=== PATIENT | female | born 1990 | race African-American/Black ===

== ENCOUNTER 2019-06-04 16:05 | Inpatient (IN) | payer SELFPAY ==
[2019-06-04] MEDS ORDERED: Haloperidol Lactate 5 MG/ML VIAL ONE (16:34)
[2019-06-04 16:51] LABS: #Lymphocytes 1.3 thou/uL (1.20-3.40); #Monocytes 0.4 thou/uL (0.11-0.59); %Basophils 0.1 % (0.0-1.0); %Eosinophils 0.1 % (0.0-10.0); %Lymphocytes 11.2 % (21.0-51.0); %Monocytes 3.5 % (0.0-10.0); %Neutrophils 85.1 % (42.0-75.0); Hemoglobin 12.3 g/dL (12.0-16.0); Mean Corpuscular HGB CONC 33.7 g/dL (32.0-36.0); Mean Corpuscular Hemoglobin 29.4 pg (27.0-31.0); Mean Corpuscular Volume 87.2 fL (78.0-98.0); Mean Platelet Volume 7.4 fL (7.4-10.4); Platelet Count 282 thou/uL (130-400); RBC Distribution Width 12.1 % (11.5-14.5); White Blood Cell (WBC) Count 11.7 thou/uL (4.8-10.8)
--- NOTE | 2019-06-04 16:58 | RAD ---
Portable frontal chest radiograph: 06/04/2019 COMPARISON: None HISTORY: Abdominal pain FINDINGS: Lungs are clear. Heart and mediastinal contours appear within normal limits. IMPRESSION: No acute findings.
[2019-06-04 17:22] LABS: ALT (SGPT) 12 U/L (8-55); Alkaline Phosphatase 80 U/L (40-110); BUN (Urea Nitrogen) 15 mg/dL (7.0-18.7); CK (CPK) 76 U/L (29-168)
[2019-06-04 17:23] LABS: AST (SGOT) 14 U/L (5-34); Albumin 5.1 g/dL (3.5-5.0); Anion Gap 28 mmol/L (10-20); Bilirubin, Total 0.4 mg/dL (0.2-1.2); Calc. Creatinine Clearance 0 mL/min (70-130); Calcium 9.8 mg/dL (7.8-10.44); Carbon Dioxide 15 mmol/L (22-29); Chloride 99 mmol/L (98-107); Estimated GFR-MDRD 65; Globulin 3.8 g/dL (2.4-3.5); Glucose 485 mg/dL (70-105); Potassium 3.9 mmol/L (3.5-5.1); Protein, Total 8.9 g/dL (6.0-8.3); Sodium 138 mmol/L (136-145)
[2019-06-04 17:56] LABS: Base Excess-Venous -4.8 mmol/L (-2.0 to 3.0); Bicarbonate (HCO3v) 18.8 mmol/L (22.0-28.0); CO2 Tension (PvCO2) 29.6 mmHg (40.0-50.0); Calcium, Ionized 0.99 mmol/L (See Comments:); Chloride 106 mmol/L (98-107); Hemoglobin - Calc 11.6 g/dL (12.0-16.0); Potassium 3.8 mmol/L (3.5-5.1); Sodium 137 mmol/L (138-145); T. Carbon Dioxide 19.7 mmol/L (22.0-28.0); vO2 Saturation-calc 95.5 % (60.0-85.0)
[2019-06-04] MEDS ORDERED: Insulin Regular 300 UNITS/3 ML VIAL ONE (17:58)
[2019-06-04 19:54] LABS: Bilirubin Negative (Negative); Blood, Urine Negative (Negative); Clarity Clear (Clear); Glucose, Urine (Dipstick) Greater than 1000 mg/dL (Negative); Leukocyte Negative Leu/uL (Negative); Nitrite Negative (Negative); Protein, Urine (Dipstick) Negative (Neg-Trace); Urobilinogen Normal mg/dL (Less than 2)
[2019-06-04 19:56] LABS: Pregnancy Test - Urine (BHCG) Negative (Negative); Pregu Control Background? CLEAR/WHITE (CLR/WHITE); Pregu Control Bar Appear? YES (CONTROL BAR); Specific Gravity 1.033 (1.002-1.036)
[2019-06-04] MEDS ORDERED: Insulin Regular 100 units/100 ml in NS IVPB SCH (20:00)
[2019-06-04] MEDS ORDERED: NS 0.9% w/ 20 MEQ KCL 1,000 ML IV SCH (20:15)
[2019-06-04] MEDS ORDERED: Dextrose 5 %-0.45 % NaCl 1,000 ML IV PRN (20:49)
[2019-06-04] MEDS ORDERED: D5 1/2 NS w/20 mEq KCL 1,000 ML IV PRN (20:49)
[2019-06-04] MEDS ORDERED: Sodium Chloride 0.9% 1,000 ML IV PRN ×4 (20:49)
[2019-06-04] MEDS ORDERED: NS 0.9% w/ 20 MEQ KCL 1,000 ML IV PRN ×2 (20:49)
[2019-06-04] MEDS ORDERED: CCU Electrolyte Replacement 1 EACH IVPB SCH (20:49)
[2019-06-04] MEDS ORDERED: Potassium Chloride 40 MEQ in Premix Bag 1 BAG IVPB PRN (20:51)
[2019-06-04] MEDS ORDERED: Potassium Phosphate 12 MMOL in Sodium Chloride 0.9% 250 ML 250 ML IV PRN (20:51)
[2019-06-04] MEDS ORDERED: Magnesium Oxide 400 MG TAB PO PRN ×2 (20:51)
[2019-06-04] MEDS ORDERED: Potassium Chloride 40 MEQ in Sodium Chloride 0.9% 250 ML 250 ML IVPB PRN (20:51)
[2019-06-04] MEDS ORDERED: Magnesium 2 GM/50 ML 2 GM in Premix Bag 1 BAG IVPB PRN (20:51)
[2019-06-04] MEDS ORDERED: Potassium Phosphate 9 MMOL in Sodium Chloride 0.9% 100 ML IVPB PRN (20:51)
[2019-06-04] MEDS ORDERED: Potassium Chloride 20 MEQ TAB PO PRN (20:51)
[2019-06-04] MEDS ORDERED: CCU ELECTROLYTE REPLACEMENT PROTOCOL FS PRN (20:51)
[2019-06-04] MEDS ORDERED: Potassium Phosphate 15 MMOL in Sodium Chloride 0.9% 250 ML 250 ML IV PRN (20:51)
[2019-06-04] MEDS ORDERED: PHOS-NAK 1 PKT PACK PO PRN ×2 (20:51)
[2019-06-04] MEDS ORDERED: HUMULIN R 100 UNITS in Sodium Chloride 0.9% 100 ML IVPB SCH (21:00)
--- NOTE | 2019-06-04 21:03 | PDOC.HHP ---
Hospitalist HPI - History of Present Illness Abdominal pain, nausea, vomiting History of Present Illness: Ms. Castro is a 28 y/o lady with PMH of T1DM who presents to the ED for abdominal pain/nausea/vomiting for the past 2 days. She states that she takes a sliding scale insulin at home but has been unable to check her blood sugars because she ran out of test strips. States that two days started developing diffuse abdominal pain, character is crampy/pressure like, timing has been intermittent, associated with nauea and vomiting. When inquiring about her diabetes management she states she has been admitted several times for DKA. She currently has complex social situation and lives with her friend's mother. In the ED, found to have blood sugar > 400, anion gap of 24, positive serum ketones and urine ketone > 150. She was started on insulin drip and giving 2L bolus of fluids. Hospitalist ROS - Review of Systems Constitutional: denies: fever, chills, sweats, weakness, malaise, other Eyes: denies: pain, vision change, conjunctivae inflammation, eyelid inflammation, redness, other ENT: denies: ear pain, ear discharge, nose pain, nose discharge, nose congestion , mouth pain, mouth swelling, throat pain, throat swelling, other Respiratory: denies: cough, dry, shortness of breath, hemoptysis, SOB with excertion, pleuritic pain, sputum, wheezing, other Cardiovascular: denies: chest pain, palpitations, orthopnea, paroxysmal noc. dyspnea, edema, light headedness, other Gastrointestinal: reports: nausea, vomiting, abdominal pain. denies: diarrhea, constipation, melena, hematochezia, other Genitourinary: denies: dysuria, frequency, incontinence, hematuria, retention, other Musculoskeletal: denies: neck pain, shoulder pain, arm pain, back pain, hand pain, leg pain, foot pain, other Skin: denies: rash, lesions, artur, bruising, other Neurological: denies: weakness, numbness, incoordination, change in speech, confusion, seizures, other - Medication Medications: Promethegan Shy Jun 04, 2019 17:47 NOEMI Muhammad Brandi suppository : Strength - 25 mg : RECTAL Patient Dose: 25 mg Rectal every 6 hours PRN. promethazine oral Shy Jun 04, 2019 17:48 NOEMI Muhammad Brandi tablet : Strength - 25 mg : ORAL Patient Dose: 25 mg Oral every 6 hours PRN. dicyclomine oral WedJun 04, 2019 20:00 NOEMI Muhammad Brandi capsule : Strength - 10 mg : ORAL Patient Dose: 10 mg every 4 hours prn. famotidine oral WedJun 04, 2019 20:02 NOEMI Muhammad Brandi tablet : Strength - 20 mg : ORAL Patient Dose: 20 mg Oral 2 times a day. gabapentin WedJun 04, 2019 20:02 NOEMI Muhammad Brandi tablet : Strength - 300 mg : ORAL Patient Dose: 300 mg Oral. HumuLIN 70/30 U-100 Insulin WedJun 04, 2019 20:04 NOEMI Muhammad Brandi cartridge : Strength - 100 unit/mL (70-30) : SUBCUTANEOUS Patient Dose: 25 units Subcutaneous once a day (before a meal).30 units once a day before dinner. insulin lispro WedJun 04, 2019 20:04 NOEMI Muhammad Brandi solution : Strength - 100 unit/mL : SUBCUTANEOUS Patient Dose: Unknown. pantoprazole oral WedJun 04, 2019 20:05 NOEMI Muhammad Brandi tablet,delayed release (DR/EC) : Strength - 40 mg : ORAL Patient Dose: 40 mg Oral once a day. QUEtiapine WedJun 04, 2019 20:06 NOEMI Muhammad Brandi tablet : Strength - 200 mg : ORAL Patient Dose: 200 mg Oral once a day (at bedtime). sertraline WedJun 04, 2019 20:06 NOEMI Muhammad Brandi tablet : Strength - 50 mg : ORAL Patient Dose: 1.5 tab(s) Oral once a day. sucralfate WedJun 04, 2019 20:07 NOEMI Muhammad Brandi tablet : Strength - 1 gram : ORAL Patient Dose: 1 g Oral. Hospitalist History - Past Medical History Cardiac: reports: no pertinent history Pulmonary: reports: no pertinent history FLIGHT SECURITY SPECIALIST: reports: no pertinent history Gastrointestinal: reports: no pertinent history Heme/Onc: reports: no pertinent history Hepatobiliary: reports: no pertinent history Psych: reports: Anxiety Musculoskeletal: reports: no pertinent history Rheumatologic: reports: no pertinent history Infectious Disease: reports: no pertinent history ENT: reports: no pertinent history Renal/: reports: no pertinent history Endocrine: reports: Diabetes Dermatology: reports: no pertinent history - Past Surgical History Past Surgical History: reports: Other (Lymph node removal in neck) - Family History Family History: reports: diabetes mellitus - Social History Smoking Status: Unknown if ever smoked Alcohol: reports: None Drugs: reports: marijuana Living Situation: Friends Activity level: independent ambulation - Exam General Appearance: NAD, awake alert, ill appearing Eye: PERRL, anicteric sclera ENT: normocephalic atraumatic, no oropharyngeal lesions, moist mucosa Neck: supple, symmetric, no JVD, no thyromegaly, no lymphadenopathy, no carotid bruit Heart: RRR, no murmur, no gallops, no rubs, normal peripheral pulses Respiratory: CTAB, no wheezes, no rales, no ronchi, normal chest expansion, no tachypnea, normal percussion Gastrointestinal: soft, non-distended, normal bowel sounds, no palpable masses, no hepatomegaly, no splenomegaly, no bruit, tender to palpation Extremities: no cyanosis, no clubbing, no edema Skin: normal turgor, no lesions, no rashes Neurological: cranial nerve grossly intact, normal sensation to touch, no weakness, no focal deficits, no new deficit Musculoskeletal: normal tone, normal strength, no muscle wasting Psychiatric: normal affect, normal behavior, A&O x 3 Hospitalist Results - Labs Result Diagrams: 06/04/19 16:40 06/04/19 19:59 Lab results: WBC 11.7 thou/uL (4.8-10.8) H 06/04/19 16:40 Hgb 12.3 g/dL (12.0-16.0) 06/04/19 16:40 Hct 36.6 % (36.0-47.0) 06/04/19 16:40 MCV 87.2 fL (78.0-98.0) 06/04/19 16:40 Plt Count 282 thou/uL (130-400) 06/04/19 16:40 Neutrophils % 85.1 % (42.0-75.0) H 06/04/19 16:40 VBG pCO2 29.6 mmHg (40.0-50.0) L 06/04/19 17:53 VBG pO2 76.4 mmHg (35.0-45.0) H 06/04/19 17:53 Sodium 138 mmol/L (136-145) 06/04/19 16:40 Potassium 3.9 mmol/L (3.5-5.1) 06/04/19 16:40 Chloride 99 mmol/L (98-107) 06/04/19 16:40 Carbon Dioxide 15 mmol/L (22-29) L 06/04/19 16:40 BUN 15 mg/dL (7.0-18.7) 06/04/19 16:40 Creatinine 1.21 mg/dL (0.6-1.1) H 06/04/19 16:40 Glucose 485 mg/dL (70-105) H 06/04/19 16:40 Calcium 9.8 mg/dL (7.8-10.44) 06/04/19 16:40 Total Bilirubin 0.4 mg/dL (0.2-1.2) 06/04/19 16:40 AST 14 U/L (5-34) 06/04/19 16:40 ALT 12 U/L (8-55) 06/04/19 16:40 Alkaline Phosphatase 80 U/L (40-110) 06/04/19 16:40 Creatine Kinase 76 U/L (29-168) 06/04/19 16:40 Troponin I 0.024 ng/mL (< 0.028) 06/04/19 16:40 Serum Total Protein 8.9 g/dL (6.0-8.3) H 06/04/19 16:40 Albumin 5.1 g/dL (3.5-5.0) H 06/04/19 16:40 Urine Ketones Greater than 150 mg/dL (Negative) A 06/04/19 19:36 Urine Blood Negative (Negative) 06/04/19 19:36 Urine Nitrite Negative (Negative) 06/04/19 19:36 Ur Leukocyte Esterase Negative Roxy/uL (Negative) 06/04/19 19:36 Additional comment: VITAL SIGNS Sun Jun 04, 2019 20:09 NOEMI Muhammad, Daysi BP: 146/92, Pulse: 133, Resp: 16, Temp: 98.7, O2 sat: 99, Time: 06/04/2019 20: 09. - Radiology Interpretation Chest x-ray Status: report reviewed by me Hospitalist H&P A/P - Problem (1) Diabetic ketoacidosis Code(s): E11.10 - TYPE 2 DIABETES MELLITUS WITH KETOACIDOSIS WITHOUT COMA Status: Acute (2) Type 1 diabetes mellitus Status: Chronic (3) Diabetic peripheral neuropathy Code(s): E11.42 - TYPE 2 DIABETES MELLITUS WITH DIABETIC POLYNEUROPATHY Status : Chronic (4) Anxiety and depression Code(s): F41.9 - ANXIETY DISORDER, UNSPECIFIED; F32.9 - MAJOR DEPRESSIVE DISORDER, SINGLE EPISODE, UNSPECIFIED Status: Chronic - Plan Plan: Admit to IMCU for DKA IV Insulin, DKA protocol in place NS bolus given 2L Monitor BMP q4hr, replete phos, mag, potassium as per protocol Resume home medications when reconciled DVT Prophylaxis: SCDs Code status: Full Code Disposition: Admit IMCU. Management of DKA. Once gap is closed can transition to insulin.
[2019-06-04 21:06] LABS: Anion Gap 21 mmol/L (10-20); BUN (Urea Nitrogen) 13 mg/dL (7.0-18.7); Calc. Creatinine Clearance 0 mL/min (70-130); Calcium 8.9 mg/dL (7.8-10.44); Carbon Dioxide 18 mmol/L (22-29); Chloride 108 mmol/L (98-107); Estimated GFR-MDRD 80; Glucose 275 mg/dL (70-105); Magnesium 1.8 mg/dL (1.6-2.6); Phosphorus 3.3 mg/dL (2.3-4.7); Potassium 3.9 mmol/L (3.5-5.1); Sodium 143 mmol/L (136-145)
[2019-06-05 01:24] LABS: Anion Gap 11 mmol/L (10-20); BUN (Urea Nitrogen) 13 mg/dL (7.0-18.7); Calc. Creatinine Clearance 0 mL/min (70-130); Calcium 8.2 mg/dL (7.8-10.44); Carbon Dioxide 22 mmol/L (22-29); Chloride 115 mmol/L (98-107); Estimated GFR-MDRD Greater than 90; Glucose 161 mg/dL (70-105); Potassium 3.9 mmol/L (3.5-5.1); Sodium 144 mmol/L (136-145)
[2019-06-05] MEDS ORDERED: Ondansetron PF 4 MG/2 ML Vial IVP PRN ×2 (01:26→13:12)
[2019-06-05] MEDS ORDERED: Ondansetron ODT 4 MG TAB SL PRN (01:26)
[2019-06-05] MEDS ORDERED: Haloperidol Lactate 5 MG/ML VIAL SLOW IVP PRN (01:37)
[2019-06-05 04:16] LABS: Anion Gap 16 mmol/L (10-20); BUN (Urea Nitrogen) 12 mg/dL (7.0-18.7); Calc. Creatinine Clearance 0 mL/min (70-130); Calcium 8.6 mg/dL (7.8-10.44); Carbon Dioxide 18 mmol/L (22-29); Chloride 112 mmol/L (98-107); Estimated GFR-MDRD Greater than 90; Glucose 194 mg/dL (70-105); Potassium 3.8 mmol/L (3.5-5.1); Sodium 142 mmol/L (136-145)
[2019-06-05 08:50] LABS: Anion Gap 8 mmol/L (10-20); BUN (Urea Nitrogen) 9 mg/dL (7.0-18.7); Calc. Creatinine Clearance 0 mL/min (70-130); Calcium 7.9 mg/dL (7.8-10.44); Carbon Dioxide 22 mmol/L (22-29); Chloride 113 mmol/L (98-107); Estimated GFR-MDRD Greater than 90; Glucose 240 mg/dL (70-105); Sodium 139 mmol/L (136-145)
[2019-06-05] MEDS ORDERED: HumaLOG 300 UNITS/3 ML VIAL SC PRN (10:21)
[2019-06-05] MEDS ORDERED: Dextrose 5% in Water 1,000 ML IV PRN (10:21)
[2019-06-05] MEDS ORDERED: Dextrose 50 % In Water 50 ML SYRINGE IV PRN (10:21)
[2019-06-05] MEDS ORDERED: Insulin Glargine 20 UNITS in Pre-Filled Syringe 1 EACH SC SCH (10:30)
--- NOTE | 2019-06-05 10:31 | PDOC.HOSPP ---
- Subjective Encounter Date: 06/05/19 Subjective: Gap is closed this morning. She was reportedly agitated at night and received haldol. She continues to have abdominal pain this morning but is feeling a bit more hungry. - Objective Vital Signs & Weight: Vital Signs (12 hours) Temp Pulse Ox 06/05/19 10:24 98.3 F 06/05/19 07:57 99 06/05/19 07:15 98.3 F 06/05/19 03:17 97.9 F I&O: 06/04/19 06/05/19 06/06/19 06:59 06:59 06:59 Intake Total 1250 250 Balance 1250 250 Result Diagrams: 06/05/19 18:08 06/05/19 08:22 Additional Labs: Accuchecks 06/05/19 06/05/19 06/05/19 10:07 09:04 08:14 POC Glucose 190 H 216 H 237 H 06/05/19 06/05/19 06/05/19 07:20 07:00 05:59 POC Glucose 249 H 271 H 249 H 06/05/19 06/05/19 06/05/19 05:02 04:17 03:01 POC Glucose 266 H 225 H 171 H 06/05/19 06/05/19 06/04/19 02:05 00:29 23:21 POC Glucose 139 H 168 H 182 H 06/04/19 06/04/19 06/04/19 22:10 21:05 19:11 POC Glucose 230 H 291 H 300 H Hospitalist ROS - Review of Systems Constitutional: denies: fever, chills, sweats, weakness, malaise, other Eyes: denies: pain, vision change, conjunctivae inflammation, eyelid inflammation, redness, other ENT: denies: ear pain, ear discharge, nose pain, nose discharge, nose congestion , mouth pain, mouth swelling, throat pain, throat swelling, other Respiratory: denies: cough, dry, shortness of breath, hemoptysis, SOB with excertion, pleuritic pain, sputum, wheezing, other Cardiovascular: denies: chest pain, palpitations, orthopnea, paroxysmal noc. dyspnea, edema, light headedness, other Gastrointestinal: reports: abdominal pain. denies: nausea, vomiting, diarrhea, constipation, melena, hematochezia, other Genitourinary: denies: dysuria, frequency, incontinence, hematuria, retention, other Musculoskeletal: denies: neck pain, shoulder pain, arm pain, back pain, hand pain, leg pain, foot pain, other Skin: denies: rash, lesions, artur, bruising, other Neurological: denies: weakness, numbness, incoordination, change in speech, confusion, seizures, other - Medication Medications: Active Medications Generic Name Dose Route Start Last Admin Trade Name Freq PRN Reason Stop Dose Admin Potassium Chloride/Dextrose/Sod Cl 1,000 mls @ 250 mls/hr 06/04/19 20:49 00:01 D5 1/2 Ns W/20 Meq Kcl IV 1,000 mls .Q4H PRN Administration Step 4 of DKA Protocol Protocol - Exam General Appearance: NAD, awake alert Eye: PERRL, anicteric sclera ENT: normocephalic atraumatic, no oropharyngeal lesions, moist mucosa Neck: supple, symmetric, no JVD, no thyromegaly, no lymphadenopathy, no carotid bruit Heart: RRR, no murmur, no gallops, no rubs, normal peripheral pulses Respiratory: CTAB, no wheezes, no rales, no ronchi, normal chest expansion, no tachypnea, normal percussion Gastrointestinal: soft, non-tender, non-distended, normal bowel sounds, no palpable masses, no hepatomegaly, no splenomegaly, no bruit Extremities: no cyanosis, no clubbing, no edema Skin: normal turgor, no lesions, no rashes Neurological: cranial nerve grossly intact, normal sensation to touch, no weakness, no focal deficits, no new deficit Musculoskeletal: normal tone, normal strength, no muscle wasting Psychiatric: normal affect, normal behavior, A&O x 3 Hosp A/P (1) Diabetic ketoacidosis Code(s): E11.10 - TYPE 2 DIABETES MELLITUS WITH KETOACIDOSIS WITHOUT COMA Status: Acute Plan: Gap closed, transition to 20u Glargine and HumaLog 5u TID AC with medium dose sliding scale. (2) Type 1 diabetes mellitus Status: Chronic Plan: As above. Continue BSG q4hr for now. (3) Diabetic peripheral neuropathy Code(s): E11.42 - TYPE 2 DIABETES MELLITUS WITH DIABETIC POLYNEUROPATHY Status : Chronic Plan: Restart home gabapentin (4) Anxiety and depression Code(s): F41.9 - ANXIETY DISORDER, UNSPECIFIED; F32.9 - MAJOR DEPRESSIVE DISORDER, SINGLE EPISODE, UNSPECIFIED Status: Chronic Plan: Restart home seroquel, sertraline, and trazodone HS (5) Abdominal pain Code(s): R10.9 - UNSPECIFIED ABDOMINAL PAIN Status: Acute Plan: CT abdomen unremarkable, she is refusing her home prokinetics, i suspect she has gastroparesis, Reglan to be given today.
[2019-06-05] MEDS: Sucralfate 1 GM TAB PO SCH ×3 (11:50→22:11)
[2019-06-05] MEDS ORDERED: Promethazine 25 MG TAB PO PRN (13:14)
[2019-06-05] MEDS: Morphine 2 MG/ML SYRINGE SLOW IVP PRN ×2 (13:22→22:07)
--- NOTE | 2019-06-05 13:27 | RAD ---
EXAM: XR Abdomen 1 View/KUB PROVIDED CLINICAL HISTORY: Abdominal pain for COMPARISON: None FINDINGS: Limited visualized lung bases are clear. Bowel gas pattern is nonspecific. Multiple lucent centered c alcifications overlie the pelvis bilaterally most suggestive of phleboliths. No suspicious calcifications are seen overlying the expected location of either collecting system or along the cour se of either ureter. Osseous structures have a normal appearance. IMPRESSION: Nonspecific bowel gas pattern.
[2019-06-05] MEDS: HumaLOG 300 UNITS/3 ML VIAL SC SCH ×2 (16:02→17:24)
[2019-06-05] MEDS: Gabapentin 300 MG CAP PO SCH ×2 (16:03→22:11)
[2019-06-05] MEDS ORDERED: Morphine 4 MG/ML VIAL SLOW IVP PRN (16:49)
--- NOTE | 2019-06-05 17:12 | CT ---
EXAM: CT abdomen and pelvis without IV contrast PROVIDED CLINICAL HISTORY: Pain COMPARISON: 06/03/2019 FINDINGS: The visualized lung bases are free of significant opacity. The solid abdominal organs demonstrate an unremarkable unenhanced CT appearance. There is no bowel dilatation, inflammatory fat stranding, free fluid or free air apparent. There is n o evidence for appendicitis. Marked distention of the urinary bladder. No regional lymph node enlargement apparent. The regional major vascular structures appear unremarkab le. The osseous structures demonstrate no concerning lytic or blastic lesions. IMPRESSION: No evidence for an acute process.
[2019-06-05 18:15] LABS: #Lymphocytes 1.5 thou/uL (1.20-3.40); #Monocytes 0.5 thou/uL (0.11-0.59); #Neutrophils 10.9 thou/uL (1.40-6.50); %Basophils 0.3 % (0.0-1.0); %Eosinophils 0.1 % (0.0-10.0); %Lymphocytes 11.2 % (21.0-51.0); %Monocytes 4.1 % (0.0-10.0); %Neutrophils 84.3 % (42.0-75.0); Hemoglobin 10.5 g/dL (12.0-16.0); Mean Corpuscular HGB CONC 32.2 g/dL (32.0-36.0); Mean Platelet Volume 7.1 fL (7.4-10.4); Platelet Count 258 thou/uL (130-400); RBC Distribution Width 12.3 % (11.5-14.5); Red Blood Cell (RBC) Count 3.64 mill/uL (4.20-5.40); White Blood Cell (WBC) Count 12.9 thou/uL (4.8-10.8)
[2019-06-05 18:34] LABS: Lactic Acid 1.8 mmol/L (0.5-2.2)
[2019-06-05] MEDS ORDERED: Metoclopramide HCl 10 MG/2 ML VIAL IVP SCH (19:15)
[2019-06-05] MEDS: Famotidine 20 MG TAB PO SCH (22:12)
[2019-06-05] MEDS: traZODone HCl 50 MG TAB PO SCH (22:12)
[2019-06-05] MEDS: Dicyclomine 10 MG CAP PO PRN (22:12)
[2019-06-06 04:16] LABS: Anion Gap 9 mmol/L (10-20); BUN (Urea Nitrogen) 6 mg/dL (7.0-18.7); Calc. Creatinine Clearance 111 mL/min (70-130); Calcium 8.1 mg/dL (7.8-10.44); Carbon Dioxide 23 mmol/L (22-29); Chloride 108 mmol/L (98-107); Estimated GFR-MDRD Greater than 90; Glucose 240 mg/dL (70-105); Potassium 3.6 mmol/L (3.5-5.1); Sodium 136 mmol/L (136-145)
[2019-06-06] MEDS: Morphine 2 MG/ML SYRINGE SLOW IVP PRN ×4 (07:22→21:20)
[2019-06-06] MEDS: HumaLOG 300 UNITS/3 ML VIAL SC SCH ×3 (07:23→16:52)
--- NOTE | 2019-06-06 08:28 | PDOC.HOSPP ---
- Subjective Subjective: Continues with abdominal pain, specifially epigastric. She remains tachycardic due to the pain. She says the morphine does help. Otherwise no other complaints overnight. - Objective Vital Signs & Weight: Vital Signs (12 hours) Temp 06/06/19 07:31 99.0 F 06/06/19 03:28 98.0 F 06/06/19 00:04 99.0 F Weight Weight 130 lb Most Recent Monitor Data Heart Rate from ECG 111 NIBP 179/114 NIBP BP-Mean 135 Respiration from ECG 19 SpO2 99 I&O: 06/05/19 06/06/19 06/07/19 06:59 06:59 06:59 Intake Total 1250 310 Balance 1250 310 Result Diagrams: 06/05/19 18:08 06/06/19 03:35 Additional Labs: Accuchecks 06/06/19 06/06/19 06/05/19 06:00 00:12 20:15 POC Glucose 218 H 213 H 155 H 06/05/19 06/05/19 06/05/19 16:06 12:03 11:05 POC Glucose 216 H 116 H 148 H 06/05/19 06/05/19 10:07 09:04 POC Glucose 190 H 216 H Hospitalist ROS - Review of Systems ENT: denies: ear pain, ear discharge, nose pain, nose discharge, nose congestion , mouth pain, mouth swelling, throat pain, throat swelling, other Respiratory: denies: cough, dry, shortness of breath, hemoptysis, SOB with excertion, pleuritic pain, sputum, wheezing, other Cardiovascular: denies: chest pain, palpitations, orthopnea, paroxysmal noc. dyspnea, edema, light headedness, other Gastrointestinal: reports: nausea, abdominal pain. denies: vomiting, diarrhea, constipation, melena, hematochezia, other Neurological: denies: weakness, numbness, incoordination, change in speech, confusion, seizures, other - Medication Medications: Active Medications Generic Name Dose Route Start Last Admin Trade Name Freq PRN Reason Stop Dose Admin Dicyclomine HCl 10 mg 06/05/19 10:25 06/05/19 22:12 Bentyl PO 10 mg Q6H PRN Administration GI Upset Famotidine 20 mg 06/05/19 21:00 06/05/19 22:12 Pepcid PO 20 mg BID RYANN Administration Gabapentin 300 mg 06/05/19 15:00 06/05/19 22:11 Neurontin PO 300 mg TID RYANN Administration Potassium Chloride/Dextrose/Sod Cl 1,000 mls @ 250 mls/hr 06/04/19 20:49 00:01 D5 1/2 Ns W/20 Meq Kcl IV 1,000 mls .Q4H PRN Administration Step 4 of DKA Protocol Protocol Insulin Human Lispro 5 units 06/06/19 08:00 06/06/19 07:23 Humalog SC 5 unit 0800 RYANN Administration Insulin Human Lispro 5 units 06/05/19 12:00 06/05/19 16:02 Humalog SC Not Given 1200 RYANN Insulin Human Lispro 5 units 06/05/19 17:00 06/05/19 17:24 Humalog SC 5 unit 1700 RYANN Administration Insulin Human Lispro 0 units 06/05/19 10:21 06/06/19 07:23 Humalog SC 4 unit .MODERATE SLIDING SC PRN Administration Moderate Correctional Scale Morphine Sulfate 2 mg 06/05/19 13:12 06/06/19 07:22 Morphine SLOW IVP 2 mg Q2H PRN Administration Moderate Pain (4-6) Morphine Sulfate 4 mg 06/05/19 16:49 06/05/19 17:23 Morphine SLOW IVP 4 mg Q2H PRN Administration Severe Pain (7-10) Promethazine HCl 25 mg 06/05/19 13:14 06/05/19 13:22 Phenergan PO 25 mg Q6H PRN Administration Nausea Quetiapine Fumarate 200 mg 06/05/19 21:00 06/05/19 22:12 Seroquel PO 200 mg HS RYANN Administration Sodium Chloride 10 ml 06/05/19 09:00 06/05/19 22:29 Flush - Normal Saline IVF 10 ml Q12HR RYANN Administration Sucralfate 1 gm 06/05/19 11:30 06/05/19 22:11 Carafate PO 1 gm ACHS RYANN Administration Trazodone HCl 100 mg 06/05/19 21:00 06/05/19 22:12 Desyrel PO 100 mg HS RYANN Administration - Exam General Appearance: NAD, awake alert General - other findings: Uncomfortable due to pain Eye: PERRL, anicteric sclera ENT: normocephalic atraumatic, no oropharyngeal lesions, moist mucosa Neck: supple, symmetric, no JVD, no thyromegaly, no lymphadenopathy, no carotid bruit Heart: RRR, no murmur, no gallops, no rubs, normal peripheral pulses Respiratory: CTAB, no wheezes, no rales, no ronchi, normal chest expansion, no tachypnea, normal percussion Gastrointestinal: soft, non-distended, normal bowel sounds, no palpable masses, no hepatomegaly, no splenomegaly, no bruit, tender to palpation Gastrointestinal - other findings: epigastric tenderness Extremities: no cyanosis, no clubbing, no edema Skin: normal turgor, no lesions, no rashes Neurological: cranial nerve grossly intact, normal sensation to touch, no weakness, no focal deficits, no new deficit Musculoskeletal: normal tone, normal strength, no muscle wasting Psychiatric: normal affect, normal behavior, A&O x 3 Hosp A/P (1) Diabetic ketoacidosis Code(s): E11.10 - TYPE 2 DIABETES MELLITUS WITH KETOACIDOSIS WITHOUT COMA Status: Acute (2) Type 1 diabetes mellitus Status: Chronic (3) Diabetic peripheral neuropathy Code(s): E11.42 - TYPE 2 DIABETES MELLITUS WITH DIABETIC POLYNEUROPATHY Status : Chronic (4) Anxiety and depression Code(s): F41.9 - ANXIETY DISORDER, UNSPECIFIED; F32.9 - MAJOR DEPRESSIVE DISORDER, SINGLE EPISODE, UNSPECIFIED Status: Chronic (5) Abdominal pain Code(s): R10.9 - UNSPECIFIED ABDOMINAL PAIN Status: Acute - Plan Increase lantus to 25u and continue Lispro 5U TID AC Workup of epigastric abdominal pain unremarkable so far, CT abdomen negative, Troponin and EKG unremarkable Possible worsening gastroparesis/GOO, will obtain gastric empyting scan and consult GI physician Continue Morphine PRN for pain Pheregan PRN for vomiting Continue her home sertraline and seroquel Continue home bentanyl Continue gabapentin from home Will continue to monitor in IMCU due to tachycardia Disposition: Gap glosed. BSG stable. Workup of persistent abdominal pain ongoing.
[2019-06-06] MEDS ORDERED: Insulin Glargine 20 UNITS in Pre-Filled Syringe 1 EACH SC SCH (09:00)
[2019-06-06] MEDS ORDERED: Insulin Glargine 25 UNITS in Pre-Filled Syringe 1 EACH SC SCH (12:00)
[2019-06-06] MEDS: Metoclopramide HCl 10 MG/2 ML VIAL IVP SCH ×2 (12:05→21:20)
[2019-06-06] MEDS: Sucralfate 1 GM TAB PO SCH ×5 (12:06→21:21)
[2019-06-06] MEDS: Gabapentin 300 MG CAP PO SCH ×4 (12:06→21:21)
[2019-06-06] MEDS: Famotidine 20 MG TAB PO SCH ×3 (12:06→21:22)
--- NOTE | 2019-06-06 13:13 | CON ---
DATE OF CONSULTATION: 06/06/2019 REQUESTING PHYSICIAN: David Juarez MD REASON FOR CONSULTATION: Epigastric pain. HISTORY OF PRESENT ILLNESS: Yumi Castro is a 28-year-old woman. She has a history of diabetes type 1, on insulin, but with complications of peripheral neuropathy. She is quite sleepy from medications this afternoon, so she is not giving me a lot of details of her history. She says she underwent some GI workup over a year ago in the [facility], which possibly included imaging, an EGD, and maybe a gastric emptying study. She cannot recall any EGD findings, but does not think she was diagnosed with any ulcer disease. She thinks she may have been told she had gastroparesis but does not believe she was ever treated specifically for this. She recalls having received Reglan in the past on an outpatient basis, maybe with some efficacy for chronic symptoms, but she has not had this recently. At any rate, she was admitted to the hospital two days ago, presenting with two days of diffuse abdominal pain, nausea, and vomiting. She was found to be in DKA with an anion gap of 24, blood glucose greater than 400, positive serum ketones, beta hydroxybutyrate 5.32. She has been treated with IV fluid and electrolyte resuscitation as well as insulin drip and over the past couple of days, her anion gap has closed. Laboratory studies are favorable; however, unfortunately the patient has continued to complain of severe diffuse abdominal pain and nausea, though no further vomiting. She has been receiving morphine, which she says helps a bit. Notably, she is on acid suppression with Protonix as well as sucralfate on an outpatient basis. CT and plain film abdominal and chest imaging has been negative. REVIEW OF SYSTEMS: Full review of systems including constitutional, head, eyes, ears, nose, throat, GI, , cardiovascular, respiratory, musculoskeletal, neurologic systems is negative except as noted in the HPI. ALLERGIES: NO KNOWN DRUG ALLERGIES. HOME MEDICATIONS: 1. Dicyclomine 10 mg q.6 hours p.r.n. 2. Seroquel 200 mg p.o. at bedtime. 3. Famotidine 20 mg p.o. b.i.d. 4. Pantoprazole 40 mg p.o. daily. 5. Trazodone 100 mg p.o. at bedtime. 6. Sucralfate 1 g p.o. q.6 hours. 7. Sertraline 75 mg p.o. daily. 8. Gabapentin 300 mg p.o. t.i.d. 9. Promethazine 25 mg p.o. q.6 hours p.r.n. FAMILY HISTORY: Positive for diabetes. SOCIAL HISTORY: She has used marijuana. No alcohol. Currently living with friends. PHYSICAL EXAMINATION: VITAL SIGNS: Temperature 99.0, pulse 111, blood pressure 179/114, 99% oxygen saturation on room air. GENERAL: A 28-year-old woman, sleepy but arousable. No acute distress. SKIN: No jaundice, no rashes were palpable. HEENT: Eyes no scleral icterus. Extraocular movements intact. ENT, mucous membranes moist. No oral lesions. LYMPH: No submandibular, supraclavicular lymphadenopathy. Thyroid nontender to palpation. HEART: Irregular, tachycardia. LUNGS: Clear to auscultation bilaterally. ABDOMEN: Bowel sounds present. Soft. Diffusely tender to palpation, but no guarding, rebound tenderness. EXTREMITIES: No peripheral edema. VESSELS: Radial pulses 2+ bilaterally. NEURO: Cranial nerves 2-12 intact bilaterally. No focal deficits. LABORATORY STUDIES: WBC 12.9, hemoglobin 10.5, platelets 258, MCV 90. Sodium 136, potassium 3.6, BUN 9, creatinine 0.71, glucose 218, calcium 8.1. Troponin negative. Lactic acid 1.8. FOBT negative. Urine test negative. Urinalysis negative. Beta hydroxybutyrate initially 5.32, now down to 0.4. LFTs all normal with total bilirubin 0.4, alkaline phosphatase 80, AST 14, ALT 12, albumin 5.1. Lactic acid 1.8. Troponin negative. IMAGING STUDIES: Chest x-ray showed no acute processes. Abdominal x-ray negative. CT abdomen/pelvis performed yesterday showed no acute processes. Her urinary bladder was distended but normal solid and hollow organs on that noncontrast exam. ASSESSMENT AND PLAN: 1. Generalized abdominal pain, particularly epigastric pain. 2. Chronic nausea. 3. Diabetes type 1 with peripheral neuropathy. 4. History of marijuana use. I discussed a broad differential for the patient's symptoms. The abdominal pain and nausea persisted despite closing the anion gap. I agree that gastroparesis would lead the differential. She was unable to complete a gastric emptying scan today and this would really be of limited utility in the acute setting anyway as the patient has been receiving morphine. We discussed further evaluation should include EGD and we can plan for that tomorrow morning. In the meantime, I think it would be reasonable to trial her on metoclopramide. We will try a low dose with 5 mg IV q.8 hours for now. Consider also the possibility of cannabinoid hyperemesis syndrome. We will check urine drug screen. Planning for EGD tomorrow. Further recommendations following endoscopy. Job ID: [id number]
[2019-06-06] MEDS: traZODone HCl 50 MG TAB PO SCH (21:22)
[2019-06-07 04:13] LABS: #Basophils 0.1 thou/uL (0.0-0.2); #Eosinphils 0.1 thou/uL (0.0-0.7); #Lymphocytes 3.4 thou/uL (1.20-3.40); #Monocytes 0.6 thou/uL (0.11-0.59); #Neutrophils 3.4 thou/uL (1.40-6.50); %Eosinophils 0.7 % (0.0-10.0); %Lymphocytes 45.2 % (21.0-51.0); %Monocytes 8.4 % (0.0-10.0); %Neutrophils 44.7 % (42.0-75.0); Hemoglobin 10.1 g/dL (12.0-16.0); Mean Corpuscular HGB CONC 33.7 g/dL (32.0-36.0); Mean Corpuscular Hemoglobin 30.1 pg (27.0-31.0); Mean Corpuscular Volume 89.4 fL (78.0-98.0); Mean Platelet Volume 8.2 fL (7.4-10.4); Platelet Count 176 thou/uL (130-400); RBC Distribution Width 12.2 % (11.5-14.5); Red Blood Cell (RBC) Count 3.34 mill/uL (4.20-5.40); White Blood Cell (WBC) Count 7.6 thou/uL (4.8-10.8)
[2019-06-07 04:24] LABS: Anion Gap 14 mmol/L (10-20); BUN (Urea Nitrogen) 8 mg/dL (7.0-18.7); Calc. Creatinine Clearance 114 mL/min (70-130); Calcium 8.2 mg/dL (7.8-10.44); Carbon Dioxide 21 mmol/L (22-29); Chloride 105 mmol/L (98-107); Estimated GFR-MDRD Greater than 90; Glucose 162 mg/dL (70-105); Lipase 7 U/L (8-78); Potassium 3.2 mmol/L (3.5-5.1); Sodium 137 mmol/L (136-145)
[2019-06-07] MEDS: Metoclopramide HCl 10 MG/2 ML VIAL IVP SCH ×3 (07:52→22:17)
--- NOTE | 2019-06-07 09:28 | EKG ---
Test Reason : Blood Pressure : / mmHG Vent. Rate : 104 BPM Atrial Rate : 104 BPM P-R Int : 142 ms QRS Dur : 084 ms QT Int : 344 ms P-R-T Axes : 053 056 066 degrees QTc Int : 452 ms Sinus tachycardia Possible Left atrial enlargement Nonspecific T wave abnormality Abnormal ECG No previous ECGs available Confirmed by DR. Dea GREEN ([id number]) on 06/07/2019 9:27:41 AM Referred By: ALEYDA Confirmed By:DR. Dea GREEN
--- NOTE | 2019-06-07 09:44 | PDOC.HOSPP ---
- Subjective Subjective: Continues with 7/10 abdominal pain. No nausea or vomiting at night. No fever or chills reported. - Objective Vital Signs & Weight: Vital Signs (12 hours) Temp Pulse Ox 06/07/19 08:00 100 06/07/19 07:14 97.8 F 06/07/19 04:18 98.1 F Weight Weight 130 lb Most Recent Monitor Data Heart Rate from ECG 82 NIBP 111/74 NIBP BP-Mean 86 Respiration from ECG 16 SpO2 100 I&O: 06/06/19 06/07/19 06/08/19 06:59 06:59 06:59 Intake Total 310 360 Balance 310 360 Result Diagrams: 06/07/19 03:45 06/07/19 03:45 Additional Labs: Accuchecks 06/07/19 06/06/19 06/06/19 06:35 20:20 16:11 POC Glucose 138 H 156 H 178 H 06/06/19 06/06/19 12:15 08:24 POC Glucose 116 H 211 H Hospitalist ROS - Review of Systems Constitutional: denies: fever, chills, sweats, weakness, malaise, other Respiratory: denies: cough, dry, shortness of breath, hemoptysis, SOB with excertion, pleuritic pain, sputum, wheezing, other Cardiovascular: denies: chest pain, palpitations, orthopnea, paroxysmal noc. dyspnea, edema, light headedness, other Gastrointestinal: reports: abdominal pain. denies: nausea, vomiting, diarrhea, constipation, melena, hematochezia, other - Medication Medications: Active Medications Generic Name Dose Route Start Last Admin Trade Name Shawnq PRN Reason Stop Dose Admin Dicyclomine HCl 10 mg 06/05/19 10:25 06/05/19 22:12 Bentyl PO 10 mg Q6H PRN Administration GI Upset Famotidine 20 mg 06/05/19 21:00 06/06/19 21:22 Pepcid PO 20 mg BID RYANN Administration Gabapentin 300 mg 06/05/19 15:00 06/06/19 21:21 Neurontin PO 300 mg TID RYANN Administration Potassium Chloride/Dextrose/Sod Cl 1,000 mls @ 250 mls/hr 06/04/19 20:49 00:01 D5 1/2 Ns W/20 Meq Kcl IV 1,000 mls .Q4H PRN Administration Step 4 of DKA Protocol Protocol Insulin Human Lispro 5 units 06/06/19 08:00 06/06/19 07:23 Humalog SC 5 unit 0800 RYANN Administration Insulin Human Lispro 5 units 06/05/19 12:00 06/06/19 12:13 Humalog SC Not Given 1200 RYANN Insulin Human Lispro 5 units 06/05/19 17:00 06/06/19 16:52 Humalog SC Not Given 1700 RYANN Insulin Human Lispro 0 units 06/05/19 10:21 06/06/19 07:23 Humalog SC 4 unit .MODERATE SLIDING SC PRN Administration Moderate Correctional Scale Metoclopramide HCl 5 mg 06/06/19 14:00 06/07/19 07:52 Reglan IVP 5 mg Q8HR RYANN Administration Morphine Sulfate 2 mg 06/05/19 13:12 06/06/19 21:20 Morphine SLOW IVP 2 mg Q2H PRN Administration Moderate Pain (4-6) Morphine Sulfate 4 mg 06/05/19 16:49 06/05/19 17:23 Morphine SLOW IVP 4 mg Q2H PRN Administration Severe Pain (7-10) Pantoprazole Sodium 40 mg 06/06/19 09:00 06/06/19 12:16 Protonix PO Not Given DAILY RYANN Quetiapine Fumarate 200 mg 06/05/19 21:00 06/06/19 21:21 Seroquel PO 200 mg HS RYANN Administration Sertraline HCl 75 mg 06/06/19 09:00 06/06/19 12:06 Zoloft PO 75 mg DAILY RYANN Administration Sodium Chloride 10 ml 06/05/19 09:00 06/06/19 21:22 Flush - Normal Saline IVF 10 ml Q12HR RYANN Administration Sucralfate 1 gm 06/05/19 11:30 06/06/19 21:21 Carafate PO 1 gm ACHS RYANN Administration Trazodone HCl 100 mg 06/05/19 21:00 06/06/19 21:22 Desyrel PO 100 mg HS RYANN Administration - Exam General Appearance: NAD, awake alert Eye: PERRL, anicteric sclera ENT: normocephalic atraumatic, no oropharyngeal lesions, moist mucosa Neck: supple, symmetric, no JVD, no thyromegaly, no lymphadenopathy, no carotid bruit Heart: RRR, no murmur, no gallops, no rubs, normal peripheral pulses Respiratory: CTAB, no wheezes, no rales, no ronchi, normal chest expansion, no tachypnea, normal percussion Gastrointestinal: soft, non-distended, normal bowel sounds, no palpable masses, no hepatomegaly, no splenomegaly, no bruit, tender to palpation (epigastric area ) Extremities: no cyanosis, no clubbing, no edema Skin: normal turgor, no lesions, no rashes Neurological: cranial nerve grossly intact, normal sensation to touch, no weakness, no focal deficits, no new deficit Musculoskeletal: normal tone, normal strength, no muscle wasting Psychiatric: normal affect, A&O x 3, flat affect, somnolent Hosp A/P (1) Diabetic ketoacidosis Code(s): E11.10 - TYPE 2 DIABETES MELLITUS WITH KETOACIDOSIS WITHOUT COMA Status: Acute (2) Type 1 diabetes mellitus Status: Chronic (3) Diabetic peripheral neuropathy Code(s): E11.42 - TYPE 2 DIABETES MELLITUS WITH DIABETIC POLYNEUROPATHY Status : Chronic (4) Anxiety and depression Code(s): F41.9 - ANXIETY DISORDER, UNSPECIFIED; F32.9 - MAJOR DEPRESSIVE DISORDER, SINGLE EPISODE, UNSPECIFIED Status: Chronic (5) Abdominal pain Code(s): R10.9 - UNSPECIFIED ABDOMINAL PAIN Status: Acute - Plan Continue lantus to 25u and continue Lispro 5U TID AC Workup of epigastric abdominal pain unremarkable so far, CT abdomen negative, Troponin and EKG unremarkable Possible worsening gastroparesis/GOO, gastric emptying scan unable to be obtaine GI to plan for EGD today Continue Morphine PRN for pain Pheregan PRN for vomiting Continue her home sertraline and seroquel Continue home bentanyl Continue gabapentin from home Will continue to monitor in IMCU due to tachycardia Disposition: Gap glosed. BSG stable. EGD today per GI physician.
[2019-06-07] MEDS: Sucralfate 1 GM TAB PO SCH ×4 (10:11→20:26)
[2019-06-07] MEDS: Famotidine 20 MG TAB PO SCH ×2 (10:12→22:16)
[2019-06-07] MEDS: HumaLOG 300 UNITS/3 ML VIAL SC SCH ×3 (10:12→18:10)
[2019-06-07] MEDS: Gabapentin 300 MG CAP PO SCH ×4 (10:12→20:25)
[2019-06-07] MEDS ORDERED: PROPOFOL 200 MG/20 ML VIAL ONE (10:55)
[2019-06-07] MEDS ORDERED: Promethazine HCl 25 MG/ML VIAL SLOW IVP PRN (11:11)
[2019-06-07] MEDS ORDERED: Promethazine HCl 25 MG/ML VIAL IM PRN (11:11)
[2019-06-07] MEDS ORDERED: Ondansetron HCl/PF 4 MG/2 ML Vial IVP PRN (11:11)
[2019-06-07] MEDS ORDERED: Fentanyl 100 MCG/2 ML VIAL ONE (11:24)
[2019-06-07] MEDS: Morphine 2 MG/ML SYRINGE SLOW IVP PRN ×4 (11:51→22:26)
[2019-06-07] MEDS: Insulin Glargine 25 UNITS in Pre-Filled Syringe 1 EACH SC SCH (11:55)
--- NOTE | 2019-06-07 15:01 | OP ---
DATE OF PROCEDURE: 06/07/2019 ASSISTANCE SURGEON: None. PROCEDURE PERFORMED: Esophagogastroduodenoscopy with biopsies. INDICATION: 1. Epigastric pain and chest pain. 2. Nausea and vomiting. 3. Diabetes type 1, recently treated for diabetes ketoacidosis. 4. History of marijuana use, last use reported 2 weeks ago. MEDICATIONS: See Anesthesia record. FINDINGS: After discussion of the risks, benefits, and alternatives of the procedure, informed consent was obtained and witnessed. Pre-endoscopic cardiopulmonary examination was satisfactory. Time-out was performed before sedation was achieved. Sedation was achieved with Anesthesia assistance in the endoscopy unit. A Pentax adult upper endoscope was placed into the oropharynx and passed through the cricopharyngeus under direct visualization. The esophageal mucosa appeared normal in the proximal mid esophagus, but in the distal esophagus from 34 to 39 cm from the incisors, there was a segment of severe LA grade D erosive esophagitis. This has an appearance consistent with reflux esophagitis with some linear ulcerations extending up from the GE junction for 5 cm. The endoscope was advanced beyond the GE junction and then into the stomach. Forward and retroflexed views of the entire gastric mucosa were obtained. There was some moderate erythema representing submucosal hemorrhage in the gastric fundus, but no erosions or ulcerations noted. The gastric body and antrum appeared normal. This area in the fundus could just be consistent with trauma from repeated retching. I did obtain biopsies from the gastric antrum body and fundus for histology and to rule out H pylori infection. The endoscope was passed through a normal-appearing pylorus and into the first and second portions of the duodenum, which appeared normal. The upper endoscope was completely withdrawn and the patient allowed to recover. The patient tolerated the procedure well. There were no immediate postprocedure complications. IMPRESSION: 1. LA grade D distal erosive esophagitis, representing reflux esophagitis, from 34 to 39 cm. 2. Moderate nonerosive gastritis in the fundus, biopsied to rule out Helicobacter pylori. 3. Otherwise normal esophagogastroduodenoscopy. RECOMMENDATIONS: 1. Twice daily proton-pump inhibitor. 2. Continue with sucralfate 1 g q.i.d. before meals and at bedtime. 3. We will continue with the Reglan as well. We will increase the dose to 10 mg q.8 hours. 4. Advance diet when tolerated. 5. Stop all marijuana use. 6. Awaiting drug screen. I suspect the reflux esophagitis is a secondary manifestation of either diabetic gastroparesis or possibly cannabinoid hyperemesis syndrome. Job ID: [id number]
[2019-06-07] MEDS: traZODone HCl 50 MG TAB PO SCH (20:25)
[2019-06-07] MEDS: Pantoprazole 40 MG VIAL IVP SCH (20:27)
[2019-06-08 04:18] LABS: #Eosinphils 0.1 thou/uL (0.0-0.7); #Lymphocytes 2.8 thou/uL (1.20-3.40); #Monocytes 0.6 thou/uL (0.11-0.59); #Neutrophils 4.8 thou/uL (1.40-6.50); %Basophils 0.2 % (0.0-1.0); %Eosinophils 0.7 % (0.0-10.0); %Lymphocytes 33.9 % (21.0-51.0); %Monocytes 7.1 % (0.0-10.0); %Neutrophils 58.1 % (42.0-75.0); Hemoglobin 9.9 g/dL (12.0-16.0); Mean Corpuscular HGB CONC 32.9 g/dL (32.0-36.0); Mean Corpuscular Hemoglobin 28.9 pg (27.0-31.0); Mean Corpuscular Volume 87.8 fL (78.0-98.0); Mean Platelet Volume 7.4 fL (7.4-10.4); Platelet Count 246 thou/uL (130-400); RBC Distribution Width 12.1 % (11.5-14.5); Red Blood Cell (RBC) Count 3.44 mill/uL (4.20-5.40); White Blood Cell (WBC) Count 8.3 thou/uL (4.8-10.8)
[2019-06-08 04:24] LABS: Anion Gap 14 mmol/L (10-20); BUN (Urea Nitrogen) 7 mg/dL (7.0-18.7); Calc. Creatinine Clearance 117 mL/min (70-130); Calcium 8.1 mg/dL (7.8-10.44); Carbon Dioxide 24 mmol/L (22-29); Chloride 103 mmol/L (98-107); Estimated GFR-MDRD Greater than 90; Glucose 102 mg/dL (70-105); Sodium 138 mmol/L (136-145)
[2019-06-08] MEDS: Metoclopramide HCl 10 MG/2 ML VIAL IVP SCH ×2 (05:53→14:47)
[2019-06-08] MEDS: HumaLOG 300 UNITS/3 ML VIAL SC SCH ×2 (08:47→11:36)
[2019-06-08] MEDS: Insulin Glargine 25 UNITS in Pre-Filled Syringe 1 EACH SC SCH (10:02)
[2019-06-08] MEDS: Sucralfate 1 GM TAB PO SCH ×2 (10:09→11:36)
[2019-06-08] MEDS: Gabapentin 300 MG CAP PO SCH (10:09)
[2019-06-08] MEDS: Famotidine 20 MG TAB PO SCH (10:09)
[2019-06-08] MEDS: Pantoprazole 40 MG VIAL IVP SCH (10:09)
[2019-06-08 11:59] VITALS: TEMP 98.9
[2019-06-08] MEDS: Dicyclomine 10 MG CAP PO PRN (12:50)
--- NOTE | 2019-06-08 18:01 | DIS ---
DATE OF ADMISSION: 06/04/2019 DATE OF DISCHARGE: 06/08/2019 DISCHARGE DISPOSITION: Home. PRIMARY DISCHARGE DIAGNOSES: Diabetic ketoacidosis, resolved ; chronic anemia; erosive esophagitis; marijuana abuse. PROCEDURES DONE DURING HOSPITALIZATION: Chest x-ray done on the day of admission showed no acute findings. CT abdomen and pelvis showed no acute process. Upper endoscopy done by Dr. Bao Granados on 06/07/2019 showed findings of LA grade D distal erosive esophagitis, representing reflux esophagitis, moderate nonerosive gastritis in the fundus, which was biopsied to rule out H pylori. Stool occult blood x1 was negative. H and H of 10 and 30, platelet count 246, MCV 87. Beta-hydroxybutyrate was 5.32 on admission. Urine test negative. Discharge fingerstick glucose is ranging from 78 to 196. Admitting serum glucose was 485 with serum bicarb of 15. Liver enzymes were within normal limits. DISCHARGE MEDICATION: 1. Levemir 20 units subcu at bedtime. 2. Humalog 5 units subcu 3 times daily before meals. 3. Protonix 40 mg p.o. twice daily. 4. Sucralfate 1 g p.o. a.c. and at bedtime. 5. Reglan 10 mg twice daily p.r.n. for nausea and vomiting. 6. Sertraline 75 mg p.o. daily. 7. Seroquel 200 mg p.o. at bedtime. 8. Gabapentin 300 mg p.o. 3 times daily. 9. Bentyl 10 mg p.o. q.6 hourly p.r.n. for pain. ALLERGIES: NO KNOWN DRUG ALLERGIES. DISCHARGE PLAN: The patient to follow up with her primary care physician, Dr. Nielson, in 1 week. She needs to check fingerstick glucose before and after meals for 10 days and record to follow up with primary care physician. BRIEF COURSE DURING HOSPITALIZATION: The patient initially got admitted on the 04 of June with complaints of nausea, vomiting, and abdominal pain. The patient was found to be in DKA. She was admitted to [facility] on IV insulin drip. She was slowly weaned into long-acting Levemir and Humalog sliding scale. The patient complained of abdominal pain, and abdominal and pelvic CAT scan done showed no acute findings. In view of persistent pain with history of nausea, vomiting, and abdominal pain, GI consultation with Dr. Bao Granados was requested. Upper endoscopy done revealed erosive esophagitis and nonerosive gastritis. The patient was counseled against using marijuana anymore. She has otherwise remained hemodynamically stable and tolerating oral solid diet prior to discharge. She was counseled with regard to maintaining strict glucose control and strict 1800 kilocalorie ADA diet. Please note, I have seen and examined the patient on the day of discharge. Job ID: [id number]
[2019-06-08] MEDS ORDERED: Metoclopramide HCl 10 MG TAB PO SCH (22:00)
== END 2019-06-08 14:49 | disposition home or self-care (01) | DRG 639 ==
LOC: ERS 16:05 → ERHOLD 21:16 → IMCU/EMU 06-05 02:03
PROVIDERS: ADMIT Internal Medicine; ATTEND Internal Medicine
PROC: 0DB68ZX Excision of Stomach, Via Natural or Artificial Opening Endoscopic, Diagnostic (ICD-10-PCS; principal; 2019-06-08)
DX: E10.10 Type 1 diabetes mellitus with ketoacidosis without coma (principal); E10.42 Type 1 diabetes mellitus with diabetic polyneuropathy; F41.9 Anxiety disorder, unspecified; F32.9 Major depressive disorder, single episode, unspecified; R10.13 Epigastric pain; K21.0 Gastro-esophageal reflux disease with esophagitis; K29.70 Gastritis, unspecified, without bleeding; F12.10 Cannabis abuse, uncomplicated; D64.9 Anemia, unspecified; Z71.51 Drug abuse counseling and surveillance of drug abuser
CPT/HCPCS: 36415; 36416; 71045; 74018; 74176; 80048; 80053; 81003; 81025; 82010; 82274; 82330; 82550; 82803; 83605; 83690; 83735; 83930; 84100; 84484; 85025; 88305; 88312; 93005; 93010; C9113; J1630; J1815; J2270; J2405; J2704; J2765; J3010; J3480; J3490; Q0169

== ENCOUNTER 2019-06-29 05:25 | Inpatient (IN) | payer MEDICAID, SELFPAY ==
[2019-06-29] MEDS ORDERED: Haloperidol Lactate 5 MG/ML VIAL ONE (05:33)
[2019-06-29 08:17] VITALS: BMI 20.9
[2019-06-29] MEDS ORDERED: FLU VACC QS2019-20(6MOS UP)/PF 60 MCG/0.5 ML SYRINGE IM ONE (08:30)
[2019-06-29] MEDS ORDERED: Acetaminophen 325 MG TAB PO PRN (08:33)
[2019-06-29] MEDS ORDERED: NS 0.9% w/ 20 MEQ KCL 1,000 ML IV PRN ×2 (08:33)
[2019-06-29] MEDS ORDERED: Sodium Chloride 0.9% 1,000 ML IV PRN ×4 (08:33)
[2019-06-29] MEDS ORDERED: CCU Electrolyte Replacement 1 EACH IVPB ONE (08:33)
[2019-06-29] MEDS ORDERED: D5 1/2 NS w/20 mEq KCL 1,000 ML IV PRN (08:33)
[2019-06-29] MEDS ORDERED: Dextrose 5 %-0.45 % NaCl 1,000 ML IV PRN (08:33)
[2019-06-29] MEDS ORDERED: Metoclopramide HCl 10 MG TAB PO PRN (08:36)
[2019-06-29] MEDS ORDERED: Magnesium Oxide 400 MG TAB PO PRN ×2 (08:44)
[2019-06-29] MEDS ORDERED: Potassium Phosphate 15 MMOL in Sodium Chloride 0.9% 250 ML 250 ML IV PRN (08:44)
[2019-06-29] MEDS ORDERED: Potassium Phosphate 9 MMOL in Sodium Chloride 0.9% 100 ML IVPB PRN (08:44)
[2019-06-29] MEDS ORDERED: PHOS-NAK 1 PKT PACK PO PRN ×2 (08:44)
[2019-06-29] MEDS ORDERED: Potassium Phosphate 12 MMOL in Sodium Chloride 0.9% 250 ML 250 ML IV PRN (08:44)
[2019-06-29] MEDS ORDERED: Potassium Chloride 40 MEQ in Sodium Chloride 0.9% 250 ML 250 ML IVPB PRN (08:44)
[2019-06-29] MEDS ORDERED: Potassium Chloride 40 MEQ in Premix Bag 1 BAG IVPB PRN (08:44)
[2019-06-29] MEDS ORDERED: Magnesium 2 GM/50 ML 2 GM in Premix Bag 1 BAG IVPB PRN (08:44)
[2019-06-29] MEDS ORDERED: CCU ELECTROLYTE REPLACEMENT PROTOCOL FS PRN (08:44)
[2019-06-29] MEDS ORDERED: HUMULIN R 100 UNITS in Sodium Chloride 0.9% 100 ML IVPB SCH (08:45)
[2019-06-29 09:16] LABS: Anion Gap 14 mmol/L (10-20); BUN (Urea Nitrogen) 10 mg/dL (7.0-18.7); Calc. Creatinine Clearance 117 mL/min (70-130); Calcium 8.2 mg/dL (7.8-10.44); Carbon Dioxide 19 mmol/L (22-29); Chloride 108 mmol/L (98-107); Estimated GFR-MDRD Greater than 90; Glucose 140 mg/dL (70-105); Potassium 3.8 mmol/L (3.5-5.1); Sodium 137 mmol/L (136-145)
[2019-06-29] MEDS: Gabapentin 300 MG CAP PO SCH ×3 (09:37→20:25)
--- NOTE | 2019-06-29 09:54 | PDOC.HHP ---
Hospitalist HPI - History of Present Illness abdominal pain, vomiting History of Present Illness: Ms. Castro is a 28 y/o lady with PMH of T1DM, gastroparesis, erosive esophagitis , who presents to the ED last night with symptoms of abdominal pain, vomiting, and epigastric abdominal pain. She was reportedly here last month for similar complaint. She states yesterday had 10 bouts of vomiting. She states that some of the episodes were clear fluid and mucus but some were coffee colored. She stated her epigastric pain was worsening so she decided to come to the ED. She reportedly ran out of her Reglan at home but has been taking her insulin as scheduled. She denies any fever, chills, chest pain, shortness of breath, or other associated symptoms. In the ED, had anion gap of 17, blood sugar > 350 with positive b-hydroxybutrate. She was placed on insulin drip and transfered to [facility]. She had an EGD done last month which demonstrated erosive esophagitis grade D. Hospitalist ROS - Review of Systems Constitutional: denies: fever, chills, sweats, weakness, malaise, other Eyes: denies: pain, vision change, conjunctivae inflammation, eyelid inflammation, redness, other ENT: denies: ear pain, ear discharge, nose pain, nose discharge, nose congestion , mouth pain, mouth swelling, throat pain, throat swelling, other Cardiovascular: denies: chest pain, palpitations, orthopnea, paroxysmal noc. dyspnea, edema, light headedness, other Gastrointestinal: reports: nausea, vomiting, abdominal pain Genitourinary: denies: dysuria, frequency, incontinence, hematuria, retention, other Musculoskeletal: denies: neck pain, shoulder pain, arm pain, back pain, hand pain, leg pain, foot pain, other Skin: denies: rash, lesions, artur, bruising, other Neurological: denies: weakness, numbness, incoordination, change in speech, confusion, seizures, other - Medication Medications: Active Medications Generic Name Dose Route Start Last Admin Trade Name Freq PRN Reason Stop Dose Admin Gabapentin 300 mg 06/29/19 09:00 06/29/19 09:37 Neurontin PO 300 mg TID RYANN Administration Sodium Chloride 1,000 mls @ 500 mls/hr 06/29/19 08:33 06/29/19 09:41 Normal Saline 0.9% IV 1,000 mls .Q2H PRN Administration Step 1 of DKA Protocol Protocol Pantoprazole Sodium 40 mg 06/29/19 09:00 06/29/19 09:37 Protonix PO 40 mg BID RYANN Administration Sertraline HCl 75 mg 06/29/19 09:00 06/29/19 09:37 Zoloft PO 75 mg DAILY RYANN Administration Medication Instructions Recorded Confirmed Type Dicyclomine [Bentyl] 10 mg PO Q6HR PRN 06/05/19 06/29/19 History Gabapentin 300 mg PO TID 06/05/19 06/29/19 History QUEtiapine Fumarate [SEROquel] 200 mg PO HS 06/05/19 06/29/19 History Sertraline HCl 75 mg PO DAILY 06/05/19 06/29/19 History Insulin Detemir [Levemir Flextouch] 20 unit SQ HS #4 insuln.pen 06/08/19 Rx Insulin Lispro [Humalog Kwikpen 5 unit SQ TID #4 insuln.pen 06/08/19 06/29/19 Rx U-200] Metoclopramide HCl [Reglan] 10 mg PO BID PRN #30 tab 06/08/19 06/29/19 Rx Pantoprazole [Protonix] 40 mg PO BID #60 tab 06/08/19 06/29/19 Rx Sucralfate 1 gm PO ACHS #120 tablet 06/08/19 06/29/19 Rx Hospitalist History - Past Medical History Source: patient Cardiac: reports: no pertinent history Pulmonary: reports: no pertinent history [employer]: reports: no pertinent history Gastrointestinal: reports: Other (Gastropareisis, erosive esphagitis) Heme/Onc: reports: no pertinent history Hepatobiliary: reports: no pertinent history Psych: reports: Anxiety Musculoskeletal: reports: no pertinent history Rheumatologic: reports: no pertinent history Renal/: reports: no pertinent history Endocrine: reports: Diabetes Dermatology: reports: no pertinent history - Past Surgical History Past Surgical History: reports: Other (Lymph node removal in neck) - Family History Family History: reports: no pertinent history - Social History Alcohol: reports: None Drugs: reports: marijuana Living Situation: With Family Activity level: independent ambulation - Exam General Appearance: NAD, awake alert Eye: PERRL, anicteric sclera ENT: normocephalic atraumatic, no oropharyngeal lesions, moist mucosa Neck: supple, symmetric, no JVD, no thyromegaly, no lymphadenopathy, no carotid bruit Heart: RRR, no murmur, no gallops, no rubs, normal peripheral pulses Respiratory: CTAB, no wheezes, no rales, no ronchi, normal chest expansion, no tachypnea, normal percussion Gastrointestinal: no palpable masses, no hepatomegaly, no splenomegaly, no bruit , tender to palpation (epigastric area) Extremities: no cyanosis, no clubbing, no edema Skin: normal turgor, no lesions, no rashes Neurological: cranial nerve grossly intact, normal sensation to touch, no weakness, no focal deficits, no new deficit Musculoskeletal: normal tone, normal strength, no muscle wasting Psychiatric: normal affect, normal behavior, A&O x 3 Hospitalist Results - Labs Result Diagrams: 06/29/19 08:48 Lab results: Sodium 137 mmol/L (136-145) 06/29/19 08:48 Potassium 3.8 mmol/L (3.5-5.1) 06/29/19 08:48 Chloride 108 mmol/L (98-107) H 06/29/19 08:48 Carbon Dioxide 19 mmol/L (22-29) L 06/29/19 08:48 BUN 10 mg/dL (7.0-18.7) 06/29/19 08:48 Creatinine 0.67 mg/dL (0.6-1.1) 06/29/19 08:48 Glucose 140 mg/dL (70-105) H 06/29/19 08:48 Calcium 8.2 mg/dL (7.8-10.44) 06/29/19 08:48 - EKG Interpretation EKG: NSR Hospitalist H&P A/P - Problem (1) Abdominal pain Code(s): R10.9 - UNSPECIFIED ABDOMINAL PAIN Status: Acute Assessment and Plan: Multifactorial due to DKA, gastroparesis, and erosive esophagitis (2) Diabetic ketoacidosis Code(s): E11.10 - TYPE 2 DIABETES MELLITUS WITH KETOACIDOSIS WITHOUT COMA Status: Acute (3) Anxiety and depression Code(s): F41.9 - ANXIETY DISORDER, UNSPECIFIED; F32.9 - MAJOR DEPRESSIVE DISORDER, SINGLE EPISODE, UNSPECIFIED Status: Chronic (4) Type 1 diabetes mellitus Status: Chronic (5) Anemia Code(s): D64.9 - ANEMIA, UNSPECIFIED Status: Acute - Plan Plan: Admit to IMCU for eval and tx of DKA, gastroparesis Continue insulin drip and protocol for DKA as ordered Continue Protonix 40mg BID as recent EGD 1 month ago has Grade D erosive esophagitis Continue sucralfate, Reglan PRN, Diclycomine PRN for gastroparesis Continue home seroquel and sertraline Consult placed to GI Will continue to monitor CBC as Hb on admission is 11.7. Continue to monitor for bleeding sxs. Code status: Full code Disposition: Admit to IMCU for DKA. Coordinate with GI. Recent admission one month ago for similar complaint.
[2019-06-29] MEDS: Morphine 2 MG/ML SYRINGE SLOW IVP PRN ×4 (10:16→23:21)
[2019-06-29] MEDS: Ondansetron PF 4 MG/2 ML Vial IVP PRN (11:06)
[2019-06-29] MEDS ORDERED: Morphine 2 MG/ML SYRINGE SLOW IVP SCH (11:45)
[2019-06-29] MEDS: Sucralfate 1 GM TAB PO SCH ×3 (11:45→20:25)
[2019-06-29] MEDS ORDERED: Dextrose 50% Abboject 50 ML SYRINGE SLOW IVP PRN (11:58)
[2019-06-29] MEDS ORDERED: Dextrose 5% in Water 1,000 ML IV PRN (11:58)
[2019-06-29] MEDS ORDERED: Insulin Glargine 20 UNITS in Pre-Filled Syringe 1 EACH SC SCH ×2 (12:45→21:00)
[2019-06-29 13:10] LABS: Anion Gap 11 mmol/L (10-20); BUN (Urea Nitrogen) 9 mg/dL (7.0-18.7); Calc. Creatinine Clearance 131 mL/min (70-130); Calcium 7.5 mg/dL (7.8-10.44); Carbon Dioxide 19 mmol/L (22-29); Chloride 113 mmol/L (98-107); Estimated GFR-MDRD Greater than 90; Glucose 116 mg/dL (70-105); Potassium 3.7 mmol/L (3.5-5.1); Sodium 139 mmol/L (136-145)
[2019-06-29] MEDS ORDERED: INSULIN LISPRO 5 UNIT SQ SCH (15:00)
[2019-06-29] MEDS ORDERED: HumaLOG 300 UNITS/3 ML VIAL SC SCH ×2 (15:00→17:00)
--- NOTE | 2019-06-29 15:36 | CON ---
DATE OF CONSULTATION: 06/29/2019 CHIEF COMPLAINT: Nausea and vomiting. HISTORY OF PRESENT ILLNESS: Ms. Castro is a 28-year-old woman, who states that yesterday afternoon, she ate some sausage and then 20 minutes later, she developed sudden onset of nausea and vomiting. She checked her blood sugar and it spiked up over 400. She went onto the emergency room, was diagnosed with diabetic ketoacidosis, and admitted to the [facility] with an insulin drip. Her nausea has improved today, but not totally resolved. She has had some coffee-ground material with her emesis. She has no ongoing abdominal pain, diarrhea, or constipation. She was just in the hospital a month ago with similar presentation and was seen by Dr. Granados. Upper endoscopy was performed that showed severe grade D erosive esophagitis. She has suspected diabetic gastroparesis and she was treated with proton pump inhibitor and metoclopramide and sucralfate. She reports that the only medicine she has been taking for stomach is Bentyl since last hospital discharge and does not appear to have been taking the pantoprazole. She was found to have H pylori by biopsies, however, has not yet been treated. PAST MEDICAL HISTORY: Diabetes with diabetic ketoacidosis, suspected gastroparesis, neuropathy, erosive esophagitis. PAST SURGICAL HISTORY: Lymph node was removed from her neck. FAMILY HISTORY: Negative for GI malignancies. SOCIAL HISTORY: No alcohol. She states she has not used marijuana since last hospitalization a month ago. No smoking. ALLERGIES: NO KNOWN DRUG ALLERGIES. MEDICATIONS: Prior to admission: 1. Quetiapine. 2. Sertraline. 3. Metoclopramide, which she has not been on lately. 4. Pantoprazole. She has a prescription previously was thought to be on, but believes that maybe she was taking famotidine, but the only one she can really confirm is dicyclomine from a GI standpoint. 5. Insulin. 6. Gabapentin. REVIEW OF SYSTEMS: Negative x10 systems reviewed, except as stated in history of present illness. PHYSICAL EXAMINATION: VITAL SIGNS: Temperature is 98.6, pulse 101, blood pressure 98/58. GENERAL: She is in no acute distress. Alert and oriented x3. HEENT: Eyes have no scleral icterus. Oropharynx is clear without lesions. NECK: No cervical or supraclavicular lymphadenopathy. LUNGS: Clear to auscultation bilaterally. HEART: Regular rate and rhythm with 2/6 systolic murmur at the right upper sternal border. ABDOMEN: Soft. Mild tenderness in the epigastric region without guarding. Bowel sounds are present. EXTREMITIES: No lower extremity edema. LABORATORY DATA: White blood cell count 10.0, hemoglobin 11.7, platelets 341. Creatinine 0.6, bilirubin 0.3, AST 16, ALT 19, alkaline phosphatase 74, albumin 4.7, lipase 7. IMPRESSION: 1. Erosive esophagitis. She had severe grade D erosive esophagitis by esophagogastroduodenoscopy 1 month ago. It sounds like she has not been on the proton pump inhibitor since discharge. She has not been on the metoclopramide for her suspected gastroparesis either. Repeat endoscopy at this point is unlikely to jacket changer. 2. Hematemesis. She does report some mild coffee-ground emesis. This is likely from the erosive esophagitis. Her hemoglobin is higher than at the time of previous hospital discharge. However, she was likely very hemoconcentrated when she presented with diabetic ketoacidosis. 3. Diabetic ketoacidosis. 4. Chronic anemia. 5. Helicobacter pylori infection. Biopsies from her stomach for gastritis last month did confirm the presence of Helicobacter pylori. This can be treated in the future as an outpatient when the nausea and vomiting are better controlled and we can confirm she is actually taking her medications. Partial treatment will unlikely to be successful and given her current nausea and vomiting, this is not the time to try to treat with quadruple therapy antibiotics. 6. Marijuana use. She states she has been off marijuana since last hospitalization. RECOMMENDATIONS: 1. Proton pump inhibitor twice daily. 2. Sucralfate. 3. We will restart Reglan for now. 4. Recheck a urine tox screen for marijuana. 5. When she is discharged, we need to verify that she is encouraged to call if she is having trouble filling her proton pump inhibitor. 6. H. pylori can be treated in the future when her gastroparesis, nausea, and vomiting are better controlled. Job ID: [id number]
[2019-06-29 17:07] LABS: Anion Gap 13 mmol/L (10-20); BUN (Urea Nitrogen) 8 mg/dL (7.0-18.7); Calc. Creatinine Clearance 117 mL/min (70-130); Calcium 7.9 mg/dL (7.8-10.44); Carbon Dioxide 18 mmol/L (22-29); Chloride 112 mmol/L (98-107); Estimated GFR-MDRD Greater than 90; Glucose 141 mg/dL (70-105); Sodium 139 mmol/L (136-145)
[2019-06-29] MEDS: Pantoprazole 40 MG VIAL IVP SCH (20:25)
[2019-06-29] MEDS: Metoclopramide HCl 10 MG TAB PO SCH (20:25)
[2019-06-29] MEDS ORDERED: Non-Formulary Item 1 EACH (Insulin Detemir [Levemir Flextouch] 20 UNIT) SQ SCH (21:00)
[2019-06-30 03:53] LABS: #Eosinphils 0.1 thou/uL (0.0-0.7); #Lymphocytes 2.7 thou/uL (1.20-3.40); #Monocytes 0.6 thou/uL (0.11-0.59); #Neutrophils 4.9 thou/uL (1.40-6.50); %Basophils 0.3 % (0.0-1.0); %Eosinophils 1.4 % (0.0-10.0); %Lymphocytes 32.5 % (21.0-51.0); %Monocytes 7.3 % (0.0-10.0); %Neutrophils 58.5 % (42.0-75.0); Hemoglobin 9.5 g/dL (12.0-16.0); Mean Corpuscular HGB CONC 32.7 g/dL (32.0-36.0); Mean Corpuscular Hemoglobin 28.3 pg (27.0-31.0); Mean Corpuscular Volume 86.7 fL (78.0-98.0); Platelet Count 248 thou/uL (130-400); RBC Distribution Width 12.4 % (11.5-14.5); Red Blood Cell (RBC) Count 3.35 mill/uL (4.20-5.40); White Blood Cell (WBC) Count 8.3 thou/uL (4.8-10.8)
[2019-06-30 04:20] LABS: ALT (SGPT) 10 U/L (8-55); AST (SGOT) 17 U/L (5-34); Albumin 3.4 g/dL (3.5-5.0); Alkaline Phosphatase 53 U/L (40-110); Anion Gap 11 mmol/L (10-20); BUN (Urea Nitrogen) 5 mg/dL (7.0-18.7); Bilirubin, Total 0.2 mg/dL (0.2-1.2); Calc. Creatinine Clearance 109 mL/min (70-130); Calcium 7.9 mg/dL (7.8-10.44); Carbon Dioxide 20 mmol/L (22-29); Chloride 110 mmol/L (98-107); Estimated GFR-MDRD Greater than 90; Globulin 2.7 g/dL (2.4-3.5); Glucose 239 mg/dL (70-105); Potassium 3.3 mmol/L (3.5-5.1); Protein, Total 6.1 g/dL (6.0-8.3); Sodium 138 mmol/L (136-145)
[2019-06-30] MEDS: Potassium Chloride 20 MEQ TAB PO PRN (07:15)
[2019-06-30] MEDS: Sucralfate 1 GM TAB PO SCH ×4 (07:15→20:22)
[2019-06-30] MEDS: Gabapentin 300 MG CAP PO SCH ×3 (10:04→20:22)
[2019-06-30] MEDS: Pantoprazole 40 MG VIAL IVP SCH ×2 (10:04→20:22)
[2019-06-30] MEDS: Metoclopramide HCl 10 MG TAB PO SCH (10:05)
[2019-06-30] MEDS: Insulin Glargine 20 UNITS in Pre-Filled Syringe 1 EACH SC SCH (10:09)
--- NOTE | 2019-06-30 11:39 | PDOC.HOSPP ---
- Subjective Subjective: Continues with epigastric pain. Had one episode of vomiting yesterday. Otherwise no new issues. - Objective Vital Signs & Weight: Vital Signs (12 hours) Temp Resp Pulse Ox 06/30/19 11:33 98.4 F 06/30/19 07:45 98.0 F 06/30/19 07:44 99 06/30/19 04:00 99.0 F 16 Weight Weight 130 lb Most Recent Monitor Data Heart Rate from ECG 79 NIBP 102/74 NIBP BP-Mean 83 Respiration from ECG 20 SpO2 100 I&O: 06/29/19 06/30/19 07/01/19 06:59 06:59 06:59 Intake Total 4954 Output Total 1550 Balance 3404 Result Diagrams: 06/30/19 03:25 06/30/19 03:25 Additional Labs: Accuchecks 06/30/19 06/30/19 06/29/19 10:44 06:18 22:36 POC Glucose 201 H 170 H 122 H 06/29/19 06/29/19 06/29/19 20:32 14:01 11:52 POC Glucose 132 H 145 H 105 Hospitalist ROS - Review of Systems All other systems reviewed; all pertinent +/- noted in HPI/Subj - Medication Medications: Active Medications Generic Name Dose Route Start Last Admin Trade Name Freq PRN Reason Stop Dose Admin Gabapentin 300 mg 06/29/19 09:00 06/30/19 10:04 Neurontin PO 300 mg TID RYANN Administration Sodium Chloride 1,000 mls @ 500 mls/hr 06/29/19 08:33 06/29/19 09:41 Normal Saline 0.9% IV 1,000 mls .Q2H PRN Administration Step 1 of DKA Protocol Protocol Insulin Glargine 20 units/ 0.2 mls @ 0 mls/hr 06/30/19 09:00 06/30/19 10:09 Miscellaneous Medication SC 0.2 mls QAM RYANN Administration Influenza Virus Vaccine Quadrival 60 mcg 06/30/19 21:00 06/30/19 00:44 Fluzone Quad Syringe IM 06/30/19 21:01 Not Given .ONCE ONE Metoclopramide HCl 10 mg 06/29/19 21:00 06/30/19 10:05 Reglan PO 10 mg BID RYANN Administration Morphine Sulfate 2 mg 06/29/19 09:48 06/29/19 23:21 Morphine SLOW IVP 2 mg Q4H PRN Administration Moderate to Severe Pain (6-10) Ondansetron HCl 4 mg 06/29/19 08:33 06/29/19 11:06 Zofran IVP 4 mg Q6H PRN Administration Nausea/Vomiting Pantoprazole Sodium 40 mg 06/29/19 21:00 06/30/19 10:04 Protonix IVP 40 mg Q12HR RYANN Administration Potassium Chloride 40 meq 06/29/19 08:44 06/30/19 07:15 K-Dur PO 40 meq ASDIR PRN Administration FOR SERUM K+ 2.5 - 3.5 Quetiapine Fumarate 200 mg 06/29/19 21:00 06/29/19 20:25 Seroquel PO 200 mg HS RYANN Administration Sertraline HCl 75 mg 06/29/19 09:00 06/30/19 10:04 Zoloft PO 75 mg DAILY RYANN Administration Sodium Chloride 10 ml 06/29/19 21:00 06/30/19 10:05 Flush - Normal Saline IVF 10 ml Q12HR RYANN Administration Sucralfate 1 gm 06/29/19 11:30 06/30/19 07:15 Carafate PO 1 gm ACHS RYANN Administration - Exam General Appearance: NAD, awake alert Eye: PERRL, anicteric sclera ENT: normocephalic atraumatic, no oropharyngeal lesions, moist mucosa Neck: supple, symmetric, no JVD, no thyromegaly, no lymphadenopathy, no carotid bruit Heart: RRR, no murmur, no gallops, no rubs, normal peripheral pulses Respiratory: CTAB, no wheezes, no rales, no ronchi, normal chest expansion, no tachypnea, normal percussion Gastrointestinal: non-distended, normal bowel sounds, no palpable masses, no hepatomegaly, no splenomegaly, no bruit Gastrointestinal - other findings: Epigastric abdominal pain, tender to palpation Extremities: no cyanosis, no clubbing, no edema Skin: normal turgor, no lesions, no rashes Neurological: cranial nerve grossly intact, normal sensation to touch, no weakness, no focal deficits, no new deficit Musculoskeletal: normal tone, normal strength, no muscle wasting Psychiatric: normal affect, normal behavior, A&O x 3 Hosp A/P (1) Abdominal pain Code(s): R10.9 - UNSPECIFIED ABDOMINAL PAIN Status: Acute (2) Diabetic ketoacidosis Code(s): E11.10 - TYPE 2 DIABETES MELLITUS WITH KETOACIDOSIS WITHOUT COMA Status: Acute (3) Anxiety and depression Code(s): F41.9 - ANXIETY DISORDER, UNSPECIFIED; F32.9 - MAJOR DEPRESSIVE DISORDER, SINGLE EPISODE, UNSPECIFIED Status: Chronic (4) Type 1 diabetes mellitus Status: Chronic (5) Anemia Code(s): D64.9 - ANEMIA, UNSPECIFIED Status: Acute - Plan Discussed case with GI, will switch Reglan and PPI to IV as she is still unable to tolerate PO Will continue current tx for gastroparesis, esophagitis Ok to transfer to medical Continue other home medications for chronic conditions Continue 20u lantus with MDCS Continue to monitor Hb inthe AM Disposition: Continue tx. For medical unit today.
[2019-06-30] MEDS: Morphine 2 MG/ML SYRINGE SLOW IVP PRN ×3 (11:44→20:36)
[2019-06-30] MEDS: HumaLOG 300 UNITS/3 ML VIAL SC PRN (11:51)
[2019-06-30] MEDS: Dicyclomine 10 MG CAP PO PRN ×2 (11:54→20:23)
[2019-06-30] MEDS: Ondansetron PF 4 MG/2 ML Vial IVP PRN (13:13)
--- NOTE | 2019-06-30 13:29 | PRG ---
DATE OF SERVICE: 06/30/2019 SUBJECTIVE: Ms. Castro ate a few bites of a biscuit this morning that is it. She has not tried any overt lunch as of yet. She continues to have epigastric abdominal discomfort and discomfort with her hiccups. OBJECTIVE: VITAL SIGNS: Temperature 98.4, blood pressure 102/74, pulse is 79. GENERAL: She is in no acute distress. Mostly sleeps and wakes up when I am going to talk to her. LUNGS: Clear to auscultation bilaterally. HEART: Regular rate and rhythm without murmur. ABDOMEN: Soft, tender in the epigastric region without guarding. Bowel sounds are present. EXTREMITIES: No lower extremity edema. LABORATORY DATA: White blood cell count 8.3, hemoglobin 9.5, platelets 248, creatinine 0.72, bilirubin 0.2, AST 17, ALT 10, alkaline phosphatase 53, albumin 3.4. IMPRESSION: 1. Severe erosive grade D esophagitis noted by EGD last month. She will be continued on proton pump inhibitor twice daily for this. 2. Diabetic ketoacidosis. 3. Apparent diabetic gastroparesis. This is not being confirmed by gastric emptying scan, but is a clinical diagnosis at this point. 4. Reported coffee-grounds emesis likely secondary to the erosive esophagitis. 5. History of H. pylori infection. She would not tolerate oral antibiotics for treatment of that right now. RECOMMENDATIONS: 1. Increase the metoclopramide to four times daily and adjusted to IV. 2. We will change the pantoprazole to twice daily with IV administration. 3. Low residue diet. Job ID: [id number]
[2019-06-30] MEDS: Metoclopramide HCl 10 MG/2 ML VIAL IVP SCH ×2 (14:33→18:00)
[2019-06-30] MEDS ORDERED: Metoclopramide HCl 10 MG/2 ML VIAL IVP SCH ×2 (17:00→21:00)
[2019-06-30] MEDS ORDERED: FLU VACC QS2019-20(6MOS UP)/PF 60 MCG/0.5 ML SYRINGE IM ONE (21:00)
[2019-07-01 03:25] LABS: #Basophils 0.1 thou/uL (0.0-0.2); #Lymphocytes 2.5 thou/uL (1.20-3.40); #Monocytes 0.6 thou/uL (0.11-0.59); #Neutrophils 5.3 thou/uL (1.40-6.50); %Basophils 0.7 % (0.0-1.0); %Eosinophils 0.4 % (0.0-10.0); %Lymphocytes 29.8 % (21.0-51.0); %Monocytes 7.2 % (0.0-10.0); %Neutrophils 61.9 % (42.0-75.0); Hemoglobin 9.9 g/dL (12.0-16.0); Mean Corpuscular HGB CONC 32.3 g/dL (32.0-36.0); Mean Corpuscular Hemoglobin 28.4 pg (27.0-31.0); Mean Platelet Volume 6.9 fL (7.4-10.4); Platelet Count 258 thou/uL (130-400); RBC Distribution Width 12.6 % (11.5-14.5); White Blood Cell (WBC) Count 8.5 thou/uL (4.8-10.8)
[2019-07-01 03:43] LABS: Anion Gap 8 mmol/L (10-20); BUN (Urea Nitrogen) 5 mg/dL (7.0-18.7); Calc. Creatinine Clearance 119 mL/min (70-130); Calcium 8.3 mg/dL (7.8-10.44); Carbon Dioxide 23 mmol/L (22-29); Chloride 110 mmol/L (98-107); Estimated GFR-MDRD Greater than 90; Glucose 145 mg/dL (70-105); Potassium 3.4 mmol/L (3.5-5.1); Sodium 138 mmol/L (136-145)
[2019-07-01] MEDS: Potassium Chloride 20 MEQ TAB PO PRN (04:42)
[2019-07-01] MEDS: Sucralfate 1 GM TAB PO SCH ×4 (07:06→20:09)
[2019-07-01] MEDS: Morphine 2 MG/ML SYRINGE SLOW IVP PRN ×3 (07:06→20:23)
[2019-07-01] MEDS: Metoclopramide HCl 10 MG/2 ML VIAL IVP SCH ×4 (07:06→19:46)
[2019-07-01] MEDS: Dicyclomine 10 MG CAP PO PRN (08:40)
[2019-07-01] MEDS: Insulin Glargine 20 UNITS in Pre-Filled Syringe 1 EACH SC SCH (08:40)
[2019-07-01] MEDS: Pantoprazole 40 MG VIAL IVP SCH ×2 (08:40→20:08)
[2019-07-01] MEDS: Gabapentin 300 MG CAP PO SCH ×3 (10:25→20:08)
--- NOTE | 2019-07-01 11:25 | PDOC.HOSPP ---
- Subjective Subjective: Continues with epigastric pain. Is passing stool, Had one episode of clear vomiting yesterday. Otherwise no new complaints. - Objective Vital Signs & Weight: Vital Signs (12 hours) Temp Pulse Ox 07/01/19 11:08 98.2 F 07/01/19 08:00 100 07/01/19 07:12 98.1 F 07/01/19 04:38 98.0 F 07/01/19 01:26 99.1 F Weight Weight 130 lb Most Recent Monitor Data Heart Rate from ECG 117 NIBP 164/110 NIBP BP-Mean 128 Respiration from ECG 18 SpO2 99 I&O: 06/30/19 07/01/19 07/02/19 06:59 06:59 06:59 Intake Total 4954 300 Output Total 1550 1275 Balance 3404 -975 Result Diagrams: 07/01/19 03:17 07/01/19 03:17 Additional Labs: Accuchecks 07/01/19 07/01/19 06/30/19 10:58 05:26 20:23 POC Glucose 157 H 146 H 154 H 06/30/19 16:43 POC Glucose 97 Hospitalist ROS - Review of Systems All other systems reviewed; all pertinent +/- noted in HPI/Subj - Medication Medications: Active Medications Generic Name Dose Route Start Last Admin Trade Name Freq PRN Reason Stop Dose Admin Dicyclomine HCl 10 mg 06/29/19 08:36 07/01/19 08:40 Bentyl PO 10 mg Q6H PRN Administration GI Upset Gabapentin 300 mg 06/29/19 09:00 07/01/19 10:25 Neurontin PO Not Given TID RYNAN Sodium Chloride 1,000 mls @ 500 mls/hr 06/29/19 08:33 06/29/19 09:41 Normal Saline 0.9% IV 1,000 mls .Q2H PRN Administration Step 1 of DKA Protocol Protocol Insulin Glargine 20 units/ 0.2 mls @ 0 mls/hr 06/30/19 09:00 07/01/19 08:40 Miscellaneous Medication SC 0.2 mls QAM RYANN Administration Insulin Human Lispro 0 units 06/29/19 11:58 06/30/19 11:51 Humalog SC 4 unit .MODERATE SLIDING SC PRN Administration Moderate Correctional Scale Metoclopramide HCl 10 mg 06/30/19 15:00 07/01/19 11:05 Reglan IVP 10 mg 0700,1100,1500,1900 RYANN Administration Morphine Sulfate 2 mg 06/29/19 09:48 07/01/19 11:04 Morphine SLOW IVP 2 mg Q4H PRN Administration Moderate to Severe Pain (6-10) Ondansetron HCl 4 mg 06/29/19 08:33 06/30/19 13:13 Zofran IVP 4 mg Q6H PRN Administration Nausea/Vomiting Pantoprazole Sodium 40 mg 06/29/19 21:00 07/01/19 08:40 Protonix IVP 40 mg Q12HR RYANN Administration Potassium Chloride 40 meq 06/29/19 08:44 07/01/19 04:42 K-Dur PO 40 meq ASDIR PRN Administration FOR SERUM K+ 2.5 - 3.5 Quetiapine Fumarate 200 mg 06/29/19 21:00 06/30/19 20:22 Seroquel PO 200 mg HS RYANN Administration Sertraline HCl 75 mg 06/29/19 09:00 07/01/19 10:25 Zoloft PO Not Given DAILY RYANN Sodium Chloride 10 ml 06/29/19 21:00 07/01/19 08:40 Flush - Normal Saline IVF 10 ml Q12HR RYNAN Administration Sucralfate 1 gm 06/29/19 11:30 07/01/19 11:05 Carafate PO 1 gm ACHS RYANN Administration - Exam General Appearance: NAD, awake alert Eye: PERRL, anicteric sclera ENT: normocephalic atraumatic, no oropharyngeal lesions, moist mucosa Neck: supple, symmetric, no JVD, no thyromegaly, no lymphadenopathy, no carotid bruit Heart: RRR, no murmur, no gallops, no rubs, normal peripheral pulses Respiratory: CTAB, no wheezes, no rales, no ronchi, normal chest expansion, no tachypnea, normal percussion Gastrointestinal: soft, non-distended, normal bowel sounds, no palpable masses, no hepatomegaly, no splenomegaly, no bruit, tender to palpation Extremities: no cyanosis, no clubbing, no edema Skin: normal turgor, no lesions, no rashes Neurological: cranial nerve grossly intact, normal sensation to touch, no weakness, no focal deficits, no new deficit Musculoskeletal: normal tone, normal strength, no muscle wasting Psychiatric: normal affect, normal behavior, A&O x 3 Hosp A/P (1) Abdominal pain Code(s): R10.9 - UNSPECIFIED ABDOMINAL PAIN Status: Acute (2) Diabetic ketoacidosis Code(s): E11.10 - TYPE 2 DIABETES MELLITUS WITH KETOACIDOSIS WITHOUT COMA Status: Acute (3) Anxiety and depression Code(s): F41.9 - ANXIETY DISORDER, UNSPECIFIED; F32.9 - MAJOR DEPRESSIVE DISORDER, SINGLE EPISODE, UNSPECIFIED Status: Chronic (4) Type 1 diabetes mellitus Status: Chronic (5) Anemia Code(s): D64.9 - ANEMIA, UNSPECIFIED Status: Acute - Plan Discussed case with GI, will switch Reglan and PPI to IV as she is still unable to tolerate PO Will continue current tx for gastroparesis, esophagitis Ok to transfer to medical Continue other home medications for chronic conditions Continue 20u lantus with MDCS Continue to monitor Hb inthe AM Disposition: Continue tx. For medical unit today.
--- NOTE | 2019-07-01 17:26 | PRG ---
DATE OF SERVICE: 07/01/2019 SUBJECTIVE: This is a 28-year-old female with history of drug use and also admitted with nausea, vomiting, and DKA. She has still nausea off and on. She has no vomiting. No abdominal pain today. She is passing flatus and having bowel movement. Her appetite remains very poor, and she does not feel like eating because of nausea. She is on IV Reglan. She has had an EGD done by Dr. Bao Granados approximately 3 weeks ago and was found to have erosive esophagitis and also has had a gastric biopsy showing Helicobacter pylori infection, but she is not being treated with any antibiotics for the H. pylori. The plan is to await for her to improve from GI standpoint. Once her nausea and vomiting are controlled, she can take the antibiotics for H. pylori. OBJECTIVE: GENERAL: She is a very fragile-looking, thin-looking, black female, who appears comfortable. She is sleepy. Denies abdominal pain, but complains of more nausea. Does complain of poor appetite. VITAL SIGNS: Afebrile, pulse is 87, blood pressure is 117/84. CARDIOVASCULAR: Within normal limits. LUNGS: Within normal limits. ABDOMEN: Soft and nondistended. She is mildly tender in the epigastric area. LABORATORY DATA: CBC; WBC 8500, hemoglobin 9.9, hematocrit 30.8, platelet count 258,000. Chemistry panel; sodium is 138, potassium 3.4, chloride 110, bicarb 23, BUN is 5, creatinine 0.66, glucose 128, calcium 8.3. IMPRESSION: 1. Diabetic ketoacidosis, under control. 2. Nausea and vomiting secondary to diabetic ketoacidosis. 3. Abdominal pain, nausea, and vomiting, mostly from gastroparesis. RECOMMENDATIONS: 1. I encouraged Ms. Castro to eat as much as she can. 2. Continue Reglan. Job ID: [id number]
[2019-07-02] MEDS: Metoclopramide HCl 10 MG/2 ML VIAL IVP SCH ×5 (06:07→18:11)
[2019-07-02 06:39] LABS: Anion Gap 10 mmol/L (10-20); BUN (Urea Nitrogen) 6 mg/dL (7.0-18.7); Calc. Creatinine Clearance 109 mL/min (70-130); Calcium 8.2 mg/dL (7.8-10.44); Carbon Dioxide 25 mmol/L (22-29); Chloride 106 mmol/L (98-107); Estimated GFR-MDRD Greater than 90; Glucose 201 mg/dL (70-105); Potassium 3.5 mmol/L (3.5-5.1); Sodium 137 mmol/L (136-145)
[2019-07-02] MEDS: HumaLOG 300 UNITS/3 ML VIAL SC PRN ×3 (06:44→20:37)
[2019-07-02] MEDS: Sucralfate 1 GM TAB PO SCH ×4 (08:25→20:35)
[2019-07-02] MEDS: Pantoprazole 40 MG VIAL IVP SCH (08:25)
[2019-07-02] MEDS: Gabapentin 300 MG CAP PO SCH ×3 (08:25→20:35)
[2019-07-02] MEDS: Insulin Glargine 20 UNITS in Pre-Filled Syringe 1 EACH SC SCH (08:25)
[2019-07-02] MEDS: Morphine 2 MG/ML SYRINGE SLOW IVP PRN (08:28)
--- NOTE | 2019-07-02 11:03 | PDOC.HOSPP ---
- Subjective Subjective: Abdominal pain much improved. Has had no repeat episodes of vomiting. States she is feeling better. - Objective Vital Signs & Weight: Vital Signs (12 hours) Temp Pulse Resp BP Pulse Ox 07/02/19 08:30 99 07/02/19 07:31 97.9 F 83 20 91/59 L 99 07/02/19 01:24 97.8 F 94 16 103/70 98 Weight Weight 130 lb Most Recent Monitor Data Heart Rate from ECG 95 NIBP 139/94 NIBP BP-Mean 109 Respiration from ECG 14 SpO2 100 I&O: 07/01/19 07/02/19 07/03/19 06:59 06:59 06:59 Intake Total 300 450 Output Total 1275 Balance -975 450 Result Diagrams: 07/01/19 03:17 07/02/19 06:02 Additional Labs: Accuchecks 07/02/19 07/02/19 07/01/19 05:52 00:50 20:02 POC Glucose 223 H 146 H 71 07/01/19 07/01/19 16:45 10:58 POC Glucose 121 H 157 H Hospitalist ROS - Review of Systems All other systems reviewed; all pertinent +/- noted in HPI/Subj - Medication Medications: Active Medications Generic Name Dose Route Start Last Admin Trade Name Freq PRN Reason Stop Dose Admin Dicyclomine HCl 10 mg 06/29/19 08:36 07/01/19 08:40 Bentyl PO 10 mg Q6H PRN Administration GI Upset Gabapentin 300 mg 06/29/19 09:00 07/02/19 08:25 Neurontin PO 300 mg TID RYANN Administration Sodium Chloride 1,000 mls @ 500 mls/hr 06/29/19 08:33 06/29/19 09:41 Normal Saline 0.9% IV 1,000 mls .Q2H PRN Administration Step 1 of DKA Protocol Protocol Insulin Glargine 20 units/ 0.2 mls @ 0 mls/hr 06/30/19 09:00 07/02/19 08:25 Miscellaneous Medication SC 0.2 mls QAM RYANN Administration Insulin Human Lispro 0 units 06/29/19 11:58 07/02/19 06:44 Humalog SC 4 unit .MODERATE SLIDING SC PRN Administration Moderate Correctional Scale Metoclopramide HCl 10 mg 06/30/19 15:00 07/02/19 06:07 Reglan IVP 10 mg 0700,1100,1500,1900 RYANN Administration Morphine Sulfate 2 mg 06/29/19 09:48 07/02/19 08:28 Morphine SLOW IVP 2 mg Q4H PRN Administration Moderate to Severe Pain (6-10) Ondansetron HCl 4 mg 06/29/19 08:33 06/30/19 13:13 Zofran IVP 4 mg Q6H PRN Administration Nausea/Vomiting Pantoprazole Sodium 40 mg 06/29/19 21:00 07/02/19 08:25 Protonix IVP 07/02/19 22:00 40 mg Q12HR RYANN Administration Potassium Chloride 40 meq 06/29/19 08:44 07/01/19 04:42 K-Dur PO 40 meq ASDIR PRN Administration FOR SERUM K+ 2.5 - 3.5 Quetiapine Fumarate 200 mg 06/29/19 21:00 07/01/19 20:08 Seroquel PO 200 mg HS RYANN Administration Sertraline HCl 75 mg 06/29/19 09:00 07/02/19 08:25 Zoloft PO 75 mg DAILY RYANN Administration Sodium Chloride 10 ml 06/29/19 21:00 07/02/19 08:25 Flush - Normal Saline IVF 10 ml Q12HR RYANN Administration Sodium Chloride 10 ml 06/29/19 12:04 07/01/19 20:25 Flush - Normal Saline IVF 10 ml PRN PRN Administration Saline Flush Sucralfate 1 gm 06/29/19 11:30 07/02/19 08:25 Carafate PO 1 gm ACHS RYANN Administration - Exam General Appearance: NAD, awake alert Eye: PERRL, anicteric sclera ENT: normocephalic atraumatic, no oropharyngeal lesions, moist mucosa Neck: supple, symmetric, no JVD, no thyromegaly, no lymphadenopathy, no carotid bruit Heart: RRR, no murmur, no gallops, no rubs, normal peripheral pulses Respiratory: CTAB, no wheezes, no rales, no ronchi, normal chest expansion, no tachypnea, normal percussion Gastrointestinal: soft, non-tender, non-distended, normal bowel sounds, no palpable masses, no hepatomegaly, no splenomegaly, no bruit Extremities: no cyanosis, no clubbing, no edema Skin: normal turgor, no lesions, no rashes Neurological: cranial nerve grossly intact, normal sensation to touch, no weakness, no focal deficits, no new deficit Musculoskeletal: normal tone, normal strength, no muscle wasting Psychiatric: normal affect, normal behavior, A&O x 3 Hosp A/P (1) Abdominal pain Code(s): R10.9 - UNSPECIFIED ABDOMINAL PAIN Status: Acute Plan: Due to gastropareiss and erosive esophagitis (EGD last month) (2) Diabetic ketoacidosis Code(s): E11.10 - TYPE 2 DIABETES MELLITUS WITH KETOACIDOSIS WITHOUT COMA Status: Acute (3) Anxiety and depression Code(s): F41.9 - ANXIETY DISORDER, UNSPECIFIED; F32.9 - MAJOR DEPRESSIVE DISORDER, SINGLE EPISODE, UNSPECIFIED Status: Chronic (4) Type 1 diabetes mellitus Status: Chronic (5) Anemia Code(s): D64.9 - ANEMIA, UNSPECIFIED Status: Acute - Plan Will continue current tx for gastroparesis, esophagitis Continue other home medications for chronic conditions Continue 20u lantus with MDCS Continue to monitor Hb inthe AM Disposition: One more day of IV PPI and Reglan, switch to PO tomorrow, likely d/ c in 24 hrs if improvement if ok with GI. Will need Reglan and PPI script at discharge.
[2019-07-02] MEDS ORDERED: Metoclopramide HCl 10 MG TAB PO SCH (18:30)
--- NOTE | 2019-07-02 19:27 | PRG ---
DATE OF SERVICE: 07/02/2019 SUBJECTIVE: This is a 28-year-old female with DKA, uncontrolled diabetes mellitus. The patient denies any abdominal pain, nausea, or vomiting. Her symptoms are markedly improved. Her blood sugar is much better. She does have a lot of nausea yesterday, but today her nausea has resolved. Her blood sugar today is 126. She has no more nausea. No vomiting. Denies having any abdominal pain. She is tolerating diet today. OBJECTIVE: GENERAL: She is a thin-built, fragile-looking female who appears comfortable. VITAL SIGNS: Stable. Afebrile, pulse is 87, blood pressure 111/71. CARDIOVASCULAR: Within normal limits. ABDOMEN: Soft. Abdomen is mildly tender over the epigastric area. There is no rebound or guarding. RECOMMENDATIONS: 1. Continue IV Reglan. 2. Encourage p.o. intake. 3. The patient advised to have a tight control of diabetes mellitus to prevent future DKA. Dr. Granados will assume care from tomorrow. Job ID: [id number]
[2019-07-03] MEDS: HumaLOG 300 UNITS/3 ML VIAL SC PRN ×2 (05:25→11:10)
[2019-07-03] MEDS: Metoclopramide HCl 10 MG TAB PO SCH ×2 (05:26→11:10)
[2019-07-03 06:11] LABS: Anion Gap 10 mmol/L (10-20); BUN (Urea Nitrogen) 8 mg/dL (7.0-18.7); Calc. Creatinine Clearance 108 mL/min (70-130); Calcium 8.3 mg/dL (7.8-10.44); Carbon Dioxide 27 mmol/L (22-29); Chloride 106 mmol/L (98-107); Estimated GFR-MDRD Greater than 90; Glucose 195 mg/dL (70-105); Potassium 3.5 mmol/L (3.5-5.1); Sodium 139 mmol/L (136-145)
[2019-07-03] MEDS: Insulin Glargine 20 UNITS in Pre-Filled Syringe 1 EACH SC SCH (09:14)
[2019-07-03] MEDS: Sucralfate 1 GM TAB PO SCH ×2 (09:14→11:10)
[2019-07-03] MEDS: Gabapentin 300 MG CAP PO SCH (09:14)
[2019-07-03 11:41] VITALS: BP 104/70; TEMP 98.2
== END 2019-07-03 15:02 | disposition home or self-care (01) | DRG 638 ==
LOC: ERS 05:25 → IMCU/EMU 05:49 → T4-B 07-01 21:35
PROVIDERS: ADMIT Hospitalist; ATTEND Hospitalist
DX: E10.10 Type 1 diabetes mellitus with ketoacidosis without coma (principal); K22.10 Ulcer of esophagus without bleeding; Z79.899 Other long term (current) drug therapy; Z79.4 Long term (current) use of insulin; E10.43 Type 1 diabetes mellitus with diabetic autonomic (poly)neuropathy; K31.84 Gastroparesis; F41.9 Anxiety disorder, unspecified; F32.9 Major depressive disorder, single episode, unspecified; D64.9 Anemia, unspecified
CPT/HCPCS: 36415; 36416; 80048; 80053; 85025; 90471; 90686; 96374; C9113; G0008; J1630; J1815; J2270; J2405; J2765

== ENCOUNTER 2019-07-15 13:42 | Inpatient (IN) | payer MEDICAID, SELFPAY ==
[~2019-07-15 13:42] MED LIST: Iopamidol-370 76% 500 ML 1 ML ONE
[2019-07-15] MEDS ORDERED: Morphine 4 MG/ML VIAL ONE (14:26)
[2019-07-15] MEDS ORDERED: Famotidine/PF 20 mg/2ml Vial ONE (14:27)
[2019-07-15] MEDS ORDERED: Promethazine HCl 25 MG/ML VIAL ONE (14:27)
[2019-07-15 14:32] LABS: #Eosinphils 0.1 thou/uL (0.0-0.7); #Lymphocytes 1.7 thou/uL (1.20-3.40); #Monocytes 0.3 thou/uL (0.11-0.59); #Neutrophils 4.1 thou/uL (1.40-6.50); %Basophils 0.7 % (0.0-1.0); %Eosinophils 2.3 % (0.0-10.0); %Lymphocytes 27.4 % (21.0-51.0); %Neutrophils 64.7 % (42.0-75.0); Hemoglobin 11.6 g/dL (12.0-16.0); Mean Corpuscular HGB CONC 31.1 g/dL (32.0-36.0); Mean Corpuscular Hemoglobin 26.8 pg (27.0-31.0); Mean Corpuscular Volume 86.2 fL (78.0-98.0); Mean Platelet Volume 7.8 fL (7.4-10.4); Platelet Count 250 thou/uL (130-400); RBC Distribution Width 12.6 % (11.5-14.5); Red Blood Cell (RBC) Count 4.34 mill/uL (4.20-5.40); White Blood Cell (WBC) Count 6.3 thou/uL (4.8-10.8)
[2019-07-15 14:43] LABS: BHCG - Serum Negative (NEGATIVE); Pregs Control Background? CLEAR/WHITE (CLR/WHITE); Pregs Control Bar Appear? YES (CONTROL BAR)
[2019-07-15 14:52] LABS: ALT (SGPT) 16 U/L (8-55); AST (SGOT) 15 U/L (5-34); Albumin 4.6 g/dL (3.5-5.0); Alkaline Phosphatase 76 U/L (40-110); Anion Gap 19 mmol/L (10-20); BUN (Urea Nitrogen) 7 mg/dL (7.0-18.7); Bilirubin, Total 0.6 mg/dL (0.2-1.2); Calc. Creatinine Clearance 0 mL/min (70-130); Calcium 9.6 mg/dL (7.8-10.44); Carbon Dioxide 20 mmol/L (22-29); Chloride 102 mmol/L (98-107); Estimated GFR-MDRD Greater than 90; Globulin 3.5 g/dL (2.4-3.5); Glucose 371 mg/dL (70-105); Lipase 21 U/L (8-78); Magnesium 1.6 mg/dL (1.6-2.6); Phosphorus 2.4 mg/dL (2.3-4.7); Potassium 3.8 mmol/L (3.5-5.1); Protein, Total 8.1 g/dL (6.0-8.3); Sodium 137 mmol/L (136-145)
--- NOTE | 2019-07-15 15:13 | RAD ---
PORTABLE CHEST: HISTORY: Epigastric pain. FINDINGS: Heart size and mediastinum are within normal limits. The lungs are clear of infiltrates. No signifi cant bony findings. IMPRESSION: No active intrathoracic disease. POS: [facility]
[2019-07-15 16:04] LABS: Base Excess-Venous -3.9 mmol/L (-2.0 to 3.0); Bicarbonate (HCO3v) 22.4 mmol/L (22.0-28.0); CO2 Tension (PvCO2) 45.1 mmHg (40.0-50.0); Calcium, Ionized 1.07 mmol/L (See Comments:); Chloride 107 mmol/L (98-107); Hemoglobin - Calc 10.6 g/dL (12.0-16.0); Potassium 3.5 mmol/L (3.5-5.1); Sodium 141 mmol/L (138-145); T. Carbon Dioxide 23.8 mmol/L (22.0-28.0); vO2 Saturation-calc 93.2 % (60.0-85.0)
[2019-07-15] MEDS ORDERED: Insulin Regular 300 UNITS/3 ML VIAL ONE (16:29)
[2019-07-15] MEDS ORDERED: Insulin Regular 100 units/100 ml in NS IVPB SCH (16:45)
[2019-07-15] MEDS ORDERED: NS 0.9% w/ 20 MEQ KCL 1,000 ML/1,000 ML BAG IV PRN (16:57)
--- NOTE | 2019-07-15 16:58 | CT ---
CT ABDOMEN AND PELVIS WITH IV CONTRAST: 07/15/19 HISTORY: Abdominal pain. FINDINGS: The lung bases are clear. No calcified gallstones are seen. The liver, spleen, pancreas, and adrenal glands are normal. There is some cysts in the kidneys. No free air, free fluid or lymphadenopathy is seen in the abdomen or pelvis. A normal appearing appen robin is present. The uterus and ovaries are noted. There is a 2.5 cm left ovarian cyst. The small bowel loops are not abnormally dilated. There is prominent yepez of the small bowel loops w hich may be due to wall thickening or incomplete distention. No acute osseous abnormalities are seen. There are vascular calcifications without evidence of aneurysmal dilatation of the abdominal aorta. IMPRESSION: 1. No evidence of appendicitis. 2. Bilateral renal cysts. 3. Probable thickening of the yepez of the small bowel loops. No evidence of high grade bowel ob struction. POS: OFF
[2019-07-15 18:01] LABS: Lactic Acid 1.9 mmol/L (0.5-2.2)
[2019-07-15 18:31] LABS: Bilirubin Negative (Negative); Blood, Urine Negative (Negative); Clarity Clear (Clear); Glucose, Urine (Dipstick) Greater than 1000 mg/dL (Negative); Leukocyte 75 Leu/uL (Negative); Nitrite Negative (Negative); Protein, Urine (Dipstick) Negative (Neg-Trace); RBC/HPF None Seen HPF (0-3); Squamous Epithelial 0-3 HPF (0-3); Urobilinogen Normal mg/dL (Less than 2)
[2019-07-15 18:38] LABS: Bacteria/HPF 4+ HPF (None Seen)
[2019-07-15] MEDS ORDERED: Acetaminophen 325 MG TAB PO PRN (19:35)
[2019-07-15] MEDS ORDERED: Promethazine HCl 25 MG/ML VIAL IM/IV PRN (19:35)
[2019-07-15] MEDS ORDERED: Ondansetron PF 4 MG/2 ML Vial IVP PRN (19:35)
[2019-07-15] MEDS ORDERED: Dextrose 5% in Water 1,000 ML IV PRN (19:35)
[2019-07-15] MEDS ORDERED: Bisacodyl 10 MG SUPP PR PRN (19:35)
[2019-07-15] MEDS ORDERED: Calcium Carbonate 500 MG ChewTAB PO PRN (19:35)
[2019-07-15] MEDS ORDERED: HumaLOG 300 UNITS/3 ML VIAL SC PRN (19:35)
[2019-07-15] MEDS ORDERED: Acetaminophen 650 MG Suppository PR PRN (19:35)
[2019-07-15] MEDS ORDERED: Dextrose 50% Abboject 50 ML SYRINGE SLOW IVP PRN (19:35)
[2019-07-15] MEDS ORDERED: Senokot S 8.6-50 MG TAB PO PRN (19:35)
[2019-07-15] MEDS ORDERED: Guaifenesin DM 100-10/5 ML UDCUP PO PRN (19:35)
[2019-07-15] MEDS: Morphine 2 MG/ML SYRINGE SLOW IVP PRN (20:00)
--- NOTE | 2019-07-15 20:28 | HP ---
REASON FOR ADMISSION: Intractable nausea, vomiting, abdominal pain, and diabetes mellitus type 1, uncontrolled. HISTORY OF PRESENTING ILLNESS: The patient gives history of having severe nausea and vomiting from 10:00 a.m. She also developed abdominal pain, which is generalized. She has not been able to keep anything down. She is a type 1 diabetic. She has had chronic history of abdominal pain in the past with gastroparesis. She has had nearly [address] scans in the last 2 to 3 months that she has been coming here. The patient states morphine and Phenergan together helps her abdominal pain. She has had prior upper endoscopy done in June, which was positive for H pylori. No complaints of cough or expectoration. No complaints of urinary frequency or urgency. The patient states she was completely normal until yesterday and was taking her 70/30 insulin along with Humalog. PAST MEDICAL AND SURGICAL HISTORY: History of type 1 diabetes mellitus, history of gastroparesis with nearly 3 hospitalizations in the last 2 months with similar complaints, history of erosive esophagitis, H pylori positive gastritis, depression, history of marijuana usage in the past, lymph node removal in the neck, anxiety/ mood disorder. CURRENT MEDICATIONS: 1. Pepcid 20 mg twice daily. 2. Gabapentin 300 mg 3 times daily. 3. Humulin 70/30, 25 units q.a.m. and 30 units q.p.m. 4. Lispro sliding scale. 5. Protonix 40 mg daily. 6. Seroquel 200 mg p.o. at bedtime. 7. Sertraline 75 mg p.o. daily. 8. Sucralfate 1 g before meals and at bedtime. ALLERGIES: NO KNOWN DRUG ALLERGIES. PERSONAL HISTORY: Does not smoke or use alcohol, but does use marijuana occasionally per patient. FAMILY HISTORY: No history of GI malignancies in the family. There is history of diabetes in the family. REVIEW OF SYSTEMS: CONSTITUTIONAL: Negative for weight loss or gain, ability to conduct usual activities. SKIN: Negative for rash, itching. EYES: Negative for double vision, pain. ENT/MOUTH: Negative for nose bleeding, neck stiffness, pain, tenderness. CARDIOVASCULAR: Negative for palpitations, dyspnea on exertion, orthopnea. RESPIRATORY: Negative for shortness of breath, wheezing, cough, hemoptysis, fever or night sweats. GASTROINTESTINAL: Negative for poor appetite, abdominal pain, heartburn, nausea , vomiting, constipation, or diarrhea. GENITOURINARY: Negative for urgency, frequency, dysuria, nocturia. MUSCULOSKELETAL: Negative for pain, swelling. NEUROLOGIC/PSYCHIATRIC: Negative for anxiety, depression. ALLERGY/IMMUNOLOGIC: Negative for skin rash, bleeding tendency. PHYSICAL EXAMINATION: GENERAL: The patient is a 29-year-old female, who is currently ripping with abdominal pain. She is also nauseated. VITAL SIGNS: Blood pressure 160/118, blood pressure was elevated due to her nausea and abdominal pain; pulse 110 per minute; respiratory rate 22 per minute; temperature 98.2 degrees Fahrenheit; and saturating 98% on room air. NECK: Supple. No elevated JVD. HEENT: Eyes; extraocular muscles intact. Pupils are reacting to light. Oral cavity, mucous membranes are dry. No exudates or congestion. CARDIOVASCULAR: S1 and S2 heard. Regular rhythm. RESPIRATORY: Air entry 1+ bilateral. No rales or rhonchi. ABDOMEN: Soft. The patient has voluntary guarding, no rigidity. Bowel sounds are heard. EXTREMITIES: No peripheral edema or calf tenderness. VASCULAR: Peripheral pulses 1+ bilateral. No ischemic ulcerations or gangrene. CENTRAL NERVOUS SYSTEM: No gross focal deficits noted. The patient is alert, awake, and oriented well. PSYCHIATRIC: The patient is a bit anxious at present, otherwise no hallucinations or delusions. LABORATORY DATA: CT of the abdomen and pelvis with IV contrast done, showed no evidence of appendicitis. There are bilateral renal cysts. There is probable thickening of small bowel loops. No high-grade small bowel obstruction seen. Chest x-ray done shows no acute intrathoracic disease. White count of 6, hemoglobin and hematocrit 11 and 37, platelet count is 250, MCV is 86 with 64% neutrophils. Venous blood gas done, shows a pH of 7.30, pCO2 45, PO2 74. Sodium 141, potassium 3.5, serum bicarb 20, BUN 7, creatinine 0.8, serum glucose 371. Liver enzymes within normal limits. Lipase is 21. Serum test is negative. UA is positive for leukocyte esterase, 4+ bacteria, 11 to 20 wbc's. CLINICAL IMPRESSION AND PLAN: The patient will be under observation on medical floor for intractable nausea and vomiting and abdominal pain. She also has nearly 3 episodes of watery diarrhea in the ER. We will obtain stool studies. Urine culture will be obtained. The patient will be empirically placed on ciprofloxacin for now. The patient does not have diabetic ketoacidosis. She will be given 20 units of Lantus tonight, and she will be on aggressive Humalog sliding scale. She has received 2 L of normal saline in the ER, and we will place her on normal saline at 100 mL per hour. We will continue her Bentyl, Neurontin, Seroquel, Zoloft, and sucralfate as before. It is unclear if the patient ever got treated for Helicobacter pylori gastritis. This will need to be ascertained with the patient if she took antibiotics before. She has had one other hospitalization after her biopsy was positive. Currently, she is writhing in pain and cannot recall if she took one. We will try to obtain the same information in the morning when she is more calm. Job ID: [id number] [facility]
[2019-07-15] MEDS ORDERED: Non-Formulary Item 1 EACH (Insulin Detemir [Levemir Flextouch] 20 UNIT) SQ SCH (21:00)
[2019-07-15] MEDS: Promethazine HCl 25 MG in Sodium Chloride 0.9% 50 ML IVPB PRN (21:35)
[2019-07-15] MEDS: Insulin Glargine 20 UNITS in Pre-Filled Syringe 1 EACH SC SCH (21:36)
[2019-07-16] MEDS: Morphine 2 MG/ML SYRINGE SLOW IVP PRN ×5 (00:07→20:00)
[2019-07-16] MEDS: Gabapentin 300 MG CAP PO SCH ×4 (00:29→19:58)
[2019-07-16] MEDS: Sucralfate 1 GM TAB PO SCH ×5 (00:29→19:59)
[2019-07-16 00:49] LABS: Amphetamine Not Detected (NotDetected); Barbiturates Screen Not Detected (NotDetected); Benzodiazepine Screen Not Detected (NotDetected); Cocaine Metabolite Screen Not Detected (NotDetected); Medtox Control Line Valid? VALID (VALID); Medtox Reader # READER 4; Methadone Not Detected (NotDetected); Methamphetamine Not Detected (NotDetected); Opiate Screen Detected (NotDetected); Oxycodone Screen Not Detected (NotDetected); Phencyclidine (PCP) Not Detected (NotDetected); THC/Cannabinoid Screen Not Detected (NotDetected); Tricyclic Screen Not Detected (NotDetected)
[2019-07-16] MEDS: Sodium Chloride 0.9% 1,000 ML IV SCH ×2 (04:57→16:09)
[2019-07-16 05:41] LABS: #Basophils 0.1 thou/uL (0.0-0.2); #Lymphocytes 2.2 thou/uL (1.20-3.40); #Monocytes 0.6 thou/uL (0.11-0.59); #Neutrophils 9.6 thou/uL (1.40-6.50); %Basophils 0.5 % (0.0-1.0); %Eosinophils 0.3 % (0.0-10.0); %Lymphocytes 17.9 % (21.0-51.0); %Monocytes 4.7 % (0.0-10.0); %Neutrophils 76.7 % (42.0-75.0); Hemoglobin 10.9 g/dL (12.0-16.0); Mean Corpuscular HGB CONC 33.2 g/dL (32.0-36.0); Mean Corpuscular Hemoglobin 28.5 pg (27.0-31.0); Mean Corpuscular Volume 85.9 fL (78.0-98.0); Mean Platelet Volume 7.8 fL (7.4-10.4); Platelet Count 225 thou/uL (130-400); RBC Distribution Width 12.6 % (11.5-14.5); Red Blood Cell (RBC) Count 3.81 mill/uL (4.20-5.40); White Blood Cell (WBC) Count 12.4 thou/uL (4.8-10.8)
[2019-07-16 05:49] LABS: Anion Gap 16 mmol/L (10-20); BUN (Urea Nitrogen) 6 mg/dL (7.0-18.7); Calc. Creatinine Clearance 107 mL/min (70-130); Calcium 8.4 mg/dL (7.8-10.44); Carbon Dioxide 18 mmol/L (22-29); Chloride 107 mmol/L (98-107); Estimated GFR-MDRD Greater than 90; Glucose 245 mg/dL (70-105); Potassium 3.9 mmol/L (3.5-5.1); Sodium 137 mmol/L (136-145)
[2019-07-16] MEDS: Promethazine HCl 25 MG in Sodium Chloride 0.9% 50 ML IVPB PRN ×3 (06:10→19:39)
[2019-07-16] MEDS: Enoxaparin Sodium 40 MG/0.4 ML SYRINGE SC SCH (08:38)
[2019-07-16] MEDS ORDERED: Metoclopramide HCl 10 MG TAB PO PRN (13:46)
--- NOTE | 2019-07-16 19:29 | PDOC.HOSPP ---
- Subjective Encounter Date: 07/16/19 Encounter Time: 19:27 Subjective: Continues with epigastric pain. No longer any episodes of vomiting or nausea. Denies sob, cp, fever. chills or other sxs. - Objective Vital Signs & Weight: Vital Signs (12 hours) Temp Pulse Resp BP BP BP Pulse Ox 07/16/19 17:39 99 F 106 H 162/105 H 07/16/19 15:15 98.9 F 114 H 23 H 179/122 H 99 07/16/19 11:18 98.8 F 97 20 111/65 100 07/16/19 07:46 98.8 F 99 16 102/54 L 100 Weight Weight 134 lb 3.2 oz I&O: 07/15/19 07/16/19 07/17/19 06:59 06:59 06:59 Intake Total 1320 1670 Output Total 900 Balance 420 1670 Result Diagrams: 07/16/19 05:11 07/16/19 05:11 Additional Labs: Accuchecks 07/16/19 07/16/19 07/15/19 17:18 11:29 23:57 POC Glucose 157 H 158 H 301 H 07/15/19 21:02 POC Glucose 233 H Hospitalist ROS - Review of Systems All other systems reviewed; all pertinent +/- noted in HPI/Subj - Medication Medications: Active Medications Generic Name Dose Route Start Last Admin Trade Name Freq PRN Reason Stop Dose Admin Enoxaparin Sodium 40 mg 07/16/19 09:00 07/16/19 08:38 Lovenox SC 40 mg 0900 RYANN Administration Gabapentin 300 mg 07/15/19 21:00 07/16/19 16:06 Neurontin PO 300 mg TID RYANN Administration Sodium Chloride 1,000 mls @ 100 mls/hr 07/15/19 19:45 07/16/19 16:09 Normal Saline 0.9% IV 1,000 mls .Q10H RYANN Administration Insulin Glargine 20 units/ 0.2 mls @ 0 mls/hr 07/15/19 21:00 07/15/19 21:36 Miscellaneous Medication SC 0.2 mls HS RYANN Administration Ciprofloxacin/Dextrose 400 mg/ 200 mls @ 200 mls/hr 07/15/19 21:00 07/16/19 08:31 Device IVPB 200 mls Q12HR RYANN Administration Promethazine HCl 25 mg/ Sodium 51 mls @ 204 mls/hr 07/15/19 20:20 07/16/19 13 :10 Chloride IVPB 51 mls Q6H PRN Administration Nausea Insulin Human Lispro 0 units 07/15/19 19:35 07/16/19 06:12 Humalog SC 6 unit .AGGRESSIVE SLIDING PRN Administration Aggressive Correctional Scale Morphine Sulfate 2 mg 07/15/19 19:35 07/16/19 16:00 Morphine SLOW IVP 2 mg Q4H PRN Administration Severe Pain (7-10) Ondansetron HCl 4 mg 07/15/19 19:35 07/15/19 20:01 Zofran IVP 4 mg Q6H PRN Administration Nausea/Vomiting Pantoprazole Sodium 40 mg 07/15/19 21:00 07/16/19 08:35 Protonix PO 40 mg BID RYANN Administration Quetiapine Fumarate 200 mg 07/15/19 21:00 07/16/19 00:29 Seroquel PO Not Given HS RYANN Sertraline HCl 75 mg 07/16/19 09:00 07/16/19 08:35 Zoloft PO 75 mg DAILY RYANN Administration Sucralfate 1 gm 07/15/19 21:00 07/16/19 16:06 Carafate PO 1 gm ACHS RYANN Administration - Exam General Appearance: NAD, awake alert Eye: PERRL, anicteric sclera ENT: normocephalic atraumatic, no oropharyngeal lesions, moist mucosa Neck: supple, symmetric, no JVD, no thyromegaly, no lymphadenopathy, no carotid bruit Heart: RRR, no murmur, no gallops, no rubs, normal peripheral pulses Respiratory: CTAB, no wheezes, no rales, no ronchi, normal chest expansion, no tachypnea, normal percussion Gastrointestinal: soft, non-tender, non-distended, normal bowel sounds, no palpable masses, no hepatomegaly, no splenomegaly, no bruit Extremities: no cyanosis, no clubbing, no edema Skin: normal turgor, no lesions, no rashes Neurological: cranial nerve grossly intact, normal sensation to touch, no weakness, no focal deficits, no new deficit Musculoskeletal: normal tone, normal strength, no muscle wasting Psychiatric: normal affect, normal behavior, A&O x 3 Hosp A/P (1) Abdominal pain Code(s): R10.9 - UNSPECIFIED ABDOMINAL PAIN Status: Acute (2) Erosive esophagitis Code(s): K22.10 - ULCER OF ESOPHAGUS WITHOUT BLEEDING Status: Acute (3) H. pylori infection Code(s): A04.8 - OTHER SPECIFIED BACTERIAL INTESTINAL INFECTIONS Status: Acute (4) Diabetic gastroparesis Code(s): E11.43 - TYPE 2 DIABETES W DIABETIC AUTONOMIC (POLY)NEUROPATHY; K31.84 - GASTROPARESIS Status: Acute (5) Anxiety and depression Code(s): F41.9 - ANXIETY DISORDER, UNSPECIFIED; F32.9 - MAJOR DEPRESSIVE DISORDER, SINGLE EPISODE, UNSPECIFIED Status: Chronic (6) Diabetic peripheral neuropathy Code(s): E11.42 - TYPE 2 DIABETES MELLITUS WITH DIABETIC POLYNEUROPATHY Status : Chronic (7) Type 1 diabetes mellitus Status: Chronic - Plan Not in DKA, continue home insulin and NS@ 100ml/hr Frequent admissions for the same abdominal complaint, she has been admitted in the past and had an EGD which showed erosive esophagitis last month and has been treated with PPI and Reglan therapy. There is some question to treatment of H. pylori in the outpatient, will consult GI regarding this She has been started on empiric ciprofloxacin, we are pending stool cultures Continue other medications from home including gabapentin, PPI, Seroquel, sertraline, Carafate, Reglan, and dicyclomine Disposition: Continue to treat. Coordinate with GI.
[2019-07-17] MEDS: Insulin Glargine 20 UNITS in Pre-Filled Syringe 1 EACH SC SCH ×2 (00:03→20:22)
--- NOTE | 2019-07-17 00:11 | CON ---
DATE OF CONSULTATION: 07/16/2019 REASON FOR CONSULTATION: Nausea, vomiting, and abdominal pain. CONSULTING PROVIDER: Hilda Conroy MD HISTORY OF PRESENT ILLNESS: The patient is a 29-year-old female with past medical history of diabetes type 1, bilateral lower extremity neuropathy, and questionable diagnosis of gastroparesis, presenting with a repeat episode of nausea and vomiting. Per chart review, the patient has been admitted twice to [facility] over the last 2 months with repeated episodes of diabetic ketoacidosis. On both occasions, she was treated for this particular condition with improvement of her nausea, vomiting, and abdominal pain. However, after her last discharge that was on July 02, 2019, she states that she was in in a good state of health until yesterday afternoon when she experienced the acute onset of increased periumbilical abdominal pain characterized as a contraction/cramping type pain radiated to her entire abdomen, it was constant and reached a severity of 10/10. This pain actually woke her up from sleep and over the course of the next day, continued to be a problem. The pain was worse with eating, better with having a bowel movement and taking pain medications since she has been here in the hospital. She also states that she had associated increased nausea and vomiting, having approximately 4 to 5 discrete episodes of nonbloody emesis over the last 24 hours in addition to subjective chills. When asked if her current symptoms are similar to what she experienced the last 2 times she was in the hospital for diabetic ketoacidosis, she replied in the affirmative. Currently, she denies any fevers, hematemesis, melena, hematochezia, dysphagia, or odynophagia. However, when asked about dysuria, she stated that she might have been having some burning sensation when she urinated. Upon further review of her chart and interviewing the patient, she states that when she has been at home, her blood sugars have ranged between 150 to 200 range, but has not been taking her blood sugars over the last 24 to 48 hours. She was also diagnosed with possible gastroparesis by GI physician in [place], but has not been able to follow up yet for a gastric emptying study to confirm this diagnosis. Per one of her recent admissions, she did undergo an upper endoscopy on June 07, 2019, that showed LA grade D erosive esophagitis as well as nonspecific gastritis that was positive for H pylori. She was subsequently given prescriptions for the antibiotics, but could only afford the amoxicillin and therefore only took amoxicillin. REVIEW OF SYSTEMS: A 10-category review of systems was obtained with all responses negative except for the pertinent positives as listed in HPI. PAST MEDICAL HISTORY: As per HPI. PAST SURGICAL HISTORY: Lymph node removal in the neck. FAMILY HISTORY: Denies any GI malignancies. SOCIAL HISTORY: Denies any tobacco or alcohol use. She does have a history of marijuana use, but last use being approximately 1 month ago. OUTPATIENT MEDICATIONS: Reviewed. ALLERGIES: NO KNOWN DRUG ALLERGIES. PHYSICAL EXAMINATION: VITAL SIGNS: Temperature 98.9, pulse 114, blood pressure 179/122, respiratory rate 23, saturating 99% on room air. GENERAL: The patient was lying in bed, in mild distress related to her abdominal pain. Alert and oriented x4. HEENT: Normocephalic and atraumatic. NECK: Supple. No JVD or scleral icterus noted. However, positive acetone smell to her breath. CARDIOVASCULAR: Tachycardic rate, but regular rhythm. No discernible murmurs, gallops, or rubs. RESPIRATORY: Clear to auscultation bilaterally with no discernible wheezes or rales. ABDOMEN: Normoactive bowel sounds. Soft, nondistended. Tenderness to palpation in all abdominal quadrants. EXTREMITIES: No cyanosis, clubbing, or edema. LABORATORY DATA: CBC with a white blood cell count of 12.4, hemoglobin 10.9, hematocrit 32.7, and platelets 222. Chemistry with a sodium of 137, potassium 3.9, chloride 107, CO2 of 18, BUN 6, creatinine 0.75, glucose 245, AST 15, ALT 16, alkaline phosphatase 76, total bilirubin 0.6, lipase 21, albumin 4.6. Beta-hydroxybutyrate positive at 1.54. Urinalysis consistent with urinary tract infection. IMAGING DATA: CT of the abdomen and pelvis was obtained on July 15, 2019, that did not reveal any intraabdominal abnormalities. ASSESSMENT AND PLAN: The patient is a 29-year-old female with past medical history of diabetes type 1, bilateral lower extremity neuropathy, questionable diagnosis of gastroparesis, anxiety disorder, and recurrent episodes of diabetic ketoacidosis, presenting with recurrent nausea, vomiting, and abdominal pain all consistent with diabetic ketoacidosis. Abdominal pain/nausea/vomiting: The patient is presenting with a history of recurrent episodes of diabetic ketoacidosis with 2 episodes within the last 2 months. She was recently discharged from the hospital on July 02, 2019, and had been doing well up until yesterday when she had acute onset of periumbilical abdominal pain. She also had associated increased nausea and vomiting with this. All the symptoms which were consistent with her prior bouts of diabetic ketoacidosis. On admission, she does have a positive beta-hydroxybutyrate and acetone smell to her breath and significant acidosis with an anion gap all consistent with diabetic ketoacidosis. However, she does carry a concurrent diagnosis of gastroparesis that has not yet been able to be confirmed with gastric emptying study. However, she has been attempting to follow a low residue diet and has been having multiple bowel movements per day, making this less likely. She also carries a concurrent diagnosis of severe reflux esophagitis, but she has been taking an acid reflux medication daily as well at home, making this less likely as well (would not generate an acidosis). RECOMMENDATIONS: 1. Would maintain strict glucose control and IV fluid resuscitation as part of treatment for diabetic ketoacidosis. 2. Would continue PPI daily in light of her recent diagnosis of severe esophagitis. 3. Would place the patient on a low-residue diet while inpatient for possible gastroparesis. Would consider her for possible n.p.o. status in light of her diabetic ketoacidosis. If her diet is advanced, she will need smaller, more frequent meals throughout the day. 4. Continue aggressive antiemetic support. 5. Upper endoscopy is not indicated at this time given the recent study on June 07, 2019. At this time, the H pylori is most likely not causing her current symptoms due to the lack of significant findings on that upper endoscopy, however, the patient will ultimately need to be treated with triple therapy or quadruple therapy as an outpatient. We will continue to follow. Please call with any questions. Job ID: [id number]
[2019-07-17] MEDS: Sodium Chloride 0.9% 1,000 ML IV SCH ×5 (03:03→22:56)
[2019-07-17] MEDS: Morphine 2 MG/ML SYRINGE SLOW IVP PRN (04:24)
[2019-07-17 04:59] LABS: #Basophils 0.1 thou/uL (0.0-0.2); #Lymphocytes 3.1 thou/uL (1.20-3.40); #Monocytes 0.5 thou/uL (0.11-0.59); #Neutrophils 4.9 thou/uL (1.40-6.50); %Basophils 0.7 % (0.0-1.0); %Eosinophils 0.5 % (0.0-10.0); %Lymphocytes 36.1 % (21.0-51.0); %Monocytes 5.8 % (0.0-10.0); %Neutrophils 56.8 % (42.0-75.0); Hemoglobin 10.3 g/dL (12.0-16.0); Mean Corpuscular HGB CONC 32.5 g/dL (32.0-36.0); Mean Corpuscular Hemoglobin 28.2 pg (27.0-31.0); Mean Corpuscular Volume 86.9 fL (78.0-98.0); Mean Platelet Volume 7.3 fL (7.4-10.4); Platelet Count 246 thou/uL (130-400); RBC Distribution Width 12.7 % (11.5-14.5); Red Blood Cell (RBC) Count 3.66 mill/uL (4.20-5.40); White Blood Cell (WBC) Count 8.7 thou/uL (4.8-10.8)
[2019-07-17] MEDS: Promethazine HCl 25 MG in Sodium Chloride 0.9% 50 ML IVPB PRN (05:19)
[2019-07-17 05:20] LABS: Anion Gap 17 mmol/L (10-20); BUN (Urea Nitrogen) 6 mg/dL (7.0-18.7); Calc. Creatinine Clearance 115 mL/min (70-130); Calcium 8.6 mg/dL (7.8-10.44); Carbon Dioxide 19 mmol/L (22-29); Chloride 108 mmol/L (98-107); Estimated GFR-MDRD Greater than 90; Glucose 157 mg/dL (70-105); Potassium 3.5 mmol/L (3.5-5.1); Sodium 140 mmol/L (136-145)
--- NOTE | 2019-07-17 09:23 | PDOC.HOSPP ---
- Subjective Encounter Date: 07/17/19 Encounter Time: 11:30 Subjective: Patient very somnolent since getting morphine and phenergan this AM. Minimally responsive to nursing. Unable to wake up enough to take pills safely. She was a bit more awake when I went to see her later, still very sleepy. Stated her stomach felt sore. I told her that we would need to hold off on further IV morphine with phenergan given how sedated it is making her. A few minutes after I left the room she started writhing in pain, wretching, crying. I spoke with other doctors who cared for her previous admissions and she apparently was the same during those admissions. No DKA on lab work. I suspect a combination of gastroparesis and psychological as source for her symptoms. Will stop all narcotic pain meds. Try oral reglan first, then oral phenergan if not effective. - Objective Vital Signs & Weight: Vital Signs (12 hours) Temp Pulse Resp BP BP Pulse Ox 07/17/19 07:36 98.2 F 85 16 135/87 100 07/17/19 04:00 98.9 F 88 18 132/86 100 07/16/19 23:20 98.9 F 87 16 119/77 100 Weight Weight 140 lb 8 oz I&O: 07/16/19 07/17/19 07/18/19 06:59 06:59 06:59 Intake Total 1320 3110 Output Total 900 1000 Balance 420 2110 Result Diagrams: 07/17/19 04:37 07/17/19 04:37 Additional Labs: Accuchecks 07/17/19 07/17/19 07/16/19 08:42 00:01 17:18 POC Glucose 205 H 200 H 157 H 07/16/19 11:29 POC Glucose 158 H Hospitalist ROS - Review of Systems Constitutional: denies: fever, chills Respiratory: denies: cough, shortness of breath Cardiovascular: denies: chest pain, palpitations Gastrointestinal: reports: nausea, vomiting, abdominal pain - Medication Medications: Active Medications Generic Name Dose Route Start Last Admin Trade Name Freq PRN Reason Stop Dose Admin Enoxaparin Sodium 40 mg 07/16/19 09:00 07/16/19 08:38 Lovenox SC 40 mg 09 RYANN Administration Gabapentin 300 mg 07/15/19 21:00 07/16/19 19:58 Neurontin PO Not Given TID RYANN Sodium Chloride 1,000 mls @ 100 mls/hr 07/15/19 19:45 07/17/19 03:57 Normal Saline 0.9% IV 1,000 mls .Q10H RYANN Administration Insulin Glargine 20 units/ 0.2 mls @ 0 mls/hr 07/15/19 21:00 07/17/19 00:03 Miscellaneous Medication SC Not Given HS RYANN Ciprofloxacin/Dextrose 400 mg/ 200 mls @ 200 mls/hr 07/15/19 21:00 07/17/19 08:34 Device IVPB 200 mls Q12HR RYANN Administration Promethazine HCl 25 mg/ Sodium 51 mls @ 204 mls/hr 07/15/19 20:20 07/17/19 05 :19 Chloride IVPB 51 mls Q6H PRN Administration Nausea Insulin Human Lispro 0 units 07/15/19 19:35 07/16/19 06:12 Humalog SC 6 unit .AGGRESSIVE SLIDING PRN Administration Aggressive Correctional Scale Morphine Sulfate 2 mg 07/15/19 19:35 07/17/19 04:24 Morphine SLOW IVP 2 mg Q4H PRN Administration Severe Pain (7-10) Ondansetron HCl 4 mg 07/15/19 19:35 07/15/19 20:01 Zofran IVP 4 mg Q6H PRN Administration Nausea/Vomiting Pantoprazole Sodium 40 mg 07/15/19 21:00 07/16/19 19:59 Protonix PO Not Given BID [facility] Quetiapine Fumarate 200 mg 07/15/19 21:00 07/16/19 21:50 Seroquel PO Not Given HS [facility] Sertraline HCl 75 mg 07/16/19 09:00 07/16/19 08:35 Zoloft PO 75 mg DAILY [facility] Administration Sucralfate 1 gm 07/15/19 21:00 07/16/19 19:59 Carafate PO Not Given ACHS [facility] - Exam General Appearance: NAD General - other findings: sleepy, arousable, opens eyes a little and answers questions softly ENT: moist mucosa Heart: RRR, no murmur, no gallops, no rubs Respiratory: CTAB, no wheezes, no rales, no ronchi Gastrointestinal: soft, non-distended, normal bowel sounds, no palpable masses, no hepatomegaly, no splenomegaly Extremities: no edema Psychiatric: A&O x 3, somnolent Hosp A/P (1) Abdominal pain Code(s): R10.9 - UNSPECIFIED ABDOMINAL PAIN Status: Acute (2) Diabetic gastroparesis Code(s): E11.43 - TYPE 2 DIABETES W DIABETIC AUTONOMIC (POLY)NEUROPATHY; K31.84 - GASTROPARESIS Status: Suspected (3) Erosive esophagitis Code(s): K22.10 - ULCER OF ESOPHAGUS WITHOUT BLEEDING Status: Acute (4) H. pylori infection Code(s): A04.8 - OTHER SPECIFIED BACTERIAL INTESTINAL INFECTIONS Status: Acute (5) Diabetic peripheral neuropathy Code(s): E11.42 - TYPE 2 DIABETES MELLITUS WITH DIABETIC POLYNEUROPATHY Status : Chronic (6) Type 1 diabetes mellitus Status: Chronic - Plan No evidence of gap acidosis this admission to indicate DKA N/V/abd pain possibly related to erosive esophagitis vs. gastroparesis vs. psychological On PPI Stop narcotic pain meds. Patient still not tolerating oral food/fluids. Requiring continued IV fluids. Will need to switch to inpatient. Will need H. pylori treatment as outpatient at some point.
[2019-07-17] MEDS: Gabapentin 300 MG CAP PO SCH ×3 (10:40→20:16)
[2019-07-17] MEDS: Sucralfate 1 GM TAB PO SCH ×4 (10:40→21:23)
--- NOTE | 2019-07-17 11:07 | PRG ---
DATE OF SERVICE: 07/17/2019 SUBJECTIVE: Ms. Castro reports abdominal pain is generalized and persistent this morning. She received Phenergan and morphine last night, so she is quite sleepy, but she has not had any vomiting this morning, but endorses persistent nausea. OBJECTIVE: VITAL SIGNS: Temperature 98.2, pulse 85, blood pressure 135/87, and 100% oxygen saturation on room air. GENERAL: Sleepy, but arousable, in no acute distress. HEART: Regular rate and rhythm. LUNGS: Clear to auscultation bilaterally. ABDOMEN: Nondistended. Bowel sounds are active. The abdomen is soft. Some generalized tenderness to palpation, but no guarding or rebound tenderness. No masses or organomegaly appreciated. EXTREMITIES: No peripheral edema. LABORATORY STUDIES: WBC down to 8.7, hemoglobin is 10.3, and platelets 246. Sodium 140, potassium 3.5, chloride 108, carbon dioxide 19, and anion gap calculates at 17, BUN is 6, creatinine 0.73, glucose 205, and calcium 8.6. Note from admission, beta hydroxybutyrate level was elevated to 1.93, then down to 1.54. Urine culture collected yesterday is in process. ASSESSMENT AND PLAN: 1. Generalized abdominal pain. 2. Nausea and vomiting. 3. Erosive esophagitis, demonstrated on esophagogastroduodenoscopy on 06/07/2019. 4. Helicobacter pylori gastritis, demonstrated on esophagogastroduodenoscopy on 06/07/2019. It sounds like this was partially treated just with proton pump inhibitor and amoxicillin. Once the patient is over this acute episode, I would recommend a 2-week course of metronidazole, clarithromycin, and proton pump inhibitor, all twice daily. I doubt that her current exacerbation is strictly due to the Helicobacter pylori. However, she probably would not tolerate oral antibiotics right now. 5. Probable gastroparesis. The patient was doing well until this recent exacerbation, started a couple of days ago, in the context of mild diabetic ketoacidosis. On last presentation, her abdominal symptoms took several days more to improve following resolution of the diabetic ketoacidosis. Continue current supportive care. Advance diet as she tolerates. She has Reglan ordered b.i.d. p.r.n. and I have asked the nurse to go ahead and give it today. No new diagnostic studies are planned at this time. Job ID: [id number]
[2019-07-17] MEDS ORDERED: Promethazine 25 MG TAB PO PRN (11:21)
[2019-07-17] MEDS: Enoxaparin Sodium 40 MG/0.4 ML SYRINGE SC SCH (11:34)
[2019-07-17] MEDS ORDERED: traMADol HCl 50 MG TAB PO PRN (12:08)
[2019-07-17] MEDS ORDERED: Metoclopramide HCl 10 MG TAB PO PRN (12:10)
[2019-07-17] MEDS: Dicyclomine 10 MG CAP PO PRN ×2 (12:12→20:16)
[2019-07-17] MEDS: Metoclopramide HCl 10 MG/2 ML VIAL IVP PRN ×2 (12:27→20:16)
[2019-07-17] MEDS: traMADol HCl 50 MG TAB PO PRN (12:58)
[2019-07-17] MEDS: Promethazine HCl 12.5 MG SUPP PR PRN ×2 (15:30→22:06)
[2019-07-17] MEDS: HumaLOG 300 UNITS/3 ML VIAL SC PRN (15:30)
[2019-07-17 16:08] VITALS: BMI 22.6
[2019-07-17] MEDS ORDERED: Morphine 2 MG/ML SYRINGE SLOW IVP SCH (22:30)
[2019-07-18] MEDS: Metoclopramide HCl 10 MG/2 ML VIAL IVP SCH ×4 (00:16→18:17)
[2019-07-18] MEDS: HumaLOG 300 UNITS/3 ML VIAL SC PRN ×4 (00:23→17:03)
[2019-07-18 06:19] LABS: Anion Gap 15 mmol/L (10-20); BUN (Urea Nitrogen) 5 mg/dL (7.0-18.7); Calc. Creatinine Clearance 115 mL/min (70-130); Calcium 7.9 mg/dL (7.8-10.44); Carbon Dioxide 17 mmol/L (22-29); Chloride 107 mmol/L (98-107); Estimated GFR-MDRD Greater than 90; Glucose 171 mg/dL (70-105); Sodium 136 mmol/L (136-145)
[2019-07-18 06:22] LABS: #Lymphocytes 1.8 thou/uL (1.20-3.40); #Monocytes 0.5 thou/uL (0.11-0.59); #Neutrophils 5.2 thou/uL (1.40-6.50); %Basophils 0.2 % (0.0-1.0); %Eosinophils 0.2 % (0.0-10.0); %Lymphocytes 23.4 % (21.0-51.0); %Monocytes 7.1 % (0.0-10.0); Hemoglobin 9.5 g/dL (12.0-16.0); Mean Corpuscular HGB CONC 32.2 g/dL (32.0-36.0); Mean Corpuscular Hemoglobin 28.7 pg (27.0-31.0); Mean Corpuscular Volume 89.1 fL (78.0-98.0); Mean Platelet Volume 7.5 fL (7.4-10.4); Platelet Count 212 thou/uL (130-400); RBC Distribution Width 12.7 % (11.5-14.5); Red Blood Cell (RBC) Count 3.31 mill/uL (4.20-5.40); White Blood Cell (WBC) Count 7.5 thou/uL (4.8-10.8)
[2019-07-18 06:24] LABS: Potassium 2.9 mmol/L (3.5-5.1)
[2019-07-18] MEDS ORDERED: Potassium Chloride 20 MEQ TAB PO SCH (07:00)
[2019-07-18] MEDS: Sucralfate 1 GM TAB PO SCH ×4 (07:56→22:06)
[2019-07-18] MEDS: traMADol HCl 50 MG TAB PO PRN (08:41)
--- NOTE | 2019-07-18 08:42 | PDOC.HOSPP ---
- Subjective Encounter Date: 07/18/19 Encounter Time: 12:50 Subjective: Patient with some vomiting last night, none today. Tolerated a couple cups of juice and now a popsickle. States her belly is still sore, but improved with tramadol. - Objective Vital Signs & Weight: Vital Signs (12 hours) Temp Pulse Resp BP Pulse Ox 07/18/19 08:00 98.4 F 79 20 114/71 100 07/18/19 04:00 98.7 F 76 16 122/79 100 07/18/19 00:00 99.2 F 78 16 133/88 100 07/17/19 22:30 99.8 F H 108 H 22 H 153/92 H 99 Weight Admit Weight 134 lb 14.4 oz Weight 140 lb 8 oz I&O: 07/17/19 07/18/19 07/19/19 06:59 06:59 06:59 Intake Total 3110 Output Total 1000 Balance 2110 Result Diagrams: 07/18/19 05:48 07/18/19 05:47 Additional Labs: Accuchecks 07/18/19 07/18/19 07/17/19 06:02 00:23 18:21 POC Glucose 169 H 206 H 139 H 07/17/19 07/17/19 13:34 08:42 POC Glucose 255 H 205 H Hospitalist ROS - Review of Systems Constitutional: denies: fever, chills Respiratory: denies: cough, shortness of breath Cardiovascular: denies: chest pain, palpitations Gastrointestinal: reports: nausea, abdominal pain - Medication Medications: Active Medications Generic Name Dose Route Start Last Admin Trade Name Shawnq PRN Reason Stop Dose Admin Acetaminophen 650 mg 07/15/19 19:35 07/17/19 12:59 Tylenol PO 650 mg Q4H PRN Administration Headache/Fever/Mild Pain (1-3) Dicyclomine HCl 10 mg 07/15/19 19:35 07/17/19 20:16 Bentyl PO 10 mg Q6H PRN Administration GI Upset Enoxaparin Sodium 40 mg 07/16/19 09:00 07/17/19 11:34 Lovenox SC Not Given 0900 RYANN Gabapentin 300 mg 07/15/19 21:00 07/17/19 20:16 Neurontin PO Not Given TID RYANN Sodium Chloride 1,000 mls @ 100 mls/hr 07/15/19 19:45 07/17/19 22:56 Normal Saline 0.9% IV 1,000 mls .Q10H RYANN Administration Insulin Glargine 20 units/ 0.2 mls @ 0 mls/hr 07/15/19 21:00 07/17/19 20:22 Miscellaneous Medication SC Not Given HS RYANN Ciprofloxacin/Dextrose 400 mg/ 200 mls @ 200 mls/hr 07/15/19 21:00 07/17/19 20:16 Device IVPB 200 mls Q12HR RYANN Administration Insulin Human Lispro 0 units 07/15/19 19:35 07/18/19 00:23 Humalog SC 2 unit .BEDTIME SLIDING SC PRN Administration Bedtime Correctional Scale Insulin Human Lispro 0 units 07/17/19 14:55 07/18/19 06:06 Humalog SC 2 unit .MILD SLIDING SCALE PRN Administration Mild Correctional Scale Metoclopramide HCl 10 mg 07/17/19 23:59 07/18/19 05:55 Reglan IVP 10 mg Q6HR RYANN Administration Ondansetron HCl 4 mg 07/15/19 19:35 07/15/19 20:01 Zofran IVP 4 mg Q6H PRN Administration Nausea/Vomiting Pantoprazole Sodium 40 mg 07/15/19 21:00 07/17/19 20:16 Protonix PO 40 mg BID RYANN Administration Promethazine HCl 25 mg 07/17/19 11:21 07/17/19 20:16 Phenergan PO 25 mg Q6H PRN Administration Nausea/Vomiting Promethazine HCl 12.5 mg 07/17/19 14:15 07/17/19 22:06 Phenergan Suppository DC 12.5 mg Q4H PRN Administration Nausea/Vomiting Quetiapine Fumarate 200 mg 07/15/19 21:00 07/17/19 20:16 Seroquel PO 200 mg HS RYANN Administration Sertraline HCl 75 mg 07/16/19 09:00 07/17/19 11:34 Zoloft PO Not Given DAILY RYANN Sucralfate 1 gm 07/15/19 21:00 07/18/19 07:56 Carafate PO Not Given ACHS RYANN Tramadol HCl 100 mg 07/17/19 12:08 07/17/19 12:58 Ultram PO 100 mg Q6H PRN Administration Moderate to Severe Pain (6-10) - Exam General Appearance: NAD, awake alert ENT: moist mucosa Heart: RRR, no murmur, no gallops, no rubs Respiratory: CTAB, no wheezes, no rales, no ronchi Gastrointestinal: soft, non-distended, normal bowel sounds, no guarding, no rigidity Gastrointestinal - other findings: mild TTP diffusely Psychiatric: normal affect, normal behavior, A&O x 3 Hosp A/P (1) Abdominal pain Code(s): R10.9 - UNSPECIFIED ABDOMINAL PAIN Status: Acute (2) Diabetic gastroparesis Code(s): E11.43 - TYPE 2 DIABETES W DIABETIC AUTONOMIC (POLY)NEUROPATHY; K31.84 - GASTROPARESIS Status: Suspected (3) Erosive esophagitis Code(s): K22.10 - ULCER OF ESOPHAGUS WITHOUT BLEEDING Status: Acute (4) H. pylori infection Code(s): A04.8 - OTHER SPECIFIED BACTERIAL INTESTINAL INFECTIONS Status: Acute (5) Diabetic peripheral neuropathy Code(s): E11.42 - TYPE 2 DIABETES MELLITUS WITH DIABETIC POLYNEUROPATHY Status : Chronic (6) Type 1 diabetes mellitus Status: Chronic - Plan No evidence of gap acidosis this admission to indicate DKA N/V/abd pain possibly related to erosive esophagitis vs. gastroparesis vs. psychological On PPI Stop narcotic pain meds. Patient still not tolerating oral food/fluids. Requiring continued IV fluids. Switched to inpatient. Will need H. pylori treatment as outpatient at some point. Patient refusing injection of Lantus at night for 2 days in a row. I have stressed to her that if she doesn't take her long acting insulin, her symptoms will not improved. Suspect some amount of malingering though not certain as she definitely has some symptoms from her recurrent acidosis. I did have the nurse give a dose of Lantus this AM. Only 10 units as not eating anything. She took that fine.
[2019-07-18] MEDS: Sodium Chloride 0.9% 1,000 ML IV SCH ×2 (08:44→18:48)
[2019-07-18] MEDS: Enoxaparin Sodium 40 MG/0.4 ML SYRINGE SC SCH (08:49)
[2019-07-18] MEDS: Gabapentin 300 MG CAP PO SCH ×3 (08:49→22:06)
[2019-07-18] MEDS: Potassium Chloride 20 MEQ in Premix Bag 1 BAG IVPB SCH ×2 (09:19→11:33)
[2019-07-18] MEDS: Insulin Glargine 10 UNITS in Pre-Filled Syringe 1 EACH SC SCH (10:29)
--- NOTE | 2019-07-18 15:32 | PRG ---
DATE OF SERVICE: SUBJECTIVE: Ms. Castro is feeling a bit better today. She says her abdomen is still sore, but she has not had any nausea or vomiting today. She was able to eat a popsicle and then part of a burger for lunch. She has no other complaints. OBJECTIVE: VITAL SIGNS: Temperature 98.7, pulse 71, blood pressure 119/79, and 100% oxygen saturation on room air. GENERAL: No acute distress. HEART: Regular rate and rhythm. LUNGS: Clear to auscultation bilaterally. ABDOMEN: Soft and nontender to palpation. EXTREMITIES: No peripheral edema. LABORATORY DATA: WBC down to 7.5, hemoglobin 9.5, and platelets 212. Sodium 136, potassium 2.9, BUN 5, creatinine 0.73, and glucose 212. Urine culture came back growing Proteus mirabilis. This is resistant to nitrofurantoin, otherwise pansensitive. ASSESSMENT/PLAN: 1. Generalized abdominal pain, nausea and vomiting, improved today. 2. Erosive esophagitis, demonstrated on EGD, 06/07/2019. 3. Helicobacter pylori gastritis. 4. Probable gastroparesis. 5. Urinary tract infection, with Proteus mirabilis, currently on ciprofloxacin. My impression remains the patient has probable gastroparesis, perhaps this was exacerbated by her urinary tract infection. She is doing better today on Reglan 10 mg IV q.6 hours. She can continue her diet as tolerated. I think if she is tolerating her diet tomorrow, she could potentially be discharged from the hospital. I would keep her on Reglan, at a dose of 10 mg by mouth 3 times daily. We will possibly plan to get a formal gastric emptying study in the coming weeks on an outpatient basis. We will also plan to give her triple therapy with a 2-week course of metronidazole, clarithromycin, and PPI all twice daily, once she is over this acute episode. We will plan to see her back in clinic in the next few weeks. GI will sign off at this point, but please call back anytime with questions or concerns. Job ID: [id number]
[2019-07-19] MEDS: Metoclopramide HCl 10 MG/2 ML VIAL IVP SCH ×3 (00:16→12:52)
[2019-07-19] MEDS: HumaLOG 300 UNITS/3 ML VIAL SC PRN (02:56)
[2019-07-19] MEDS: Sodium Chloride 0.9% 1,000 ML IV SCH (03:56)
[2019-07-19] MEDS: Sucralfate 1 GM TAB PO SCH ×2 (08:51→12:52)
[2019-07-19] MEDS: Gabapentin 300 MG CAP PO SCH ×2 (08:51→15:54)
[2019-07-19] MEDS: Enoxaparin Sodium 40 MG/0.4 ML SYRINGE SC SCH (08:51)
--- NOTE | 2019-07-19 09:38 | PDOC.HOSPP ---
- Subjective Encounter Date: 07/19/19 Encounter Time: 12:45 Subjective: Patient with mild abdominal soreness. No nausea or vomiting today. Eating food better, though needs encouragement from the nurses to eat. - Objective Vital Signs & Weight: Vital Signs (12 hours) Temp Pulse Resp BP Pulse Ox 07/19/19 07:54 97.8 F 75 20 109/71 100 07/19/19 05:05 97.6 F 72 18 109/73 98 Weight Admit Weight 134 lb 14.4 oz Weight 140 lb 8 oz Result Diagrams: 07/18/19 05:48 07/18/19 05:47 Additional Labs: Accuchecks 07/19/19 07/19/19 07/18/19 05:59 02:49 16:47 POC Glucose 115 H 226 H 174 H 07/18/19 11:23 POC Glucose 212 H Hospitalist ROS - Review of Systems Constitutional: denies: fever, chills Respiratory: denies: cough, shortness of breath Cardiovascular: denies: chest pain, palpitations Gastrointestinal: reports: abdominal pain. denies: nausea, vomiting - Medication Medications: Active Medications Generic Name Dose Route Start Last Admin Trade Name Freq PRN Reason Stop Dose Admin Acetaminophen 650 mg 07/15/19 19:35 07/17/19 12:59 Tylenol PO 650 mg Q4H PRN Administration Headache/Fever/Mild Pain (1-3) Dicyclomine HCl 10 mg 07/15/19 19:35 07/17/19 20:16 Bentyl PO 10 mg Q6H PRN Administration GI Upset Enoxaparin Sodium 40 mg 07/16/19 09:00 07/19/19 08:51 Lovenox SC 40 mg 0900 RYANN Administration Gabapentin 300 mg 07/15/19 21:00 07/19/19 08:51 Neurontin PO 300 mg TID RYANN Administration Sodium Chloride 1,000 mls @ 100 mls/hr 07/15/19 19:45 07/19/19 03:56 Normal Saline 0.9% IV 1,000 mls .Q10H RYANN Administration Insulin Glargine 20 units/ 0.2 mls @ 0 mls/hr 07/15/19 21:00 07/17/19 20:22 Miscellaneous Medication SC Not Given HS RYANN Ciprofloxacin/Dextrose 400 mg/ 200 mls @ 200 mls/hr 07/15/19 21:00 07/18/19 22:07 Device IVPB 200 mls Q12HR RYANN Administration Insulin Glargine 10 units/ 0.1 mls @ 0 mls/hr 07/18/19 09:00 07/18/19 10:29 Miscellaneous Medication SC 0.1 mls QAM RYANN Administration Insulin Human Lispro 0 units 07/15/19 19:35 07/19/19 02:56 Humalog SC 2 unit .BEDTIME SLIDING SC PRN Administration Bedtime Correctional Scale Insulin Human Lispro 0 units 07/17/19 14:55 07/18/19 17:03 Humalog SC 2 unit .MILD SLIDING SCALE PRN Administration Mild Correctional Scale Metoclopramide HCl 10 mg 07/17/19 23:59 07/19/19 07:09 Reglan IVP 10 mg Q6HR RYANN Administration Ondansetron HCl 4 mg 07/15/19 19:35 07/15/19 20:01 Zofran IVP 4 mg Q6H PRN Administration Nausea/Vomiting Pantoprazole Sodium 40 mg 07/15/19 21:00 07/19/19 08:51 Protonix PO 40 mg BID RYANN Administration Promethazine HCl 25 mg 07/17/19 11:21 07/17/19 20:16 Phenergan PO 25 mg Q6H PRN Administration Nausea/Vomiting Promethazine HCl 12.5 mg 07/17/19 14:15 07/17/19 22:06 Phenergan Suppository CO 12.5 mg Q4H PRN Administration Nausea/Vomiting Quetiapine Fumarate 200 mg 07/15/19 21:00 07/18/19 22:07 Seroquel PO 200 mg HS RYANN Administration Sertraline HCl 75 mg 07/16/19 09:00 07/19/19 08:51 Zoloft PO 75 mg DAILY RYANN Administration Sucralfate 1 gm 07/15/19 21:00 07/19/19 08:51 Carafate PO 1 gm ACHS RYANN Administration Tramadol HCl 100 mg 07/17/19 12:08 07/18/19 08:41 Ultram PO 100 mg Q6H PRN Administration Moderate to Severe Pain (6-10) - Exam General Appearance: NAD, awake alert ENT: moist mucosa Heart: RRR, no murmur, no gallops, no rubs Respiratory: CTAB, no wheezes, no rales, no ronchi Gastrointestinal: soft, non-distended, normal bowel sounds, no palpable masses, no hepatomegaly, no splenomegaly, no guarding, no rigidity Gastrointestinal - other findings: mild GARRISON TTP Musculoskeletal: normal tone, normal strength Psychiatric: normal affect, normal behavior, A&O x 3 Hosp A/P (1) Abdominal pain Code(s): R10.9 - UNSPECIFIED ABDOMINAL PAIN Status: Acute (2) Diabetic gastroparesis Code(s): E11.43 - TYPE 2 DIABETES W DIABETIC AUTONOMIC (POLY)NEUROPATHY; K31.84 - GASTROPARESIS Status: Suspected (3) Erosive esophagitis Code(s): K22.10 - ULCER OF ESOPHAGUS WITHOUT BLEEDING Status: Acute (4) H. pylori infection Code(s): A04.8 - OTHER SPECIFIED BACTERIAL INTESTINAL INFECTIONS Status: Acute (5) Diabetic peripheral neuropathy Code(s): E11.42 - TYPE 2 DIABETES MELLITUS WITH DIABETIC POLYNEUROPATHY Status : Chronic (6) Type 1 diabetes mellitus Status: Chronic - Plan No evidence of gap acidosis this admission to indicate DKA N/V/abd pain possibly related to erosive esophagitis vs. gastroparesis vs. psychological On PPI Decreased narcotic pain meds. Will need H. pylori treatment as outpatient at some point. Symptoms resolving on scheduled Reglan. Will switch to po Reglan TID. Can d/c home today. Stay on lower dose Lantus 10units daily until appetite picks back up to normal. F/u GI in 2 weeks, consider H. pylori txt and stomach motility testing at that time.
[2019-07-19] MEDS: Insulin Glargine 10 UNITS in Pre-Filled Syringe 1 EACH SC SCH (10:52)
[2019-07-19 11:34] VITALS: BP 133/88; TEMP 98
--- NOTE | 2019-07-20 15:02 | DIS ---
DATE OF ADMISSION: 07/15/2019 DATE OF DISCHARGE: 07/19/2019 PRIMARY CARE PHYSICIAN: Cole Lyles. REASON FOR ADMISSION: Intractable nausea, vomiting, abdominal pain. DIAGNOSES AT DISCHARGE: 1. Generalized abdominal pain with intractable nausea and vomiting, improved. 2. Likely diabetic gastroparesis. 3. Erosive esophagitis. 4. Helicobacter pylori gastritis. 5. Diabetic peripheral neuropathy. 6. Type 1 diabetes mellitus. 7. Urinary tract infection with proteus mirabilis. PROCEDURES PERFORMED: CT scan of the abdomen and pelvis with contrast showing no evidence for appendicitis, bilateral renal cysts and probable thickening of the yepez of the small bowel loops without any evidence of high-grade bowel obstruction. CONSULTATIONS: Gastroenterology, Dr. Granados. SUMMARY OF HOSPITAL COURSE: This is a 29-year-old female with a history of type 1 diabetes mellitus with history of recurrent presentations for diabetic ketoacidosis, but also for episodes of severe nausea and vomiting with even mild acidosis. She was previously here in the last month with an EGD showing positive H pylori and erosive esophagitis and has had multiple abdominal CT scans over the last 2 to 3 months, about 4 of them. She presented reporting a 1-day history of abdominal pain, nausea and vomiting, unable to hold anything down. She presented to the hospital, had no evidence of DKA at that time. She was given fluids and insulin. The patient's severe pain, nausea and vomiting were initially treated with IV Phenergan and morphine, which caused her to become almost unresponsive at one point on the floor. At that time, her IV medications were discontinued. She was switched first to rectal Phenergan and then later when she was able to tolerate p.o., she was given orally. She was also switched to tramadol only by mouth for pain. Gastroenterology was consulted, they determined her H pylori was not likely the source for this and that she very likely had gastroparesis. She was found to have some mild urinary tract infection that she has not had any symptoms from that grew out Proteus mirabilis and she got ciprofloxacin for that. It was thought that perhaps this was causing a flare of her gastroparesis. The patient was put on Reglan IV q.a.c. and at bedtime and this seemed to help her symptoms most and eventually her nausea and vomiting resolved. Her abdominal pain improved markedly. She was able to tolerate a diet starting yesterday and ate meals when she was reminded to today. Her insulin did have to be decreased significantly. Her home medication list initially listed Lantus. However, patient states she just has Humulin N and Humulin R at home. She was being given 10 units of Lantus daily in the hospital when she had poor appetite and her blood sugars have started to come up, so I am going to have her start that back up at home. DISCHARGE MANAGEMENT: Discharged to home. FOLLOWUP: Follow up with Dr. Granados in 2 weeks. ACTIVITY: As tolerated. DIET: Diabetic diet. MEDICATIONS: 1. Ciprofloxacin 250 mg twice a day for another three tablets. 2. Metoclopramide 10 mg 3 times a day with meals, 90 tablets dispensed. She is to take this scheduled until she sees Dr. Granados in the near future. 3. Humulin N 20 units subcu twice a day. She can actually start off at 10 twice a day and if her blood sugars are running high, go back up to 20 units twice a day. 4. Promethazine 12.5 mg every 6 hours as needed for nausea and vomiting, 20 tabs dispensed. 5. Tramadol 50 mg every 6 hours as needed for pain, 14 tablets dispensed. 6. Bentyl as needed. 7. Gabapentin 300 mg 3 times a day. 8. Protonix 40 mg twice a day. 9. Seroquel 200 mg at night. 10. Sertraline 75 mg daily. 11. Sucralfate 1 g with each meal and at night. TIME SPENT: Arranging the details of this discharge took 32 minutes. Job ID: [id number]
== END 2019-07-19 17:35 | disposition home or self-care (01) | DRG 74 ==
LOC: ERS 13:42 → OBSVTOIN 18:26 → 2SW 18:26 → 3SE 07-17 23:20
PROVIDERS: ADMIT Internal Medicine; ATTEND Emergency Medicine
DX: E10.43 Type 1 diabetes mellitus with diabetic autonomic (poly)neuropathy (principal); K22.10 Ulcer of esophagus without bleeding; A04.8 Other specified bacterial intestinal infections; N39.0 Urinary tract infection, site not specified; K31.84 Gastroparesis; E10.42 Type 1 diabetes mellitus with diabetic polyneuropathy; E10.65 Type 1 diabetes mellitus with hyperglycemia; F32.9 Major depressive disorder, single episode, unspecified; F41.9 Anxiety disorder, unspecified; B96.4 Proteus (mirabilis) (morganii) as the cause of diseases classified elsewhere; Z79.899 Other long term (current) drug therapy; Z79.4 Long term (current) use of insulin
CPT/HCPCS: 36415; 36416; 71045; 74177; 80048; 80053; 80306; 81003; 81015; 82010; 82330; 82803; 83605; 83690; 83735; 84100; 84703; 85025; 87077; 87086; 87186; 94760; 96361; 96365; 96367; 96375; J0744; J1650; J1815; J2270; J2405; J2550; J2765; J3480; J3490; Q0169; Q9967; S0028

== ENCOUNTER 2019-09-01 22:18 | Inpatient (IN) | payer MEDICAID ==
[2019-09-01] MEDS ORDERED: HUMULIN R 100 UNITS in Sodium Chloride 0.9% 100 ML IVPB SCH (22:45)
[2019-09-01 23:11] LABS: BUN (Urea Nitrogen) 19 mg/dL (7.0-18.7); Calc. Creatinine Clearance 0 mL/min (70-130); Calcium 7.9 mg/dL (7.8-10.44); Chloride 111 mmol/L (98-107); Estimated GFR-MDRD 48; Glucose 424 mg/dL (70-105); Potassium 3.9 mmol/L (3.5-5.1); Sodium 137 mmol/L (136-145)
[2019-09-01 23:16] LABS: Carbon Dioxide Less than 8 mmol/L (22-29)
--- NOTE | 2019-09-01 23:29 | PDOC.FPRHP ---
- History of Present Illness Chief Complaint: Intractable nausea and vomiting History of Present Illness: Ms. Castro is a 29y/oF with PMH of T1DM, gastroparesis, erosive esophagitis, who presents to the ED for intractable abdominal pain, nausea and vomiting. She has been checking her sugars at home throughout the day. She has been taking her insulin as sliding scale and long acting 25 in the morning. She states her symptoms started 2-3 days ago with abdominal pain, nausea, and vomiting, and feels similar to previous times she has had DKA. In the ED, her initial blood sugar was 700 and her gap was unable to be calculated, because her bicarb was less than 8. ED Course: Insulin gtt, 3L NS, ordered 4th L. - Allergies/Adverse Reactions Allergies Allergy/AdvReac Type Severity Reaction Status Date / Time No Known Drug Allergies Allergy Verified 08/25/19 15:03 - Home Medications Medication Instructions Recorded Confirmed Type Gabapentin 300 mg PO TID 06/05/19 09/02/19 History QUEtiapine Fumarate [SEROquel] 200 mg PO HS 06/05/19 09/02/19 History Sertraline HCl 75 mg PO DAILY 06/05/19 09/02/19 History Pantoprazole [Protonix] 40 mg PO BID #60 tab 06/08/19 09/02/19 Rx Sucralfate 1 gm PO ACHS #120 tablet 06/08/19 09/02/19 Rx HumuLIN 70/30 25 unit SC QAM 09/02/19 09/02/19 History HumuLIN 70/30 30 unit SC QPM-WM 09/02/19 09/02/19 History Insulin Lispro 1 unit SQ 09/02/19 History Promethazine [Phenergan] 25 mg PO Q6H PRN 09/02/19 09/02/19 History - History PMHx: TI DM Gastroparesis Anxiety PSHx: Lymphnodectomy FHx: Mom - TI DM Social: States she is around people who do marijuana, but she doesn't use it. Denies alcohol or tobacco use. - Review of Systems General: reports: fever/chills, weight/appetite/sleep changes Eyes: denies: eye pain, vision changes ENT: denies: nasal congestion, rhinorrhea Respiratory: denies: cough, congestion, shortness of breath Cardiovascular: reports: chest pain. denies: palpitation, edema, paroxysmal nocturnal dyspnea, orthopnea Gastrointestinal: reports: nausea, vomiting (hematochezia), diarrhea, abdominal pain. denies: constipation, GI bleeding Genitourinary: denies: incontinence, dysuria, polyuria Skin: denies: rashes, lesions, jaundice Musculoskeletal: denies: pain, tenderness, stiffness Neurological: reports: syncope (last night), weakness. denies: numbness, seizure Psychological: denies: anxiety, depression - Vital signs BP: 114/82, MAP: 92, Pulse: 130, Resp: 17, Temp: 98.1 (Oral), Pain: 9, O2 sat: 100 on (Room Air), Time: 09/01/2019 22:26. Weight: 48kg - Physical Exam Constitutional: awake, alert and oriented -Constitutional: Writhing in pain HEENT: normocephalic and atraumatic, PERRLA, EOMI, conjunctiva clear, grossly normal vision, grossly normal hearing -HEENT: Dry mucus membranes Neck: supple, FROM, trachea midline Heart: normal S1/S2, no murmurs/rubs/gallops, pulses present, no edema -Heart: Tachycardic Lungs: CTAB, no respiratory distress, good air movement Abdomen: soft, non-tender, bowel sounds present Musculoskeletal: normal structure, normal tone Neurological: no focal deficit, normal sensation Skin: no rash/lesions -Skin: cap refill >2 seconds Heme/Lymphatic: no unusual bruising or bleeding, no purpura, no petechia -Psychiatric: Pained affect, does not appear to have good insight into disease process or treatment. FMR H&P: Results - Labs Result Diagrams: 09/02/19 00:34 Lab results: Sodium 137 mmol/L (136-145) 09/01/19 22:42 Potassium 3.9 mmol/L (3.5-5.1) 09/01/19 22:42 Chloride 111 mmol/L (98-107) H 09/01/19 22:42 Carbon Dioxide Less than 8 mmol/L (22-29) L* 09/01/19 22:42 BUN 19 mg/dL (7.0-18.7) H 09/01/19 22:42 Creatinine 1.56 mg/dL (0.6-1.1) H 09/01/19 22:42 Glucose 424 mg/dL (70-105) H 09/01/19 22:42 Calcium 7.9 mg/dL (7.8-10.44) 09/01/19 22:42 FMR H&P: A/P - Problem List (1) Diabetic ketoacidosis Current Visit: No Status: Acute Code(s): E11.10 - TYPE 2 DIABETES MELLITUS WITH KETOACIDOSIS WITHOUT COMA (2) Anxiety and depression Current Visit: No Status: Chronic Code(s): F41.9 - ANXIETY DISORDER, UNSPECIFIED; F32.9 - MAJOR DEPRESSIVE DISORDER, SINGLE EPISODE, UNSPECIFIED (3) Type 1 diabetes mellitus Current Visit: No Status: Chronic (4) Diabetic gastroparesis Current Visit: No Status: Suspected Code(s): E11.43 - TYPE 2 DIABETES W DIABETIC AUTONOMIC (POLY)NEUROPATHY; K31.84 - GASTROPARESIS - Plan Diabetic ketoacidosis - Admit to IMCU for DKA protocol. - Serial BMPs q 4hr, will monitor anion gap - Aggressive fluid hydration, s/p 3L bolus in ED. - Patient is on 70/30 at home, will restart once gap is closed. Not ideal, however, it does not appear she was able to get the long acting insulin after last d/c. Anxiety - Continue seroquel and sertraline History of erosive esophagitis - Protonix IV BID Consulted Case Management for d/c planning to assess for barriers to care for prevention of bounce back as she has been admitted for similar symptoms monthly the last three months. PCP: Dr. Nahum Nielson, [place], [place]. City Call. Dispo: Stable Code: Full FMR H&P: Upper Level - Plan Date/Time: 09/01/19 [id number] I, Dr. Jinny Zhou, have evaluated this patient and agree with findings/plan as outlined by qa internship resident. Pertinent changes/additions are listed here. 29yo F with frequent past admissions for DKA, presents to the ED in [place] for similar symptoms and found to be in DKA. Patient endorses abd pain for the last 2-3 days. States she has been taking her insulin every day- long acting in AM/ PM and SS but states her sugars have been running high despite taking meds. Physical exam notable for severe abdominal pain, tachycardia and dehydration. Will admit to the IMCU and monitor for improvement of anion gap with insulin drip and IV fluid hydration. Will obtain serial BMPs to monitor electrolytes, glucose and anion gap. Will continue other home medications. See qa internship note for full HPI/histories. Case discussed with Dr. Kemp.
[2019-09-01 23:34] LABS: Bacteria/HPF None Seen HPF (None Seen); Bilirubin Negative (Negative); Blood, Urine 1+ (Negative); Clarity Clear (Clear); Glucose, Urine (Dipstick) Greater than 1000 mg/dL (Negative); Leukocyte Negative Leu/uL (Negative); Nitrite Negative (Negative); Protein, Urine (Dipstick) 10 mg/dL (Neg-Trace); RBC/HPF 0-3 HPF (0-3); Squamous Epithelial 0-3 HPF (0-3); Urobilinogen Normal mg/dL (Less than 2); WBC/HPF 0-3 HPF (0-3)
[2019-09-02 00:15] LABS: Phosphorus 3.1 mg/dL (2.3-4.7)
[2019-09-02] MEDS ORDERED: Morphine 4 MG/ML VIAL ONE (00:15)
[2019-09-02] MEDS ORDERED: NS 0.9% w/ 20 MEQ KCL 1,000 ML IV PRN ×2 (00:19)
[2019-09-02] MEDS ORDERED: CCU Electrolyte Replacement 1 EACH IVPB ONE (00:19)
[2019-09-02] MEDS ORDERED: Dextrose 5 %-0.45 % NaCl 1,000 ML IV PRN (00:19)
[2019-09-02] MEDS ORDERED: Sodium Chloride 0.9% 1,000 ML IV PRN ×4 (00:19)
[2019-09-02] MEDS ORDERED: Morphine 2 MG/ML SYRINGE SLOW IVP PRN (00:26)
[2019-09-02] MEDS ORDERED: HUMULIN R 100 UNITS in Sodium Chloride 0.9% 100 ML IVPB SCH (00:30)
[2019-09-02] MEDS ORDERED: PHOS-NAK 1 PKT PACK PO PRN ×2 (00:31)
[2019-09-02] MEDS ORDERED: Potassium Chloride 40 MEQ in Premix Bag 1 BAG IVPB PRN (00:31)
[2019-09-02] MEDS ORDERED: Magnesium Oxide 400 MG TAB PO PRN ×2 (00:31)
[2019-09-02] MEDS ORDERED: Potassium Phosphate 12 MMOL in Sodium Chloride 0.9% 250 ML 250 ML IV PRN (00:31)
[2019-09-02] MEDS ORDERED: CCU ELECTROLYTE REPLACEMENT PROTOCOL FS PRN (00:31)
[2019-09-02] MEDS ORDERED: Magnesium 2 GM/50 ML 2 GM in Premix Bag 1 BAG IVPB PRN (00:31)
[2019-09-02] MEDS ORDERED: Potassium Chloride 40 MEQ in Sodium Chloride 0.9% 250 ML 250 ML IVPB PRN (00:31)
[2019-09-02] MEDS ORDERED: Potassium Phosphate 9 MMOL in Sodium Chloride 0.9% 100 ML IVPB PRN (00:31)
[2019-09-02] MEDS ORDERED: Potassium Chloride 20 MEQ TAB PO PRN (00:31)
[2019-09-02] MEDS ORDERED: Potassium Phosphate 15 MMOL in Sodium Chloride 0.9% 250 ML 250 ML IV PRN (00:31)
[2019-09-02 01:07] LABS: BUN (Urea Nitrogen) 16 mg/dL (7.0-18.7); Calc. Creatinine Clearance 0 mL/min (70-130); Calcium 7.7 mg/dL (7.8-10.44); Chloride 116 mmol/L (98-107); Estimated GFR-MDRD 57; Glucose 259 mg/dL (70-105); Potassium 3.6 mmol/L (3.5-5.1); Sodium 139 mmol/L (136-145)
[2019-09-02 01:26] LABS: Carbon Dioxide Less than 8 mmol/L (22-29)
[2019-09-02] MEDS: D5 1/2 NS w/20 mEq KCL 1,000 ML IV PRN ×2 (02:01→06:19)
[2019-09-02] MEDS: Morphine 4 MG/ML VIAL SLOW IVP PRN ×2 (03:09→07:51)
[2019-09-02] MEDS ORDERED: Dicyclomine 20 MG TAB PO SCH (03:15)
[2019-09-02 05:53] LABS: Anion Gap 9 mmol/L (10-20); BUN (Urea Nitrogen) 13 mg/dL (7.0-18.7); Calc. Creatinine Clearance 64 mL/min (70-130); Calcium 7.6 mg/dL (7.8-10.44); Carbon Dioxide 15 mmol/L (22-29); Chloride 118 mmol/L (98-107); Estimated GFR-MDRD 76; Glucose 131 mg/dL (70-105); Potassium 3.7 mmol/L (3.5-5.1); Sodium 138 mmol/L (136-145)
--- NOTE | 2019-09-02 06:21 | PDOC.FM ---
- Subjective Subjective: She is complaining of generalized abdominal pain this morning. She also says she feels a little bad and she says she experiences this every time she goes into DKA. - Objective MAR Reviewed: Yes Vital Signs & Weight: Vital Signs (12 hours) Temp Pulse Ox 09/02/19 03:23 98.7 F 09/02/19 02:43 100 09/02/19 01:04 99.0 F Weight Weight 50.666 kg Most Recent Monitor Data Heart Rate from ECG 108 NIBP 106/73 NIBP BP-Mean 84 Respiration from ECG 23 SpO2 100 I&O: 08/31/19 09/01/19 09/02/19 06:59 06:59 06:59 Intake Total 0 Balance 0 Result Diagrams: 09/02/19 08:25 Phys Exam - Physical Examination Constitutional: NAD HEENT: sclera anicteric, oral pharynx no lesions Dry MM Neck: no nodes, supple Respiratory: no wheezing, no rales, no rhonchi, clear to auscultation bilateral Cardiovascular: RRR, no significant murmur Gastrointestinal: soft, positive bowel sounds TTP throughout Musculoskeletal: no edema, pulses present Neurological: moves all 4 limbs Lymphatic: no nodes Psychiatric: normal affect Skin: no rash, normal turgor Dx/Plan (1) Diabetic ketoacidosis Code(s): E11.10 - TYPE 2 DIABETES MELLITUS WITH KETOACIDOSIS WITHOUT COMA Status: Acute (2) Erosive esophagitis Code(s): K22.10 - ULCER OF ESOPHAGUS WITHOUT BLEEDING Status: Acute (3) Anxiety and depression Code(s): F41.9 - ANXIETY DISORDER, UNSPECIFIED; F32.9 - MAJOR DEPRESSIVE DISORDER, SINGLE EPISODE, UNSPECIFIED Status: Chronic (4) Type 1 diabetes mellitus Status: Chronic - Plan Plan: Ms. Castro is a 29y/oF with PMH of T1DM, gastroparesis, erosive esophagitis, who presents to the ED for intractable abdominal pain, nausea and vomiting. 1. Diabetic ketoacidosis A this morning * In ED: Aggressive fluid hydration, s/p 3L bolus. * Patient is on 70/30 at home, will restart. Not ideal, however, it does not appear she was able to get the long acting insulin after last d/c. * Case Management consulted for d/c planning to assess for barriers to care for prevention of bounce back as she has been admitted for similar symptoms monthly the last three months. 2. Anxiety Continue seroquel and sertraline 3. History of erosive esophagitis - Protonix IV BID Code Status: Full Diet: NPO, will transition to a diet today DVT PPx: SCD GI PPx: Protonix PCP: Dr. Nahum Nielson, [place], [place]. City Call. Dispo: IMCU inpt for DKA. LOS >48H. Gap has closed this morning. We will await till she stabilizes on her regular regimen and get help with assistance for patient outpatient by case management. Addendum - Attending - Attending Attestation Date/Time: 09/02/19 3895 I personally evaluated the patient and discussed the management with Dr. Tipton I agree with the History, Examination, Assessment and Plan documented above with any addition or exceptions noted below. Patient has medicaid so will switch to Lantus and rapid acting. Start reglan for likely gastroparesis which I suspect is the underlying cause of her LUQ pain and N/V. Anion gap closed so can move out of IMCU to medical. LOS likely still 1-2 day for sx control, DM management, and outpatient arrangement.
[2019-09-02] MEDS: Sucralfate 1 GM TAB PO SCH ×4 (07:57→20:57)
[2019-09-02 08:55] LABS: Anion Gap 15 mmol/L (10-20); BUN (Urea Nitrogen) 11 mg/dL (7.0-18.7); Calc. Creatinine Clearance 68 mL/min (70-130); Calcium 7.6 mg/dL (7.8-10.44); Carbon Dioxide 11 mmol/L (22-29); Chloride 116 mmol/L (98-107); Estimated GFR-MDRD 81; Glucose 180 mg/dL (70-105); Potassium 3.9 mmol/L (3.5-5.1); Sodium 138 mmol/L (136-145)
[2019-09-02] MEDS ORDERED: HumuLIN 70/30 (300 UNITS/3 ML VIAL) SC SCH ×2 (09:00→17:00)
[2019-09-02] MEDS ORDERED: FLU VACC QS2019-20(6MOS UP)/PF 60 MCG/0.5 ML SYRINGE IM ONE (09:00)
[2019-09-02] MEDS ORDERED: Lidocaine 2% Viscous Solution 10 ML, Aluminum & Magnesium Hydroxide 30 ML SSW SCH (10:15)
[2019-09-02] MEDS ORDERED: Lactated Ringer's 1,000 ML IV SCH (10:15)
[2019-09-02 10:30] LABS: Hemoglobin A1c 11.4 % (4.0-6.0)
[2019-09-02] MEDS ORDERED: Diltiazem 125 MG in Sodium Chloride 0.9% 100 ML IVPB SCH (10:30)
[2019-09-02 10:35] LABS: Troponin I Less than 0.010 ng/mL (< 0.028)
[2019-09-02] MEDS: Lactated Ringer's 1,000 ML IV SCH (11:45)
[2019-09-02] MEDS: Acetaminophen 325 MG TAB PO PRN ×2 (13:14→21:18)
[2019-09-02] MEDS: Pantoprazole 40 MG VIAL IVP SCH (13:16)
[2019-09-02] MEDS ORDERED: HumaLOG 300 UNITS/3 ML VIAL SC SCH ×2 (15:00)
[2019-09-02] MEDS ORDERED: Dextrose 5% in Water 1,000 ML IV PRN (18:44)
[2019-09-02] MEDS ORDERED: HumaLOG 300 UNITS/3 ML VIAL SC PRN (18:44)
[2019-09-02] MEDS: Metoclopramide HCl 10 MG/2 ML VIAL IVP SCH (20:57)
[2019-09-02] MEDS ORDERED: Insulin Glargine 30 UNITS in Pre-Filled Syringe 1 EACH SC SCH (21:00)
[2019-09-03] MEDS: Pantoprazole 40 MG VIAL IVP SCH ×3 (00:31→23:40)
[2019-09-03 05:20] LABS: Anion Gap 10 mmol/L (10-20); BUN (Urea Nitrogen) 5 mg/dL (7.0-18.7); Calc. Creatinine Clearance 95 mL/min (70-130); Carbon Dioxide 18 mmol/L (22-29); Chloride 113 mmol/L (98-107); Estimated GFR-MDRD Greater than 90; Glucose 134 mg/dL (70-105); Potassium 3.1 mmol/L (3.5-5.1); Sodium 138 mmol/L (136-145)
--- NOTE | 2019-09-03 06:20 | PDOC.FM ---
- Subjective Subjective: She is still experiencing epigastric abdominal pain this morning. - Objective MAR Reviewed: Yes Vital Signs & Weight: Vital Signs (12 hours) Temp Pulse Resp BP BP Pulse Ox 09/03/19 04:40 97.6 F 86 16 110/71 100 09/03/19 00:34 98.6 F 120 H 16 110/68 100 09/02/19 20:00 100 09/02/19 18:42 98.4 F 108 H 18 126/86 100 Weight Admit Weight 50.666 kg Weight 56.518 kg Most Recent Monitor Data Heart Rate from ECG 102 NIBP 105/70 NIBP BP-Mean 81 Respiration from ECG 15 SpO2 100 I&O: 09/01/19 09/02/19 09/03/19 06:59 06:59 06:59 Intake Total 1303.8 375 Output Total 300 Balance 1303.8 75 Result Diagrams: 09/03/19 04:48 Phys Exam - Physical Examination Constitutional: NAD HEENT: moist MMs, sclera anicteric, oral pharynx no lesions Neck: no nodes, supple Respiratory: no wheezing, no rales, no rhonchi, clear to auscultation bilateral Cardiovascular: RRR, no significant murmur Gastrointestinal: soft, positive bowel sounds TTP in epigastrium Musculoskeletal: no edema Neurological: moves all 4 limbs Lymphatic: no nodes Psychiatric: normal affect Skin: no rash, cap refill <2 seconds Dx/Plan (1) Diabetic ketoacidosis Code(s): E11.10 - TYPE 2 DIABETES MELLITUS WITH KETOACIDOSIS WITHOUT COMA Status: Acute (2) Erosive esophagitis Code(s): K22.10 - ULCER OF ESOPHAGUS WITHOUT BLEEDING Status: Acute (3) Anxiety and depression Code(s): F41.9 - ANXIETY DISORDER, UNSPECIFIED; F32.9 - MAJOR DEPRESSIVE DISORDER, SINGLE EPISODE, UNSPECIFIED Status: Chronic (4) Type 1 diabetes mellitus Status: Chronic - Plan Plan: Ms. Castro is a 29y/oF with PMH of T1DM, gastroparesis, erosive esophagitis, who presents to the ED for intractable abdominal pain, nausea and vomiting. 1. Diabetic ketoacidosis A this morning * In ED: Aggressive fluid hydration, s/p 3L bolus. * Patient is on 70/30 at home. * Regimen changed to Lantus 30, Humology 8 TID. * Lantus not given last night given to low glucoses. * Case Management consulted for d/c planning to assess for barriers to care for prevention of bounce back as she has been admitted for similar symptoms monthly the last three months. 2. Anxiety Continue seroquel and sertraline 3. History of erosive esophagitis Protonix IV BID * Reglan started yesterday and GI Cocktail was given Code Status: Full Diet: CC DVT PPx: SCD GI PPx: Protonix PCP: Dr. Nahum Nielson, [place], [place]. City Call. Dispo: Med inpt for DKA. LOS >48H. Encourage PO intake. Will give her a GI cocktail fro abdominal pain. Addendum - Attending - Attending Attestation Date/Time: 09/03/19 1052 I personally evaluated the patient and discussed the management with Dr. Tipton I agree with the History, Examination, Assessment and Plan documented above with any addition or exceptions noted below. Still having refractory abdominal pain. Will give IV toradol and check CT abdomen/pelvis to evaluate for other causes. will observe overnight. Continue to encourage PO intake. restart long insulin.
[2019-09-03] MEDS: Sucralfate 1 GM TAB PO SCH ×4 (06:27→22:23)
[2019-09-03] MEDS: Lactated Ringer's 1,000 ML IV SCH ×3 (06:31→16:11)
[2019-09-03] MEDS ORDERED: Lidocaine 2% Viscous Solution 10 ML, Aluminum & Magnesium Hydroxide 30 ML SSW SCH ×2 (08:30→22:15)
[2019-09-03] MEDS: Potassium Chloride 20 MEQ TAB PO SCH ×2 (09:30→12:23)
[2019-09-03] MEDS: Metoclopramide HCl 10 MG/2 ML VIAL IVP SCH ×2 (09:36→21:47)
[2019-09-03] MEDS ORDERED: Sucralfate 1 GM TAB PO SCH (11:30)
--- NOTE | 2019-09-03 12:01 | CT ---
CT ABDOMEN AND PELVIS WITH IV CONTRAST 09/03/2019 CLINICAL INFORMATION: Abdominal pain and nausea for a few days. COMPARISON: 07/15/2019 Technique: Multiple contiguous axial CT images are obtained through the abdomen and pelvis with IV contrast. Cor onal reformatted images are provided. FINDINGS: Lower Chest: Lung bases are clear. Vessels: Minimal vascular opacification is present. Abdominal aorta is normal in caliber. Abdomen: Portal vein:Patent Gallbladder: Mostly decompressed. Liver: within normal limits. Spleen: within normal limits. Pancreas: within normal limits. Adrenals: within normal limits. Kidneys: Subcentimeter too small to characterize hypodense lesions are again seen in each kidney. Bowel: Lack of intra-abdominal fat limits evaluation of bowel, but nondilated loops of small bowel ar e seen. There does appear to be diffuse thickening of the gastric yepez which could be attributable to gastritis. Stomach is decompressed. Appendix: The appendix is visualized and normal in caliber. Peritoneum: No fluid collection or free fluid is seen in the abdomen. Mesentery and Retroperitoneum: No enlarged mesenteric or retroperitoneal lymph nodes. Abdominal Wall: Minimal subcutaneous edema is present. Pelvis: Reproductive Organs: A 2.5 cm low-density structure seen in the right adnexa likely due to right ovar dixie cyst. This was not seen on prior exam. Pelvis: Small amount of free fluid in the cul-de-sac. Bladder: within normal limits. Bones: No suspicious lytic or sclerotic osseous lesions are identified. IMPRESSION: 1. Thickening of the gastric yepez diffusely. The degree of thickening is more than typically expecte d for degree of incomplete distention. Findings could be related to gastritis. There is also suggestion of mild thickening involving the distal esophagus. Endoscopy may be helpful for further ev aluation. 2. Small amount of free fluid in the cul-de-sac. 3. Probable right ovarian cyst.
[2019-09-03] MEDS: Ketorolac Tromethamine 30 MG/ML VIAL IVP SCH ×3 (12:10→23:40)
[2019-09-03] MEDS ORDERED: Iopamidol 370 76% 100 ML VIAL ONE (13:41)
[2019-09-03] MEDS: HumaLOG 300 UNITS/3 ML VIAL SC SCH ×2 (15:09→21:26)
[2019-09-03] MEDS: HumaLOG 300 UNITS/3 ML VIAL SC PRN (15:58)
[2019-09-03] MEDS ORDERED: Potassium Chloride 40 MEQ in Sodium Chloride 0.9% 250 ML 250 ML IVPB SCH (16:00)
[2019-09-03] MEDS ORDERED: Insulin Glargine 30 UNITS in Pre-Filled Syringe 1 EACH SC SCH (21:00)
[2019-09-04] MEDS ORDERED: Promethazine HCl 25 MG/ML VIAL SLOW IVP PRN (02:30)
[2019-09-04] MEDS: Promethazine HCl 12.5 MG in Sodium Chloride 0.9% 50 ML IVPB PRN ×2 (02:59→17:45)
[2019-09-04] MEDS: Ketorolac Tromethamine 30 MG/ML VIAL IVP SCH ×4 (05:21→23:21)
--- NOTE | 2019-09-04 05:54 | PDOC.FM ---
- Subjective Subjective: Episode overnight of tachycardia to 113 and hypertension at 163/103 associated w / 12/14 abdominal pain. EKG showed NSR Pt sleeping comfortably this AM. Denies current N/V/pain. Nursing informed MD of wound on pt's abdomen which is not draining and has developed since her time here. - Objective MAR Reviewed: Yes Vital Signs & Weight: Vital Signs (12 hours) Temp Pulse Resp BP Pulse Ox 09/04/19 01:45 113 H 163/103 H 09/03/19 20:00 98.6 F 91 16 115/75 100 Weight Admit Weight 50.666 kg Weight 56.518 kg Most Recent Monitor Data Heart Rate from ECG 102 NIBP 105/70 NIBP BP-Mean 81 Respiration from ECG 15 SpO2 100 I&O: 09/02/19 09/03/19 09/04/19 06:59 06:59 06:59 Intake Total 1303.8 375 1090 Output Total 300 Balance 1303.8 75 1090 Result Diagrams: 09/04/19 05:58 Phys Exam - Physical Examination Constitutional: NAD non labored breathing Cardiovascular: RRR, no significant murmur Gastrointestinal: soft, no distention, positive bowel sounds Psychiatric: normal affect, A&O x 3 Deviation from normal: linear 2-3 cm wound without drainage, ulceration nor appears to be infected -: to R of umbilicus, darkened skin around edges, 2nd wound to L of umbilicus Dx/Plan (1) Hypokalemia Code(s): E87.6 - HYPOKALEMIA Status: Acute (2) Diabetic ketoacidosis Code(s): E11.10 - TYPE 2 DIABETES MELLITUS WITH KETOACIDOSIS WITHOUT COMA Status: Acute (3) Erosive esophagitis Code(s): K22.10 - ULCER OF ESOPHAGUS WITHOUT BLEEDING Status: Acute (4) Anxiety and depression Code(s): F41.9 - ANXIETY DISORDER, UNSPECIFIED; F32.9 - MAJOR DEPRESSIVE DISORDER, SINGLE EPISODE, UNSPECIFIED Status: Chronic (5) Type 1 diabetes mellitus Status: Chronic (6) Diabetic gastroparesis Code(s): E11.43 - TYPE 2 DIABETES W DIABETIC AUTONOMIC (POLY)NEUROPATHY; K31.84 - GASTROPARESIS Status: Suspected - Plan Plan: Ms. Castro is a 29y/oF with PMH of T1DM, gastroparesis, erosive esophagitis, who presents to the ED for intractable abdominal pain, nausea and vomiting. 1. Diabetic ketoacidosis, improved, anion gap is closed. 1a. Type 1 DM - Patient is on 70/30 at home. - Lantus 30, Humolog 8 TID. - continue insulin titration - Case Management, discharge planning 2. Anxiety Continue seroquel and sertraline 3. History of erosive esophagitis 3a. Abdominal pain 3b. Diabetic gastroparesis - Protonix IV BID - Reglan IV BID, will titrate up as pt likely has gastroparesis. Will d/c home w / reglan PO. - continue carafate 1gm ACHS. - Abd CT yesterday showed gastric wall and distal esophageal thickening. - Needs GI workup as outpatient and EGD. 4. Abdominal skin wound - unclear cause, pt reports started as blister. Appears to be a breakdown of previous scar, although pt denies prior surgery/scar in this area. - wound care consulted. - wound appears clean at this time. Code Status: Full Diet: Diabetic, CLD. ADAT. Fluids: LR at 50 mL/hr DVT PPx: SCD GI PPx: Protonix PCP: Dr. Nahum Nielson, [place], [place]. City Call. Dispo: Med inpt for DKA. LOS >48H. Encourage PO intake. Addendum - Attending - Attending Attestation Date/Time: 09/04/19 1484 I personally evaluated the patient and discussed the management with Dr. Shaffer. I agree with the History, Examination, Assessment and Plan documented above with any addition or exceptions noted below. Patient improving. Awaiting diet toleration. Adjusting insulin regimen, nearing point of stability for discharge.
[2019-09-04] MEDS ORDERED: Potassium Chloride 10 MEQ in Premix Bag 1 BAG IVPB SCH (06:15)
[2019-09-04 06:21] LABS: Anion Gap 9 mmol/L (10-20); BUN (Urea Nitrogen) 4 mg/dL (7.0-18.7); Calc. Creatinine Clearance 107 mL/min (70-130); Calcium 7.6 mg/dL (7.8-10.44); Carbon Dioxide 22 mmol/L (22-29); Chloride 110 mmol/L (98-107); Estimated GFR-MDRD Greater than 90; Glucose 205 mg/dL (70-105); Potassium 3.5 mmol/L (3.5-5.1); Sodium 137 mmol/L (136-145)
[2019-09-04] MEDS: HumaLOG 300 UNITS/3 ML VIAL SC PRN ×2 (06:42→17:44)
[2019-09-04] MEDS: Sucralfate 1 GM TAB PO SCH ×4 (08:13→19:50)
[2019-09-04] MEDS: Metoclopramide HCl 10 MG/2 ML VIAL IVP SCH (08:13)
[2019-09-04] MEDS: Lactated Ringer's 1,000 ML IV SCH ×2 (08:15→13:17)
[2019-09-04] MEDS: HumaLOG 300 UNITS/3 ML VIAL SC SCH ×3 (09:00→21:23)
[2019-09-04] MEDS: Metoclopramide HCl 10 MG TAB PO SCH ×2 (09:00→19:50)
[2019-09-04] MEDS: Pantoprazole 40 MG VIAL IVP SCH ×2 (11:45→23:23)
--- NOTE | 2019-09-04 20:54 | EKG ---
Test Reason : Blood Pressure : / mmHG Vent. Rate : 109 BPM Atrial Rate : 109 BPM P-R Int : 142 ms QRS Dur : 086 ms QT Int : 342 ms P-R-T Axes : 049 037 043 degrees QTc Int : 460 ms Sinus tachycardia Nonspecific T wave abnormality Abnormal ECG When compared with ECG of 05-JUN-2019 17:34, Nonspecific T wave abnormality no longer evident in Anterior leads Confirmed by Jonathan MATHEW ([id number]) on 09/04/2019 8:54:47 PM Referred By: Confirmed By:Jonathan MATHEW
[2019-09-04] MEDS ORDERED: Insulin Glargine 34 UNITS in Pre-Filled Syringe 1 EACH SC SCH (21:00)
[2019-09-04] MEDS ORDERED: Promethazine HCl 25 MG/ML VIAL SLOW IVP SCH (21:30)
[2019-09-05] MEDS ORDERED: Ondansetron PF 4 MG/2 ML Vial IVP SCH (01:00)
[2019-09-05] MEDS ORDERED: Promethazine HCl 12.5 MG in Sodium Chloride 0.9% 50 ML IVPB SCH (01:45)
[2019-09-05] MEDS ORDERED: Prochlorperazine 10 MG/2 ML VIAL IVP SCH (01:45)
[2019-09-05] MEDS: Dextrose 50% Abboject 50 ML SYRINGE SLOW IVP PRN ×2 (05:11→17:40)
[2019-09-05] MEDS: Ketorolac Tromethamine 30 MG/ML VIAL IVP SCH (05:11)
[2019-09-05 05:33] LABS: Anion Gap 10 mmol/L (10-20); BUN (Urea Nitrogen) 4 mg/dL (7.0-18.7); Calc. Creatinine Clearance 115 mL/min (70-130); Calcium 8.1 mg/dL (7.8-10.44); Carbon Dioxide 26 mmol/L (22-29); Chloride 109 mmol/L (98-107); Estimated GFR-MDRD Greater than 90; Sodium 142 mmol/L (136-145)
[2019-09-05 05:47] LABS: Glucose 44 mg/dL (70-105); Potassium 2.9 mmol/L (3.5-5.1)
--- NOTE | 2019-09-05 05:57 | PDOC.FM ---
- Subjective Subjective: Patient is in severe distress this morning from abdominal pain, doubled over not because it soothes her pain, but just because she is hurting. + nausea. Vomited small amounts 3-4 times overnight. Tried soft food last night, made her nauseous. No matter the amount she eats she feels nauseous. Required phenergan x2 and compazine, which allowed her to go to sleep until this AM. - Objective MAR Reviewed: Yes Vital Signs & Weight: Vital Signs (12 hours) Temp Pulse Resp BP Pulse Ox 09/04/19 19:50 98 09/04/19 19:36 98.9 F 106 H 18 118/80 98 Weight Admit Weight 50.666 kg Weight 56.518 kg Most Recent Monitor Data Heart Rate from ECG 102 NIBP 105/70 NIBP BP-Mean 81 Respiration from ECG 15 SpO2 100 I&O: 09/03/19 09/04/19 09/05/19 06:59 06:59 06:59 Intake Total 375 1090 Output Total 300 Balance 75 1090 Result Diagrams: 09/05/19 12:17 Phys Exam - Physical Examination writhing in pain Respiratory: clear to auscultation bilateral Cardiovascular: RRR, no significant murmur Gastrointestinal: soft, no distention, positive bowel sounds mild tenderness diffusely, moreso towards midline. Musculoskeletal: no edema Psychiatric: A&O x 3 Skin: no rash Deviation from normal: wound on abd bandaged. Dx/Plan (1) Hypokalemia Code(s): E87.6 - HYPOKALEMIA Status: Acute (2) Diabetic ketoacidosis Code(s): E11.10 - TYPE 2 DIABETES MELLITUS WITH KETOACIDOSIS WITHOUT COMA Status: Acute (3) Erosive esophagitis Code(s): K22.10 - ULCER OF ESOPHAGUS WITHOUT BLEEDING Status: Acute (4) Anxiety and depression Code(s): F41.9 - ANXIETY DISORDER, UNSPECIFIED; F32.9 - MAJOR DEPRESSIVE DISORDER, SINGLE EPISODE, UNSPECIFIED Status: Chronic (5) Type 1 diabetes mellitus Status: Chronic (6) Diabetic gastroparesis Code(s): E11.43 - TYPE 2 DIABETES W DIABETIC AUTONOMIC (POLY)NEUROPATHY; K31.84 - GASTROPARESIS Status: Suspected - Plan Plan: Ms. Castro is a 29y/oF with PMH of T1DM, gastroparesis, erosive esophagitis, who presents to the ED for intractable abdominal pain, nausea and vomiting. 1. Diabetic ketoacidosis, improved, anion gap is closed. 1a. Type 1 DM 1b. Hypokalemia 1c. Intractable abd pain, N/V - Patient is on 70/30 at home. - Lantus 34, Humolog 8 TID. - continue insulin titration - Case Management, discharge planning - labile blood sugars, likely 2/2 patient not eating and giving lantus. - replete potassium, check magnesium - will add bentyl BID to see if it helps relax intestines 2. Anxiety Continue seroquel and sertraline 3. History of erosive esophagitis 3b. Diabetic gastroparesis - Protonix IV BID - Reglan IV BID, will titrate up as pt likely has gastroparesis. Will d/c home w / reglan PO. - continue carafate 1gm ACHS. - Abd CT yesterday showed gastric wall and distal esophageal thickening. - Needs GI workup as outpatient and EGD. 4. Abdominal skin wound - unclear cause, pt reports started as blister. Appears to be a breakdown of previous scar, although pt denies prior surgery/scar in this area. 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 - wound care consulted. - wound appears clean at this time. Code Status: Full Diet: Diabetic, CLD. ADAT. Fluids: LR at 50 mL/hr DVT PPx: SCD GI PPx: Protonix PCP: Dr. Nahum Nielson, [place], [place]. City Call. Dispo: Med inpt for DKA. LOS >48H. Encourage PO intake. Addendum - Attending - Attending Attestation Date/Time: 09/05/19 8627 I personally evaluated the patient and discussed the management with Dr. Shaffer. I agree with the History, Examination, Assessment and Plan documented above with any addition or exceptions noted below.
[2019-09-05] MEDS ORDERED: Potassium Chloride 20 MEQ TAB PO SCH (06:00)
[2019-09-05] MEDS ORDERED: Potassium Chloride 10 MEQ in Premix Bag 1 BAG IVPB SCH (06:15)
[2019-09-05] MEDS: Lactated Ringer's 1,000 ML IV SCH ×2 (07:06→23:36)
[2019-09-05] MEDS ORDERED: Lidocaine 2% Viscous Solution 10 ML, Aluminum & Magnesium Hydroxide 30 ML SSW SCH (08:15)
[2019-09-05] MEDS: Ondansetron PF 4 MG/2 ML Vial IVP PRN (09:14)
[2019-09-05] MEDS ORDERED: Magnesium 2 GM/50 ML 2 GM in Premix Bag 1 BAG IVPB SCH (09:45)
[2019-09-05] MEDS: Dicyclomine 20 MG TAB PO SCH ×2 (09:52→20:49)
[2019-09-05] MEDS: HumaLOG 300 UNITS/3 ML VIAL SC SCH ×3 (09:52→17:38)
[2019-09-05] MEDS: Metoclopramide HCl 10 MG TAB PO SCH ×2 (09:52→14:36)
[2019-09-05] MEDS: Sucralfate 1 GM TAB PO SCH ×4 (09:52→20:48)
[2019-09-05 13:04] LABS: Anion Gap 11 mmol/L (10-20); BUN (Urea Nitrogen) Less than 4 mg/dL (7.0-18.7); Calc. Creatinine Clearance 119 mL/min (70-130); Calcium 7.8 mg/dL (7.8-10.44); Carbon Dioxide 24 mmol/L (22-29); Chloride 108 mmol/L (98-107); Estimated GFR-MDRD Greater than 90; Glucose 114 mg/dL (70-105); Magnesium 1.7 mg/dL (1.6-2.6); Potassium 3.9 mmol/L (3.5-5.1); Sodium 139 mmol/L (136-145)
[2019-09-05] MEDS: Pantoprazole 40 MG VIAL IVP SCH ×2 (13:52→23:34)
--- NOTE | 2019-09-05 17:33 | CON ---
DATE OF CONSULTATION: 09/05/2019 REQUESTING PHYSICIAN: Dr. Linh Shaffer. REASON FOR CONSULTATION: Nausea and vomiting. HISTORY OF PRESENT ILLNESS: Yumi Castro is a 29-year-old woman, whom I met in hospital consultation in late May 2019, when she presented with diabetic ketoacidosis, severe abdominal pain, nausea and vomiting. At that time, her abdominal pain and vomiting symptoms persisted after successful treatment of the DKA. I performed upper endoscopy on 06/07/2019. She was found to have severe LA grade D erosive esophagitis in the distal 5 cm of the esophagus, as well as gastritis in the gastric fundus. Gastric biopsies came back positive for H pylori. The patient was discharged on a PPI, but was nonadherent with this. I had my office contact her to prescribe triple therapy, but the patient reported she did not finish it, took only the amoxicillin for a few days. She was then rehospitalized here in late June with the same symptoms in the context of DKA, and then in early July, again in DKA with the same symptoms of abdominal pain, nausea, and vomiting. She had had prior GI evaluation elsewhere with diagnosis of likely gastroparesis, with which I agreed. The patient states that over the past month, she again did very well with really no symptoms at all, until 3 days prior to presentation, she was admitted 4 days ago again with the same symptoms of epigastric to generalized abdominal pain, nausea, and vomiting. She was again found to be in DKA with glucose over 700, bicarbonate only 8. She has been treated appropriately with IV fluids and insulin, and her anion gap is now closed. However, for the past couple of days since then she has continued to have abdominal pain, she had a couple of episodes of nonbloody emesis earlier today and her nausea is persistent. This is despite Protonix 40 mg IV q.12 hours, Raglan, initially IV twice daily dosing, unable to transition to orals today, GI cocktail which helped a little bit, and Carafate which she was not able to take today. The patient currently rates her pain as 8/10. She has remained hemodynamically stable, but with fluctuating blood glucoses. Notably, her medication list on admission states that she had been taking Protonix twice a day, but she denies taking that medication or any other acid suppression. Her medication list does not include Reglan, but she says she actually has been taking that at home, so it is quite difficult to know what she has been doing with medications. In addition, she had a history of recent marijuana use late last year, since then, denying personal use of marijuana. PAST MEDICAL HISTORY: 1. Severe erosive esophagitis, June 2019. 2. H pylori gastritis, June 2019, has not yet completed triple therapy. 3. Probable gastroparesis, per prior GI evaluation elsewhere. 4. Diabetes type 1, on insulin. 5. Peripheral neuropathy. 6. Recurrent episodes of diabetic ketoacidosis. 7. Lymph node removal from the neck. FAMILY HISTORY: Negative for GI malignancy. SOCIAL HISTORY: No tobacco or alcohol use. She has a history of marijuana use, but denies any personal use this year. ALLERGIES: NO KNOWN DRUG ALLERGIES. OUTPATIENT MEDICATIONS: List includes; 1. Gabapentin. 2. Protonix 40 mg b.i.d. 3. Promethazine p.r.n. 4. Seroquel 200 mg p.o. at bedtime. 5. Sertraline 75 mg p.o. daily. 6. Sucralfate 1 g p.o. before meals and at bedtime. 7. Insulin lispro. 8. Humulin insulin. However, the patient states she was not taking pantoprazole, and thinks she was taking Reglan, so difficult to know. INPATIENT MEDICATIONS: 1. Dicyclomine 20 mg b.i.d., not given today. 2. Insulin glargine. 3. Insulin lispro. 4. Reglan 10 mg p.o. t.i.d., not given today. 5. Zofran p.r.n. 6. Protonix 40 mg IV q.12 hours. 7. Seroquel. 8. Zoloft. 9. Sucralfate 1 g p.o. before meals and at bedtime, not given today. REVIEW OF SYSTEMS: Full review of systems including constitutional, head, eyes, ears, nose, throat, GI, , cardiovascular, respiratory, musculoskeletal, neurologic systems is negative except as noted in the HPI. PHYSICAL EXAMINATION: VITAL SIGNS: Temperature 97.1, pulse 88, blood pressure 105/65, and 99% oxygen saturation on room air. GENERAL: A 29-year-old woman, lying in bed, in moderate distress from abdominal pain and nausea. SKIN: No jaundice. No rashes were palpable. She has skin breakdown to the anterior abdomen, which is well documented with photodocumentation. EYES: No scleral icterus. Extraocular movements intact. ENT: Mucous membranes moist. No oral lesions. LYMPH: No submandibular or supraclavicular lymphadenopathy. THYROID: Nontender to palpation. HEART: Regular rate and rhythm. LUNGS: Clear to auscultation bilaterally. ABDOMEN: Bowel sounds present. Nondistended. The abdomen is soft, diffusely tender to palpation throughout. No guarding or rebound tenderness. EXTREMITIES: No peripheral edema. NEUROLOGIC: Cranial nerves 2 through 12 are intact bilaterally. VESSELS: Radial pulses 2+ bilaterally. LABORATORY STUDIES: Sodium 139, potassium 3.9, BUN 4, creatinine 0.63, glucose 56, calcium 7.8, magnesium 1.7. Troponin negative. Beta-hydroxybutyrate on admission was elevated to 4.7. Admission lipase was normal at 8. Serum test negative. Total bilirubin 0.3, alkaline phosphatase 92, AST 12, ALT 23. IMAGING STUDIES: CT of the abdomen and pelvis from 09/03/2019, demonstrated some diffuse thickening of the gastric yepez, mild thickening in the distal esophagus, and a 2.5 cm right ovarian cyst. The CT was otherwise normal. ASSESSMENT AND PLAN: 1. Probable gastroparesis. 2. Helicobacter pylori gastritis, demonstrated on gastric biopsies, 06/07/2019, not yet adequately treated. 3. Erosive esophagitis, demonstrated on EGD, 06/07/2019. 4. Recurrent episodes of diabetic ketoacidosis. The patient's presentation is essentially identical to prior presentations over the past few months. She will come in with diabetic ketoacidosis, and symptoms of abdominal pain and vomiting will persist several days following resolution of the acidosis. Notably, she is asymptomatic in between episodes. I do not think there is any need to perform repeat EGD at this time. Undoubtedly, she has continued severe distal esophagitis, as well as Helicobacter pylori gastritis. Again, it is unclear what she has been doing with medications at home, she denies any ongoing acid suppression, but really needs to be on PPI twice daily. In addition, I think she does need to be on p.o. Reglan as an outpatient, probably 10 mg t.i.d. at this point. I agree with trial of Carafate and GI cocktail for now as you are doing. At some point, she is going to need to complete full triple therapy for Helicobacter pylori, though those antibiotics should really be started when she has passed this acute episode and able to tolerate oral medications again. For now, we will switch the Reglan back to IV, 10 mg t.i.d. The patient denies current marijuana use, but consider the possibility that this maybe ongoing and that episodes may represent cannabinoid hyperemesis syndrome. Thank you for the consultation. GI can follow along. Please call anytime with questions or concerns. Job ID: [id number]
[2019-09-05] MEDS: Insulin Glargine 17 UNITS in Pre-Filled Syringe 1 EACH SC SCH (20:49)
[2019-09-05] MEDS: Mag-Al 1200 mg/1200 mg/30 ML UDCUP PO PRN (20:55)
[2019-09-05] MEDS: Metoclopramide HCl 10 MG/2 ML VIAL IVP SCH (20:57)
[2019-09-06] MEDS: Metoclopramide HCl 10 MG/2 ML VIAL IVP SCH ×3 (05:58→23:46)
[2019-09-06] MEDS: Dextrose 50% Abboject 50 ML SYRINGE SLOW IVP PRN (05:58)
[2019-09-06 06:00] LABS: Anion Gap 7 mmol/L (10-20); BUN (Urea Nitrogen) Less than 4 mg/dL (7.0-18.7); Calc. Creatinine Clearance 113 mL/min (70-130); Calcium 7.9 mg/dL (7.8-10.44); Carbon Dioxide 30 mmol/L (22-29); Chloride 109 mmol/L (98-107); Estimated GFR-MDRD Greater than 90; Potassium 3.4 mmol/L (3.5-5.1); Sodium 143 mmol/L (136-145)
[2019-09-06 06:06] LABS: Glucose 46 mg/dL (70-105)
--- NOTE | 2019-09-06 06:25 | PDOC.FM ---
- Subjective Subjective: Patient had episode of HR 111 and BP of 160/101 overnight. reports having some abdominal pain. Took in 600mL PO yesterday. Still writhing w/ discomfort this AM. - Objective MAR Reviewed: Yes Vital Signs & Weight: Vital Signs (12 hours) Temp Pulse Resp BP BP Pulse Ox 09/06/19 04:17 96/58 L 09/06/19 04:05 99.1 F 79 16 88/53 L 65 L 09/05/19 23:30 98.5 F 111 H 18 160/101 H 99 09/05/19 20:00 98.5 F 112 H 18 117/74 99 Weight Admit Weight 50.666 kg Weight 56.518 kg Most Recent Monitor Data Heart Rate from ECG 102 NIBP 105/70 NIBP BP-Mean 81 Respiration from ECG 15 SpO2 100 I&O: 09/04/19 09/05/19 09/06/19 06:59 06:59 06:59 Intake Total 1090 1150 Balance 1090 1150 Result Diagrams: 09/06/19 05:29 Phys Exam - Physical Examination Respiratory: no wheezing, clear to auscultation bilateral Cardiovascular: RRR Gastrointestinal: soft, non-tender (when pushed w/ stethoscope in all quadrants) , no distention, positive bowel sounds Musculoskeletal: no edema Dx/Plan (1) Hypokalemia Code(s): E87.6 - HYPOKALEMIA Status: Acute (2) Diabetic ketoacidosis Code(s): E11.10 - TYPE 2 DIABETES MELLITUS WITH KETOACIDOSIS WITHOUT COMA Status: Acute (3) Erosive esophagitis Code(s): K22.10 - ULCER OF ESOPHAGUS WITHOUT BLEEDING Status: Acute (4) Anxiety and depression Code(s): F41.9 - ANXIETY DISORDER, UNSPECIFIED; F32.9 - MAJOR DEPRESSIVE DISORDER, SINGLE EPISODE, UNSPECIFIED Status: Chronic (5) Type 1 diabetes mellitus Status: Chronic (6) Diabetic gastroparesis Code(s): E11.43 - TYPE 2 DIABETES W DIABETIC AUTONOMIC (POLY)NEUROPATHY; K31.84 - GASTROPARESIS Status: Suspected - Plan Plan: Ms. Castro is a 29y/oF with PMH of T1DM, gastroparesis, erosive esophagitis, who presents to the ED for intractable abdominal pain, nausea and vomiting. 1. Diabetic ketoacidosis, improved, anion gap is closed. 1a. Type 1 DM 1b. Hypokalemia 1c. Intractable abd pain, N/V - Patient is on 70/30 at home. - we have had to decrease her insulin as patient is not eating due to pain and lack of motivation to eat - Case Management, discharge planning - labile blood sugars, likely 2/2 patient not eating and giving lantus. - bentyl BID 2. Anxiety Continue seroquel and sertraline 3. History of erosive esophagitis 3a. H Pylori infection, not treated due to noncompliance 3b. Diabetic gastroparesis - Protonix IV BID - Reglan IV TID - continue carafate 1gm ACHS. - GI consulted, Dr. Granados, appreciate recs. Per Dr. Granados's notes, the patient has had an EGD in June 2019 showing erosive esophagitis, H Pylori infection on biopsy. Pt did not complete triple therapy as outpatient. Triple therapy may be resumed after acute pain of this hospitalization resolves. - also consider cannabinoid hyperemesis syndrome as pt has hx of marijuana usage. May consider trial of capsaicin cream on abdomen (avoid abdominal wound) 4. Abdominal skin wound - unclear cause, pt reports started as blister. Appears to be a breakdown of previous scar, although pt denies prior surgery/scar in this area. 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 - wound care consulted. - wound appears clean at this time. 5. Severe Malnutrition - [employer] consult, appreciate recs. - Glucerna shakes started. Code Status: Full Diet: Diabetic diet. Fluids: stopped IVF DVT PPx: SCD GI PPx: Protonix PCP: Dr. Nahum Nielson, [place], [place]. City Call. Dispo: Med inpt for DKA. LOS >48H. Encourage PO intake. Addendum - Attending - Attending Attestation Date/Time: 09/06/19 5323 I personally evaluated the patient and discussed the management with Dr. Shaffer. I agree with the History, Examination, Assessment and Plan documented above with any addition or exceptions noted below. Patient is having issues related to glycemic control due to her med and diet nocompliance. We will be reaching out to family to help with compliance. She is overall stable for discharge if she can get some motivation to take her meds as rx'd. Will discuss case with GI but all of her abdominal complaints are chronic and a result of her not taking her prescribed meds. She is overall stable for discharge.
[2019-09-06] MEDS: Sucralfate 1 GM TAB PO SCH ×4 (09:25→21:30)
[2019-09-06] MEDS: Dicyclomine 20 MG TAB PO SCH ×2 (09:25→21:29)
[2019-09-06] MEDS ORDERED: Potassium Chloride 20 MEQ TAB PO SCH (09:45)
[2019-09-06] MEDS: HumaLOG 300 UNITS/3 ML VIAL SC SCH ×3 (11:18→17:27)
[2019-09-06] MEDS: Ondansetron PF 4 MG/2 ML Vial IVP PRN (11:34)
[2019-09-06] MEDS: Pantoprazole 40 MG VIAL IVP SCH ×2 (13:49→23:46)
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
[2019-09-06] MEDS: Acetaminophen 325 MG TAB PO PRN ×2 (15:43→20:38)
--- NOTE | 2019-09-06 16:03 | PRG ---
DATE OF SERVICE: 09/06/2019 REASON FOR CONSULTATION: Nausea, vomiting, odynophagia. SUBJECTIVE: The patient states that she is continuing to have substernal chest pain in addition to odynophagia. This significantly worsens with ingestion of either solid or liquid foods. She also continues to have episodes of nausea and vomiting with approximately three episodes of vomiting this morning of clear fluid. Otherwise, she denies any hematemesis, melena, hematochezia, or dysphagia. OBJECTIVE: VITAL SIGNS: Temperature 98.4, pulse 99, blood pressure 129/90, respiratory rate 14, saturating 100% on room air. GENERAL: The patient was lying in bed, in moderate distress. Alert and oriented x4. CARDIOVASCULAR: Tachycardic rate but regular rhythm. RESPIRATORY: Clear to auscultation bilaterally. ABDOMEN: Normoactive bowel sounds. Soft, nondistended. Tender to palpation in all abdominal quadrants. No guarding or rebound tenderness noted. EXTREMITIES: No cyanosis, clubbing, or edema. LABORATORY DATA: Chemistry with a sodium of 143, potassium 3.4, chloride 109, CO2 of 30, BUN less than 4, creatinine 0.66, glucose 46. IMAGING DATA: No current GI imaging is available for review. ASSESSMENT AND PLAN: The patient is a 29-year-old female with past medical history of recurrent episodes of diabetic ketoacidosis; peripheral neuropathy; diabetes type 1, on insulin; probable gastroparesis (per outside GI workup); H pylori gastritis; and severe erosive esophagitis seen on EGD in June 2019, presenting with repeat episode of diabetic ketoacidosis and odynophagia. Odynophagia. 1. The patient is presenting with significant substernal chest pain associated with the ingestion of either solid or liquid foods despite fasting states that also generate increased abdominal pain/pressure that is not currently controlled with her current medication regimen. There is some mention of possible gastroparesis in the past, which could further lend itself towards increased acid reflux as evidenced by severe erosive esophagitis seen on the EGD in June 2019. As such, given the increased nausea and vomiting episodes that she has had prior to this admission, again erosive esophagitis is at the top of the differential for the causative mechanism of her substernal pain. She was only recently started on metoclopramide 3 times daily for possible gastroparesis further contributing to her nausea and vomiting, then which is also medication she takes at home with moderate relief in her symptoms there. 2. Recommendations: a. Would continue metoclopramide 10 mg three times daily with meals for possible gastroparesis. b. Would continue with breakthrough antiemetic support with ondansetron 4 mg q.6 as needed. c. Continue with PPI 40 mg b.i.d. d. Could continue sucralfate as a mucosal barrier for any further injuries. e. Pain control per primary team. f. Continue with optimization of the patient's blood sugars in an attempt to keep her nausea and vomiting under better control. g. Repeat EGD is not indicated at this time given a prior EGD within the last few months with similar clinical presentation. Helicobacter pylori infection. 1. The patient had gastric biopsies performed in June 2019 via EGD and showed to have H pylori gastritis. She was placed on triple therapy as an outpatient, but did not complete the regimen. At this time, it is unlikely that this is contributing to her current nausea, vomiting, and abdominal pain, but rather secondary to her diabetic ketoacidosis and erosive esophagitis from repeated retching/vomiting. 2. Recommendations: Would complete the patient on triple therapy once stable on an outpatient basis. We will continue to follow. Please call with any questions. Job ID: [id number]
[2019-09-06] MEDS: Promethazine HCl 25 MG/ML VIAL IM PRN (20:23)
[2019-09-06] MEDS: Insulin Glargine 17 UNITS in Pre-Filled Syringe 1 EACH SC SCH (21:29)
[2019-09-07 05:23] LABS: Anion Gap 9 mmol/L (10-20); BUN (Urea Nitrogen) Less than 4 mg/dL (7.0-18.7); Calc. Creatinine Clearance 108 mL/min (70-130); Calcium 7.9 mg/dL (7.8-10.44); Carbon Dioxide 27 mmol/L (22-29); Chloride 106 mmol/L (98-107); Estimated GFR-MDRD Greater than 90; Glucose 152 mg/dL (70-105); Potassium 3.4 mmol/L (3.5-5.1); Sodium 139 mmol/L (136-145)
[2019-09-07] MEDS: Metoclopramide HCl 10 MG/2 ML VIAL IVP SCH ×3 (05:55→20:36)
--- NOTE | 2019-09-07 06:03 | PDOC.FM ---
- Subjective Subjective: Pt sleeping comfortably this AM. Yesterday she walked 200 feet w/ walking program and stopped once to rest. Nursing recorded 530 mL of PO intake over past 24 hours and 200 mL of emesis. No documented BM. + flatus. - Objective MAR Reviewed: Yes Vital Signs & Weight: Vital Signs (12 hours) Temp Pulse Resp BP Pulse Ox 09/07/19 03:20 97.1 F L 84 16 114/78 94 L 09/06/19 22:56 98.4 F 93 16 115/78 92 L 09/06/19 19:11 98.3 F 111 H 16 142/90 H 107 H Weight Admit Weight 50.666 kg Weight 56.518 kg Most Recent Monitor Data Heart Rate from ECG 102 NIBP 105/70 NIBP BP-Mean 81 Respiration from ECG 15 SpO2 100 I&O: 09/05/19 09/06/19 09/07/19 06:59 06:59 06:59 Intake Total 1150 1080 Balance 1150 1080 Result Diagrams: 09/07/19 04:40 Phys Exam - Physical Examination Constitutional: NAD Respiratory: clear to auscultation bilateral Cardiovascular: RRR Gastrointestinal: soft, no distention, positive bowel sounds Dx/Plan (1) Hypokalemia Code(s): E87.6 - HYPOKALEMIA Status: Acute (2) Diabetic ketoacidosis Code(s): E11.10 - TYPE 2 DIABETES MELLITUS WITH KETOACIDOSIS WITHOUT COMA Status: Acute (3) Erosive esophagitis Code(s): K22.10 - ULCER OF ESOPHAGUS WITHOUT BLEEDING Status: Acute (4) Anxiety and depression Code(s): F41.9 - ANXIETY DISORDER, UNSPECIFIED; F32.9 - MAJOR DEPRESSIVE DISORDER, SINGLE EPISODE, UNSPECIFIED Status: Chronic (5) Type 1 diabetes mellitus Status: Chronic (6) Diabetic gastroparesis Code(s): E11.43 - TYPE 2 DIABETES W DIABETIC AUTONOMIC (POLY)NEUROPATHY; K31.84 - GASTROPARESIS Status: Suspected - Plan Plan: Ms. Castro is a 29y/oF with PMH of T1DM, gastroparesis, erosive esophagitis, who presents to the ED for intractable abdominal pain, nausea and vomiting. 1. Diabetic ketoacidosis, improved, anion gap is closed. 1a. Type 1 DM 1b. Hypokalemia 1c. Intractable abd pain, N/V - Patient is on 70/30 at home. - Case Management, discharge planning - bentyl BID 2. Anxiety Continue seroquel and sertraline 3. History of erosive esophagitis 3a. H Pylori infection, not treated due to noncompliance 3b. Diabetic gastroparesis - Protonix IV BID - Reglan IV TID - continue carafate 1gm ACHS. - GI consulted, Dr. Granados, appreciate recs. May transition to PO medications once pt is tolerating oral. - also consider cannabinoid hyperemesis syndrome as pt has hx of marijuana usage. May consider trial of capsaicin cream on abdomen (avoid abdominal wound) 4. Abdominal skin wound - wound care consulted. - wound appears clean at this time. 5. Severe Malnutrition - Boring Machine Operator Vertical consult, appreciate recs. - Glucerna shakes started. Code Status: Full Diet: Diabetic diet. Fluids: stopped IVF. Encourage oral intake. DVT PPx: SCD GI PPx: Protonix PCP: Dr. Nahum Nielson, [place], [place]. City Call. Dispo: Med inpt for DKA. LOS >48H. Encourage PO intake. Addendum - Attending - Attending Attestation Date/Time: 09/07/19 0026 I personally evaluated the patient and discussed the management with Dr. Shaffer. I agree with the History, Examination, Assessment and Plan documented above with any addition or exceptions noted below. Patient with continued pain out of proportion of exam. She continues to refuse all medications and meals, which is detrimental to her care here. GI on board.
[2019-09-07 06:26] LABS: Amphetamine Not Detected (NotDetected); Barbiturates Screen Not Detected (NotDetected); Benzodiazepine Screen Not Detected (NotDetected); Cocaine Metabolite Screen Not Detected (NotDetected); Medtox Control Line Valid? VALID (VALID); Medtox Reader # READER 4; Methadone Not Detected (NotDetected); Methamphetamine Not Detected (NotDetected); Opiate Screen Not Detected (NotDetected); Oxycodone Screen Not Detected (NotDetected); Phencyclidine (PCP) Not Detected (NotDetected); THC/Cannabinoid Screen Not Detected (NotDetected); Tricyclic Screen Not Detected (NotDetected)
[2019-09-07] MEDS ORDERED: Potassium Chloride 10 MEQ in Premix Bag 1 BAG IVPB SCH (06:30)
[2019-09-07] MEDS: HumaLOG 300 UNITS/3 ML VIAL SC SCH ×3 (08:57→16:38)
[2019-09-07] MEDS: Sucralfate 1 GM TAB PO SCH ×4 (08:58→20:42)
[2019-09-07] MEDS: Dicyclomine 20 MG TAB PO SCH ×2 (08:58→20:41)
[2019-09-07] MEDS: Promethazine HCl 25 MG/ML VIAL IM PRN ×2 (08:58→18:06)
[2019-09-07] MEDS ORDERED: Aluminum & Magnesium Hydroxide 60 ML, Lidocaine 2% Viscous Solution 30 ML, diphenhydrAM... SSW SCH (11:00)
[2019-09-07] MEDS ORDERED: Fluconazole In NaCl,Iso-Osm 200 MG in Premix Bag 1 BAG IVPB SCH (11:15)
--- NOTE | 2019-09-07 11:18 | PRG ---
DATE OF SERVICE: 09/07/2019 SUBJECTIVE: Ms. Castro states that her chest still hurts and her stomach still hurts. She is crying. The nurse stated that she has been able to take some liquids, but nothing solid. She has had no bowel movements. MEDICATIONS: 1. Maalox. 2. D5W at 50 an hour. 3. Bentyl p.r.n. 4. Glucagon. 5. Insulin sliding scale. 6. Reglan 10 IV q.8 scheduled. 7. Zofran p.r.n. 8. Protonix 40 mg IV q.12 scheduled. 9. Seroquel. 10. Phenergan 12.5 mg q.6 p.r.n. 11. Zoloft scheduled 75 mg daily. 12. Carafate 1 g p.o. before meals and at bedtime scheduled. PHYSICAL EXAMINATION: GENERAL: The patient is sitting up in bed. She is holding her stomach. VITAL SIGNS: Temperature is 97. She has been afebrile overnight, pulse is 84, blood pressure is 114/78. LUNGS: Clear. ABDOMEN: Soft and nontender without rebound or guarding. EXTREMITIES: No clubbing, cyanosis, or edema. SKIN: Warm and dry. LABORATORY DATA: Sodium 139, potassium 3.4, BUN and creatinine are 4 and 0.69, glucose 150-168. I see no CBC whatsoever during this admission. No liver function tests during this admission. ASSESSMENT: Diabetic ketoacidosis, admitted on the , today is 09/06. She has had nausea and vomiting consistent with prior episodes of diabetic ketoacidosis. She had a scope in June, which was esophagitis and reflux. She had a CAT scan this admission with IV contrast, showed gastric thickening, but there was nothing in the stomach. She has been throwing up for quite a time at that time as well. I suspect abdominal pain is probably due to diabetic ketoacidosis and repetitive retching, which is prior the cause of her esophagitis when seen in June. Previous admissions, she has had multiple CAT scans, never had an ultrasound. She has had a normal lipase of 8 on 08/31 on this admission. Her liver function tests have always been normal on previous admissions as well. RECOMMENDATIONS: I would continue aggressive hydration. Advance diet. Continue IV PPI. Could consider adding an empiric Diflucan for possible Tamia. If pain continues, we would consider ultrasound of the gallbladder to rule out gallstones, but I think this is all related to her DKA. Reached out to the residents, waiting for call back regarding her IV fluid status. Job ID: [id number]
[2019-09-07] MEDS: Pantoprazole 40 MG VIAL IVP SCH (12:06)
[2019-09-07] MEDS: Potassium Chloride 20 MEQ in Lactated Ringer's 1,000 ML IV SCH (13:45)
[2019-09-07] MEDS: Mag-Al 1200 mg/1200 mg/30 ML UDCUP PO PRN (14:47)
[2019-09-07] MEDS: Aluminum & Magnesium Hydroxide 60 ML, Lidocaine 2% Viscous Solution 30 ML, diphenhydrAM... SSW PRN ×2 (16:39→20:36)
[2019-09-07] MEDS: Acetaminophen 325 MG TAB PO PRN (17:59)
[2019-09-07] MEDS: Insulin Glargine 17 UNITS in Pre-Filled Syringe 1 EACH SC SCH (20:41)
[2019-09-08] MEDS: Potassium Chloride 20 MEQ in Lactated Ringer's 1,000 ML IV SCH ×4 (00:30→22:30)
[2019-09-08] MEDS: Pantoprazole 40 MG VIAL IVP SCH ×2 (00:30→11:30)
[2019-09-08] MEDS: Metoclopramide HCl 10 MG/2 ML VIAL IVP SCH ×3 (05:10→18:20)
[2019-09-08 05:34] LABS: Anion Gap 8 mmol/L (10-20); BUN (Urea Nitrogen) 6 mg/dL (7.0-18.7); Calc. Creatinine Clearance 104 mL/min (70-130); Calcium 8.1 mg/dL (7.8-10.44); Carbon Dioxide 27 mmol/L (22-29); Chloride 106 mmol/L (98-107); Estimated GFR-MDRD Greater than 90; Glucose 195 mg/dL (70-105); Potassium 3.8 mmol/L (3.5-5.1); Sodium 137 mmol/L (136-145)
--- NOTE | 2019-09-08 07:31 | PDOC.FM ---
- Subjective Subjective: Ms. Castro denies pain this AM. Reports small amounts of vomit overnight. Refused lantus last night. She did walk 300 feet w/ walking program yesterday afternoon. - Objective MAR Reviewed: Yes Vital Signs & Weight: Vital Signs (12 hours) Temp Pulse Resp BP Pulse Ox 09/08/19 07:20 98.0 F 96 18 121/69 100 09/08/19 03:09 98.7 F 85 16 100/67 100 09/07/19 23:13 98.7 F 85 16 108/72 100 09/07/19 20:15 93 L 09/07/19 19:32 98.5 F 105 H 16 120/77 93 L Weight Admit Weight 50.666 kg Weight 56.518 kg Most Recent Monitor Data Heart Rate from ECG 102 NIBP 105/70 NIBP BP-Mean 81 Respiration from ECG 15 SpO2 100 I&O: 09/07/19 09/08/19 09/09/19 06:59 06:59 06:59 Intake Total 250 2820 Output Total 700 300 Balance -450 2520 Result Diagrams: 09/08/19 04:47 Phys Exam - Physical Examination Constitutional: NAD Respiratory: clear to auscultation bilateral Cardiovascular: RRR Gastrointestinal: soft, non-tender, no distention Dx/Plan (1) Hypokalemia Code(s): E87.6 - HYPOKALEMIA Status: Acute (2) Diabetic ketoacidosis Code(s): E11.10 - TYPE 2 DIABETES MELLITUS WITH KETOACIDOSIS WITHOUT COMA Status: Acute (3) Erosive esophagitis Code(s): K22.10 - ULCER OF ESOPHAGUS WITHOUT BLEEDING Status: Acute (4) Anxiety and depression Code(s): F41.9 - ANXIETY DISORDER, UNSPECIFIED; F32.9 - MAJOR DEPRESSIVE DISORDER, SINGLE EPISODE, UNSPECIFIED Status: Chronic (5) Type 1 diabetes mellitus Status: Chronic (6) Diabetic gastroparesis Code(s): E11.43 - TYPE 2 DIABETES W DIABETIC AUTONOMIC (POLY)NEUROPATHY; K31.84 - GASTROPARESIS Status: Suspected - Plan Plan: Ms. Castro is a 29y/oF with PMH of T1DM, gastroparesis, erosive esophagitis, who presents to the ED for intractable abdominal pain, nausea and vomiting. 1. Diabetic ketoacidosis, improved, anion gap is closed. 1a. Type 1 DM 1b. Hypokalemia 1c. Intractable abd pain, N/V - Patient is on 70/30 at home. - Case Management, discharge planning - bentyl BID 2. Anxiety Continue seroquel and sertraline 3. History of erosive esophagitis 3a. H Pylori infection, not treated due to noncompliance 3b. Diabetic gastroparesis - Protonix IV BID - Reglan IV TID - continue carafate 1gm ACHS. - GI consulted, Dr. Granados, appreciate recs. May transition to PO medications once pt is tolerating oral. - encourage oral intake 4. Abdominal skin wound - wound care consulted. Have signed off. Leave open to iar 5. Severe Malnutrition - Access Registrar consult, appreciate recs. - Glucerna shakes started. Code Status: Full Diet: Diabetic diet. Fluids: LR w/ potassium at 100 mL/hr DVT PPx: SCD GI PPx: Protonix PCP: Dr. Nahum Nielson, [place], [place]. City Call. Dispo: Med inpt for DKA. LOS >48H. Encourage PO intake. Addendum - Attending - Attending Attestation Date/Time: 09/08/19 1038 I personally evaluated the patient and discussed the management with Dr. Shaffer. I agree with the History, Examination, Assessment and Plan documented above with any addition or exceptions noted below. Patient improved. Continue pain control, IVF and recommend diet intake. She must receive some insulin due to her T1DM status. GI on board.
[2019-09-08] MEDS: Sucralfate 1 GM TAB PO SCH ×4 (07:54→19:58)
[2019-09-08] MEDS: Fluconazole In NaCl,Iso-Osm 200 MG in Premix Bag 1 BAG IVPB SCH (07:55)
[2019-09-08] MEDS: HumaLOG 300 UNITS/3 ML VIAL SC SCH ×3 (07:55→18:19)
[2019-09-08] MEDS ORDERED: Insulin Glargine 5 UNITS in Pre-Filled Syringe 1 EACH SC SCH ×2 (11:00→21:00)
[2019-09-08] MEDS: Dicyclomine 20 MG TAB PO SCH (11:31)
[2019-09-08 13:43] VITALS: BMI 19.6
--- NOTE | 2019-09-08 14:07 | PRG ---
DATE OF SERVICE: 09/08/2019 SUBJECTIVE: Ms. Castro states that her pain is a little bit better. She still has pain with swallowing. The nurse notes that a little bit of viscous lidocaine seems to help her. She still has vomiting, but much less than before, smaller amounts. Overall, she did get out of bed a little bit and did some walking with the physical therapist. MEDICATIONS: She is on; 1. Fluconazole. 2. Protonix q.12. 3. Lactated Ringer's at 100. 4. Reglan 10 IV q.8. 5. Sucralfate. OBJECTIVE: VITAL SIGNS: Temperature 98.2, pulse 85, blood pressure 146/95. ABDOMEN: Soft and nontender. HEENT: Oropharynx without thrush. LUNGS: Clear. EXTREMITIES: No clubbing, cyanosis, or edema. LABORATORY DATA: Sodium 137, potassium 3.8, BUN and creatinine are 6 and 0.7, glucose is 195, calcium 8.1. ASSESSMENT: 1. Diabetic gastroparesis. 2. Nausea and vomiting with resultant chest pain and epigastric pain. I think some of this is reported as severe reflux and EGD confirmed this in June. On the off chance that she could have Tamia, although she has none in her mouth. She has been started on Diflucan yesterday. She had a nondiagnostic CAT scan on 09/03/2019, ruling out other causes of abdominal pain. 3. I expect her epigastric pain is related to recurrent vomiting. RECOMMENDATIONS: 1. We will increase Reglan to q.6 hours schedule. 2. We will add erythromycin 250 q.6 hours, which can help with motility in the short term. 3. Aggressive control of glucose was recommended. 4. I have asked the nurse to get her up, sitting in chair, so she cannot reflux all the time. Hopefully, in a day or so, she will be ready go home. Job ID: [id number]
[2019-09-08] MEDS: Erythromycin 250 MG in Sodium Chloride 0.9% 250 ML 250 ML IVPB SCH (18:20)
[2019-09-08] MEDS: Aluminum & Magnesium Hydroxide 60 ML, Lidocaine 2% Viscous Solution 30 ML, diphenhydrAM... SSW PRN (18:21)
[2019-09-08] MEDS ORDERED: Lidocaine 2% Viscous Solution 10 ML, Aluminum & Magnesium Hydroxide 30 ML SSW SCH (20:15)
[2019-09-08] MEDS: Promethazine HCl 25 MG/ML VIAL IM PRN (20:30)
[2019-09-08] MEDS: Insulin Glargine 17 UNITS in Pre-Filled Syringe 1 EACH SC SCH (21:26)
[2019-09-08] MEDS: HumaLOG 300 UNITS/3 ML VIAL SC PRN (22:17)
[2019-09-09] MEDS: Erythromycin 250 MG in Sodium Chloride 0.9% 250 ML 250 ML IVPB SCH ×4 (00:03→17:49)
[2019-09-09] MEDS: Metoclopramide HCl 10 MG/2 ML VIAL IVP SCH ×4 (00:03→17:49)
[2019-09-09] MEDS: Pantoprazole 40 MG VIAL IVP SCH ×2 (00:03→12:17)
--- NOTE | 2019-09-09 06:14 | PDOC.FM ---
- Subjective Subjective: Patient has 2 documented BMs overnight. Pt reports it was loose. Received GI cocktail last night for pain. Received 5 units of lantus because nursing did not wish to give her half-regular dose of 17units. She walked twice w/ walking program yesterday. Worried her abdominal area is red around her wound. Denies vomiting. - Objective MAR Reviewed: Yes Vital Signs & Weight: Vital Signs (12 hours) Temp Pulse Resp BP Pulse Ox 09/09/19 05:48 139/73 09/09/19 03:19 97.6 F 84 16 94/57 L 100 09/08/19 23:12 98.5 F 100 16 101/66 100 09/08/19 22:10 100 113/72 100 09/08/19 20:16 98.3 F 100 16 176/104 H 90 L 09/08/19 20:00 97 Weight Admit Weight 50.666 kg Weight 55.157 kg Most Recent Monitor Data Heart Rate from ECG 102 NIBP 105/70 NIBP BP-Mean 81 Respiration from ECG 15 SpO2 100 I&O: 09/07/19 09/08/19 09/09/19 06:59 06:59 06:59 Intake Total 250 2820 3060 Output Total 700 300 Balance -450 2520 3060 Result Diagrams: 09/09/19 06:40 Phys Exam - Physical Examination Constitutional: NAD Respiratory: clear to auscultation bilateral Cardiovascular: RRR Gastrointestinal: soft, non-tender, no distention, positive bowel sounds Musculoskeletal: no edema Psychiatric: A&O x 3 Deviation from normal: abdominal wound appears the same, no other areas of wound opening Dx/Plan (1) Hypokalemia Code(s): E87.6 - HYPOKALEMIA Status: Acute (2) Diabetic ketoacidosis Code(s): E11.10 - TYPE 2 DIABETES MELLITUS WITH KETOACIDOSIS WITHOUT COMA Status: Acute (3) Erosive esophagitis Code(s): K22.10 - ULCER OF ESOPHAGUS WITHOUT BLEEDING Status: Acute (4) Anxiety and depression Code(s): F41.9 - ANXIETY DISORDER, UNSPECIFIED; F32.9 - MAJOR DEPRESSIVE DISORDER, SINGLE EPISODE, UNSPECIFIED Status: Chronic (5) Type 1 diabetes mellitus Status: Chronic (6) Diabetic gastroparesis Code(s): E11.43 - TYPE 2 DIABETES W DIABETIC AUTONOMIC (POLY)NEUROPATHY; K31.84 - GASTROPARESIS Status: Suspected - Plan Plan: Ms. Castro is a 29y/oF with PMH of T1DM, gastroparesis, erosive esophagitis, who presents to the ED for intractable abdominal pain, nausea and vomiting. 1. Diabetic ketoacidosis, improved, anion gap is closed. 1a. Type 1 DM 1b. Hypokalemia 1c. Intractable abd pain, N/V, improved - Patient is on 70/30 at home. - Case Management, discharge planning - lantus 5 units this AM. 2. Anxiety Continue seroquel and sertraline 3. History of erosive esophagitis 3a. H Pylori infection, not treated due to noncompliance 3b. Diabetic gastroparesis - Protonix IV BID - Reglan IV TID, GI added erythromcyin IV. - fluconazole started for possible anay esophagitis, no thrush on exam - continue carafate 1gm ACHS. - GI consulted, Dr. Granados, appreciate recs. May transition to PO medications once pt is tolerating oral. - encourage oral intake 4. Abdominal skin wound - wound care consulted. Have signed off. Leave open to air 5. Severe Malnutrition - Bankruptcy Judge consult, appreciate recs. - Glucerna shakes started. - Dietary recommends PPN or TPN today to meet nutritional needs. Will discuss w / team this AM; do not think pt could manage this at home in the manager long term care. Code Status: Full Diet: Diabetic diet. Fluids: LR w/ potassium at 100 mL/hr DVT PPx: SCD GI PPx: Protonix PCP: Dr. Nahum Nielson, [place], [place]. City Call. Dispo: Med inpt for DKA. LOS >48H. Encourage PO intake. Addendum - Attending - Attending Attestation Date/Time: 09/09/19 7373 I personally evaluated the patient and discussed the management with Dr. Shaffer. I agree with the History, Examination, Assessment and Plan documented above with any addition or exceptions noted below. Patient continues to refuse both meals and insulin therapy, which is detrimental to her healing. She still requires basal insulin due to her T1DM status. GI on board. Her pain appears to be better today. Work on diet and med compliance.
[2019-09-09] MEDS: Sucralfate 1 GM TAB PO SCH ×4 (06:25→19:37)
[2019-09-09 07:10] LABS: Anion Gap 13 mmol/L (10-20); BUN (Urea Nitrogen) 4 mg/dL (7.0-18.7); Calc. Creatinine Clearance 103 mL/min (70-130); Calcium 8.2 mg/dL (7.8-10.44); Carbon Dioxide 23 mmol/L (22-29); Chloride 106 mmol/L (98-107); Estimated GFR-MDRD Greater than 90; Glucose 134 mg/dL (70-105); Potassium 3.5 mmol/L (3.5-5.1); Sodium 138 mmol/L (136-145)
[2019-09-09] MEDS: Fluconazole In NaCl,Iso-Osm 200 MG in Premix Bag 1 BAG IVPB SCH (08:50)
[2019-09-09] MEDS: HumaLOG 300 UNITS/3 ML VIAL SC SCH (08:50)
[2019-09-09] MEDS: Insulin Glargine 5 UNITS in Pre-Filled Syringe 1 EACH SC SCH ×2 (10:05→19:37)
[2019-09-09] MEDS: Aluminum & Magnesium Hydroxide 60 ML, Lidocaine 2% Viscous Solution 30 ML, diphenhydrAM... SSW PRN (14:19)
[2019-09-09] MEDS: Potassium Chloride 20 MEQ in Lactated Ringer's 1,000 ML IV SCH (14:20)
[2019-09-10] MEDS: Metoclopramide HCl 10 MG/2 ML VIAL IVP SCH ×5 (00:06→23:39)
[2019-09-10] MEDS: Pantoprazole 40 MG VIAL IVP SCH ×3 (00:06→23:39)
[2019-09-10] MEDS: Potassium Chloride 20 MEQ in Lactated Ringer's 1,000 ML IV SCH ×3 (00:07→19:55)
[2019-09-10] MEDS: Erythromycin 250 MG in Sodium Chloride 0.9% 250 ML 250 ML IVPB SCH ×3 (00:10→11:03)
[2019-09-10 05:25] LABS: Anion Gap 9 mmol/L (10-20); BUN (Urea Nitrogen) Less than 4 mg/dL (7.0-18.7); Calc. Creatinine Clearance 104 mL/min (70-130); Carbon Dioxide 26 mmol/L (22-29); Chloride 107 mmol/L (98-107); Estimated GFR-MDRD Greater than 90; Glucose 151 mg/dL (70-105); Potassium 3.5 mmol/L (3.5-5.1); Sodium 138 mmol/L (136-145)
--- NOTE | 2019-09-10 05:57 | PDOC.FM ---
- Subjective Subjective: Pt denies vomiting over past 24 hours. Tolerating CLD. Asks if her diet can be advanced. Not willing to switch to PO meds at this time. OTherwise, walked 400 feet x2 yesterday. - Objective MAR Reviewed: Yes Vital Signs & Weight: Vital Signs (12 hours) Temp Pulse Resp BP Pulse Ox 09/10/19 03:43 97.7 F 84 16 92/60 99 09/09/19 23:30 98.4 F 96 16 117/66 99 09/09/19 20:00 99 09/09/19 19:45 98.5 F 91 16 125/82 99 Weight Admit Weight 50.666 kg Weight 55.157 kg Most Recent Monitor Data Heart Rate from ECG 102 NIBP 105/70 NIBP BP-Mean 81 Respiration from ECG 15 SpO2 100 I&O: 09/08/19 09/09/19 09/10/19 06:59 06:59 06:59 Intake Total 2820 3060 3200 Output Total 300 Balance 2520 3060 3200 Result Diagrams: 09/10/19 04:37 Phys Exam - Physical Examination Constitutional: NAD Respiratory: clear to auscultation bilateral Cardiovascular: RRR Gastrointestinal: soft, non-tender, no distention Musculoskeletal: no edema, pulses present Dx/Plan (1) Hypokalemia Code(s): E87.6 - HYPOKALEMIA Status: Acute (2) Diabetic ketoacidosis Code(s): E11.10 - TYPE 2 DIABETES MELLITUS WITH KETOACIDOSIS WITHOUT COMA Status: Acute (3) Erosive esophagitis Code(s): K22.10 - ULCER OF ESOPHAGUS WITHOUT BLEEDING Status: Acute (4) Anxiety and depression Code(s): F41.9 - ANXIETY DISORDER, UNSPECIFIED; F32.9 - MAJOR DEPRESSIVE DISORDER, SINGLE EPISODE, UNSPECIFIED Status: Chronic (5) Type 1 diabetes mellitus Status: Chronic (6) Diabetic gastroparesis Code(s): E11.43 - TYPE 2 DIABETES W DIABETIC AUTONOMIC (POLY)NEUROPATHY; K31.84 - GASTROPARESIS Status: Suspected - Plan Plan: Ms. Castro is a 29y/oF with PMH of T1DM, gastroparesis, erosive esophagitis, who presents to the ED for intractable abdominal pain, nausea and vomiting. 1. Diabetic ketoacidosis, improved, anion gap is closed. 1a. Type 1 DM 1b. Hypokalemia 1c. Intractable abd pain, N/V, improved - Patient is on 70/30 at home. - Case Management, discharge planning - lantus 5 units BID until eating better 2. Anxiety Continue seroquel and sertraline 3. History of erosive esophagitis 3a. H Pylori infection, not treated due to noncompliance 3b. Diabetic gastroparesis - Protonix IV BID - Reglan IV TID, GI added erythromcyin IV. - fluconazole started for possible anay esophagitis, no thrush on exam - continue carafate 1gm ACHS. - GI consulted, Dr. Granados, appreciate recs. May transition to PO medications once pt is tolerating oral. - encourage oral intake 4. Abdominal skin wound - wound care consulted. Have signed off. Leave open to air 5. Severe Malnutrition - Brokerage Manager consult, appreciate recs. - Glucerna/Momo/Ensure shakes started. - do not think pt could manage TPN/PPN at home in the [facility]pc. Code Status: Full Diet: full liquid Fluids: LR w/ potassium at 100 mL/hr DVT PPx: SCD GI PPx: Protonix PCP: Dr. Nahum Nielson, [place], [place]. City Call. Dispo: Med inpt for DKA. LOS >48H. Encourage PO intake. Addendum - Attending - Attending Attestation Date/Time: 09/10/19 3364 I personally evaluated the patient and discussed the management with Dr. Shaffer. I agree with the History, Examination, Assessment and Plan documented above with any addition or exceptions noted below. Patient pain stable, self requested to advance diet. GI on board. Ensure she is getting some basal insulin and monitor blood sugars.
--- NOTE | 2019-09-10 06:49 | PRG ---
DATE OF SERVICE: 09/09/2019 SUBJECTIVE: Ms. Castro actually is swallowing a little bit today, she states she is tolerating sips of liquids. She has not thrown up. She has been tolerating a little bit of protein drinks. OBJECTIVE: VITAL SIGNS: Temperature is 98, pulse 69, blood pressure 107/67. ABDOMEN: Soft, nontender. Previous wounds on her abdomen looked fine. These are little scars that look like there appear to be blisters. LUNGS: Clear. MOUTH: Oropharynx without thrush. LABORATORY DATA: Sodium 138, potassium 3.5, BUN and creatinine are 4 and 0.7, glucose 134. ASSESSMENT: Gastroparesis. Negative CT scan. Endoscopy showing severe erosive esophagitis at last visit in late June. Her chest pain is getting better a little bit. She has walked around a little bit today. She denies any pain with erythromycin, Reglan. She did get a GI cocktail earlier today. RECOMMENDATIONS: 1. Continue IV Reglan and IV erythromycin. 2. Continue fluconazole. 3. Continue b.i.d. IV PPI. 4. I have talked to the patient in detail about the need for her to start taking control of her diabetes and get her hemoglobin A1c controlled, that she has a failing grade on that with a hemoglobin A1c of 11, she needs to be down to below 6, and there is no reason that she cannot be. She can learn how to control her diabetes and her physicians will help her. I did encourage her to get up and walk around 3 to 4 times a day as I think this will help her metabolism and also help her gut motility. We will follow with you. Job ID: [id number]
[2019-09-10] MEDS: Sucralfate 1 GM TAB PO SCH ×4 (08:20→20:42)
[2019-09-10] MEDS: Fluconazole In NaCl,Iso-Osm 200 MG in Premix Bag 1 BAG IVPB SCH (08:21)
[2019-09-10] MEDS: Insulin Glargine 5 UNITS in Pre-Filled Syringe 1 EACH SC SCH ×2 (08:21→21:19)
[2019-09-10] MEDS: Ondansetron PF 4 MG/2 ML Vial IVP PRN (09:43)
[2019-09-10] MEDS: Aluminum & Magnesium Hydroxide 60 ML, Lidocaine 2% Viscous Solution 30 ML, diphenhydrAM... SSW PRN ×2 (10:57→18:05)
[2019-09-10] MEDS: Promethazine HCl 25 MG/ML VIAL IM PRN ×2 (11:03→19:50)
--- NOTE | 2019-09-10 18:58 | PRG ---
DATE OF SERVICE: 09/10/2019 SUBJECTIVE: Ms. Castro yesterday requested a full liquid diet. Today, the nurse states she is having more pain. She is sitting in her bed and rocking, holding a pillow. She will not talk much as her chest and stomach hurt. She denies vomiting. OBJECTIVE: VITAL SIGNS: Temperature 97.5, pulse 102 to 66, blood pressure 146/80. She has been afebrile overnight. ABDOMEN: Soft and nontender. LUNGS: Clear. HEART: Regular rate and rhythm. ABDOMEN: There is no rebound or guarding on the abdomen. LABORATORY DATA: Sodium 138, potassium 3.5, BUN and creatinine of 4 and 0.7, glucose of 151. No other labs have been obtained today. ASSESSMENT: 1. Gastroparesis with esophagitis. Previous esophagogastroduodenoscopy in late June showed this. 2. Chest pain and epigastric pain, felt to be related to the vomiting from diabetic ketoacidosis and severe esophagitis with severe gastroparesis with INR greater than 11. CAT scan of the abdomen and pelvis on admission 09/02 revealed no abnormalities to explain pain. She has had no signs of infection or fever. She has been empirically placed on treatment for possible thrush. RECOMMENDATIONS: 1. Get ultrasound of her gallbladder and make sure there are not stones that were missing as these could be missed on the CT. 2. We will stop the erythromycin as sometimes it can cause stomach cramping, which may be giving her some pain. 3. Continue IV PPIs and Reglan. 4. No plans for repeat endoscopy with recent endoscopy performed within the past 12 weeks. Job ID: [id number]
--- NOTE | 2019-09-10 20:37 | PDOC.BPN ---
- Brief Progress Note Called to bedside for abdominal pain Patient moving back and forth in bed stating she is sick of the pain States this pain is not new or worse it has just been constant and she is sick of it Affecting her chest and all of her abdomen, pressure Cannot pick one place hurts the worst Refused carafate today, requests morphine Soft, non-distended on exam, states she is tender throughout Had GI cocktail 1800 GI ordered RUQ this is not resulted Erythomycin was stopped by GI as this can cause abd pain Suspect pain is 2/2 gastroparesis rec'd carafate and one time dose morphine
[2019-09-10] MEDS ORDERED: Morphine 4 MG/ML VIAL SLOW IVP SCH (20:45)
--- NOTE | 2019-09-10 21:56 | ULT ---
GALLBLADDER ULTRASOUND: History: Right upper quadrant pain. FINDINGS: Real-time imaging of the right upper quadrant shows a normal appearing gallbladder. The common duct i s 4 mm. Visualized liver parenchyma shows no focal findings. Pancreas is fairly well imaged and guilherme l in appearance. Right kidney is normal in size and not obstructed. IMPRESSION: Unremarkable right upper quadrant ultrasound. POS: EDWARD
[2019-09-11 05:07] LABS: #Basophils 0.1 thou/uL (0.0-0.2); #Eosinphils 0.1 thou/uL (0.0-0.7); #Lymphocytes 2.5 thou/uL (1.20-3.40); #Monocytes 0.7 thou/uL (0.11-0.59); #Neutrophils 1.9 thou/uL (1.40-6.50); %Basophils 1.1 % (0.0-1.0); %Eosinophils 1.1 % (0.0-10.0); %Lymphocytes 48.9 % (21.0-51.0); %Monocytes 12.7 % (0.0-10.0); %Neutrophils 36.2 % (42.0-75.0); Mean Corpuscular HGB CONC 32.3 g/dL (32.0-36.0); Mean Corpuscular Volume 86.8 fL (78.0-98.0); Mean Platelet Volume 6.5 fL (7.4-10.4); Platelet Count 317 thou/uL (130-400); RBC Distribution Width 14.1 % (11.5-14.5); Red Blood Cell (RBC) Count 3.23 mill/uL (4.20-5.40); White Blood Cell (WBC) Count 5.2 thou/uL (4.8-10.8)
[2019-09-11 05:29] LABS: ALT (SGPT) 7 U/L (8-55); AST (SGOT) 18 U/L (5-34); Albumin 3.1 g/dL (3.5-5.0); Alkaline Phosphatase 50 U/L (40-110); Anion Gap 8 mmol/L (10-20); BUN (Urea Nitrogen) Less than 4 mg/dL (7.0-18.7); Bilirubin, Total 0.3 mg/dL (0.2-1.2); Calc. Creatinine Clearance 107 mL/min (70-130); Calcium 8.2 mg/dL (7.8-10.44); Carbon Dioxide 27 mmol/L (22-29); Chloride 106 mmol/L (98-107); Estimated GFR-MDRD Greater than 90; Globulin 2.3 g/dL (2.4-3.5); Glucose 79 mg/dL (70-105); Lipase 6 U/L (8-78); Potassium 3.5 mmol/L (3.5-5.1); Protein, Total 5.4 g/dL (6.0-8.3); Sodium 137 mmol/L (136-145)
--- NOTE | 2019-09-11 05:59 | PDOC.FM ---
- Subjective Subjective: Patient doing well this morning. Reports her abdominal pain has improved from last night. Discussed that we are working with GI to try to improve her abdominal pain, and we will likely start triple therapy once she is tolerating PO meds. - Objective Vital Signs & Weight: Vital Signs (12 hours) Temp Pulse Resp BP Pulse Ox 09/11/19 04:00 97.8 F 72 16 91/55 L 100 09/10/19 23:47 98.3 F 98 16 110/71 99 09/10/19 21:11 123/79 09/10/19 20:00 98.9 F 107 H 20 180/103 H 100 Weight Admit Weight 50.666 kg Weight 55.157 kg Most Recent Monitor Data Heart Rate from ECG 102 NIBP 105/70 NIBP BP-Mean 81 Respiration from ECG 15 SpO2 100 I&O: 09/09/19 09/10/19 09/11/19 06:59 06:59 06:59 Intake Total 3060 3200 1450 Balance 3060 3200 1450 Result Diagrams: 09/11/19 04:36 09/15/19 05:55 Phys Exam - Physical Examination Constitutional: NAD HEENT: moist MMs, sclera anicteric Neck: supple, full ROM Respiratory: no wheezing, clear to auscultation bilateral Cardiovascular: RRR, no significant murmur Gastrointestinal: no distention, positive bowel sounds Musculoskeletal: no edema, pulses present Neurological: normal sensation, moves all 4 limbs Psychiatric: normal affect, A&O x 3 Skin: no rash, normal turgor Dx/Plan (1) Diabetic ketoacidosis Code(s): E11.10 - TYPE 2 DIABETES MELLITUS WITH KETOACIDOSIS WITHOUT COMA Status: Resolved (2) Abdominal pain Code(s): R10.9 - UNSPECIFIED ABDOMINAL PAIN Status: Acute (3) Erosive esophagitis Code(s): K22.10 - ULCER OF ESOPHAGUS WITHOUT BLEEDING Status: Acute (4) H. pylori infection Code(s): A04.8 - OTHER SPECIFIED BACTERIAL INTESTINAL INFECTIONS Status: Acute (5) Diabetic peripheral neuropathy Code(s): E11.42 - TYPE 2 DIABETES MELLITUS WITH DIABETIC POLYNEUROPATHY Status : Chronic (6) Type 1 diabetes mellitus Status: Chronic (7) Diabetic gastroparesis Code(s): E11.43 - TYPE 2 DIABETES W DIABETIC AUTONOMIC (POLY)NEUROPATHY; K31.84 - GASTROPARESIS Status: Suspected - Plan Plan: Ms. Castro is a 29y/oF with PMH of T1DM, gastroparesis, erosive esophagitis, who presents to the ED for intractable abdominal pain, nausea and vomiting. # Diabetic ketoacidosis, resolved, anion gap is closed. # Type 1 DM #Hypokalemia #Intractable abd pain, N/V, improved - Patient is on 70/30 at home. - lantus 5 units BID until eating better - Patient has had multiple hospitalizations for similar scenarios within the last few months; There is concern for patient non-adherence along with concerns for safe placement after discharge. Case Management, discharge planning- possibility of HH? #Anxiety Continue seroquel and sertraline #History of erosive esophagitis # H Pylori infection, not treated due to noncompliance #Diabetic gastroparesis - Protonix IV BID - Reglan IV TID, GI added erythromcyin IV and then stopped erythromycin 2/2 possibility that this was causing her abd pain - fluconazole started for possible anay esophagitis, no thrush on exam - continue carafate 1gm ACHS. - GI consulted, Dr. Granados, appreciate recs. May transition to PO medications once pt is tolerating oral. - encourage oral intake - Can consider starting triple therapy for H Pylori once patient is tolerating PO #Abdominal skin wound - wound care consulted. Have signed off. Leave open to air #Severe Malnutrition - Devops Engineer consult, appreciate recs. - Glucerna/Momo/Ensure shakes started. - do not think pt could manage TPN/PPN at home in the shelter. Code Status: Full Diet: full liquid Fluids: LR w/ potassium at 100 mL/hr DVT PPx: SCD GI PPx: Protonix PCP: Dr. Nahum Nielson, [place], [place]. City Call. Dispo: Med inpt for DKA, DKA is resolved. GI consulted for erosive esophagitis, H pylori, suspected diabetic gastroparesis, appreciate recs. LOS >48H. Encourage PO intake. Addendum - Attending - Attending Attestation Date/Time: 09/19/19 [id number] I personally evaluated the patient and discussed the management with Dr. Brewer on 09/11/19. I agree with the History, Examination, Assessment and Plan documented above with any addition or exceptions noted below. Abd pain, N/V persists.DKA resolved but gastroparesis persists. GI to EGD tomorrow.
[2019-09-11] MEDS: Sucralfate 1 GM TAB PO SCH ×4 (06:22→20:06)
[2019-09-11] MEDS: Metoclopramide HCl 10 MG/2 ML VIAL IVP SCH ×3 (06:22→18:29)
[2019-09-11] MEDS: Potassium Chloride 20 MEQ in Lactated Ringer's 1,000 ML IV SCH ×3 (07:00→15:09)
[2019-09-11] MEDS: Pantoprazole 40 MG VIAL IVP SCH (11:26)
[2019-09-11] MEDS: Acetaminophen 325 MG TAB PO PRN ×2 (11:26→18:29)
[2019-09-11] MEDS: Insulin Glargine 5 UNITS in Pre-Filled Syringe 1 EACH SC SCH ×2 (11:43→20:09)
--- NOTE | 2019-09-11 11:44 | PRG ---
DATE OF SERVICE: 09/11/2019 TRANSITION OF CARE PROGRESS NOTE: SUMMARY OF CARE OF 09/10/2019: Yumi Castro is a 29-year-old female with a past medical history of type 1 diabetes, gastroparesis, erosive esophagitis, who presented to the emergency room for intractable abdominal pain, nausea and vomiting. She had been checking her sugars at home throughout the day. She was doing her insulin as a sliding scale and taking long-acting insulin of 25 units in the morning. The patient's symptoms had started 2 to 3 days prior to arrival and felt similar to previous diabetes ketoacidosis episodes she had in the past. In the emergency room, her initial blood sugar was found to be 700. Her anion gap was not calculated because bicarb was less than 8, and no arterial blood gas or venous blood gas was obtained. The patient was given an insulin drip, 3 L of normal saline, and DKA protocol was initiated. Case Management was consulted to try to prevent bounce-back as the patient had been admitted for DKA in the last 3 months. Her A1c was found to be greater than 11, indicating that her diabetes was not well controlled. The patient's anion gap had closed by hospital day 3. For the next week, she continued to experience abdominal pain, refused her insulin and refused to eat. GI was consulted. Per GI, they had done a scope of her upper GI tract in June and found erosive esophagitis along with H pylori on biopsy. They prescribed her triple therapy as an outpatient, which she never completed. We continued her on IV fluids and attempted to wean her to oral liquids and oral medications without much success at this point. The patient would be lying in bed all day, so Walking Program was consulted. Each day the patient would walk a little bit more with the Walking Program. The patient did experience vomiting everyday. When she had gone without vomiting for a couple of days, she asked to be advanced to a full-liquid diet. This was advanced on the last day of my role in her care. Her next of kin, who is her uncle, was contacted for more information regarding her disease. There are many social stressors at home including the anniversary of the of her mother, who also from type 1 diabetes, the emergence of her father from long term back in her life, and the fact that she was not taking care of her 2 daughters, who are being taken care of by other family members. The patient was questioned as to whether or not she was suicidal or attempting to let herself passively by refusing her insulin, in order to ascertain if she was severely depressed as the reason for her lack of motivation and refusal of medications. She denied these, but her affect was very flat throughout her hospital stay. GI had placed the patient on erythromycin, Reglan, Protonix in an attempt to control her pain. I suspect the patient will have a very slow road to recovery and I suspect she also will bounce back to the hospital if she does not have a good social support for her type 1 diabetes and for her erosive esophagitis. We would appreciate more involvement by Case Management to help this patient with a safe discharge plan. Job ID: [id number] AILEEN
--- NOTE | 2019-09-11 12:37 | PRG ---
DATE OF SERVICE: 09/11/2019 SUBJECTIVE: Ms. Castro states after having just a little bit of Glucerna today, she had terrible chest pain and terrible epigastric pain. She is rocking in the bed. This is very similar to yesterday. OBJECTIVE: VITAL SIGNS: Temperature is 98.5, pulse 84, blood pressure 118/56. ABDOMEN: Soft, nontender. Bowel sounds are scant, but present. CHEST WALL: Nontender. RESPIRATIONS: Clear. LABORATORY DATA: Sodium 137, potassium 3.5, BUN and creatinine are 4 and 0.6. Liver function tests are normal. Albumin is 3.1. Glucose is 71 to 83. White count 5.2, hemoglobin 8.6, platelet count 117. ASSESSMENT AND RECOMMENDATIONS: 1. Diabetic ketoacidosis, resolved. 2. Severe gastroparesis. 3. Previous esophagogastroduodenoscopy in June with severe erosive esophagitis. She has been treated. 4. Ongoing chest pain and epigastric pain. She has had a negative CAT scan on admission and negative abdominal ultrasound for gallbladder disease yesterday when she had pain. She has been treated empirically with proton pump inhibitors IV q.12 hours for several days now since admission. She has been treated empirically with Diflucan for possible Tamia with ongoing pain at this time and inability to take p.o. We will start total parenteral nutrition. The residents called me about this and we will schedule for an esophagogastroduodenoscopy for tomorrow to make sure she does not have some type of viral esophagitis or some other process. She has had aggressive Reglan treatment and erythromycin for gastroparesis. Job ID: [id number]
[2019-09-11] MEDS ORDERED: D5W-AA 4.25% with LYTES 1,000 ML BAG IV SCH (13:30)
[2019-09-11] MEDS: D5W-AA 4.25% with LYTES 1,000 ML IV SCH (15:09)
[2019-09-11] MEDS ORDERED: Lidocaine 2% Viscous Solution 10 ML, Aluminum & Magnesium Hydroxide 30 ML SSW SCH (18:00)
[2019-09-12] MEDS: Metoclopramide HCl 10 MG/2 ML VIAL IVP SCH ×5 (00:06→23:17)
[2019-09-12] MEDS: Pantoprazole 40 MG VIAL IVP SCH ×3 (00:06→23:37)
[2019-09-12] MEDS: HumaLOG 300 UNITS/3 ML VIAL SC PRN ×4 (00:06→23:30)
[2019-09-12] MEDS: D5W-AA 4.25% with LYTES 1,000 ML IV SCH (03:13)
--- NOTE | 2019-09-12 05:10 | PDOC.FM ---
- Subjective Subjective: Patient down for endoscopy at time of rounding. Will examine later today once back from endoscopy - Objective Vital Signs & Weight: Vital Signs (12 hours) Temp Pulse Resp BP Pulse Ox 09/12/19 03:21 97.8 F 74 16 100/62 100 09/11/19 23:02 98.1 F 85 16 124/89 99 09/11/19 19:32 97.8 F 95 16 126/74 99 Weight Admit Weight 50.666 kg Weight 55.157 kg Most Recent Monitor Data Heart Rate from ECG 102 NIBP 105/70 NIBP BP-Mean 81 Respiration from ECG 15 SpO2 100 I&O: 09/10/19 09/11/19 09/12/19 06:59 06:59 06:59 Intake Total 3200 1450 1100 Balance 3200 1450 1100 Result Diagrams: 09/11/19 04:36 09/12/19 04:54 Phys Exam - Physical Examination See HPI. Patient down for endoscopy at time of rounding, will examine after Dx/Plan (1) Diabetic ketoacidosis Code(s): E11.10 - TYPE 2 DIABETES MELLITUS WITH KETOACIDOSIS WITHOUT COMA Status: Resolved (2) Abdominal pain Code(s): R10.9 - UNSPECIFIED ABDOMINAL PAIN Status: Acute (3) Erosive esophagitis Code(s): K22.10 - ULCER OF ESOPHAGUS WITHOUT BLEEDING Status: Acute (4) H. pylori infection Code(s): A04.8 - OTHER SPECIFIED BACTERIAL INTESTINAL INFECTIONS Status: Acute (5) Diabetic peripheral neuropathy Code(s): E11.42 - TYPE 2 DIABETES MELLITUS WITH DIABETIC POLYNEUROPATHY Status : Chronic (6) Type 1 diabetes mellitus Status: Chronic (7) Diabetic gastroparesis Code(s): E11.43 - TYPE 2 DIABETES W DIABETIC AUTONOMIC (POLY)NEUROPATHY; K31.84 - GASTROPARESIS Status: Suspected - Plan Plan: Ms. Castro is a 29y/oF with PMH of T1DM, gastroparesis, erosive esophagitis, who presents to the ED for intractable abdominal pain, nausea and vomiting. # Diabetic ketoacidosis, resolved, anion gap is closed. # Type 1 DM #Hypokalemia #Intractable abd pain, N/V, improved - Patient is on 70/30 at home. - Started PPN 4/6 - lantus 5 units BID, will titrate up accordingly as patient is on PPN - Patient has had multiple hospitalizations for similar scenarios within the last few months; There is concern for patient non-adherence along with concerns for safe placement after discharge. Case Management, discharge planning- possibility of HH? #Anxiety Continue seroquel and sertraline #History of erosive esophagitis # H Pylori infection, not treated due to noncompliance #Diabetic gastroparesis - Protonix IV BID - Reglan IV TID, GI added erythromcyin IV and then stopped erythromycin 2/2 possibility that this was causing her abd pain - fluconazole started for possible anay esophagitis, no thrush on exam - continue carafate 1gm ACHS. - GI consulted, Dr. Granados, appreciate recs. May transition to PO medications once pt is tolerating oral. -Dr. Joiner plans for EGD today - encourage oral intake - Can consider starting triple therapy for H Pylori once patient is tolerating PO; can possibly discuss with her pharmacy about packaging her medications into packets so that it is easier for her to remember to take them #Abdominal skin wound - wound care consulted. Have signed off. Leave open to air #Severe Malnutrition - Timekeeper consult, appreciate recs. - Glucerna/Momo/Ensure shakes started. - do not think pt could manage TPN/PPN at home in the [facility]. PPN started 4/ 6 until patient can tolerate an oral diet. Code Status: Full Diet: full liquid Fluids: LR w/ potassium at 50 mL/hr. PPN @ 100mls/hr DVT PPx: SCD GI PPx: Protonix PCP: Dr. Nahum Nielson, [place], [place]. City Call. Dispo: Med inpt for DKA, DKA is resolved. GI consulted for erosive esophagitis, H pylori, suspected diabetic gastroparesis, appreciate recs. Plan for EGD today. Encourage PO intake.
[2019-09-12] MEDS: Sucralfate 1 GM TAB PO SCH ×4 (05:23→20:30)
[2019-09-12 05:32] LABS: Anion Gap 10 mmol/L (10-20); BUN (Urea Nitrogen) 7 mg/dL (7.0-18.7); Calc. Creatinine Clearance 99 mL/min (70-130); Calcium 8.3 mg/dL (7.8-10.44); Carbon Dioxide 24 mmol/L (22-29); Chloride 104 mmol/L (98-107); Estimated GFR-MDRD Greater than 90; Glucose 172 mg/dL (70-105); Potassium 4.1 mmol/L (3.5-5.1); Sodium 134 mmol/L (136-145)
[2019-09-12] MEDS ORDERED: PROPOFOL 200 MG/20 ML VIAL ONE (09:00)
[2019-09-12] MEDS ORDERED: Lidocaine 1% PF 5 ML VIAL ONE (09:00)
[2019-09-12] MEDS: Insulin Glargine 5 UNITS in Pre-Filled Syringe 1 EACH SC SCH ×2 (10:00→20:31)
--- NOTE | 2019-09-12 11:09 | OP ---
DATE OF PROCEDURE: 09/12/2019 PROCEDURE PERFORMED: Esophagogastroduodenoscopy with biopsy. INDICATIONS FOR PROCEDURE: Dysphagia, odynophagia. DESCRIPTION OF PROCEDURE: After the risks and benefits of the procedure were explained to the patient including risks of bleeding, infection, perforation, reactions to anesthesia, aspiration, and/or pain, informed consent was obtained. The patient was then taken to the endoscopy suite, where deep sedation was administered via propofol and anesthesia support. Once adequate sedation was achieved, the patient was maneuvered into the left lateral decubitus position, followed by introduction of the standard gastroscope with intubation of the esophagus, stomach, and the proximal small intestines with the findings listed below. The patient tolerated the procedure well with no immediate perioperative complications. Upon conclusion of the procedure, all equipment was removed from the patient and she was transferred to PACU in satisfactory condition. FINDINGS: Esophagus: Normal-appearing mucosa was seen within the proximal esophagus; however, multiple linear erosions were seen in the distal and mid esophagus with the ulcerations occupying approximately 75% of the esophageal lumen near the gastroesophageal junction. The ulcerations were all superficial and did not exhibit any crater defect nor did they exhibit any evidence of active or recent bleeding despite manipulation with the scope itself. Immediately surrounding these ulcerations was an increased amount of mucosal erythema, but again no evidence of overt mucosal breakdown and it did appear to be in a state of healing. The ulcerations extended from approximately 30 cm to 38 cm past the incisors. Both the diaphragmatic pinch and the gastroesophageal junction were well seen at 38 cm past the incisors. Stomach: A moderate amount of retained solid and liquid food was seen within the gastric fundus and body limiting visualization of the mucosa underlying it despite aggressive irrigation and suctioning. Otherwise, normal-appearing mucosa was seen in the gastric cardia, fundus, body, greater curvature, antrum, and incisura. There were no evidence of erosions, ulcerations, mass lesions, or active/recent bleeding. Duodenum: Normal-appearing mucosa was seen in both the duodenal bulb and second portion of the duodenum. There were no evidence of erosions, ulcerations, mass lesions, or active/recent bleeding. IMPRESSION: 1. LA grade D erosive esophagitis (most likely secondary to increased nausea and vomiting from DKA). 2. Retained food within the stomach suggestive of possible gastroparesis (but not diagnostic). 3. Otherwise normal upper endoscopy. RECOMMENDATIONS: 1. Would start the patient back on a full liquid diet and advance diet as tolerated. 2. Continue with PPI 40 mg IV b.i.d. 3. We will continue aggressive antiemetic control given that this is a more likely etiology of her erosive esophagitis. 4. We will follow up on the biopsies of the esophagus for possible infection (unlikely at this time). 5. Pain control per Primary Team. At this point, the etiology of her odynophagia seems to be related to the severe reflux esophagitis either from acid reflux during this admission or the nausea and vomiting she sustained during her diabetic ketoacidosis episode. At this time, it appears to be in a state of healing with no additional recommendations at this time other than the above. We will continue to follow peripherally for now. Please call with any questions. Job ID: [id number]
[2019-09-12] MEDS: Potassium Chloride 20 MEQ in Lactated Ringer's 1,000 ML IV SCH ×2 (16:44→17:48)
[2019-09-12] MEDS ORDERED: Lidocaine 2% Viscous Solution 10 ML, Aluminum & Magnesium Hydroxide 30 ML SSW SCH (17:00)
[2019-09-12] MEDS: Famotidine 20 MG TAB PO SCH (20:30)
[2019-09-13 05:21] LABS: Anion Gap 10 mmol/L (10-20); BUN (Urea Nitrogen) 5 mg/dL (7.0-18.7); Calc. Creatinine Clearance 97 mL/min (70-130); Calcium 8.6 mg/dL (7.8-10.44); Carbon Dioxide 28 mmol/L (22-29); Chloride 106 mmol/L (98-107); Estimated GFR-MDRD Greater than 90; Glucose 140 mg/dL (70-105); Potassium 3.8 mmol/L (3.5-5.1); Sodium 140 mmol/L (136-145)
--- NOTE | 2019-09-13 05:38 | PDOC.FM ---
- Subjective Subjective: Patient doing well this morning. Reports her abdominal pain has improved. She did eat cream of wheat last night and then vomited afterward. Discussed adding another medication to help with GERD, patient agreeable. - Objective Vital Signs & Weight: Vital Signs (12 hours) Temp Pulse Resp BP Pulse Ox 09/13/19 03:33 97.5 F L 74 16 97/57 L 97 09/12/19 23:20 98.3 F 95 16 105/69 98 09/12/19 20:25 98 09/12/19 19:32 99.3 F 108 H 16 112/81 98 09/12/19 17:37 123/84 Weight Admit Weight 50.666 kg Weight 55.157 kg Most Recent Monitor Data Heart Rate from ECG 102 NIBP 105/70 NIBP BP-Mean 81 Respiration from ECG 15 SpO2 100 I&O: 09/11/19 09/12/19 09/13/19 06:59 06:59 06:59 Intake Total 1450 1400 711 Output Total 200 Balance 1450 1400 511 Result Diagrams: 09/11/19 04:36 09/13/19 04:52 Phys Exam - Physical Examination Constitutional: NAD HEENT: moist MMs, sclera anicteric Neck: supple, full ROM Respiratory: no wheezing, clear to auscultation bilateral Cardiovascular: RRR, no significant murmur Gastrointestinal: soft, non-tender, positive bowel sounds Musculoskeletal: no edema, pulses present Neurological: normal sensation, moves all 4 limbs Psychiatric: normal affect Deviation from normal: A&Ox1 Skin: no rash, normal turgor Dx/Plan (1) Diabetic ketoacidosis Code(s): E11.10 - TYPE 2 DIABETES MELLITUS WITH KETOACIDOSIS WITHOUT COMA Status: Resolved (2) Abdominal pain Code(s): R10.9 - UNSPECIFIED ABDOMINAL PAIN Status: Acute (3) Erosive esophagitis Code(s): K22.10 - ULCER OF ESOPHAGUS WITHOUT BLEEDING Status: Acute (4) H. pylori infection Code(s): A04.8 - OTHER SPECIFIED BACTERIAL INTESTINAL INFECTIONS Status: Acute (5) Diabetic peripheral neuropathy Code(s): E11.42 - TYPE 2 DIABETES MELLITUS WITH DIABETIC POLYNEUROPATHY Status : Chronic (6) Type 1 diabetes mellitus Status: Chronic (7) Diabetic gastroparesis Code(s): E11.43 - TYPE 2 DIABETES W DIABETIC AUTONOMIC (POLY)NEUROPATHY; K31.84 - GASTROPARESIS Status: Suspected - Plan Plan: Ms. Castro is a 29y/oF with PMH of T1DM, gastroparesis, erosive esophagitis, who presents to the ED for intractable abdominal pain, nausea and vomiting. # Diabetic ketoacidosis, resolved, anion gap is closed. # Type 1 DM #Hypokalemia, resolved #Intractable abd pain, N/V, improved - Patient is on 70/30 at home. - Started PPN 09/10, stopped 09/11 due to patient tolerating diet and patient stating her "IV guzman." Can consider re-starting ppn today if patient cannot tolerate diet - Patient has been on scheduled reglan, will schedule zofran at this time too to see if this can improve her n/v - lantus 5 units BID, will titrate up accordingly as patient is on PPN; missed am dose yesterday due to being in endoscopy, will monitor BG today - Patient has had multiple hospitalizations for similar scenarios within the last few months; There is concern for patient non-adherence along with concerns for safe placement after discharge. Case Management, discharge planning- possibility of HH? Can discuss possibility of patient going to SNF vs LTAC #Anxiety Continue seroquel and sertraline #History of erosive esophagitis # H Pylori infection, not treated due to noncompliance #Diabetic gastroparesis - Protonix IV BID, famotidine BID for refractory GERD - Reglan IV TID, GI added erythromcyin IV and then stopped erythromycin 2/2 possibility that this was causing her abd pain - fluconazole started for possible anay esophagitis, no thrush on exam - continue carafate 1gm ACHS. - GI consulted, Dr. Granados, appreciate recs. May transition to PO medications once pt is tolerating oral. -Dr. Dozier performed EGD 09/12: LA grade D erosive esophagitis, likely 2/2 n/v from DKA; possible gastroparesis, otherwise normal endoscopy -rec continued protonix IV BID, aggressive antiemetics, full liquid diet and advancing as tolerated -biopsies pending - encourage oral intake #Abdominal skin wound - wound care consulted. Have signed off. Leave open to air #Severe Malnutrition - Dry Paste Supervisor consult, appreciate recs. - Glucerna/Momo/Ensure shakes started. - do not think pt could manage TPN/PPN at home in the [facility]. PPN started 09/10 , stopped 09/11, can consider re-starting today if patient cannot tolerate full liquid diet and advances Code Status: Full Diet: full liquid, advance as tolerated Fluids: LR w/ potassium at 100 mL/hr. DVT PPx: SCD GI PPx: Protonix IV BID, famotidine PCP: Dr. Nahum Nielson, [place], [place]. City Call. Dispo: Med inpt for DKA, DKA is resolved. GI consulted for erosive esophagitis, H pylori?, suspected diabetic gastroparesis, appreciate recs. Plan for continued BID protonix, added BID famotidine 09/11 for refractory GERD. Added scheduled zofran today for nausea. Encourage PO intake. Adjust insulin accordingly as patient continues to advance her diet
[2019-09-13] MEDS: Metoclopramide HCl 10 MG/2 ML VIAL IVP SCH ×4 (06:21→23:39)
[2019-09-13] MEDS: Sucralfate 1 GM TAB PO SCH ×4 (06:21→20:07)
[2019-09-13] MEDS: Potassium Chloride 20 MEQ in Lactated Ringer's 1,000 ML IV SCH ×2 (06:22→15:47)
[2019-09-13] MEDS: Insulin Glargine 5 UNITS in Pre-Filled Syringe 1 EACH SC SCH ×2 (08:48→20:06)
[2019-09-13] MEDS: Famotidine 20 MG TAB PO SCH ×2 (08:48→20:07)
[2019-09-13] MEDS: Ondansetron HCl/PF 4 MG in Sodium Chloride 0.9% 50 ML IVPB SCH ×3 (08:55→20:07)
[2019-09-13] MEDS ORDERED: Promethazine HCl 12.5 MG in Sodium Chloride 0.9% 50 ML IVPB SCH (09:00)
[2019-09-13 10:07] LABS: Pregs Control Background? CLEAR/WHITE (CLR/WHITE); Pregs Control Bar Appear? YES (CONTROL BAR)
[2019-09-13 10:13] LABS: BHCG - Serum Negative (NEGATIVE)
[2019-09-13] MEDS: Pantoprazole 40 MG VIAL IVP SCH ×2 (12:20→23:39)
[2019-09-13] MEDS: HumaLOG 300 UNITS/3 ML VIAL SC PRN ×3 (12:21→23:39)
--- NOTE | 2019-09-13 15:33 | PRG ---
DATE OF SERVICE: 09/13/2019 SUBJECTIVE: Ms. Castro feels better today. She has tolerated solid food . She has had no vomiting since yesterday. No nausea currently. No abdominal pain. OBJECTIVE: VITAL SIGNS: Temperature is 98.1, pulse 77, blood pressure 109/72. GENERAL: She is in no acute distress. Alert and oriented x3. LUNGS: Clear to auscultation bilaterally. HEART: Regular rate and rhythm without murmur. ABDOMEN: Soft, nontender, and nondistended. Bowel sounds are present. EXTREMITIES: No lower extremity edema. IMPRESSION: 1. Diabetic gastroparesis versus more limited gastroparesis secondary to diabetes ketoacidosis. She is clinically doing better now with better control of her blood sugars and resolution of diabetes ketoacidosis. Her hemoglobin A1c has been running quite high. The underlying treatment of her disease will be first better control of her diabetes. She will continue treatment in the meantime with metoclopramide. Small more frequent meals with lower fiber diet will also be advised. 2. Severe grade D erosive esophagitis secondary to #1. 3. Diabetes ketoacidosis, resolved. RECOMMENDATIONS: 1. Continue metoclopramide. This can be transitioned to oral dosing tomorrow. 2. Small more frequent meals with low residue diabetic diet. 3. If her symptoms worsen again, then we could potentially increase the Reglan if necessary. Job ID: [id number]
[2019-09-13] MEDS ORDERED: Potassium Chloride 20 MEQ in Lactated Ringer's 1,000 ML IV SCH (16:31)
[2019-09-14] MEDS: Ondansetron HCl/PF 4 MG in Sodium Chloride 0.9% 50 ML IVPB SCH (03:20)
[2019-09-14] MEDS ORDERED: Lactated Ringer's 1,000 ML IV SCH (04:00)
--- NOTE | 2019-09-14 05:59 | PDOC.FM ---
- Subjective Subjective: Patient doing well this morning. Tolerated full diet well yesterday. Discussed plans to change her medications to PO today and encouraged continued eating as tolerated, patient agreeable with plan of care. - Objective Vital Signs & Weight: Vital Signs (12 hours) Temp Pulse Resp BP Pulse Ox 09/14/19 04:53 95/60 09/14/19 04:37 92/61 09/14/19 03:20 75/40 L 09/14/19 03:16 97.8 F 77 16 97 09/13/19 23:21 97.9 F 99 16 105/68 98 09/13/19 20:00 99 09/13/19 19:30 97.9 F 74 16 125/85 99 Weight Admit Weight 50.666 kg Weight 55.157 kg Most Recent Monitor Data Heart Rate from ECG 102 NIBP 105/70 NIBP BP-Mean 81 Respiration from ECG 15 SpO2 100 I&O: 09/12/19 09/13/19 09/14/19 06:59 06:59 06:59 Intake Total 1400 2311 4095 Output Total 200 Balance 1400 2111 4095 Result Diagrams: 09/11/19 04:36 09/14/19 05:34 Phys Exam - Physical Examination Constitutional: NAD HEENT: moist MMs, sclera anicteric Neck: supple, full ROM Respiratory: no wheezing, clear to auscultation bilateral Cardiovascular: RRR, no significant murmur Gastrointestinal: soft, positive bowel sounds slightly ttp Musculoskeletal: no edema, pulses present Neurological: non-focal, moves all 4 limbs Psychiatric: normal affect, A&O x 3 Skin: no rash, normal turgor Dx/Plan (1) Diabetic ketoacidosis Code(s): E11.10 - TYPE 2 DIABETES MELLITUS WITH KETOACIDOSIS WITHOUT COMA Status: Resolved (2) Abdominal pain Code(s): R10.9 - UNSPECIFIED ABDOMINAL PAIN Status: Acute (3) Erosive esophagitis Code(s): K22.10 - ULCER OF ESOPHAGUS WITHOUT BLEEDING Status: Acute (4) H. pylori infection Code(s): A04.8 - OTHER SPECIFIED BACTERIAL INTESTINAL INFECTIONS Status: Acute (5) Diabetic peripheral neuropathy Code(s): E11.42 - TYPE 2 DIABETES MELLITUS WITH DIABETIC POLYNEUROPATHY Status : Chronic (6) Type 1 diabetes mellitus Status: Chronic (7) Diabetic gastroparesis Code(s): E11.43 - TYPE 2 DIABETES W DIABETIC AUTONOMIC (POLY)NEUROPATHY; K31.84 - GASTROPARESIS Status: Suspected - Plan Plan: Ms. Castro is a 29y/oF with PMH of T1DM, gastroparesis, erosive esophagitis, who presents to the ED for intractable abdominal pain, nausea and vomiting. # Diabetic ketoacidosis, resolved, anion gap is closed. # Type 1 DM #Hypokalemia, resolved #Intractable abd pain, N/V, improved - Patient is on 70/30 at home. - Started PPN 09/10, stopped 09/11 due to patient tolerating diet and patient stating her "IV guzman." Will hold off restarting for now as patient has been tolerating a diet - Patient has been on scheduled reglan and zofran with improved n/v - lantus 10 units qam, 9u qhs, will titrate up accordingly - Patient has had multiple hospitalizations for similar scenarios within the last few months; There is concern for patient non-adherence along with concerns for safe placement after discharge. Case Management, discharge planning- possibility of HH? Can discuss possibility of patient going to SNF vs LTAC #Anxiety Continue seroquel and sertraline #History of erosive esophagitis #Diabetic gastroparesis - Protonix IV BID, famotidine BID for refractory GERD - Reglan IV TID, GI added erythromcyin IV and then stopped erythromycin 2/2 possibility that this was causing her abd pain - fluconazole started for possible anay esophagitis, will stop as bx did not show any fungal organisms - continue carafate 1gm ACHS. - GI consulted, Dr. Granados, appreciate recs. May transition to PO medications once pt is tolerating oral. -Dr. Dozier performed EGD 09/12: LA grade D erosive esophagitis, likely 2/2 n/v from DKA; possible gastroparesis, otherwise normal endoscopy -rec continued protonix IV BID, aggressive antiemetics, full liquid diet and advancing as tolerated -biopsies: erosive esophagitis without fungal organisms or metaplasia -Will transition to PO meds today - encourage oral intake #Abdominal skin wound - wound care consulted. Have signed off. Leave open to air #Severe Malnutrition - Process Safety Specialist consult, appreciate recs. - Glucerna/Momo/Ensure shakes started. - do not think pt could manage TPN/PPN at home in the snf. PPN started 09/10 , stopped 09/11, will hold off for now as patient is tolerating oral Code Status: Full Diet: CC, low residual, small frequent meals Fluids: SL DVT PPx: SCD GI PPx: Protonix IV BID, famotidine PCP: Dr. Nahum Nielson, [place], [place]. City Call. Dispo: Med inpt for DKA, DKA is resolved. GI consulted for erosive esophagitis, suspected diabetic gastroparesis, appreciate recs. Plan for continued BID protonix, added BID famotidine 09/11 for refractory GERD. Encourage PO intake. Adjust insulin accordingly as patient continues to advance her diet. Transition meds to PO meds today
[2019-09-14] MEDS ORDERED: Ondansetron ODT 4 MG TAB PO SCH (06:00)
[2019-09-14] MEDS: Sucralfate 1 GM TAB PO SCH ×4 (06:16→21:25)
[2019-09-14] MEDS: Metoclopramide HCl 10 MG TAB PO SCH ×3 (06:16→17:10)
[2019-09-14] MEDS: Metoclopramide HCl 10 MG/2 ML VIAL IVP SCH (06:18)
[2019-09-14 07:14] LABS: Anion Gap 11 mmol/L (10-20); BUN (Urea Nitrogen) 5 mg/dL (7.0-18.7); Calc. Creatinine Clearance 103 mL/min (70-130); Calcium 8.9 mg/dL (7.8-10.44); Carbon Dioxide 27 mmol/L (22-29); Chloride 105 mmol/L (98-107); Estimated GFR-MDRD Greater than 90; Glucose 133 mg/dL (70-105); Sodium 139 mmol/L (136-145)
[2019-09-14] MEDS ORDERED: Insulin Glargine 10 UNITS in Pre-Filled Syringe 1 EACH SC SCH (09:00)
[2019-09-14] MEDS: Famotidine 20 MG TAB PO SCH ×2 (09:14→21:25)
[2019-09-14] MEDS: Ondansetron ODT 4 MG TAB PO SCH ×3 (09:15→21:25)
[2019-09-14] MEDS ORDERED: Ondansetron ORAL SOLN. 4 MG/5 ML UDCUP PO PRN (09:20)
--- NOTE | 2019-09-14 10:41 | PRG ---
DATE OF SERVICE: 09/14/2019 SUBJECTIVE: Ms. Castro says she is feeling a lot better this morning. She tolerated breakfast of [place] toast, grits, and sausage, and she is not having any nausea or abdominal pain. She had a little bit of chest discomfort with the swallowing, but this is also improved. Reglan has been switched to oral today. OBJECTIVE: VITAL SIGNS: Temperature 97.8, pulse 76, blood pressure is 99/61, 97% oxygen saturation on room air. GENERAL: In no acute distress. HEART: Regular rate and rhythm. LUNGS: Clear to auscultation bilaterally. ABDOMEN: Nondistended. Bowel sounds present. Soft. Minimal tenderness to palpation in the epigastrium. No guarding or rebound tenderness. EXTREMITIES: No peripheral edema. LABORATORY STUDIES: Glucose 147 this morning. Sodium 139, potassium 4.0, BUN 5, and creatinine 0.71. ASSESSMENT AND PLAN: 1. Severe distal erosive esophagitis. Note that the esophageal biopsies were consistent with esophageal reflux, negative for viral or fungal features. This is likely secondary to her gastroparesis with a lot of recent vomiting. 2. Likely gastroparesis. This is based on clinical presentation as well as endoscopy findings of retained food in the stomach. She has been started on Reglan. I agree with switching it to p.o. today. She has finally had some symptomatic improvement. Otherwise, continue with the twice daily PPI as well as the sucralfate. If the patient is able to continue to tolerate her diet today with oral medications, hopefully discharge later today or tomorrow. GI will sign off, but please call back anytime with questions or concerns. Job ID: [id number]
[2019-09-14] MEDS: Pantoprazole 40 MG VIAL IVP SCH (12:36)
[2019-09-14] MEDS: HumaLOG 300 UNITS/3 ML VIAL SC PRN ×2 (12:36→17:10)
[2019-09-14] MEDS ORDERED: Insulin Glargine 9 UNITS in Pre-Filled Syringe 1 EACH SC SCH (21:00)
[2019-09-15] MEDS: Pantoprazole 40 MG VIAL IVP SCH (00:21)
[2019-09-15] MEDS: Metoclopramide HCl 10 MG TAB PO SCH ×4 (00:21→17:44)
[2019-09-15] MEDS: HumaLOG 300 UNITS/3 ML VIAL SC PRN (00:22)
[2019-09-15] MEDS: Ondansetron ODT 4 MG TAB PO SCH ×3 (04:12→14:44)
--- NOTE | 2019-09-15 05:56 | PDOC.FM ---
- Subjective Subjective: Patient doing well today. Tolerated her diet well yesterday. Had discussion about the importance of counting carbs and maintaining a carb conscious diet at home. Discussed [facility] with 3 visits possible after she returns home to assist her with carb counting and insulin, patient agreeable with plan of care. - Objective Vital Signs & Weight: Vital Signs (12 hours) Temp Pulse Resp BP BP Pulse Ox 09/15/19 04:19 98.2 F 74 16 90/57 L 100 09/15/19 00:33 97.9 F 90 18 101/57 L 100 09/14/19 20:33 98.6 F 102 H 18 95/64 99 Weight Admit Weight 50.666 kg Weight 55.157 kg Most Recent Monitor Data Heart Rate from ECG 102 NIBP 105/70 NIBP BP-Mean 81 Respiration from ECG 15 SpO2 100 I&O: 09/13/19 09/14/19 09/15/19 06:59 06:59 06:59 Intake Total 2311 4095 1160 Output Total 200 Balance 2111 4095 1160 Result Diagrams: 09/11/19 04:36 09/15/19 05:55 Phys Exam - Physical Examination Constitutional: NAD HEENT: moist MMs, sclera anicteric Neck: supple, full ROM Respiratory: no wheezing, clear to auscultation bilateral Cardiovascular: RRR, no significant murmur Gastrointestinal: soft slightly ttp lower abd Musculoskeletal: no edema, pulses present Neurological: non-focal, moves all 4 limbs Psychiatric: normal affect, A&O x 3 Skin: no rash, normal turgor Dx/Plan (1) Diabetic ketoacidosis Code(s): E11.10 - TYPE 2 DIABETES MELLITUS WITH KETOACIDOSIS WITHOUT COMA Status: Resolved (2) Abdominal pain Code(s): R10.9 - UNSPECIFIED ABDOMINAL PAIN Status: Acute (3) Erosive esophagitis Code(s): K22.10 - ULCER OF ESOPHAGUS WITHOUT BLEEDING Status: Acute (4) H. pylori infection Code(s): A04.8 - OTHER SPECIFIED BACTERIAL INTESTINAL INFECTIONS Status: Acute (5) Diabetic peripheral neuropathy Code(s): E11.42 - TYPE 2 DIABETES MELLITUS WITH DIABETIC POLYNEUROPATHY Status : Chronic (6) Type 1 diabetes mellitus Status: Chronic (7) Diabetic gastroparesis Code(s): E11.43 - TYPE 2 DIABETES W DIABETIC AUTONOMIC (POLY)NEUROPATHY; K31.84 - GASTROPARESIS Status: Suspected - Plan Plan: Ms. Castro is a 29y/oF with PMH of T1DM, gastroparesis, erosive esophagitis, who presents to the ED for intractable abdominal pain, nausea and vomiting. # Diabetic ketoacidosis, resolved, anion gap is closed. # Type 1 DM #Hypokalemia, resolved #Intractable abd pain, N/V, improved - Patient is on 70/30 at home. - Started PPN 09/10, stopped 09/11 due to patient tolerating diet and patient stating her "IV guzman." Will hold off restarting for now as patient has been tolerating a diet - Patient has been on scheduled reglan and zofran with improved n/v - lantus 10 units qam, 9u qhs > will transition to patient's home 70/30 today; start at 15u humulin 70/30qam and 20u humulin 70/30 qpm and patient can titrate back to home regimen of 25u humulin 70/30qam and 30u humulin 70/30qpm - Patient has had multiple hospitalizations for similar scenarios within the last few months; There is concern for patient non-adherence along with concerns for safe placement after discharge. Case Management, discharge planning; as patient has medicaid no agency will take her long-term, but she as been granted 3 [facility] visits, forms to be signed and sent today #Anxiety Continue seroquel and sertraline #History of erosive esophagitis #Diabetic gastroparesis - Protonix IV BID, famotidine BID for refractory GERD - Reglan PO TID, GI added erythromcyin IV and then stopped erythromycin 2/2 possibility that this was causing her abd pain - fluconazole started for possible anay esophagitis, stopped as bx did not show any fungal organisms - continue carafate 1gm ACHS. - GI consulted, Dr. Granados, appreciate recs. May transition to PO medications once pt is tolerating oral. -Dr. Dozier performed EGD 09/12: LA grade D erosive esophagitis, likely 2/2 n/v from DKA; possible gastroparesis, otherwise normal endoscopy -rec continued protonix BID, carafate -biopsies: erosive esophagitis without fungal organisms or metaplasia -Transitioned to PO meds 09/13, patient tolerated these well - encourage oral intake #Abdominal skin wound - wound care consulted. Have signed off. Leave open to air #Severe Malnutrition - [facility] consult, appreciate recs. - Glucerna/Momo/Ensure shakes started. 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 PPN started 09/10 , stopped 09/11, will hold off for now as patient is tolerating oral Code Status: Full Diet: CC, low residual, small frequent meals Fluids: SL DVT PPx: SCD GI PPx: Protonix BID, famotidine PCP: Dr. Nahum Nielson, [place], [place]. City Call. Dispo: Med inpt for DKA, DKA is resolved. Transition patient to home insulin today. Patient has been tolerating diet with PO meds, will likely d/c later today with [facility] visits
[2019-09-15] MEDS: Sucralfate 1 GM TAB PO SCH ×3 (06:00→17:44)
[2019-09-15 06:35] LABS: Anion Gap 11 mmol/L (10-20); BUN (Urea Nitrogen) 7 mg/dL (7.0-18.7); Calc. Creatinine Clearance 100 mL/min (70-130); Calcium 8.6 mg/dL (7.8-10.44); Carbon Dioxide 27 mmol/L (22-29); Chloride 106 mmol/L (98-107); Estimated GFR-MDRD Greater than 90; Glucose 88 mg/dL (70-105); Sodium 140 mmol/L (136-145)
[2019-09-15] MEDS ORDERED: HumuLIN 70/30 (300 UNITS/3 ML VIAL) SC SCH ×2 (08:00→17:00)
[2019-09-15] MEDS: Famotidine 20 MG TAB PO SCH (09:02)
[2019-09-15] MEDS ORDERED: Lidocaine 2% Viscous Solution 10 ML, Aluminum & Magnesium Hydroxide 30 ML SSW SCH (14:00)
[2019-09-15 16:17] VITALS: BP 110/73; TEMP 98.6
[2019-09-15] MEDS: Aluminum & Magnesium Hydroxide 60 ML, Lidocaine 2% Viscous Solution 30 ML, diphenhydrAM... SSW PRN (19:18)
--- NOTE | 2019-09-18 09:55 | DIS ---
DATE OF ADMISSION: 09/02/2019 DATE OF DISCHARGE: 09/15/2019 ADMITTING RESIDENT: Lorenza Newberry MD ADMITTING ATTENDING: Philip Kemp MD DISCHARGE RESIDENT: Lyly Brewer MD. DISCHARGE ATTENDING: Philip Kemp MD CONSULTS: Gastroenterology, Dr. Granados; Case Management, Walking Program, Wound Care. PROCEDURES: EGD with biopsy on 09/12/2019: LA grade D erosive esophagitis, most likely secondary to increased nausea and vomiting from DKA. Retained food within the stomach suggestive of possible gastroparesis, but nondiagnostic. Otherwise normal upper endoscopy. Biopsy demonstrated erosive esophagitis. No Pope's columnar epithelium identified. No viable mucosa present. No dysplasia or malignancy identified. No fungal organisms identified. No viral cytopathic effects present. IMAGIN. Abdomen and pelvis CT on 09/03/2019: Thickening of the gastric yepez diffusely. The degree of thickening is more than typically expected for degree of incomplete distention. Findings could be related to gastritis. There is also suggestion of mild thickening involving the distal esophagus. Endoscopy may be helpful for further evaluation. Small amount of free fluid in the cul-de-sac. Probable right ovarian cyst. 2. Abdominal ultrasound 09/10/2019: Unremarkable right upper quadrant ultrasound. Normal gallbladder, common bile duct, pancreas, and right kidney. PRIMARY DIAGNOSES: Diabetic ketoacidosis, resolved; hypokalemia; intractable abdominal pain, nausea, and vomiting; history of erosive esophagitis and diabetic gastroparesis; abdominal skin wound; severe malnutrition. SECONDARY DIAGNOSES: Type 1 diabetes mellitus and anxiety. DISCHARGE MEDICATIONS: 1. 15 mL Maalox p.o. post meals x30 p.r.n. 2. 20 mg famotidine p.o. b.i.d. 3. 300 mg gabapentin p.o. t.i.d. 4. 15 units Humulin 70/30 subcu q.a.m. 5. 20 units of Humulin 70/30 subcu q.p.m. 6. Insulin lispro 1 unit subcu p.r.n. 7. 10 mg Reglan p.o. q.6 hours x90 tabs. 8. 4 mg Zofran p.o. q.4 hours p.r.n. x30 tabs. 9. 40 mg Protonix p.o. b.i.d. 10. 25 mg Phenergan p.o. q.6 hours p.r.n. for nausea and vomiting. 11. 200 mg Seroquel p.o. at bedtime. 12. 75 mg sertraline p.o. daily. 13. 1 g sucralfate p.o. a.c. at bedtime. DISCONTINUED MEDICATIONS: 1. Tylenol p.r.n. 2. PPN Clinimix. 3. GI cocktail. 4. Insulin sliding scale. 5. Lantus. 6. Dicyclomine. 7. Diltiazem. 8. Erythromycin. 9. Fluconazole. 10. DKA protocol. 11. home 25 units Humulin 70/30 subcu q.a.m. 12. home 30 units of Humulin 70/30 subcu q.p.m. HISTORY OF PRESENT ILLNESS/HOSPITAL COURSE: Yumi Castro is a 29-year-old female with past medical history of type 1 diabetes, uncontrolled; gastroparesis; erosive esophagitis, who presented to the ED for intractable abdominal pain, nausea, and vomiting and was found to be in DKA. She was found to have a blood glucose to be 700 with a bicarb less than 8, and she was started on an insulin drip with a DKA protocol. The patient's anion gap had closed by the hospital day 3, and she continued to experience abdominal pain, so she had refused to eat and was refusing her insulin. GI was consulted at that time and noted that they had done an endoscopy in June that showed erosive esophagitis along with H pylori on biopsy. The patient had been prescribed triple therapy as an outpatient at that time, but the patient only took 2 to 3 days' worth of the medications before being readmitted to the hospital. GI tried erythromycin, Reglan, and Protonix in an attempt to control her pain, although the erythromycin seemed to increase her abdominal pain and that was then stopped. She had a repeat EGD on 09/[address] Dozier , see above. She was started on peripheral parenteral nutrition on 09/10, but this was stopped on 09/11 due to the patient starting to tolerate a diet and complained that she did not like the way the PPN felt going through her IV. She was on Lantus throughout her hospitalization when she was agreeable with taking insulin, and this was transitioned over to reduce dosing of her 70/30 home dosing before discharge with instructions to titrate up as needed. She reported that her home dosing is 25 units Humulin 70/30 q.a.m. and 30 units Humulin 70/30 q.p.m. She was started on 15 units q.a.m. and 20 units q.p.m. and discharged on this regimen. It was found that the combination of b.i.d. famotidine, b.i.d. Protonix, Reglan, Carafate, and Zofran seemed to assist in the patient being able to tolerate a diet. Before discharge, when the patient began tolerating her diet, she ordered large quantities of food and would constantly order snacks rich in carbohydrates. She was counseled multiple times on limiting high carbohydrate snacks throughout the day to help her better regulate her blood sugars. She would also order larger meals multiple times, though she was continuously counseled on trying to eat small frequent meals in order to prevent abdominal pain from her gastroparesis. Before discharge, the patient revealed that she had only taken 2 to 3 doses of her H pylori triple therapy medication that was given to her in June and she still had those prescriptions at home. The patient was encouraged to finish those prescriptions when she was discharged back home and the patient was agreeable with the plan of care. There was also a lengthy discussion with the patient about the risks and benefits of continuing Reglan as there is a known risk with Reglan of tardive dyskinesia. It was discussed that Reglan can help her with her gastroparesis, but it can also cause her to develop tardive dyskinesia with little known treatments for that. The patient stated that she understands the risks and benefits before discharge. She was also counseled on going home on 15 units of Humulin 70/30 and 20 units of Humulin 70/30 q.p.m. before discharge and that she can titrate up when she goes home. The patient stated that she was agreeable with plan of care for her insulin regimen. She was also encouraged to continue small frequent meals. It should be noted that Case Management was consulted multiple times throughout this hospitalization. Case Management saw the patient on 09/05/2019 and not again until 09/14/2019. This patient has been noted to have multiple bounce-back admissions for similar problems as she is believed to be highly unreliable in taking her diabetes medications and she is very uncontrolled both with her diabetes and with her gastroparesis. It was asked for Case Management to help us with bounce-back prevention. At one point, we considered transitioning the patient over to a skilled or LTAC facility for further counseling on diabetes management and helping her take her home medications, though soon after that, the patient began tolerating a diet, and it was deemed appropriate for her to be able to go home. As the patient does have Medicaid, she did not qualify for any long-term home health appointments throughout the variety of home health agencies in the community. Case Management was able to obtain 3 [facility] visits for her upon discharge and Home Health was instructed to help the patient with diabetes management and education on the importance of taking her insulin, carb conscious diet with carbohydrate counting, and the risks of DKA and ways to prevent that. The patient was agreeable to having Home Health come out to her home before discharge. The patient was evaluated on the day of discharge and found to be in stable condition to go home. Although she is stable to go home, her disposition is still guarded due to her frequent bounce-back admissions and history of being an uncontrolled diabetic with poor compliance both with her medications and with her diet. DISCHARGE INSTRUCTIONS: 1. Location: Home with 3 [facility] visits. 2. Diet: Carb conscious. 3. Activity: As tolerated. 4. Follow up with PCP, Dr. Nielson, within 7 days and with Home Health within 1 day. It should be noted that the patient reported that she has an appointment in October with Dr. Nielson, and then within the next few months, she plans on transitioning her medical care over to somebody within the community. Job ID: [id number] [facility]
== END 2019-09-15 19:30 | disposition home health service (06) | DRG 637 ==
LOC: ERS 22:18 → IMCU/EMU 09-02 00:10 → ONC 09-02 14:16 → SURG A 09-05 05:30
PROVIDERS: ADMIT Family Medicine; ATTEND Family Medicine
PROC: 0DB58ZX Excision of Esophagus, Via Natural or Artificial Opening Endoscopic, Diagnostic (ICD-10-PCS; principal; 2019-09-12)
DX: E10.10 Type 1 diabetes mellitus with ketoacidosis without coma (principal); E43 Unspecified severe protein-calorie malnutrition; Z68.1 Body mass index [BMI] 19.9 or less, adult; A04.8 Other specified bacterial intestinal infections; E10.43 Type 1 diabetes mellitus with diabetic autonomic (poly)neuropathy; F41.9 Anxiety disorder, unspecified; F32.9 Major depressive disorder, single episode, unspecified; K31.84 Gastroparesis; E86.0 Dehydration; E87.6 Hypokalemia; E10.42 Type 1 diabetes mellitus with diabetic polyneuropathy; K21.0 Gastro-esophageal reflux disease with esophagitis; L92.1 Necrobiosis lipoidica, not elsewhere classified; I10 Essential (primary) hypertension; R00.0 Tachycardia, unspecified; R13.10 Dysphagia, unspecified; Z91.14 Patient's other noncompliance with medication regimen; Z79.899 Other long term (current) drug therapy; Z79.4 Long term (current) use of insulin
CPT/HCPCS: 36415; 36416; 74177; 76705; 80048; 80053; 80306; 81003; 81015; 82010; 83036; 83690; 83735; 84100; 84484; 84703; 85025; 88305; 88312; 93005; 93010; 96365; 96375; C9113; J0780; J1364; J1450; J1815; J1885; J2001; J2270; J2405; J2550; J2704; J2765; J3475; J3480; J3490; J7050; J7120; Q0162; Q0163; Q9967

== ENCOUNTER 2019-12-31 23:00 | Inpatient (IN) | payer OTHER ==
[2019-12-31] MEDS ORDERED: diphenhydrAMINE 50 MG/ML VIAL ONE (23:08)
[2019-12-31] MEDS ORDERED: Metoclopramide HCl 10 MG/2 ML VIAL ONE (23:08)
[2019-12-31] MEDS ORDERED: Insulin Regular 100 units/100 ml in NS IVPB SCH (23:15)
[2019-12-31] MEDS ORDERED: NS 0.9% w/ 20 MEQ KCL 1,000 ML IV SCH (23:45)
[2020-01-01 00:11] LABS: Anion Gap 18 mmol/L (10-20); BUN (Urea Nitrogen) 10 mg/dL (7.0-18.7); Calc. Creatinine Clearance 0 mL/min (70-130); Calcium 8.5 mg/dL (7.8-10.44); Carbon Dioxide 16 mmol/L (22-29); Chloride 107 mmol/L (98-107); Estimated GFR-MDRD 85; Glucose 346 mg/dL (70-105); Sodium 137 mmol/L (136-145)
[2020-01-01 00:35] LABS: SARS-CoV-2 NAA Rapid Test Not Detected (NotDetected)
[2020-01-01] MEDS ORDERED: Acetaminophen 650 MG Suppository PR PRN (01:19)
[2020-01-01] MEDS ORDERED: Sodium Chloride 0.9% 1,000 ML IV PRN ×4 (01:19)
[2020-01-01] MEDS ORDERED: Acetaminophen 325 MG TAB PO PRN (01:19)
[2020-01-01] MEDS ORDERED: NS 0.9% w/ 20 MEQ KCL 1,000 ML IV PRN ×2 (01:19)
[2020-01-01] MEDS ORDERED: HYDROcodone/Acetaminophen 5/325 mg Tablet PO PRN (01:19)
[2020-01-01] MEDS ORDERED: Dextrose 5 %-0.45 % NaCl 1,000 ML IV PRN (01:19)
[2020-01-01] MEDS ORDERED: D5 1/2 NS w/20 mEq KCL 1,000 ML IV PRN (01:19)
[2020-01-01] MEDS ORDERED: Electrolyte Replacement Protoc 1 EACH EACH IVPB PRN (01:19)
--- NOTE | 2020-01-01 01:26 | PDOC.HHP ---
Hospitalist HPI - History of Present Illness nause / vomiting History of Present Illness: Case of an 29y/o female with pmhx of DMt1 who was transfered from another institution due to DKA. patient refers she was on her usual states of health until 2 days ago when she started with polyuria and polydipsia, then 12 hours before coming to the ED she started with intractable nausea and vomiting. patient states that for the last couples of days she had notice increasing blood sugar values at home, refers she is compliant with medication. patient denies any fever chills coughing does refer some diarrhea Hospitalist ROS - Review of Systems All other systems reviewed; all pertinent +/- noted in HPI/Subj Hospitalist History - Past Medical History Heme/Onc: reports: no pertinent history Hepatobiliary: reports: no pertinent history Psych: reports: Anxiety Musculoskeletal: reports: no pertinent history Rheumatologic: reports: no pertinent history Renal/: reports: no pertinent history Endocrine: reports: Diabetes Dermatology: reports: no pertinent history - Past Surgical History Past Surgical History: reports: no pertinent history, Other (Lymph node removal in neck) - Family History Family History: reports: diabetes mellitus - Social History Smoking Status: Current some day smoker Alcohol: reports: None Drugs: reports: marijuana - Exam General Appearance: NAD, ill appearing Eye: PERRL, anicteric sclera ENT: normocephalic atraumatic, no oropharyngeal lesions Neck: supple, symmetric, no JVD, no thyromegaly Heart: RRR, no murmur, no gallops, no rubs Respiratory: CTAB, no wheezes, no rales, no ronchi Gastrointestinal: soft, non-tender, non-distended, normal bowel sounds Extremities: no cyanosis, no clubbing, no edema Skin: normal turgor, no lesions, no rashes Neurological: cranial nerve grossly intact, normal sensation to touch, no weakness Musculoskeletal: normal tone, normal strength, no muscle wasting Psychiatric: normal affect, normal behavior, A&O x 3 Hospitalist Results - Labs Result Diagrams: 12/31/19 23:20 Lab results: Sodium 137 mmol/L (136-145) 12/31/19 23:20 Potassium 4.0 mmol/L (3.5-5.1) 12/31/19 23:20 Chloride 107 mmol/L (98-107) 12/31/19 23:20 Carbon Dioxide 16 mmol/L (22-29) L 12/31/19 23:20 BUN 10 mg/dL (7.0-18.7) 12/31/19 23:20 Creatinine 0.95 mg/dL (0.6-1.1) 12/31/19 23:20 Glucose 346 mg/dL (70-105) H 12/31/19 23:20 Calcium 8.5 mg/dL (7.8-10.44) 12/31/19 23:20 Hospitalist H&P A/P - Problem (1) Diabetic ketoacidosis Code(s): E11.10 - TYPE 2 DIABETES MELLITUS WITH KETOACIDOSIS WITHOUT COMA Status: Resolved (2) Nausea & vomiting Code(s): R11.2 - NAUSEA WITH VOMITING, UNSPECIFIED Status: Acute (3) Abdominal pain Code(s): R10.9 - UNSPECIFIED ABDOMINAL PAIN Status: Acute - Plan Plan: 29y/o female with pmhx of DMt1 who presents with DKA DKA - pH 7.1, elevated glucouse on the 400s, elevated anion gap - ivfs - insulin drip protocol - monitor K - f/u anion gap - npo - r/o infection as exacerbation, covid negative n/v -symptomatic tx prn abdominal pain - likely due to dka - pain management
[2020-01-01] MEDS ORDERED: HUMULIN R 100 UNITS in Sodium Chloride 0.9% 100 ML IVPB SCH (01:30)
[2020-01-01] MEDS ORDERED: Mag-Al 1200 mg/1200 mg/30 ML UDCUP ONE (01:33)
[2020-01-01] MEDS ORDERED: Lidocaine Viscous Sol 2% 15 ml UD Cup ONE (01:33)
[2020-01-01] MEDS ORDERED: Promethazine 25 MG TAB ONE (01:34)
[2020-01-01] MEDS ORDERED: Promethazine HCl 25 MG/ML VIAL ONE (01:34)
[2020-01-01] MEDS ORDERED: Morphine 4 MG/ML VIAL ONE (01:35)
[2020-01-01] MEDS ORDERED: Morphine 2 MG/ML SYRINGE SLOW IVP PRN (01:38)
[2020-01-01 01:47] LABS: Pregnancy Test - Urine (BHCG) Negative (Negative)
[2020-01-01 01:48] LABS: Pregu Control Background? CLEAR/WHITE (CLR/WHITE); Pregu Control Bar Appear? YES (CONTROL BAR); Specific Gravity 1.029 (1.002-1.036)
[2020-01-01 01:49] LABS: Bacteria/HPF 1+ HPF (None Seen); Bilirubin Negative (Negative); Blood, Urine Negative (Negative); Clarity Clear (Clear); Glucose, Urine (Dipstick) Greater than 1000 mg/dL (Negative); Ketone, Urine 100 mg/dL (Negative); Leukocyte Negative Leu/uL (Negative); Nitrite 2+ (Negative); Protein, Urine (Dipstick) Negative (Neg-Trace); RBC/HPF None Seen HPF (0-3); Specific Gravity, Urine 1.029 (1.002-1.036); Squamous Epithelial 0-3 HPF (0-3); Urobilinogen Normal mg/dL (Less than 2); WBC/HPF 0-3 HPF (0-3)
[2020-01-01 02:41] LABS: Anion Gap 14 mmol/L (10-20); BUN (Urea Nitrogen) 8 mg/dL (7.0-18.7); Calc. Creatinine Clearance 0 mL/min (70-130); Carbon Dioxide 17 mmol/L (22-29); Chloride 111 mmol/L (98-107); Estimated GFR-MDRD Greater than 90; Glucose 139 mg/dL (70-105); Potassium 3.8 mmol/L (3.5-5.1); Sodium 138 mmol/L (136-145)
[2020-01-01 02:42] LABS: Hemoglobin 10.2 g/dL (12.0-16.0); Mean Corpuscular HGB CONC 32.3 g/dL (32.0-36.0); Mean Corpuscular Volume 86.4 fL (78.0-98.0); Mean Platelet Volume 7.3 fL (7.4-10.4); Platelet Count 286 thou/uL (130-400); Red Blood Cell (RBC) Count 3.65 mill/uL (4.20-5.40); White Blood Cell (WBC) Count 11.7 thou/uL (4.8-10.8)
[2020-01-01 03:02] LABS: Hypochromia SLIGHT = 6-15 cells (100X) (0-5/hpf); Lymphocytes 4 % (21-51); MDiff Complete? YES; Monocytes 3 % (0-10); Neutrophil 93 % (42-75); Platelet Morphology Comment Appears Adequate
[2020-01-01 03:38] VITALS: BMI 22.0
[2020-01-01] MEDS: Ondansetron PF 4 MG/2 ML Vial IVP PRN ×2 (06:01→13:32)
[2020-01-01 06:42] LABS: Anion Gap 17 mmol/L (10-20); BUN (Urea Nitrogen) 7 mg/dL (7.0-18.7); Calc. Creatinine Clearance 101 mL/min (70-130); Calcium 8.1 mg/dL (7.8-10.44); Carbon Dioxide 15 mmol/L (22-29); Chloride 107 mmol/L (98-107); Estimated GFR-MDRD Greater than 90; Glucose 267 mg/dL (70-105); Sodium 135 mmol/L (136-145)
--- NOTE | 2020-01-01 08:52 | RAD ---
CHEST 1 VIEW: Date: )01/01/2020 INDICATION: History of 29-year-old female with nausea and vomiting, concern for possible COVID infection. COMPARISON: Prior study dated 11/29/2019. IMPRESSION: No acute cardiopulmonary abnormality. COMMENTS: Lungs are clear. Heart size is normal. No acute osseous abnormality is evident. POS: BH
[2020-01-01 11:14] LABS: Anion Gap 10 mmol/L (10-20); BUN (Urea Nitrogen) 7 mg/dL (7.0-18.7); Calc. Creatinine Clearance 110 mL/min (70-130); Calcium 7.4 mg/dL (7.8-10.44); Carbon Dioxide 18 mmol/L (22-29); Chloride 111 mmol/L (98-107); Estimated GFR-MDRD Greater than 90; Glucose 186 mg/dL (70-105); Potassium 3.6 mmol/L (3.5-5.1); Sodium 135 mmol/L (136-145)
[2020-01-01] MEDS ORDERED: Pantoprazole 40 MG VIAL IVP SCH ×2 (11:59→12:15)
[2020-01-01] MEDS ORDERED: Lidocaine 2% Viscous Solution 10 ML, Aluminum & Magnesium Hydroxide 30 ML SSW SCH (12:00)
[2020-01-01 13:36] LABS: Anion Gap 11 mmol/L (10-20); BUN (Urea Nitrogen) 6 mg/dL (7.0-18.7); Calc. Creatinine Clearance 114 mL/min (70-130); Calcium 7.8 mg/dL (7.8-10.44); Carbon Dioxide 20 mmol/L (22-29); Chloride 111 mmol/L (98-107); Estimated GFR-MDRD Greater than 90; Glucose 77 mg/dL (70-105); Potassium 3.7 mmol/L (3.5-5.1); Sodium 138 mmol/L (136-145)
[2020-01-01] MEDS: Enoxaparin Sodium 40 MG/0.4 ML SYRINGE SC SCH (13:43)
[2020-01-01] MEDS ORDERED: Insulin Glargine 8 UNITS in Pre-Filled Syringe SC SCH (16:00)
[2020-01-01] MEDS: Metoclopramide HCl 10 MG/2 ML VIAL IVP PRN (16:55)
[2020-01-01] MEDS ORDERED: HumuLIN 70/30 (300 UNITS/3 ML VIAL) SC SCH (17:00)
[2020-01-01] MEDS: Morphine 2 MG/ML VIAL SLOW IVP PRN ×2 (17:01→21:25)
[2020-01-01] MEDS: Sucralfate 1 GM TAB PO SCH ×2 (17:20→21:26)
--- NOTE | 2020-01-01 18:38 | PDOC.EVN ---
Event Note - Event Note Event Note: pt seen and examined. will add ppi and give her a gi cocktail. will add lipase. if her n/v does not improve will get abd ct. will also get a uds. Her gap has closed will transition to sq insulin. will advance diet to cl and advance as tolerated.
[2020-01-01] MEDS: Gabapentin 300 MG CAP PO SCH (21:26)
[2020-01-01] MEDS: Pantoprazole 40 MG VIAL IVP SCH (21:26)
[2020-01-02 03:38] LABS: #Lymphocytes 2.6 thou/uL (1.20-3.40); #Monocytes 0.5 thou/uL (0.11-0.59); #Neutrophils 7.2 thou/uL (1.40-6.50); %Basophils 0.4 % (0.0-1.0); %Eosinophils 0.4 % (0.0-10.0); %Lymphocytes 25.1 % (21.0-51.0); %Monocytes 4.6 % (0.0-10.0); %Neutrophils 69.4 % (42.0-75.0); Mean Corpuscular HGB CONC 29.9 g/dL (32.0-36.0); Mean Corpuscular Hemoglobin 27.1 pg (27.0-31.0); Mean Corpuscular Volume 90.5 fL (78.0-98.0); Platelet Count 276 thou/uL (130-400); RBC Distribution Width 13.6 % (11.5-14.5); Red Blood Cell (RBC) Count 3.69 mill/uL (4.20-5.40); White Blood Cell (WBC) Count 10.4 thou/uL (4.8-10.8)
[2020-01-02 03:54] LABS: Anion Gap 13 mmol/L (10-20); BUN (Urea Nitrogen) 5 mg/dL (7.0-18.7); Calc. Creatinine Clearance 109 mL/min (70-130); Calcium 7.9 mg/dL (7.8-10.44); Carbon Dioxide 15 mmol/L (22-29); Chloride 112 mmol/L (98-107); Estimated GFR-MDRD Greater than 90; Glucose 297 mg/dL (70-105); Sodium 136 mmol/L (136-145)
[2020-01-02 06:49] LABS: Amphetamine Not Detected (NotDetected); Barbiturates Screen Not Detected (NotDetected); Benzodiazepine Screen Not Detected (NotDetected); Cocaine Metabolite Screen Not Detected (NotDetected); Medtox Control Line Valid? VALID (VALID); Medtox Reader # READER 1; Methadone Not Detected (NotDetected); Methamphetamine Not Detected (NotDetected); Opiate Screen Detected (NotDetected); Oxycodone Screen Not Detected (NotDetected); Phencyclidine (PCP) Not Detected (NotDetected); THC/Cannabinoid Screen Detected (NotDetected); Tricyclic Screen Detected (NotDetected)
[2020-01-02] MEDS ORDERED: Morphine 2 MG/ML VIAL SLOW IVP PRN (08:49)
[2020-01-02] MEDS ORDERED: Dextrose 5% in Water 1,000 ML IV PRN (08:50)
[2020-01-02] MEDS ORDERED: Dextrose 50% Abboject 50 ML SYRINGE SLOW IVP PRN (08:50)
[2020-01-02] MEDS ORDERED: traMADol HCl 50 MG TAB PO PRN (08:52)
[2020-01-02] MEDS: Metoclopramide HCl 10 MG/2 ML VIAL IVP PRN (10:01)
[2020-01-02] MEDS: cefTRIAXone\\ROCEPHIN 1 GM in Sodium Chloride 0.9% 100 ML IVPB SCH (10:04)
[2020-01-02] MEDS: Enoxaparin Sodium 40 MG/0.4 ML SYRINGE SC SCH (10:04)
[2020-01-02] MEDS: Sucralfate 1 GM TAB PO SCH ×4 (10:04→21:34)
[2020-01-02] MEDS: Gabapentin 300 MG CAP PO SCH ×3 (10:04→21:34)
[2020-01-02] MEDS: Pantoprazole 40 MG VIAL IVP SCH ×2 (10:05→21:33)
[2020-01-02] MEDS: HumuLIN 70/30 (300 UNITS/3 ML VIAL) SC SCH (10:05)
[2020-01-02] MEDS ORDERED: Lidocaine 2% Viscous Solution 10 ML, Aluminum & Magnesium Hydroxide 30 ML SSW SCH (10:15)
[2020-01-02] MEDS ORDERED: Ketorolac Tromethamine 30 MG/ML VIAL IVP PRN (14:11)
--- NOTE | 2020-01-02 14:46 | CON ---
DATE OF CONSULTATION: 01/02/2020 REASON FOR CONSULTATION: Nausea, vomiting, and abdominal pain. HISTORY OF PRESENT ILLNESS: Ms. Castro is a 29-year-old female who has had recurrent admission for diabetic ketoacidosis, admitted yesterday with another episode of DKA. She reports having persistent nausea and vomiting well until today in addition to diffuse abdominal pain. The patient cannot localize the abdominal pain as she is moaning in bed. She has not had any diarrhea. There is no indication of GI bleeding, such as hematemesis, coffee-ground emesis, hematochezia, or melena. The patient was previously evaluated by my colleagues. She had upper endoscopy, that showed erosive esophagitis, likely from her nausea and vomiting. Her stomach and duodenum were normal; however, she did have H pylori infection in the past with incomplete outpatient treatment. She also had an abdominal ultrasound 3 months ago, which showed a normal gallbladder without gallstones. At the same time, she also had an abdominopelvic CT with IV contrast, that was unremarkable except for slight thickening of the gastric wall, suggestive of gastritis. Since admission, her glucose has been decreased down to 200, then she has been off the insulin drip. Currently, she still has nausea and vomiting and cannot tolerate much intake. Her main issue at this point is diffuse abdominal pain. PAST MEDICAL HISTORY: 1. H pylori gastritis, diagnosed in 06/2019 with incomplete outpatient treatment. 2. Previous diagnosis of gastroparesis, diagnosed elsewhere. 3. Diabetes, type 1, on insulin. 4. History of erosive esophagitis, likely from recurrent nausea and vomiting. 5. Peripheral neuropathy. 6. Recurrent episodes of diabetic ketoacidosis. ALLERGIES: NO KNOWN DRUG ALLERGIES. MEDICATIONS AT HOME: Include: 1. Carafate before meals and at bedtime. 2. Sertraline 75 mg daily. 3. Seroquel 200 mg at bedtime. 4. Promethazine 25 mg p.r.n. 5. Pantoprazole 40 mg b.i.d. 6. Ondansetron ODT as needed. 7. Metoclopramide 10 mg q.6 h. 8. Insulin. 9. Gabapentin 300 mg t.i.d. 10. Pepcid 20 mg b.i.d. SOCIAL HISTORY: The patient has history of recreational drug use. Denies any active tobacco or alcohol usage. FAMILY HISTORY: Negative for GI problem, liver disease, or GI malignancy. REVIEW OF SYSTEMS: Difficult to obtain as the patient is moaning and groaning in bed. When asked her 10-point review of systems, it is indicated as negative. PHYSICAL EXAMINATION: VITAL SIGNS: Temperature is 99.0, blood pressure 130/97, and pulse 108. GENERAL: She is alert, but moaning because of pain. HEENT: Anicteric sclerae. Oropharynx is moist. NECK: Supple. No adenopathy. CV: Normal S1 and S2. Regular rate and rhythm. CHEST: Breath sounds. ABDOMEN: Flat. No distention. No tympany. She is tender diffusely, but no guarding or rebound. She does have active bowel sounds. EXTREMITIES: No edema. LABORATORY DATA: WBC is 10.0, hemoglobin 10.0, hematocrit 33.4, MCV of 90, and platelet count of 276. Electrolytes within normal range. CO2 is still 15, creatinine 0.73, BUN of 5, glucose 297, and lipase of 18. ASSESSMENT: 1. Nausea, vomiting, and abdominal pain, the same presentation as before with each of her episode of diabetic ketoacidosis. She carries a diagnosis of gastroparesis, which certainly could be exacerbated by her diabetic ketoacidosis. Previous esophagogastroduodenoscopy did not show anything else significant. CT and ultrasound 4 months ago were unremarkable. 2. History of erosive esophagitis, likely from recurrent nausea and vomiting and possibly underlying gastroesophageal reflux disease. 3. Abdominal pain. In reviewing her past admissions, her symptom has the same presentation as before with her pain and nausea from persist for several days after resolution of her diabetic ketoacidosis. RECOMMENDATIONS: 1. At this point, would conservatively symptomatically treat the patient. I would place the patient on scheduled metoclopramide 10 mg IV q.6 and to use ondansetron as needed. 2. Discontinue Carafate. 3. Use Toradol as needed for pain and minimize morphine usage. 4. I do not see any need for repeat endoscopy or any repeat imaging tests at the present time. 5. We will follow. Job ID: [id number] [facility]
[2020-01-02] MEDS: Ondansetron PF 4 MG/2 ML Vial IVP PRN (14:58)
[2020-01-02] MEDS: Metoclopramide HCl 10 MG/2 ML VIAL IVP SCH ×2 (14:58→21:34)
--- NOTE | 2020-01-02 15:10 | PDOC.HOSPP ---
- Subjective Encounter Date: 01/02/20 Encounter Time: 15:00 Subjective: Patient was seen and examined. Pt was lying the position in hospital bed. Pt rated her abdominal pain as a 10 out of 10. Patient stated she had difficult sleeping because she woke up vomiting and had continued diarrhea. - Objective Vital Signs & Weight: Vital Signs (12 hours) Temp Pulse Ox 01/02/20 11:22 99.0 F 01/02/20 07:30 98 01/02/20 07:18 98.0 F 01/02/20 03:45 99.0 F Weight Weight 132 lb 9.6 oz Most Recent Monitor Data Heart Rate from ECG 120 NIBP 130/97 NIBP BP-Mean 108 Respiration from ECG 12 SpO2 100 I&O: 01/01/20 01/02/20 01/03/20 06:59 06:59 06:59 Intake Total 3440 Output Total 1000 Balance 2440 Result Diagrams: 01/02/20 02:58 01/03/20 02:43 Additional Labs: Accuchecks 01/01/20 01/01/20 01/01/20 20:29 17:15 16:17 POC Glucose 221 H 201 H 255 H 01/01/20 01/01/20 15:11 04:10 POC Glucose 222 H 139 H Hospitalist ROS - Review of Systems Respiratory: denies: shortness of breath, sputum Cardiovascular: denies: chest pain, palpitations Gastrointestinal: reports: vomiting, diarrhea Genitourinary: denies: dysuria, frequency - Medication Medications: Active Medications Generic Name Dose Route Start Last Admin Trade Name Freq PRN Reason Stop Dose Admin Enoxaparin Sodium 40 mg 01/01/20 09:00 01/02/20 10:04 Lovenox SC 40 mg 0900 RYANN Administration Gabapentin 300 mg 01/01/20 21:00 01/02/20 14:58 Neurontin PO 300 mg TID RYANN Administration Ceftriaxone Sodium 1 gm/ 100 mls @ 200 mls/hr 01/02/20 09:00 01/02/20 10:04 Sodium Chloride IVPB 100 mls Q24HR RYANN Administration Insulin Human Isoph/Insulin Regular 15 units 01/02/20 08:00 01/02/20 10:05 Humulin 70/30 SC 15 unit QAM-WM RYANN Administration Ketorolac Tromethamine 30 mg 01/02/20 14:11 01/02/20 14:58 Toradol IVP 01/07/20 14:12 30 mg Q6H PRN Administration Pain Metoclopramide HCl 10 mg 01/02/20 14:15 01/02/20 14:58 Reglan IVP 10 mg Q6H RYANN Administration Ondansetron HCl 4 mg 01/01/20 05:31 01/02/20 14:58 Zofran IVP 4 mg Q6H PRN Administration Nausea/Vomiting Pantoprazole Sodium 40 mg 01/01/20 21:00 01/02/20 10:05 Protonix IVP 40 mg Q12HR RYANN Administration Quetiapine Fumarate 200 mg 01/01/20 21:00 01/01/20 21:26 Seroquel PO 200 mg HS RYANN Administration Sertraline HCl 75 mg 01/02/20 09:00 01/02/20 10:06 Zoloft PO 75 mg DAILY RYANN Administration Sodium Chloride 10 ml 01/01/20 21:00 01/02/20 10:06 Flush - Normal Saline IVF 10 ml Q12HR RYANN Administration Sucralfate 1 gm 01/01/20 17:00 01/02/20 11:52 Carafate PO Not Given ACHS RYANN Tramadol HCl 50 mg 01/02/20 08:52 01/02/20 10:03 Ultram PO 50 mg Q6H PRN Administration Pain - Exam General Appearance: ill appearing Heart: RRR, no murmur Respiratory: CTAB, no wheezes Gastrointestinal: no bruit, tender to palpation Psychiatric: A&O x 3 (tenderness with palpation of all quadrants) Hosp A/P (1) Nausea & vomiting Code(s): R11.2 - NAUSEA WITH VOMITING, UNSPECIFIED Status: Acute (2) Erosive esophagitis Code(s): K22.10 - ULCER OF ESOPHAGUS WITHOUT BLEEDING Status: Acute (3) Type 1 diabetes mellitus Status: Chronic (4) Diabetic gastroparesis Code(s): E11.43 - TYPE 2 DIABETES W DIABETIC AUTONOMIC (POLY)NEUROPATHY; K31.84 - GASTROPARESIS Status: Suspected (5) Diabetic ketoacidosis Code(s): E11.10 - TYPE 2 DIABETES MELLITUS WITH KETOACIDOSIS WITHOUT COMA Status: Resolved - Plan DVT proph w/lovenox Assessment 1. DKA:(resolved) anion gap has closed: history of T1D, presented to ED with polyuria, polydyspia, and hyperglycemia 2. Nausea and Vomiting: continued nausea and vomiting since admission 3. Abdominal Pain: 10/10 abdominal, epigastric tenderness, and tenderness in all four quadrants 4. UTI: urine culture positive for GM negative amador Plan 1. DKA monitor patient's glucose level, continue scheduled insulin, continue D5 2. Nausea and Vomiting: continue patient on PPI, metoclopramide, and ondansetron 3. Abdominal Pain: continue toradol prn , morphine prn, and tramadol prn, GI consult ordered, continue Cl diet 4. UTI: continue Ceftriaxone, monitor WBC
[2020-01-02] MEDS: HumaLOG 300 UNITS/3 ML VIAL SC PRN (17:36)
[2020-01-02] MEDS: Sodium Chloride 0.45% 1,000 ML IV SCH (18:01)
[2020-01-03] MEDS: Metoclopramide HCl 10 MG/2 ML VIAL IVP SCH ×4 (01:47→20:00)
[2020-01-03 03:28] LABS: ALT (SGPT) 15 U/L (8-55); AST (SGOT) 12 U/L (5-34); Albumin 3.1 g/dL (3.5-5.0); Alkaline Phosphatase 55 U/L (40-110); Anion Gap 10 mmol/L (10-20); BUN (Urea Nitrogen) 8 mg/dL (7.0-18.7); Bilirubin, Total 0.2 mg/dL (0.2-1.2); Calc. Creatinine Clearance 110 mL/min (70-130); Calcium 7.7 mg/dL (7.8-10.44); Carbon Dioxide 20 mmol/L (22-29); Chloride 110 mmol/L (98-107); Estimated GFR-MDRD Greater than 90; Globulin 2.5 g/dL (2.4-3.5); Glucose 150 mg/dL (70-105); Lipase 13 U/L (8-78); Potassium 3.5 mmol/L (3.5-5.1); Protein, Total 5.6 g/dL (6.0-8.3); Sodium 136 mmol/L (136-145)
[2020-01-03] MEDS: Sodium Chloride 0.45% 1,000 ML IV SCH ×2 (04:17→15:04)
[2020-01-03] MEDS ORDERED: Potassium Chloride 20 MEQ TAB PO SCH (06:30)
[2020-01-03] MEDS: Pantoprazole 40 MG VIAL IVP SCH ×2 (09:38→20:00)
[2020-01-03] MEDS: Sucralfate 1 GM TAB PO SCH ×4 (09:39→20:00)
[2020-01-03] MEDS: HumuLIN 70/30 (300 UNITS/3 ML VIAL) SC SCH (09:39)
[2020-01-03] MEDS: cefTRIAXone\\ROCEPHIN 1 GM in Sodium Chloride 0.9% 100 ML IVPB SCH (09:39)
[2020-01-03] MEDS: Enoxaparin Sodium 40 MG/0.4 ML SYRINGE SC SCH (09:39)
[2020-01-03] MEDS: Gabapentin 300 MG CAP PO SCH ×3 (09:39→20:00)
--- NOTE | 2020-01-03 13:01 | PRG ---
DATE OF SERVICE: 01/03/2020 REASON FOR CONSULTATION: Nausea, vomiting, and abdominal pain. SUBJECTIVE: Per nursing staff, the patient did not have any acute events or problems overnight. This morning, she states that her nausea has not reappeared and she has not had any further episodes of vomiting since yesterday. She did have a bowel movement yesterday, but has not had one today. However, she does continue to have significant midepigastric abdominal pain that is unchanged in character, but is mildly improved when compared to yesterday with her current severity of 6 to 7/10. Otherwise, she denies any fever, chills, hematemesis, melena, hematochezia, dysphagia, or odynophagia. OBJECTIVE: VITAL SIGNS: Temperature 96.8, pulse 77, blood pressure 96/64, respiratory rate 13, saturating 100% on room air. GENERAL: The patient was lying in bed, in no acute distress. Alert and oriented x4. CARDIOVASCULAR: Regular rate and rhythm. RESPIRATORY: Clear to auscultation bilaterally. ABDOMEN: Normoactive bowel sounds. Soft, nondistended, tender to palpation in all abdominal quadrants with both light and deep palpation. However, I could not elicit this tenderness with distraction while using my stethoscope. No guarding or rebound tenderness noted. EXTREMITIES: No cyanosis, clubbing, or edema. LABORATORY DATA: Chemistry with a sodium of 136, potassium 3.5, chloride 110, CO2 20, BUN 8, creatinine 0.72, glucose 150, AST 12, ALT 15, alkaline phosphatase 55, total bilirubin 0.2. IMAGING DATA: No current GI imaging is available for review. ASSESSMENT AND PLAN: The patient is a 29-year-old female with past medical history of recurrent episodes of diabetic ketoacidosis, peripheral neuropathy; diabetes type 1, on insulin; probable gastroparesis (per outside GI workup); H pylori gastritis; and severe erosive esophagitis seen on most recent EGD in September 2019, presenting with repeat episode of diabetic ketoacidosis and associated with nausea, vomiting, and midepigastric abdominal pain. Nausea/vomiting/abdominal pain. The patient is presenting with a recurrent episode of diabetic ketoacidosis and during these multiple episodes of recurrent DKA, she has experienced increased nausea, vomiting, abdominal pain. When compared to her prior admissions, her nausea, vomiting, and abdominal pain are unchanged in severity and/or character. Prior upper endoscopy in September 2019 showed the presence of severe erosive esophagitis in the distal esophagus, but no other additional abnormalities. CT scan and abdominal ultrasound obtained on these recurrent episodes have also been unremarkable/negative. At this time, the nausea and vomiting seem to be very strongly linked to her diabetic ketoacidosis, most likely from the acidosis portion of the condition, in which case it could also generate abdominal pain at the same time. Upon effectively treating her DKA, the nausea, vomiting, and abdominal pain have usually subsided within a few days of hospitalization. RECOMMENDATIONS: 1. Would continue the patient on a clear liquid diet for the next 24 hours and then reassess and advance as tolerated. 2. Continue aggressive treatment for diabetic ketoacidosis. 3. Would continue metoclopramide 10 mg IV push every 6 hours due to her nausea and vomiting and a history of possible gastroparesis, most likely made worse with her diabetes. 4. Would attempt to minimize any narcotics as this could potentially slow down the entire GI tract and make gastroparesis worse, which then in turn creates more nausea/vomiting/abdominal pain. 5. IV fluids resuscitation per primary team. 6. Endoscopic evaluation is not indicated at this time given the prior EGD was only performed in 09/2019 with just findings of severe erosive esophagitis, most likely secondary to her nausea/vomiting. 7. Would strongly encourage marijuana cessation as it could be potentially contributing to these episodic bouts of nausea/vomiting and abdominal pain. We will continue to follow. Please call with any questions. Job ID: [id number]
--- NOTE | 2020-01-03 17:00 | PDOC.HOSPP ---
- Subjective Encounter Date: 01/03/20 Encounter Time: 11:15 Subjective: pt up in bed no complains - Objective Vital Signs & Weight: Vital Signs (12 hours) Temp Pulse Ox 01/03/20 15:19 97.1 F L 01/03/20 11:52 96.8 F L 01/03/20 07:57 100 01/03/20 07:39 96.8 F L Weight Weight 132 lb 9.6 oz Most Recent Monitor Data Heart Rate from ECG 121 NIBP 115/78 NIBP BP-Mean 90 Respiration from ECG 13 SpO2 100 I&O: 01/02/20 01/03/20 01/04/20 06:59 06:59 06:59 Intake Total 3440 470 Output Total 1000 750 Balance 2440 -280 Result Diagrams: 01/02/20 02:58 01/03/20 02:43 Additional Labs: Accuchecks 01/03/20 01/03/20 01/03/20 16:12 15:11 10:46 POC Glucose 172 H 50 L* 118 H 01/03/20 01/02/20 05:42 20:04 POC Glucose 137 H 150 H Hospitalist ROS - Review of Systems Cardiovascular: denies: chest pain, palpitations, orthopnea, paroxysmal noc. dyspnea, edema, light headedness, other Gastrointestinal: denies: nausea, vomiting, abdominal pain, diarrhea, constipation, melena, hematochezia, other Genitourinary: denies: dysuria, frequency, incontinence, hematuria, retention, other - Medication Medications: Active Medications Generic Name Dose Route Start Last Admin Trade Name Freq PRN Reason Stop Dose Admin Enoxaparin Sodium 40 mg 01/01/20 09:00 01/03/20 09:39 Lovenox SC 40 mg 0900 RYANN Administration Gabapentin 300 mg 01/01/20 21:00 01/03/20 15:05 Neurontin PO 300 mg TID RYANN Administration Ceftriaxone Sodium 1 gm/ 100 mls @ 200 mls/hr 01/02/20 09:00 01/03/20 09:39 Sodium Chloride IVPB 100 mls Q24HR RYANN Administration Sodium Chloride 1,000 mls @ 100 mls/hr 01/02/20 18:00 01/03/20 15:04 1/2 Normal Saline IV 1,000 mls .Q10H RYANN Administration Insulin Human Isoph/Insulin Regular 15 units 01/02/20 08:00 01/03/20 09:39 Humulin 70/30 SC 15 unit QAM-WM RYANN Administration Insulin Human Lispro 0 units 01/02/20 08:50 01/02/20 17:36 Humalog SC 2 unit .MILD SLIDING SCALE PRN Administration Mild Correctional Scale Ketorolac Tromethamine 30 mg 01/02/20 14:11 01/02/20 14:58 Toradol IVP 01/07/20 14:12 30 mg Q6H PRN Administration Pain Metoclopramide HCl 10 mg 01/02/20 14:15 01/03/20 15:05 Reglan IVP 10 mg Q6H RYANN Administration Morphine Sulfate 2 mg 01/02/20 08:49 01/02/20 17:39 Morphine SLOW IVP 2 mg Q6H PRN Administration Moderate to Severe Pain (6-10) Ondansetron HCl 4 mg 01/01/20 05:31 01/02/20 14:58 Zofran IVP 4 mg Q6H PRN Administration Nausea/Vomiting Pantoprazole Sodium 40 mg 01/01/20 21:00 01/03/20 09:38 Protonix IVP 40 mg Q12HR RYANN Administration Quetiapine Fumarate 200 mg 01/01/20 21:00 01/02/20 21:34 Seroquel PO 200 mg HS RYANN Administration Sertraline HCl 75 mg 01/02/20 09:00 01/03/20 09:39 Zoloft PO 75 mg DAILY RYANN Administration Sodium Chloride 10 ml 01/01/20 21:00 01/03/20 09:40 Flush - Normal Saline IVF 10 ml Q12HR RYANN Administration Sucralfate 1 gm 01/01/20 17:00 01/03/20 15:28 Carafate PO Not Given ACHS RYANN Tramadol HCl 50 mg 01/02/20 08:52 01/02/20 10:03 Ultram PO 50 mg Q6H PRN Administration Pain - Exam Heart: negative: RRR, no murmur, no gallops, no rubs, normal peripheral pulses, irregular, diminshed peripheral pulses, murmur present, II/IV, III/IV Respiratory: negative: CTAB, no wheezes, no rales, no ronchi, normal chest expansion, no tachypnea, normal percussion, rales, rhonchi, tachypneic, wheezes Gastrointestinal: negative: soft, non-tender, non-distended, normal bowel sounds , no palpable masses, no hepatomegaly, no splenomegaly, no bruit, no guarding, no rigidity, tender to palpation, distended, diminished bowl sounds, voluntary guarding Hosp A/P (1) Nausea & vomiting Code(s): R11.2 - NAUSEA WITH VOMITING, UNSPECIFIED Status: Acute (2) Erosive esophagitis Code(s): K22.10 - ULCER OF ESOPHAGUS WITHOUT BLEEDING Status: Acute (3) Type 1 diabetes mellitus Status: Chronic (4) Diabetic gastroparesis Code(s): E11.43 - TYPE 2 DIABETES W DIABETIC AUTONOMIC (POLY)NEUROPATHY; K31.84 - GASTROPARESIS Status: Suspected (5) Diabetic ketoacidosis Code(s): E11.10 - TYPE 2 DIABETES MELLITUS WITH KETOACIDOSIS WITHOUT COMA Status: Resolved - Plan pt states she feels better today. will advance diet. will continue current tx.
[2020-01-03] MEDS: Insulin Glargine 6 UNITS in Pre-Filled Syringe 1 EACH SC SCH (20:20)
[2020-01-04] MEDS: Sodium Chloride 0.45% 1,000 ML IV SCH ×3 (00:05→19:16)
[2020-01-04] MEDS: Metoclopramide HCl 10 MG/2 ML VIAL IVP SCH ×4 (01:59→20:55)
[2020-01-04 03:44] LABS: Anion Gap 9 mmol/L (10-20); BUN (Urea Nitrogen) 5 mg/dL (7.0-18.7); Calc. Creatinine Clearance 114 mL/min (70-130); Calcium 7.2 mg/dL (7.8-10.44); Carbon Dioxide 21 mmol/L (22-29); Chloride 110 mmol/L (98-107); Estimated GFR-MDRD Greater than 90; Glucose 263 mg/dL (70-105); Potassium 3.5 mmol/L (3.5-5.1); Sodium 136 mmol/L (136-145)
[2020-01-04] MEDS ORDERED: Potassium Chloride 20 MEQ TAB PO SCH (06:30)
[2020-01-04] MEDS: HumaLOG 300 UNITS/3 ML VIAL SC PRN ×3 (06:55→21:23)
[2020-01-04] MEDS: cefTRIAXone\\ROCEPHIN 1 GM in Sodium Chloride 0.9% 100 ML IVPB SCH (09:32)
[2020-01-04] MEDS: Sucralfate 1 GM TAB PO SCH ×4 (09:33→21:24)
[2020-01-04] MEDS: Insulin Glargine 6 UNITS in Pre-Filled Syringe 1 EACH SC SCH ×2 (09:34→21:23)
[2020-01-04] MEDS: Pantoprazole 40 MG VIAL IVP SCH (09:34)
[2020-01-04] MEDS: Enoxaparin Sodium 40 MG/0.4 ML SYRINGE SC SCH (09:34)
[2020-01-04] MEDS: Gabapentin 300 MG CAP PO SCH ×3 (09:34→20:28)
--- NOTE | 2020-01-04 14:55 | PDOC.HOSPP ---
- Subjective Encounter Date: 01/04/20 Encounter Time: 10:30 non-verbal Subjective: Patient was seen and examined. Patient was in hospital lying in hospital bed and complained of abdominal pain rated as a 5 out of 10. Patient stated she had left neck discomfort and swelling. Patient is feeling better than she did yesterday and was able to eat food, but still has diarrhea. - Objective Vital Signs & Weight: Vital Signs (12 hours) Temp Pulse Resp BP Pulse Ox 01/04/20 14:53 98.6 F 77 16 124/80 100 01/04/20 11:26 98.6 F 01/04/20 08:00 99 01/04/20 07:15 97.7 F 01/04/20 05:28 98.4 F 74 16 103/64 100 01/04/20 03:49 98.4 F Weight Weight 132 lb 9.6 oz Most Recent Monitor Data Heart Rate from ECG 82 NIBP 103/64 NIBP BP-Mean 77 Respiration from ECG 13 SpO2 98 I&O: 01/03/20 01/04/20 01/05/20 06:59 06:59 06:59 Intake Total 470 1550 Output Total 750 750 Balance -280 800 Result Diagrams: 01/02/20 02:58 01/04/20 03:07 Additional Labs: Accuchecks 01/04/20 01/04/20 01/03/20 10:53 06:32 20:04 POC Glucose 226 H 276 H 159 H 01/03/20 01/03/20 16:12 15:11 POC Glucose 172 H 50 L* Hospitalist ROS - Review of Systems Respiratory: denies: cough, shortness of breath Cardiovascular: denies: chest pain, palpitations Gastrointestinal: reports: abdominal pain, diarrhea Musculoskeletal: reports: neck pain (patient had left neck pain and swelling) - Medication Medications: Active Medications Generic Name Dose Route Start Last Admin Trade Name Freq PRN Reason Stop Dose Admin Enoxaparin Sodium 40 mg 01/01/20 09:00 01/04/20 09:34 Lovenox SC 40 mg 0900 RYANN Administration Gabapentin 300 mg 01/01/20 21:00 01/04/20 09:34 Neurontin PO 300 mg TID RYANN Administration Ceftriaxone Sodium 1 gm/ 100 mls @ 200 mls/hr 01/02/20 09:00 01/04/20 09:32 Sodium Chloride IVPB 100 mls Q24HR RYANN Administration Sodium Chloride 1,000 mls @ 100 mls/hr 01/02/20 18:00 01/04/20 11:25 1/2 Normal Saline IV Not Given .Q10H RYANN Insulin Glargine 6 units/ 0.06 mls @ 0 mls/hr 01/04/20 09:00 01/04/20 09:34 Miscellaneous Medication SC 0.06 mls QAM RYANN Administration Insulin Glargine 6 units/ 0.06 mls @ 0 mls/hr 01/03/20 21:00 01/03/20 20:20 Miscellaneous Medication SC Not Given HS RYANN Insulin Human Lispro 0 units 01/02/20 08:50 01/04/20 12:17 Humalog SC 3 unit .MILD SLIDING SCALE PRN Administration Mild Correctional Scale Ketorolac Tromethamine 30 mg 01/02/20 14:11 01/02/20 14:58 Toradol IVP 01/07/20 14:12 30 mg Q6H PRN Administration Pain Metoclopramide HCl 10 mg 01/02/20 14:15 01/04/20 14:23 Reglan IVP Not Given Q6H RYANN Morphine Sulfate 2 mg 01/02/20 08:49 01/02/20 17:39 Morphine SLOW IVP 2 mg Q6H PRN Administration Moderate to Severe Pain (6-10) Ondansetron HCl 4 mg 01/01/20 05:31 01/02/20 14:58 Zofran IVP 4 mg Q6H PRN Administration Nausea/Vomiting Pantoprazole Sodium 40 mg 01/01/20 21:00 01/04/20 09:34 Protonix IVP 40 mg Q12HR RYANN Administration Quetiapine Fumarate 200 mg 01/01/20 21:00 01/03/20 20:00 Seroquel PO 200 mg HS RYANN Administration Sertraline HCl 75 mg 01/02/20 09:00 01/04/20 09:33 Zoloft PO 75 mg DAILY RYANN Administration Sodium Chloride 10 ml 01/01/20 21:00 01/04/20 09:34 Flush - Normal Saline IVF 10 ml Q12HR RYANN Administration Sucralfate 1 gm 01/01/20 17:00 01/04/20 12:16 Carafate PO 1 gm ACHS RYANN Administration Tramadol HCl 50 mg 01/02/20 08:52 01/02/20 10:03 Ultram PO 50 mg Q6H PRN Administration Pain - Exam General Appearance: awake alert Heart: RRR, no murmur Respiratory: CTAB, no wheezes Gastrointestinal: no bruit, tender to palpation Psychiatric: normal behavior, A&O x 3 Hosp A/P (1) Nausea & vomiting Code(s): R11.2 - NAUSEA WITH VOMITING, UNSPECIFIED Status: Acute (2) Erosive esophagitis Code(s): K22.10 - ULCER OF ESOPHAGUS WITHOUT BLEEDING Status: Acute (3) Type 1 diabetes mellitus Status: Chronic (4) Diabetic gastroparesis Code(s): E11.43 - TYPE 2 DIABETES W DIABETIC AUTONOMIC (POLY)NEUROPATHY; K31.84 - GASTROPARESIS Status: Suspected (5) Diabetic ketoacidosis Code(s): E11.10 - TYPE 2 DIABETES MELLITUS WITH KETOACIDOSIS WITHOUT COMA Status: Resolved - Plan DVT proph w/lovenox pt states she feels better today. will advance diet. will continue current tx. will watch her left neck area overnight. will resume her home meds once she is able to eat a full diet.
--- NOTE | 2020-01-04 19:12 | PRG ---
DATE OF SERVICE: 01/04/2020 SUBJECTIVE: Ms. Castro says she is feeling a lot better today. Her abdominal discomfort is minimal. There is no more nausea or vomiting. She has tolerated her diet today. She had meatloaf and mashed potatoes without any difficulty. OBJECTIVE: VITAL SIGNS: Temperature 98.7, pulse 70, blood pressure 113/69, and 100% oxygen saturation on room air. GENERAL: No acute distress. Lying in bed comfortably. HEART: Regular rate and rhythm. LUNGS: Clear to auscultation bilaterally. ABDOMEN: Soft, nontender to palpation. EXTREMITIES: No peripheral edema. LABORATORY STUDIES: Sodium 136, potassium 3.5, BUN 5, creatinine 0.70, glucose 76, and calcium 7.2. COVID negative. Note; urine tox screen was positive for opiates, tricyclics, and cannabinoids. ASSESSMENT AND PLAN: 1. Nausea and vomiting, resolved. 2. Abdominal pain, much improved. 3. Gastroparesis. This is a diagnosis from recent workup elsewhere. History certainly consistent with gastroparesis. Continue on Reglan q.6 hours as an outpatient. She also takes promethazine on top of this as needed. 4. Diabetic ketoacidosis, resolved. 5. GI will sign off at this time, but please call back anytime with questions or concerns. Job ID: [id number]
[2020-01-04] MEDS ORDERED: Ondansetron ODT 4 MG TAB PO PRN (20:30)
[2020-01-04] MEDS: Metoclopramide HCl 10 MG TAB PO SCH (23:56)
[2020-01-05] MEDS: Sodium Chloride 0.45% 1,000 ML IV SCH (03:50)
[2020-01-05 04:11] LABS: Anion Gap 9 mmol/L (10-20); BUN (Urea Nitrogen) 4 mg/dL (7.0-18.7); Calc. Creatinine Clearance 107 mL/min (70-130); Calcium 7.7 mg/dL (7.8-10.44); Carbon Dioxide 26 mmol/L (22-29); Chloride 108 mmol/L (98-107); Estimated GFR-MDRD Greater than 90; Glucose 160 mg/dL (70-105); Potassium 3.5 mmol/L (3.5-5.1); Sodium 139 mmol/L (136-145)
[2020-01-05] MEDS: Metoclopramide HCl 10 MG TAB PO SCH (05:02)
[2020-01-05] MEDS ORDERED: Potassium Chloride 20 MEQ TAB PO SCH (06:45)
[2020-01-05 07:41] VITALS: BP 100/66; TEMP 98.2
[2020-01-05] MEDS: Sucralfate 1 GM TAB PO SCH (08:06)
[2020-01-05] MEDS: HumaLOG 300 UNITS/3 ML VIAL SC PRN (08:06)
[2020-01-05] MEDS: Enoxaparin Sodium 40 MG/0.4 ML SYRINGE SC SCH (08:07)
[2020-01-05] MEDS: Gabapentin 300 MG CAP PO SCH (08:08)
[2020-01-05] MEDS: Insulin Glargine 6 UNITS in Pre-Filled Syringe 1 EACH SC SCH (08:28)
[2020-01-05] MEDS: cefTRIAXone\\ROCEPHIN 1 GM in Sodium Chloride 0.9% 100 ML IVPB SCH (08:40)
[2020-01-05] MEDS ORDERED: HumuLIN 70/30 (300 UNITS/3 ML VIAL) SC SCH (09:00)
--- NOTE | 2020-01-05 18:11 | DIS ---
DATE OF ADMISSION: 01/01/2020 DATE OF DISCHARGE: 01/05/2020 DISCHARGE DIAGNOSES: As of the following; 1. Abdominal pain, nausea, and vomiting. 2. Diabetic ketoacidosis. 3. Diabetes, type 1. 4. Moderate calorie malnutrition. 5. Urinary tract infection. HOSPITAL COURSE: The patient is a 29-year-old female, who initially presented to the hospital with abdominal pain, nausea, and vomiting. She was also found to be in DKA and was put on insulin drip. Her DKA resolved. She was transitioned to subcu insulin. The patient continued to have nausea and vomiting. Her UDS was positive for marijuana. She recently in September, had an EGD, which indicated erosive esophagitis. Otherwise, everything else was normal. She also had recently a CT scan, which did not show any acute abnormalities. Her lipase at this admission was normal at 13. She continued to have nausea and vomiting, which improved with PPIs and also antinausea medications. GI also saw the patient. The patient has been diagnosed with gastroparesis given her diabetes. She was put back on the Reglan. She continued to improve. She was able to tolerate her meals. At this time, she will be discharged home. She did randomly drop her blood sugars. I have adjusted her insulin accordingly. I also recommended her to check on her sugars 3 times a day. Her home medications will be Omnicef, she has UTI, 300 mg b.i.d. MEDICATIONS: 1. Humulin 70/30 of 10 units in the morning and 10 at night. 2. Gabapentin 10 mg t.i.d. 3. Insulin lispro as needed based on the carb intake. 4. Reglan 10 mg q.6 hours. 5. Zofran as needed. 6. Protonix 40 mg b.i.d. 7. Promethazine 25 mg q.6 hours p.r.n. 8. Seroquel 200 mg at bedtime. 9. daily. 10. Carafate 1 g a.c. and at bedtime. PHYSICAL EXAMINATION: VITAL SIGNS: On discharge, temperature of 98.2, pulse 71, respiratory rate 16, oxygen saturation 98% on room air, and blood pressure 100/66. GENERAL: She is awake, alert, and oriented x3. Does not appear in distress. CV: S1 and S2 present. No murmurs, rubs, or gallops. ABDOMEN: Soft and nontender. Bowel sounds are present x2. She will be discharged home. Follow up with her primary. Job ID: [id number]
== END 2020-01-05 13:30 | disposition home or self-care (01) | DRG 689 ==
LOC: ERS 23:00 → IMCU/EMU 01-01 01:20 → ONC 01-04 14:43
PROVIDERS: ADMIT Internal Medicine; ATTEND Internal Medicine
DX: N39.0 Urinary tract infection, site not specified (principal); E10.10 Type 1 diabetes mellitus with ketoacidosis without coma; K22.10 Ulcer of esophagus without bleeding; E44.0 Moderate protein-calorie malnutrition; E10.43 Type 1 diabetes mellitus with diabetic autonomic (poly)neuropathy; E10.40 Type 1 diabetes mellitus with diabetic neuropathy, unspecified; Z20.828 Contact with and (suspected) exposure to other viral communicable diseases; K31.84 Gastroparesis; F41.9 Anxiety disorder, unspecified; F31.9 Bipolar disorder, unspecified; F43.10 Post-traumatic stress disorder, unspecified; F17.210 Nicotine dependence, cigarettes, uncomplicated; B96.1 Klebsiella pneumoniae [K. pneumoniae] as the cause of diseases classified elsewhere; F12.90 Cannabis use, unspecified, uncomplicated; Z79.4 Long term (current) use of insulin; Z79.899 Other long term (current) drug therapy; Z68.22 Body mass index [BMI] 22.0-22.9, adult
CPT/HCPCS: 36415; 36416; 51701; 71045; 80048; 80053; 80306; 81003; 81015; 81025; 83690; 85007; 85025; 85027; 87040; 87077; 87086; 87186; 96365; 96366; 96367; 96375; C9113; J0696; J1200; J1650; J1815; J1885; J2270; J2405; J2550; J2765; J3480; J3490; Q0169; U0002

== ENCOUNTER 2020-05-10 18:30 | Inpatient (IN) | payer OTHER ==
[2020-05-10] MEDS ORDERED: INSULIN REGULAR IN 0.9 % NACL 100 UNIT in Premix Bag 1 BAG IVPB ONE (20:00)
[2020-05-10] MEDS ORDERED: NS 0.9% w/ 20 MEQ KCL 1,000 ML IV SCH (20:00)
[2020-05-10 20:02] LABS: Anion Gap 17 mmol/L (10-20); BUN (Urea Nitrogen) 13 mg/dL (7.0-18.7); Calc. Creatinine Clearance 0 mL/min (70-130); Calcium 8.5 mg/dL (7.8-10.44); Carbon Dioxide 22 mmol/L (22-29); Chloride 106 mmol/L (98-107); Glucose 354 mg/dL (70-105); Potassium 3.5 mmol/L (3.5-5.1); Sodium 141 mmol/L (136-145)
[2020-05-10] MEDS ORDERED: INSULIN REGULAR IN 0.9 % NACL 100 UNIT/100 ML BAG ONE (20:17)
[2020-05-10] MEDS ORDERED: Metoclopramide HCl 10 MG/2 ML VIAL ONE (20:46)
[2020-05-10] MEDS ORDERED: Ondansetron ODT 4 MG TAB PO PRN (22:43)
[2020-05-10] MEDS ORDERED: NS 0.9% w/ 20 MEQ KCL 1,000 ML IV PRN ×2 (22:43)
[2020-05-10] MEDS ORDERED: Dextrose 5 %-0.45 % NaCl 1,000 ML IV PRN (22:43)
[2020-05-10] MEDS ORDERED: Electrolyte Replacement Protocol 1 EACH IVPB ONE (22:43)
[2020-05-10] MEDS ORDERED: Promethazine HCl 25 MG in Sodium Chloride 0.9% 50 ML IVPB PRN (22:43)
[2020-05-10] MEDS ORDERED: HUMULIN R 100 UNITS in Sodium Chloride 0.9% 100 ML IVPB SCH (22:43)
[2020-05-10] MEDS ORDERED: Sodium Chloride 0.9% 1,000 ML IV PRN ×4 (22:43)
[2020-05-10] MEDS: Ondansetron PF 4 MG/2 ML Vial IVP PRN (22:56)
[2020-05-10] MEDS: Morphine 4 MG/ML VIAL SLOW IVP PRN (22:56)
[2020-05-10] MEDS: D5 1/2 NS w/20 mEq KCL 1,000 ML IV PRN (22:58)
[2020-05-10] MEDS ORDERED: Famotidine 20 MG TAB PO SCH (23:00)
[2020-05-10 23:33] LABS: Anion Gap 16 mmol/L (10-20); BUN (Urea Nitrogen) 12 mg/dL (7.0-18.7); Calc. Creatinine Clearance 0 mL/min (70-130); Calcium 8.2 mg/dL (7.8-10.44); Carbon Dioxide 21 mmol/L (22-29); Chloride 110 mmol/L (98-107); Glucose 213 mg/dL (70-105); Magnesium 1.6 mg/dL (1.6-2.6); Potassium 3.1 mmol/L (3.5-5.1); Sodium 144 mmol/L (136-145)
[2020-05-11 00:13] VITALS: BMI 20.5
--- NOTE | 2020-05-11 02:22 | HP ---
PRIMARY CARE PROVIDER: Cole Lyles. CHIEF COMPLAINT: Nausea, vomiting, and abdominal pain. HISTORY OF PRESENT ILLNESS: This is a 29-year-old female with a known history of type 1 diabetes mellitus, poorly controlled and noncompliant, not established with a primary care provider, who presents with recurrent abdominal pain with associated nausea and vomiting. The patient with approximately 12 ER/inpatient admissions during 2019 for similar episodes. The patient states she had run out of her glucometer strips and has not been checking her blood glucose. The patient states she uses NPH insulin 70/30 as well as a sliding scale with NovoLog. The patient denied any documented fever, chills; however, the patient's urine drug screen was positive for marijuana and opiates. In the emergency room, the patient underwent general evaluation showing evidence of early diabetic ketoacidosis with elevated beta-hydroxybutyrate of 3.22 and a blood glucose greater than 500. The patient was given DKA protocol with IV fluid resuscitation and in addition, placed on insulin infusion. The patient also received IV Phenergan in addition to morphine sulfate and Zofran. PAST MEDICAL HISTORY: 1. Diabetes mellitus type 1, poorly controlled and noncompliant. 2. Recurrent hospitalizations for diabetic ketoacidosis due to noncompliance. 3. Gastroparesis. 4. Peripheral neuropathy. PAST SURGICAL HISTORY: Status post lymph node resection. CURRENT MEDICATIONS: NPH 70/30 and NovoLog insulin sliding scale. ALLERGIES: NO KNOWN DRUG ALLERGIES. FAMILY HISTORY: Positive for diabetes mellitus. SOCIAL HISTORY: Resides in [place], [place]. Unemployed. Smokes marijuana regularly. Occasional alcohol use. No tobacco use. REVIEW OF SYSTEMS: CONSTITUTIONAL: Negative for weight loss or gain, ability to conduct usual activities. SKIN: Negative for rash, itching. EYES: Negative for double vision, pain. ENT/MOUTH: Negative for nose bleeding, neck stiffness, pain, tenderness. CARDIOVASCULAR: Negative for palpitations, dyspnea on exertion, orthopnea. RESPIRATORY: Negative for shortness of breath, wheezing, cough, hemoptysis, fever or night sweats. GASTROINTESTINAL: Negative for poor appetite, abdominal pain, heartburn, nausea, vomiting, constipation, or diarrhea. GENITOURINARY: Negative for urgency, frequency, dysuria, nocturia. MUSCULOSKELETAL: Negative for pain, swelling. NEUROLOGIC/PSYCHIATRIC: Negative for anxiety, depression. ALLERGY/IMMUNOLOGIC: Negative for skin rash, bleeding tendency. Otherwise negative except as stated per HPI. PHYSICAL EXAMINATION: VITAL SIGNS: On admission, blood pressure 143/100, pulse 109, respiratory rate 20, temperature 98.7 degrees Fahrenheit, O2 saturation 100% on room air. GENERAL APPEARANCE: This is a 29-year-old female, sitting on the hospital bed, alert and oriented x3, in [id number] distress. HEENT: Pupils are equal, round, reactive to light and accommodation. Extraocular muscles are intact. No scleral icterus. No conjunctival injection. Nares patent. OP is clear. Oral mucosa dry. NECK: Supple. No cervical adenopathy. No thyromegaly. No carotid bruits. No JVD appreciated. CERVICAL SPINE: Full active and passive range of motion. No meningeal signs noted. CHEST: Lungs are clear to auscultation bilaterally. CARDIOVASCULAR: S1, S2 with tachycardia. No murmur, rub, or gallop appreciated. ABDOMEN: Flat, soft, mild tenderness to palpation diffusely. No palpable mass. No rebound or guarding noted. EXTREMITIES: Warm and dry with fair turgor. No clubbing, cyanosis, or asymmetric edema appreciated. Pulses palpable distally at the dorsalis pedis, posterior tibial, and popliteal arteries bilaterally. Capillary refill less than 2 seconds. NEUROLOGIC: Cranial nerves 2 through 12 are grossly intact. No focal or lateralizing signs appreciated. PERTINENT LABORATORY AND X-RAY FINDINGS: Sodium 136, potassium 3.5, chloride 106, CO2 of 22, BUN 13, creatinine 0.97, glucose 354. Hemoglobin A1c 11.4 on 09/02/2019. Calcium 8.5. LFTs within normal limits. Serum beta-hCG negative on 05/10/2020. CBC showed a white blood cell count of 12.7, hemoglobin 10.7, hematocrit 34, platelet count 390. Venous blood gas dated 05/10/2020 showed pH of 7.46. Urinalysis dated 05/10/2020 positive for glucose and ketones, large amount of blood noted. Urine drug screen dated 05/10/2020, positive for opiates and cannabis. Plasma alcohol level less than 10. Beta-hydroxybutyrate level 3.22. Telemetry monitoring shows sinus tachycardia with heart rates in the low 100s. Portable chest x-ray dated 05/10/2020 showed no acute cardiopulmonary process. Right subclavian central venous catheter in place. ASSESSMENT AND PLAN: 1. Diabetic ketoacidosis, recurrent. The patient will be admitted to the intermediate care unit. We will continue DKA protocol with aggressive IV fluid hydration. Continue insulin infusion and monitor serial Accu-Cheks q.1 hour. No focal infectious process identified. Likely the patient's presentation due to medication noncompliance. 2. Nausea and vomiting secondary to diabetic ketoacidosis. Continue antiemetics with Phenergan intravenously and Reglan p.r.n. Clear liquids as tolerated. 3. Diabetic gastroparesis. Continue Reglan 10 mg IV q.6 hours. Monitor clinical response. 4. Chronic normocytic anemia. Stable currently. No evidence of acute blood loss. Serial hemoglobin monitoring. 5. Cannabis abuse. We will offer resources for cessation after discharge. 6. Prophylaxis. SCDs while in bed. Pepcid 20 mg IV b.i.d. Case management consult. CODE STATUS: Full. Surrogate medical decision maker is Reinaldo Solitario. Job ID: [id number]
[2020-05-11] MEDS: D5 1/2 NS w/20 mEq KCL 1,000 ML IV PRN ×2 (03:11→07:06)
[2020-05-11 03:15] LABS: Hemoglobin 9.3 g/dL (12.0-16.0); Mean Corpuscular Volume 84.4 fL (78.0-98.0); Mean Platelet Volume 7.2 fL (7.4-10.4); Platelet Count 359 thou/uL (130-400); RBC Distribution Width 13.2 % (11.5-14.5); Red Blood Cell (RBC) Count 3.43 mill/uL (4.20-5.40); White Blood Cell (WBC) Count 15.3 thou/uL (4.8-10.8)
[2020-05-11] MEDS: Morphine 4 MG/ML VIAL SLOW IVP PRN ×3 (03:15→19:34)
[2020-05-11 03:32] LABS: Hemoglobin A1c 11.9 % (4.0-6.0)
[2020-05-11 03:44] LABS: Anion Gap 15 mmol/L (10-20); BUN (Urea Nitrogen) 10 mg/dL (7.0-18.7); Calc. Creatinine Clearance 90 mL/min (70-130); Calcium 8.1 mg/dL (7.8-10.44); Carbon Dioxide 22 mmol/L (22-29); Chloride 110 mmol/L (98-107); Glucose 116 mg/dL (70-105); Potassium 3.3 mmol/L (3.5-5.1); Sodium 144 mmol/L (136-145)
[2020-05-11 03:45] LABS: Anion Gap 15 mmol/L (10-20); BUN (Urea Nitrogen) 10 mg/dL (7.0-18.7); Calc. Creatinine Clearance 91 mL/min (70-130); Calcium 8.1 mg/dL (7.8-10.44); Carbon Dioxide 22 mmol/L (22-29); Chloride 110 mmol/L (98-107); Glucose 116 mg/dL (70-105); Potassium 3.3 mmol/L (3.5-5.1); Sodium 144 mmol/L (136-145)
[2020-05-11] MEDS ORDERED: Electrolyte Replacement Protocol 1 EACH IVPB PRN (05:22)
[2020-05-11] MEDS ORDERED: Potassium Chloride 40 MEQ in Premix Bag 1 BAG IVPB SCH (05:30)
[2020-05-11] MEDS ORDERED: Potassium Chloride 20 MEQ TAB PO SCH (06:30)
[2020-05-11] MEDS ORDERED: Magnesium 2 GM/50 ML 2 GM in Premix Bag 1 BAG IVPB SCH (06:30)
[2020-05-11 06:42] LABS: SARS-CoV-2 MS2 Positive; SARS-CoV-2 N Gene Negative; SARS-CoV-2 S Gene Negative; SARS-CoV-2 by NAA Not Detected (NotDetected); SARS-CoV-2 orf1ab Negative
[2020-05-11] MEDS: Famotidine 20 MG TAB PO SCH ×2 (08:40→19:36)
[2020-05-11 10:50] LABS: Anion Gap 11 mmol/L (10-20); BUN (Urea Nitrogen) 7 mg/dL (7.0-18.7); Calc. Creatinine Clearance 100 mL/min (70-130); Calcium 7.3 mg/dL (7.8-10.44); Carbon Dioxide 21 mmol/L (22-29); Chloride 113 mmol/L (98-107); Glucose 130 mg/dL (70-105); Magnesium 2.1 mg/dL (1.6-2.6); Potassium 3.9 mmol/L (3.5-5.1); Sodium 141 mmol/L (136-145)
[2020-05-11 10:55] LABS: Phosphorus 1.9 mg/dL (2.3-4.7)
[2020-05-11] MEDS ORDERED: Dextrose 5% in Water 1,000 ML IV PRN (11:08)
[2020-05-11] MEDS ORDERED: Dextrose 50% Abboject 50 ML SYRINGE SLOW IVP PRN (11:08)
[2020-05-11] MEDS ORDERED: Insulin Regular 300 UNITS/3 ML VIAL SC PRN (11:08)
[2020-05-11] MEDS ORDERED: NPH, Human Insulin Isophane 300 UNIT/3 ML VIAL SC SCH (11:15)
[2020-05-11] MEDS ORDERED: Potassium Phosphate 15 MMOL in Sodium Chloride 0.9% 250 ML 250 ML IVPB SCH (11:15)
[2020-05-11] MEDS: D5 1/2 NS w/20 mEq KCL 1,000 ML IV SCH ×2 (12:33→19:36)
[2020-05-11] MEDS: Insulin Regular 300 UNITS/3 ML VIAL SC PRN ×2 (15:04→17:59)
--- NOTE | 2020-05-11 19:22 | PDOC.HOSPP ---
- Subjective Encounter Date: 05/11/20 Encounter Time: 11:00 Subjective: Patient seen and examined for diabetic ketoacidosis. Some nausea. Denies any significant abdominal pain. No diarrhea, chest pain, fever or focal neurologic deficit reported. - Objective Vital Signs & Weight: Vital Signs (12 hours) Temp Pulse Resp BP Pulse Ox 05/11/20 17:00 98.6 F 89 16 129/86 100 05/11/20 15:40 98.9 F 05/11/20 15:35 98.6 F 84 20 100 05/11/20 11:23 98.5 F 05/11/20 08:00 100 Weight Weight 127 lb 3.307 oz Most Recent Monitor Data Heart Rate from ECG 88 NIBP 110/78 NIBP BP-Mean 88 Respiration from ECG 17 SpO2 99 I&O: 05/10/20 05/11/20 05/12/20 06:59 06:59 06:59 Intake Total 2677.0 302 Output Total 925 0 Balance 1752.0 302 Result Diagrams: 05/11/20 02:59 05/11/20 10:06 Additional Labs: Accuchecks 05/11/20 05/11/20 05/11/20 17:56 14:40 12:20 POC Glucose 244 H 229 H 177 H 05/11/20 05/11/20 05/11/20 10:49 09:41 08:01 POC Glucose 143 H 160 H 234 H 05/11/20 05/11/20 05/11/20 06:12 04:11 03:03 POC Glucose 238 H 172 H 106 H 05/11/20 05/10/20 05/10/20 01:09 23:58 21:20 POC Glucose 132 H 167 H 329 H Radiology Reviewed by me: Yes (Chest x-raynegative for infiltrate) EKG Reviewed by me: Yes (Sinus rhythm on telemetry) Hospitalist ROS - Review of Systems Respiratory: denies: cough, dry, shortness of breath, hemoptysis, SOB with excertion, pleuritic pain, sputum, wheezing, other Cardiovascular: denies: chest pain, palpitations, orthopnea, paroxysmal noc. dyspnea, edema, light headedness, other - Medication Medications: Active Medications Generic Name Dose Route Start Last Admin Trade Name Freq PRN Reason Stop Dose Admin Famotidine 20 mg 05/11/20 09:00 05/11/20 08:40 Famotidine 20 Mg Tab PO 20 mg BID RYANN Administration Potassium Chloride/Dextrose/Sod Cl 1,000 mls @ 250 mls/hr 05/10/20 22:43 05/11/20 07:06 D5 1/2 Ns W/20 Meq Kcl IV 1,000 mls .Q4H PRN Administration Step 4 of DKA Protocol Protocol Promethazine HCl 25 mg/ Sodium 51 mls @ 204 mls/hr 05/10/20 22:43 05/11/20 03:16 Chloride IVPB 51 mls Q6H PRN Administration Nausea/Vomiting Potassium Chloride/Dextrose/Sod Cl 1,000 mls @ 125 mls/hr 05/11/20 11:15 05/11/20 12:33 D5 1/2 Ns W/20 Meq Kcl IV 1,000 mls .Q8H RYANN Administration Insulin Human Regular 0 units 05/11/20 11:08 05/11/20 17:59 Insulin Regular 300 Units/3 Ml Vial SC 4 units .MODERATE SLIDING SC PRN Administration Moderate Correctional Scale Morphine Sulfate 4 mg 05/10/20 22:43 05/11/20 12:03 Morphine 4 Mg/Ml Vial SLOW IVP 4 mg Q4H PRN Administration Moderate to Severe Pain (6-10) Ondansetron HCl 4 mg 05/10/20 22:43 05/10/20 22:56 Ondansetron Pf 4 Mg/2 Ml Vial IVP 4 mg Q6H PRN Administration Nausea/Vomiting Sodium Chloride 10 ml 05/11/20 09:00 05/11/20 09:02 Flush - Normal Saline 10 Ml Syringe IVF 10 ml Q12HR RYANN Administration - Exam General Appearance: NAD Neck: supple Heart: RRR, no gallops Respiratory: CTAB, no ronchi Gastrointestinal: non-tender, normal bowel sounds Extremities: no cyanosis, no clubbing Neurological: no new deficit Hosp A/P - Plan DVT proph w/SCDs Diabetic ketoacidosis Diabetes mellitus type 1 Hypophosphatemia Diabetic gastroparesis Peripheral neuropathy Cannabis abuse Chronic anemia probably due to nutritional deficiency Plan: Will discontinue insulin drip. We will start subcu insulin with IV fluids containing dextrose. Will switch fluids to half NS if tolerating p.o. Replace phosphorus. Add NPH. Recheck labs in a.m. Diabetic diet. Transfer to medical. Counseled on cannabis cessation.
[2020-05-11] MEDS: Ondansetron PF 4 MG/2 ML Vial IVP PRN (19:34)
[2020-05-11] MEDS: NPH, Human Insulin Isophane 300 UNIT/3 ML VIAL SC SCH (21:09)
[2020-05-12] MEDS: Morphine 4 MG/ML VIAL SLOW IVP PRN ×2 (00:20→09:17)
[2020-05-12] MEDS: D5 1/2 NS w/20 mEq KCL 1,000 ML IV SCH ×3 (05:01→21:41)
[2020-05-12] MEDS: Insulin Regular 300 UNITS/3 ML VIAL SC PRN (05:30)
[2020-05-12] MEDS: Acetaminophen 500 MG TAB PO PRN ×2 (05:33→18:04)
[2020-05-12 06:05] LABS: #Basophils 0.1 thou/uL (0.0-0.2); #Eosinphils 0.2 thou/uL (0.0-0.7); #Lymphocytes 3.1 thou/uL (1.20-3.40); #Monocytes 0.6 thou/uL (0.11-0.59); #Neutrophils 5.3 thou/uL (1.40-6.50); %Basophils 0.7 % (0.0-1.0); %Eosinophils 1.7 % (0.0-10.0); %Lymphocytes 33.4 % (21.0-51.0); %Monocytes 6.7 % (0.0-10.0); %Neutrophils 57.6 % (42.0-75.0); Hemoglobin 8.6 g/dL (12.0-16.0); Mean Corpuscular HGB CONC 31.7 g/dL (32.0-36.0); Mean Corpuscular Hemoglobin 28.1 pg (27.0-31.0); Mean Corpuscular Volume 88.5 fL (78.0-98.0); Mean Platelet Volume 7.1 fL (7.4-10.4); Platelet Count 252 thou/uL (130-400); RBC Distribution Width 13.4 % (11.5-14.5); Red Blood Cell (RBC) Count 3.05 mill/uL (4.20-5.40); White Blood Cell (WBC) Count 9.1 thou/uL (4.8-10.8)
[2020-05-12 06:51] LABS: Anion Gap 11 mmol/L (10-20); BUN (Urea Nitrogen) 4 mg/dL (7.0-18.7); Calc. Creatinine Clearance 94 mL/min (70-130); Calcium 7.3 mg/dL (7.8-10.44); Carbon Dioxide 19 mmol/L (22-29); Chloride 108 mmol/L (98-107); Glucose 270 mg/dL (70-105); Magnesium 1.8 mg/dL (1.6-2.6); Phosphorus 2.5 mg/dL (2.3-4.7); Potassium 4.4 mmol/L (3.5-5.1); Sodium 134 mmol/L (136-145)
[2020-05-12] MEDS ORDERED: Magnesium 2 GM/50 ML 2 GM in Premix Bag 1 BAG IVPB SCH (09:00)
[2020-05-12] MEDS ORDERED: Magnesium Sulfate 2 GM in Sodium Chloride 0.9% 100 ML IVPB SCH (09:00)
[2020-05-12] MEDS: Famotidine 20 MG TAB PO SCH (09:22)
[2020-05-12] MEDS: NPH, Human Insulin Isophane 300 UNIT/3 ML VIAL SC SCH ×2 (09:32→20:37)
[2020-05-12] MEDS: Metoclopramide 10 MG/10 ML UDCUP PO SCH ×3 (11:39→20:35)
[2020-05-12] MEDS: Ondansetron PF 4 MG/2 ML Vial IVP PRN (11:39)
[2020-05-12] MEDS: Calcium Carbonate 600 MG + Vit D TAB PO SCH (17:53)
--- NOTE | 2020-05-12 18:17 | PDOC.HOSPP ---
- Subjective Encounter Date: 05/12/20 Encounter Time: 10:00 Subjective: Patient seen and examined for diabetic ketoacidosis. Poor appetite due to persistent nausea. Denies any vomiting. Continues to have abdominal discomfort from chronic gastroparesis. - Objective Vital Signs & Weight: Vital Signs (12 hours) Temp Pulse Resp BP BP Pulse Ox 05/12/20 15:41 98.2 F 68 16 116/79 100 05/12/20 11:32 98.2 F 90 16 120/79 100 05/12/20 08:00 100 05/12/20 07:45 98.3 F 72 16 110/73 100 Weight Weight 127 lb 3.307 oz Most Recent Monitor Data Heart Rate from ECG 88 NIBP 110/78 NIBP BP-Mean 88 Respiration from ECG 17 SpO2 99 I&O: 05/11/20 05/12/20 05/13/20 06:59 06:59 06:59 Intake Total 2677.0 2122 Output Total 925 0 Balance 1752.0 2122 Result Diagrams: 05/12/20 05:41 05/12/20 05:41 Additional Labs: Accuchecks 05/12/20 05/12/20 05/12/20 15:44 11:36 09:30 POC Glucose 171 H 101 H 133 H 05/12/20 05/12/20 05/11/20 05:10 00:19 20:48 POC Glucose 264 H 208 H 125 H Hospitalist ROS - Review of Systems Respiratory: denies: cough, dry, shortness of breath, hemoptysis, SOB with excertion, pleuritic pain, sputum, wheezing, other Cardiovascular: denies: chest pain, palpitations, orthopnea, paroxysmal noc. dyspnea, edema, light headedness, other - Medication Medications: Active Medications Generic Name Dose Route Start Last Admin Trade Name Freq PRN Reason Stop Dose Admin Acetaminophen 1,000 mg 05/10/20 22:43 05/12/20 18:04 Acetaminophen 500 Mg Tab PO 1,000 mg Q6H PRN Administration Mild Pain (1-3) Calcium/Vitamin D 1 tab 05/12/20 17:00 05/12/20 17:53 Calcium Carbonate 600 Mg + Vit D Tab PO 1 tab BID-WM RYANN Administration Potassium Chloride/Dextrose/Sod Cl 1,000 mls @ 75 mls/hr 05/12/20 08:47 05/12/20 09:22 D5 1/2 Ns W/20 Meq Kcl IV 1,000 mls .[id number] RYANN Administration Insulin Human NPH 10 unit 05/11/20 21:00 05/12/20 09:32 Nph, Human Insulin Isophane 300 Unit/3 Ml Vial SC 10 unit BID RYANN Administration Insulin Human Regular 0 units 05/11/20 11:08 05/12/20 05:30 Insulin Regular 300 Units/3 Ml Vial SC 6 units .MODERATE SLIDING SC PRN Administration Moderate Correctional Scale Metoclopramide HCl 5 mg 05/12/20 11:30 05/12/20 17:53 Metoclopramide 10 Mg/10 Ml Udcup PO 5 mg ACHS RYANN Administration Ondansetron HCl 4 mg 05/10/20 22:43 05/12/20 11:39 Ondansetron Pf 4 Mg/2 Ml Vial IVP 4 mg Q6H PRN Administration Nausea/Vomiting Sodium Chloride 10 ml 05/11/20 09:00 05/12/20 09:23 Flush - Normal Saline 10 Ml Syringe IVF 10 ml Q12HR RYANN Administration - Exam General Appearance: NAD Heart: RRR, no gallops Respiratory: no wheezes Gastrointestinal: soft, normal bowel sounds, no guarding, no rigidity, tender to palpation (Mainly in upper quadrant) Extremities: no cyanosis, no clubbing Neurological: no new deficit Psychiatric: A&O x 3 Hosp A/P - Plan DVT proph w/SCDs Diabetic ketoacidosis Diabetes mellitus type 1 Hypophosphatemia Diabetic gastroparesis Peripheral neuropathy Cannabis abuse Chronic anemia probably due to nutritional deficiency Plan: Continue IV fluid with dextrose due to poor appetite. Reduce IV fluid rate to 75 mill per hour. Replace magnesium. Continue current dose of NPH with sliding scale. Add calcium supplementation. Add low-dose Reglan along with PPIs due to gastroparesis. Continue other medications as above. Counseled to be compliant with her insulin regimen.
[2020-05-13 07:20] LABS: BUN (Urea Nitrogen) Less than 4 mg/dL (7.0-18.7); Calc. Creatinine Clearance 107 mL/min (70-130); Calcium 7.8 mg/dL (7.8-10.44); Carbon Dioxide 22 mmol/L (22-29); Chloride 109 mmol/L (98-107); Glucose 161 mg/dL (70-105); Phosphorus 3.8 mg/dL (2.3-4.7); Potassium 4.3 mmol/L (3.5-5.1); Sodium 139 mmol/L (136-145)
[2020-05-13 07:44] VITALS: BP 146/85; TEMP 98.3
[2020-05-13] MEDS: Metoclopramide 10 MG/10 ML UDCUP PO SCH ×2 (07:54→11:06)
[2020-05-13] MEDS: Calcium Carbonate 600 MG + Vit D TAB PO SCH (07:54)
[2020-05-13] MEDS: NPH, Human Insulin Isophane 300 UNIT/3 ML VIAL SC SCH (09:04)
[2020-05-13 10:50] LABS: Anion Gap 12 mmol/L (10-20)
[2020-05-13] MEDS: D5 1/2 NS w/20 mEq KCL 1,000 ML IV SCH (11:06)
--- NOTE | 2020-05-13 18:03 | PDOC.DS.DS ---
Provider - Provider Date of Admission: 05/10/20 19:35 Date of Discharge: 05/13/20 Admitting Provider: Lonny Avalos DO Consultations: None Primary Care Physician: OUT OF TOWN Course - Hospital Course Hospital Course: Patient is a 29-year-old -[place] female with diabetes mellitus type 1 with noncompliance presented to the emergency room with nausea, vomiting and abdominal pain. Her work-up was consistent with diabetic ketoacidosis with beta hydroxybutyrate of 3.2 with a blood sugar of 500. She was started on DKA protocol along with IV fluid resuscitation. Her symptoms were controlled with antiemetics. She was initially monitored in the intermediate care unit and was transferred to the medical floor. Nausea and abdominal pain is significantly improved. Patient was advised extensively to be compliant with insulin regimen. She appears stable for discharge. Final diagnosis: Diabetic ketoacidosis Diabetes mellitus type 1 Hypophosphatemia Diabetic gastroparesis Peripheral neuropathy Cannabis abuse Chronic anemia probably due to nutritional deficiency Resuscitation Status: 05/10/20 20:17 Resuscitation Status Routine Resuscitation Status: FULL: Full Resuscitation - Labs Lab Results: 05/12/20 05:41 05/13/20 06:45 Abnormal Lab Results - Last 48 hrs 05/12/20 05:41: Sodium 134 L, Chloride 108 H, Carbon Dioxide 19 L, BUN 4 L, Calcium 7.3 L 05/12/20 05:41: RBC 3.05 L, Hgb 8.6 L, Hct 27.0 L, MCHC 31.7 L, MPV 7.1 L, Monocytes # 0.6 H 05/13/20 06:45: Chloride 109 H, BUN Less than 4 L - Physical Exam Vitals: Vital Signs (12 hours) Temp Pulse Resp BP Pulse Ox 05/13/20 08:00 100 05/13/20 07:44 98.3 F 66 20 146/85 H 100 Weight Weight 127 lb 3.307 oz Most Recent Monitor Data Heart Rate from ECG 88 NIBP 110/78 NIBP BP-Mean 88 Respiration from ECG 17 SpO2 99 Physical Exam: The patient was seen and examined on the day of discharge. Plan - Discharge Medications Home Medications: Medication Instructions Recorded Confirmed Type Gabapentin 300 mg PO TID 06/05/19 05/11/20 History QUEtiapine Fumarate [SEROquel] 200 mg PO HS 06/05/19 05/11/20 History Sertraline HCl 75 mg PO DAILY 06/05/19 05/11/20 History Pantoprazole [Protonix] 40 mg PO BID #60 tab 06/08/19 05/11/20 Rx Sucralfate 1 gm PO ACHS #120 tablet 06/08/19 05/11/20 Rx Promethazine [Phenergan] 25 mg PO Q6H PRN 09/02/19 05/11/20 History Aluminum & Magnesium Hydroxide 15 ml PO PC PRN #30 udcup 09/15/19 05/11/20 Rx [Maalox] Metoclopramide HCl [Reglan] 10 mg PO Q6HR #90 tab 09/15/19 05/11/20 Rx Ondansetron [Zofran ODT] 4 mg PO Q6H PRN #30 tab 09/15/19 05/11/20 Rx HumuLIN 70/30 [HumuLIN 70/30 Vial] 20 units SC TID-WM 05/11/20 05/11/20 History Insulin Aspart [Novolog] 2 - 6 unit SQ ACHS PRN 05/11/20 05/11/20 History QUEtiapine Fumarate [SEROquel] 100 mg PO QAM 05/11/20 05/11/20 History Allergies: No Known Drug Allergies Allergy (Verified 05/11/20 01:08) per pt - Follow up Plan Referrals: [facility] [ Not on Staff] - 3 Days Disposition: HOME Quality - Care Measures CORE MEASURES:: N/A
== END 2020-05-13 16:18 | disposition home or self-care (01) | DRG 639 ==
LOC: ERS 18:30 → IMCU/EMU 19:35 → T4-B 05-11 17:43
PROVIDERS: ADMIT Family Medicine; ATTEND Internal Medicine
DX: E10.10 Type 1 diabetes mellitus with ketoacidosis without coma (principal); E10.43 Type 1 diabetes mellitus with diabetic autonomic (poly)neuropathy; F41.9 Anxiety disorder, unspecified; Z20.828 Contact with and (suspected) exposure to other viral communicable diseases; F31.9 Bipolar disorder, unspecified; F43.10 Post-traumatic stress disorder, unspecified; E83.39 Other disorders of phosphorus metabolism; D53.9 Nutritional anemia, unspecified; K31.84 Gastroparesis; F12.10 Cannabis abuse, uncomplicated; Z79.4 Long term (current) use of insulin; Z71.51 Drug abuse counseling and surveillance of drug abuser
CPT/HCPCS: 36415; 36416; 80048; 82010; 83036; 83735; 84100; 85025; 85027; 87635; J1815; J2270; J2405; J2550; J2765; J3475; J3480; J7050; U0003

== ENCOUNTER 2020-08-26 11:54 | Inpatient (IN) | payer OTHER ==
[2020-08-26 13:01] LABS: #Lymphocytes 1.6 thou/uL (1.20-3.40); #Monocytes 0.2 thou/uL (0.11-0.59); #Neutrophils 7.9 thou/uL (1.40-6.50); %Basophils 0.4 % (0.0-1.0); %Eosinophils 0.3 % (0.0-10.0); %Monocytes 2.2 % (0.0-10.0); %Neutrophils 81.1 % (42.0-75.0); Hemoglobin 9.5 g/dL (12.0-16.0); Mean Corpuscular HGB CONC 31.2 g/dL (32.0-36.0); Mean Corpuscular Volume 86.6 fL (78.0-98.0); Mean Platelet Volume 7.6 fL (7.4-10.4); Platelet Count 266 thou/uL (130-400); RBC Distribution Width 15.6 % (11.5-14.5); Red Blood Cell (RBC) Count 3.49 mill/uL (4.20-5.40); White Blood Cell (WBC) Count 9.8 thou/uL (4.8-10.8)
[2020-08-26 13:05] LABS: BHCG - Serum Negative (NEGATIVE); Pregs Control Background? CLEAR/WHITE (CLR/WHITE); Pregs Control Bar Appear? YES (CONTROL BAR)
[2020-08-26 13:20] LABS: ALT (SGPT) 27 U/L (8-55); AST (SGOT) 17 U/L (5-34); Albumin 4.2 g/dL (3.5-5.0); Alkaline Phosphatase 62 U/L (40-110); Anion Gap 19 mmol/L (10-20); BUN (Urea Nitrogen) 9 mg/dL (7.0-18.7); Bilirubin, Total 0.5 mg/dL (0.2-1.2); Calc. Creatinine Clearance 0 mL/min (70-130); Calcium 9.1 mg/dL (7.8-10.44); Carbon Dioxide 19 mmol/L (22-29); Chloride 106 mmol/L (98-107); Globulin 3.2 g/dL (2.4-3.5); Glucose 393 mg/dL (70-105); Potassium 3.5 mmol/L (3.5-5.1); Protein, Total 7.4 g/dL (6.0-8.3); Sodium 140 mmol/L (136-145)
[2020-08-26] MEDS ORDERED: Metoclopramide HCl 10 MG/2 ML VIAL ONE (13:24)
[2020-08-26] MEDS ORDERED: diphenhydrAMINE 50 MG/ML VIAL ONE (13:24)
[2020-08-26 14:49] LABS: Actual Bicarbonate (HCO3v) 23 mEq/L (22-28); Analyzer IN Cardio ER; Base Excess -1.8 mEq/L (-2.0 to +3.0); Calcium, Ionized (venous) 1.09 mmol/L (1.16-1.32); Chloride (VBG) 105 mmol/L (98-106); Hemoglobin (Hb) 10.5 g/dL (11.7-15.5); Potassium (VBG) 3.42 mmol/L (3.70-5.30); Sodium 139.8 mmol/L (133-146); pH (venous) 7.41 (7.32-7.43)
[2020-08-26] MEDS ORDERED: Insulin Regular 300 UNITS/3 ML VIAL ONE (14:50)
[2020-08-26] MEDS ORDERED: Promethazine HCl 25 MG/ML VIAL ONE (15:31)
[2020-08-26] MEDS ORDERED: Dextrose 50% Abboject 50 ML SYRINGE SLOW IVP PRN (16:26)
[2020-08-26] MEDS ORDERED: Dextrose 5% in Water 1,000 ML IV PRN (16:26)
[2020-08-26] MEDS ORDERED: Ondansetron PF 4 MG/2 ML Vial IVP PRN (16:26)
[2020-08-26] MEDS ORDERED: Electrolyte Replacement Protocol FS SCH (17:00)
[2020-08-26] MEDS ORDERED: Sodium Chloride 0.9% 1,000 ML IV SCH (17:00)
[2020-08-26] MEDS ORDERED: Promethazine HCl 25 MG SUPP PR PRN (17:14)
[2020-08-26] MEDS: Sodium Chloride 0.9% 1,000 ML IV SCH (18:00)
[2020-08-26 18:21] VITALS: BMI 18.8
[2020-08-26] MEDS: Metoclopramide HCl 10 MG/2 ML VIAL IVP PRN (20:26)
[2020-08-26] MEDS: Morphine 2 MG/ML VIAL SLOW IVP PRN (20:31)
[2020-08-27] MEDS: Metoclopramide HCl 10 MG/2 ML VIAL IVP PRN ×2 (04:03→09:45)
[2020-08-27] MEDS: Morphine 2 MG/ML VIAL SLOW IVP PRN ×3 (04:03→16:16)
[2020-08-27] MEDS: Sodium Chloride 0.9% 1,000 ML IV SCH ×3 (04:06→21:50)
[2020-08-27 05:58] LABS: #Basophils 0.1 thou/uL (0.0-0.2); #Eosinphils 0.1 thou/uL (0.0-0.7); #Lymphocytes 2.1 thou/uL (1.20-3.40); #Monocytes 0.6 thou/uL (0.11-0.59); #Neutrophils 8.4 thou/uL (1.40-6.50); %Basophils 0.5 % (0.0-1.0); %Eosinophils 0.5 % (0.0-10.0); %Lymphocytes 18.8 % (21.0-51.0); %Monocytes 5.4 % (0.0-10.0); %Neutrophils 74.8 % (42.0-75.0); Hemoglobin 8.5 g/dL (12.0-16.0); Mean Corpuscular HGB CONC 31.2 g/dL (32.0-36.0); Mean Corpuscular Hemoglobin 27.4 pg (27.0-31.0); Mean Corpuscular Volume 87.9 fL (78.0-98.0); Mean Platelet Volume 7.4 fL (7.4-10.4); Platelet Count 285 thou/uL (130-400); RBC Distribution Width 15.6 % (11.5-14.5); White Blood Cell (WBC) Count 11.3 thou/uL (4.8-10.8)
[2020-08-27] MEDS ORDERED: Magnesium 2 GM/50 ML 2 GM in Premix Bag 1 BAG IVPB SCH (06:15)
[2020-08-27 06:23] LABS: Anion Gap 13 mmol/L (10-20); BUN (Urea Nitrogen) 11 mg/dL (7.0-18.7); Calc. Creatinine Clearance 92 mL/min (70-130); Calcium 7.3 mg/dL (7.8-10.44); Carbon Dioxide 19 mmol/L (22-29); Chloride 109 mmol/L (98-107); Glucose 292 mg/dL (70-105); Potassium 3.3 mmol/L (3.5-5.1); Sodium 138 mmol/L (136-145)
[2020-08-27] MEDS ORDERED: Potassium Chloride 20 MEQ TAB PO SCH (06:30)
[2020-08-27] MEDS: HumaLOG 300 UNITS/3 ML VIAL SC PRN ×2 (06:41→16:46)
[2020-08-27] MEDS ORDERED: FLU VACC QS2020-21(6MOS UP)/PF 60 MCG/0.5 ML SYRINGE IM ONE (09:00)
[2020-08-27] MEDS: Gabapentin 300 MG CAP PO SCH (09:45)
[2020-08-27] MEDS: Potassium Chloride 20 MEQ in Premix Bag 1 BAG IVPB SCH ×2 (12:29→14:22)
[2020-08-27] MEDS: diphenhydrAMINE 50 MG/ML VIAL IM PRN ×2 (12:38→18:36)
[2020-08-27] MEDS: Metoclopramide HCl 10 MG/2 ML VIAL IVP SCH ×2 (15:50→20:36)
[2020-08-27] MEDS ORDERED: cloNIDine 0.1 MG TAB PO PRN (16:04)
[2020-08-27] MEDS: hydrALAZINE 20 MG/ML VIAL SLOW IVP PRN (16:58)
[2020-08-27] MEDS: HumuLIN 70/30 (300 UNITS/3 ML VIAL) SC SCH (17:01)
[2020-08-28 07:22] LABS: #Basophils 0.1 thou/uL (0.0-0.2); #Eosinphils 0.1 thou/uL (0.0-0.7); #Lymphocytes 3.2 thou/uL (1.20-3.40); #Monocytes 0.4 thou/uL (0.11-0.59); #Neutrophils 4.2 thou/uL (1.40-6.50); %Basophils 0.6 % (0.0-1.0); %Eosinophils 1.2 % (0.0-10.0); %Lymphocytes 40.7 % (21.0-51.0); %Monocytes 4.7 % (0.0-10.0); %Neutrophils 52.8 % (42.0-75.0); Hemoglobin 8.5 g/dL (12.0-16.0); Mean Corpuscular HGB CONC 31.9 g/dL (32.0-36.0); Mean Platelet Volume 7.4 fL (7.4-10.4); Platelet Count 245 thou/uL (130-400); RBC Distribution Width 15.5 % (11.5-14.5); Red Blood Cell (RBC) Count 3.04 mill/uL (4.20-5.40); White Blood Cell (WBC) Count 7.9 thou/uL (4.8-10.8)
[2020-08-28 07:24] LABS: Anion Gap 12 mmol/L (10-20); BUN (Urea Nitrogen) 11 mg/dL (7.0-18.7); Calc. Creatinine Clearance 103 mL/min (70-130); Calcium 7.1 mg/dL (7.8-10.44); Carbon Dioxide 20 mmol/L (22-29); Chloride 110 mmol/L (98-107); Glucose 214 mg/dL (70-105); Potassium 3.2 mmol/L (3.5-5.1); Sodium 139 mmol/L (136-145)
[2020-08-28] MEDS: Sodium Chloride 0.9% 1,000 ML IV SCH ×2 (07:59→16:18)
[2020-08-28] MEDS: Gabapentin 300 MG CAP PO SCH (07:59)
[2020-08-28] MEDS: HumuLIN 70/30 (300 UNITS/3 ML VIAL) SC SCH ×2 (08:00→16:15)
[2020-08-28] MEDS: Amitriptyline HCl 25 MG TAB PO SCH (08:00)
[2020-08-28] MEDS: Metoclopramide HCl 10 MG/2 ML VIAL IVP SCH ×3 (08:00→21:14)
[2020-08-28] MEDS ORDERED: Potassium Chloride 20 MEQ TAB PO SCH (08:00)
[2020-08-28] MEDS: Morphine 2 MG/ML VIAL SLOW IVP PRN (08:13)
[2020-08-28] MEDS ORDERED: Ondansetron PF 4 MG/2 ML Vial IVP PRN (08:40)
[2020-08-28 09:27] LABS: Amphetamine Not Detected (NotDetected); Barbiturates Screen Not Detected (NotDetected); Benzodiazepine Screen Not Detected (NotDetected); Cocaine Metabolite Screen Not Detected (NotDetected); Medtox Control Line Valid? VALID (VALID); Medtox Reader # READER 4; Methadone Not Detected (NotDetected); Methamphetamine Not Detected (NotDetected); Opiate Screen Detected (NotDetected); Oxycodone Screen Not Detected (NotDetected); Phencyclidine (PCP) Not Detected (NotDetected); THC/Cannabinoid Screen Detected (NotDetected); Tricyclic Screen Not Detected (NotDetected)
[2020-08-28] MEDS: diphenhydrAMINE 50 MG/ML VIAL IM PRN ×2 (09:32→14:32)
[2020-08-28] MEDS: hydrALAZINE 20 MG/ML VIAL SLOW IVP PRN (10:57)
[2020-08-28] MEDS: Morphine 4 MG/ML VIAL SLOW IVP PRN ×2 (11:35→15:33)
[2020-08-28] MEDS ORDERED: Iopamidol-370 76% 500 ML 1 ML ONE (13:56)
[2020-08-28] MEDS ORDERED: Iopamidol 370 76% 50 ML VIAL FS ONE (13:56)
[2020-08-28] MEDS: Pantoprazole 40 MG VIAL IVP SCH (21:14)
[2020-08-29] MEDS: Morphine 4 MG/ML VIAL SLOW IVP PRN (01:04)
[2020-08-29] MEDS: Sodium Chloride 0.9% 1,000 ML IV SCH ×3 (06:07→20:35)
[2020-08-29] MEDS ORDERED: Morphine 2 MG/ML VIAL SLOW IVP PRN (08:07)
[2020-08-29] MEDS: HumuLIN 70/30 (300 UNITS/3 ML VIAL) SC SCH ×2 (09:36→16:05)
[2020-08-29] MEDS: Gabapentin 300 MG CAP PO SCH (09:36)
[2020-08-29] MEDS: Metoclopramide HCl 10 MG/2 ML VIAL IVP SCH ×3 (09:36→20:33)
[2020-08-29] MEDS: Amitriptyline HCl 25 MG TAB PO SCH (09:36)
[2020-08-29] MEDS: Pantoprazole 40 MG VIAL IVP SCH ×2 (09:37→20:33)
[2020-08-29] MEDS: diphenhydrAMINE 50 MG/ML VIAL IM PRN (20:33)
[2020-08-30] MEDS: Sodium Chloride 0.9% 1,000 ML IV SCH ×2 (08:32→13:47)
[2020-08-30] MEDS: Gabapentin 300 MG CAP PO SCH (08:33)
[2020-08-30] MEDS: Amitriptyline HCl 25 MG TAB PO SCH (08:33)
[2020-08-30] MEDS: Pantoprazole 40 MG VIAL IVP SCH (08:33)
[2020-08-30] MEDS: Metoclopramide HCl 10 MG/2 ML VIAL IVP SCH (08:34)
[2020-08-30] MEDS: HumuLIN 70/30 (300 UNITS/3 ML VIAL) SC SCH (10:15)
[2020-08-30] MEDS ORDERED: diphenhydrAMINE 50 MG/ML VIAL IVP SCH (11:15)
[2020-08-30] MEDS: HumaLOG 300 UNITS/3 ML VIAL SC PRN (12:25)
[2020-08-30 16:34] VITALS: BP 142/78; TEMP 98.9
== END 2020-08-30 18:11 | disposition home or self-care (01) | DRG 391 ==
LOC: ERS 11:54 → T4-A 14:56 → OBSVTOIN 08-27 14:54
PROVIDERS: ADMIT Internal Medicine; ATTEND Internal Medicine
DX: K29.70 Gastritis, unspecified, without bleeding (principal); E10.10 Type 1 diabetes mellitus with ketoacidosis without coma; Z68.1 Body mass index [BMI] 19.9 or less, adult; E44.0 Moderate protein-calorie malnutrition; E10.43 Type 1 diabetes mellitus with diabetic autonomic (poly)neuropathy; B96.81 Helicobacter pylori [H. pylori] as the cause of diseases classified elsewhere; K31.84 Gastroparesis; F31.9 Bipolar disorder, unspecified; F41.9 Anxiety disorder, unspecified; F43.10 Post-traumatic stress disorder, unspecified; R62.7 Adult failure to thrive; D64.9 Anemia, unspecified; E10.42 Type 1 diabetes mellitus with diabetic polyneuropathy; F12.10 Cannabis abuse, uncomplicated; K21.00 Gastro-esophageal reflux disease with esophagitis, without bleeding; Z79.899 Other long term (current) drug therapy; Z79.4 Long term (current) use of insulin; Z83.3 Family history of diabetes mellitus
CPT/HCPCS: 36415; 36416; 74177; 80048; 80053; 80306; 82010; 82150; 82805; 83690; 84703; 85025; 87338; 96372; 96374; 96375; 96376; C9113; G0378; J0360; J1200; J1815; J2270; J2405; J2550; J2765; J3480; Q9967

== ENCOUNTER 2020-09-07 15:46 | Inpatient (IN) | payer OTHER ==
[2020-09-07 16:12] LABS: Actual Bicarbonate (HCO3v) 18 mEq/L (22-28); Analyzer IN Cardio ER; Base Excess -5.6 mEq/L (-2.0 to +3.0)
[2020-09-07 16:13] LABS: Calcium, Ionized (venous) 1.12 mmol/L (1.16-1.32); Chloride (VBG) 91 mmol/L (98-106); Hemoglobin (Hb) 13.1 g/dL (11.7-15.5); Potassium (VBG) 5.46 mmol/L (3.70-5.30); Sodium 132.1 mmol/L (133-146)
[2020-09-07] MEDS ORDERED: Lidocaine 2% PF 5 ML VIAL ONE (16:28)
[2020-09-07] MEDS ORDERED: Lidocaine 1% PF 5 ML VIAL ONE (17:11)
[2020-09-07] MEDS ORDERED: Morphine 4 MG/ML VIAL ONE ×2 (17:43→19:06)
[2020-09-07 18:41] LABS: #Lymphocytes 1.2 thou/uL (1.20-3.40); #Monocytes 0.3 thou/uL (0.11-0.59); #Neutrophils 9.2 thou/uL (1.40-6.50); %Basophils 0.4 % (0.0-1.0); %Eosinophils 0.1 % (0.0-10.0); %Lymphocytes 10.9 % (21.0-51.0); %Monocytes 2.6 % (0.0-10.0); Hemoglobin 11.2 g/dL (12.0-16.0); Mean Corpuscular HGB CONC 32.5 g/dL (32.0-36.0); Mean Corpuscular Hemoglobin 28.7 pg (27.0-31.0); Mean Corpuscular Volume 88.4 fL (78.0-98.0); Mean Platelet Volume 7.4 fL (7.4-10.4); Platelet Count 362 thou/uL (130-400); RBC Distribution Width 15.7 % (11.5-14.5); Red Blood Cell (RBC) Count 3.89 mill/uL (4.20-5.40); White Blood Cell (WBC) Count 10.7 thou/uL (4.8-10.8)
[2020-09-07 19:02] LABS: ALT (SGPT) 20 U/L (8-55); AST (SGOT) 14 U/L (5-34); Albumin 4.4 g/dL (3.5-5.0); Alkaline Phosphatase 69 U/L (40-110); Anion Gap 25 mmol/L (10-20); BUN (Urea Nitrogen) 25 mg/dL (7.0-18.7); Bilirubin, Total 0.4 mg/dL (0.2-1.2); Calc. Creatinine Clearance 0 mL/min (70-130); Calcium 9.6 mg/dL (7.8-10.44); Carbon Dioxide 16 mmol/L (22-29); Chloride 96 mmol/L (98-107); Globulin 3.6 g/dL (2.4-3.5); Potassium 4.4 mmol/L (3.5-5.1); Sodium 133 mmol/L (136-145)
[2020-09-07] MEDS ORDERED: Ondansetron PF 4 MG/2 ML Vial ONE ×2 (19:06→20:01)
[2020-09-07 19:20] LABS: Glucose 583 mg/dL (70-105)
[2020-09-07 19:30] LABS: Actual Bicarbonate (HCO3v) 15 mEq/L (22-28); Analyzer IN Cardio ER; Base Excess -9.5 mEq/L (-2.0 to +3.0); Calcium, Ionized (venous) 1.08 mmol/L (1.16-1.32); Chloride (VBG) 100 mmol/L (98-106); Hemoglobin (Hb) 12.4 g/dL (11.7-15.5); Potassium (VBG) 4.49 mmol/L (3.70-5.30); Sodium 135.3 mmol/L (133-146); pH (venous) 7.35 (7.32-7.43)
[2020-09-07 19:37] LABS: Pregnancy Test - Urine (BHCG) Negative (Negative); Pregu Control Background? CLEAR/WHITE (CLR/WHITE); Pregu Control Bar Appear? YES (CONTROL BAR); Specific Gravity 1.031 (1.002-1.036)
[2020-09-07 19:48] LABS: Amphetamine Not Detected (NotDetected); Barbiturates Screen Not Detected (NotDetected); Benzodiazepine Screen Not Detected (NotDetected); Cocaine Metabolite Screen Not Detected (NotDetected); Medtox Control Line Valid? VALID (VALID); Medtox Reader # READER 4; Methadone Not Detected (NotDetected); Methamphetamine Not Detected (NotDetected); Opiate Screen Detected (NotDetected); Oxycodone Screen Not Detected (NotDetected); Phencyclidine (PCP) Not Detected (NotDetected); THC/Cannabinoid Screen Not Detected (NotDetected); Tricyclic Screen Not Detected (NotDetected)
[2020-09-07 19:51] LABS: Acetaminophen Less than 6.0 mcg/mL (10.0-30.0); Alcohol Less than 10 mg/dL (Less than 10); Salicylate Less than 8.0 mg/dL (15.0-30.0)
[2020-09-07] MEDS ORDERED: INSULIN REGULAR IN 0.9 % NACL 100 UNIT/100 ML BAG ONE (20:01)
[2020-09-07] MEDS ORDERED: diphenhydrAMINE 50 MG/ML VIAL ONE (20:10)
[2020-09-07] MEDS ORDERED: Electrolyte Replacement Protocol 1 EACH IVPB ONE (22:00)
[2020-09-07] MEDS ORDERED: Acetaminophen 325 MG TAB PO PRN ×2 (22:00→22:15)
[2020-09-07] MEDS ORDERED: HUMULIN R 100 UNITS in Sodium Chloride 0.9% 100 ML IVPB SCH ×2 (22:00→22:15)
[2020-09-07] MEDS ORDERED: NS 0.9% w/ 20 MEQ KCL 1,000 ML IV PRN ×2 (22:00)
[2020-09-07] MEDS ORDERED: Dextrose 5 %-0.45 % NaCl 1,000 ML IV PRN ×2 (22:00→22:15)
[2020-09-07] MEDS ORDERED: Sodium Chloride 0.9% 1,000 ML IV PRN ×8 (22:00→22:15)
[2020-09-07] MEDS ORDERED: hydrALAZINE 20 MG/ML VIAL SLOW IVP PRN (22:03)
[2020-09-07] MEDS ORDERED: Dextrose 50% Abboject 50 ML SYRINGE SLOW IVP PRN (22:05)
[2020-09-07] MEDS ORDERED: Dextrose 5% in Water 1,000 ML IV PRN (22:15)
[2020-09-07] MEDS ORDERED: Enoxaparin Sodium 30 MG/0.3 ML SYRINGE SC SCH (22:15)
[2020-09-07] MEDS ORDERED: Electrolyte Replacement Protocol FS PRN ×2 (22:15)
[2020-09-07] MEDS ORDERED: D5 1/2 NS w/20 mEq KCL 1,000 ML IV PRN (22:15)
[2020-09-07] MEDS ORDERED: Ondansetron ODT 4 MG TAB SL PRN (22:15)
[2020-09-07] MEDS ORDERED: Ondansetron PF 4 MG/2 ML Vial IVP PRN (22:15)
[2020-09-07] MEDS ORDERED: NS 0.9% w/ 20 MEQ KCL 1,000 ML/1,000 ML BAG IV PRN ×2 (22:15)
[2020-09-07 22:21] VITALS: BMI 18.7
[2020-09-07 22:43] LABS: Anion Gap 18 mmol/L (10-20); BUN (Urea Nitrogen) 23 mg/dL (7.0-18.7); Calc. Creatinine Clearance 38 mL/min (70-130); Calcium 8.8 mg/dL (7.8-10.44); Carbon Dioxide 20 mmol/L (22-29); Chloride 107 mmol/L (98-107); Glucose 361 mg/dL (70-105); Potassium 4.2 mmol/L (3.5-5.1); Sodium 141 mmol/L (136-145)
[2020-09-07 23:04] LABS: Free T4 (Free Thyroxine) 1.16 ng/dL (0.70-1.48)
[2020-09-08] MEDS: Ondansetron PF 4 MG/2 ML Vial IVP PRN (00:08)
[2020-09-08] MEDS: Metoclopramide HCl 10 MG/2 ML VIAL IVP PRN ×2 (00:08→15:42)
[2020-09-08] MEDS: Morphine 4 MG/ML VIAL SLOW IVP PRN ×5 (00:08→22:56)
[2020-09-08 00:34] LABS: Troponin I 0.016 ng/mL (< 0.028)
[2020-09-08] MEDS: D5 1/2 NS w/20 mEq KCL 1,000 ML IV PRN ×2 (01:26→05:17)
[2020-09-08 02:28] LABS: Hemoglobin A1c 11.9 % (4.0-6.0)
[2020-09-08 02:29] LABS: Mean Corpuscular HGB CONC 32.5 g/dL (32.0-36.0); Mean Corpuscular Hemoglobin 28.3 pg (27.0-31.0); Mean Corpuscular Volume 86.9 fL (78.0-98.0); Mean Platelet Volume 7.2 fL (7.4-10.4); Platelet Count 333 thou/uL (130-400); RBC Distribution Width 15.7 % (11.5-14.5); Red Blood Cell (RBC) Count 3.54 mill/uL (4.20-5.40); White Blood Cell (WBC) Count 14.5 thou/uL (4.8-10.8)
[2020-09-08 02:35] LABS: Anion Gap 15 mmol/L (10-20); BUN (Urea Nitrogen) 25 mg/dL (7.0-18.7); Calc. Creatinine Clearance 43 mL/min (70-130); Calcium 8.7 mg/dL (7.8-10.44); Carbon Dioxide 20 mmol/L (22-29); Chloride 110 mmol/L (98-107); Glucose 158 mg/dL (70-105); Potassium 4.2 mmol/L (3.5-5.1); Sodium 141 mmol/L (136-145)
[2020-09-08 02:49] LABS: Anion Gap 16 mmol/L (10-20); BUN (Urea Nitrogen) 24 mg/dL (7.0-18.7); Calc. Creatinine Clearance 42 mL/min (70-130); Calcium 8.7 mg/dL (7.8-10.44); Carbon Dioxide 19 mmol/L (22-29); Chloride 110 mmol/L (98-107); Glucose 160 mg/dL (70-105); Magnesium 1.9 mg/dL (1.6-2.6); Potassium 4.2 mmol/L (3.5-5.1); Sodium 141 mmol/L (136-145)
[2020-09-08 02:52] LABS: Lymphocytes 10 % (21-51); MDiff Complete? YES; Monocytes 6 % (0-10); Neutrophil 84 % (42-75); Platelet Morphology Comment Appears Adequate
[2020-09-08 02:54] LABS: Troponin I 0.019 ng/mL (< 0.028)
[2020-09-08 04:54] LABS: SARS-CoV-2 PCR by NAA Not Detected (NotDetected)
[2020-09-08] MEDS ORDERED: Magnesium 2 GM/50 ML 2 GM in Premix Bag 1 BAG IVPB SCH (06:15)
[2020-09-08 06:39] LABS: Anion Gap 11 mmol/L (10-20); BUN (Urea Nitrogen) 21 mg/dL (7.0-18.7); Calc. Creatinine Clearance 51 mL/min (70-130); Carbon Dioxide 23 mmol/L (22-29); Chloride 110 mmol/L (98-107); Glucose 159 mg/dL (70-105); Potassium 4.2 mmol/L (3.5-5.1); Sodium 140 mmol/L (136-145)
[2020-09-08 06:46] LABS: Troponin I 0.018 ng/mL (< 0.028)
[2020-09-08] MEDS ORDERED: Non-Formulary Item 1 EACH (Metoclopramide Hcl [Metoclopramide Hcl] 5 MG Tablet) PO PRN (07:40)
[2020-09-08] MEDS ORDERED: Metoclopramide HCl 10 MG TAB PO PRN (07:47)
[2020-09-08] MEDS ORDERED: Promethazine HCl 25 MG/ML VIAL IM/IV PRN (07:50)
[2020-09-08] MEDS ORDERED: Dextrose 50% Abboject 50 ML SYRINGE IVP PRN (08:15)
[2020-09-08] MEDS ORDERED: HumaLOG 300 UNITS/3 ML VIAL SC PRN (08:15)
[2020-09-08] MEDS ORDERED: Dextrose 5% in Water 1,000 ML IV PRN (08:15)
[2020-09-08] MEDS: DULoxetine 60 MG CAP PO SCH (08:35)
[2020-09-08] MEDS: Gabapentin 300 MG CAP PO SCH ×3 (08:35→21:58)
[2020-09-08] MEDS: Famotidine 20 MG TAB PO SCH ×2 (08:36→21:59)
[2020-09-08] MEDS: Sucralfate 1 GM TAB PO SCH ×2 (08:40→21:58)
[2020-09-08] MEDS ORDERED: Enoxaparin Sodium 30 MG/0.3 ML SYRINGE SC SCH (09:00)
[2020-09-08] MEDS: Lantus 1000 UNITS/10 ML VIAL SC SCH ×2 (10:12→22:03)
[2020-09-08] MEDS: Promethazine HCl 25 MG in Sodium Chloride 0.9% 50 ML IVPB PRN ×2 (16:28→22:56)
[2020-09-08 18:22] LABS: Bacteria/HPF 4+ HPF (None Seen); Bilirubin Negative (Negative); Blood, Urine Negative (Negative); Clarity Clear (Clear); Glucose, Urine (Dipstick) 500 mg/dL (Negative); Ketone, Urine 20 mg/dL (Negative); Leukocyte 75 Leu/uL (Negative); Nitrite Negative (Negative); Protein, Urine (Dipstick) 20 mg/dL (Neg-Trace); RBC/HPF 0-3 HPF (0-3); Squamous Epithelial None Seen HPF (0-3); Urobilinogen Normal mg/dL (Less than 2)
[2020-09-08 18:25] LABS: Urine Culture Reflex Yes Yes
[2020-09-08] MEDS: Enoxaparin Sodium 30 MG/0.3 ML SYRINGE SC SCH (22:01)
[2020-09-09] MEDS: Morphine 4 MG/ML VIAL SLOW IVP PRN ×4 (05:47→23:25)
[2020-09-09] MEDS: Promethazine HCl 25 MG in Sodium Chloride 0.9% 50 ML IVPB PRN (05:47)
[2020-09-09 06:29] LABS: Anion Gap 10 mmol/L (10-20); BUN (Urea Nitrogen) 13 mg/dL (7.0-18.7); Calc. Creatinine Clearance 80 mL/min (70-130); Calcium 7.9 mg/dL (7.8-10.44); Carbon Dioxide 23 mmol/L (22-29); Chloride 106 mmol/L (98-107); Glucose 189 mg/dL (70-105); Magnesium 2.1 mg/dL (1.6-2.6); Potassium 4.1 mmol/L (3.5-5.1); Sodium 135 mmol/L (136-145)
[2020-09-09 06:38] LABS: Eosinophils 3 % (0-10); Hypochromia SLIGHT = 6-15 cells (100X) (0-5/hpf); Lymphocytes 37 % (21-51); MDiff Complete? YES; Mean Corpuscular HGB CONC 32.3 g/dL (32.0-36.0); Mean Corpuscular Volume 89.7 fL (78.0-98.0); Mean Platelet Volume 6.9 fL (7.4-10.4); Monocytes 3 % (0-10); Neutrophil 56 % (42-75); Platelet Count 250 thou/uL (130-400); Platelet Morphology Comment Appears Adequate; RBC Distribution Width 15.4 % (11.5-14.5); Reactive Lymphocytes 1 % (0-10); White Blood Cell (WBC) Count 6.7 thou/uL (4.8-10.8)
[2020-09-09] MEDS: Famotidine 20 MG TAB PO SCH ×2 (09:38→23:20)
[2020-09-09] MEDS: DULoxetine 60 MG CAP PO SCH (09:38)
[2020-09-09] MEDS: Gabapentin 300 MG CAP PO SCH ×3 (09:39→23:21)
[2020-09-09] MEDS: Sucralfate 1 GM TAB PO SCH ×2 (09:39→23:21)
[2020-09-09] MEDS: Lantus 1000 UNITS/10 ML VIAL SC SCH ×2 (09:40→23:22)
[2020-09-09] MEDS: HumaLOG 300 UNITS/3 ML VIAL SC PRN ×2 (11:36→17:35)
[2020-09-09] MEDS: cefTRIAXone\\ROCEPHIN 1 GM in Sodium Chloride 0.9% 100 ML IVPB SCH (14:27)
[2020-09-09] MEDS: Enoxaparin Sodium 30 MG/0.3 ML SYRINGE SC SCH (23:21)
[2020-09-09] MEDS: Ondansetron PF 4 MG/2 ML Vial IVP PRN (23:24)
[2020-09-10] MEDS: HumaLOG 300 UNITS/3 ML VIAL SC PRN ×2 (06:11→21:40)
[2020-09-10] MEDS: Morphine 4 MG/ML VIAL SLOW IVP PRN ×2 (06:15→17:34)
[2020-09-10 06:53] LABS: Eosinophils 1 % (0-10); Hemoglobin 8.8 g/dL (12.0-16.0); Lymphocytes 51 % (21-51); MDiff Complete? YES; Mean Corpuscular HGB CONC 31.9 g/dL (32.0-36.0); Mean Corpuscular Hemoglobin 28.5 pg (27.0-31.0); Mean Corpuscular Volume 89.5 fL (78.0-98.0); Mean Platelet Volume 7.1 fL (7.4-10.4); Monocytes 5 % (0-10); Neutrophil 42 % (42-75); Platelet Count 236 thou/uL (130-400); Platelet Morphology Comment Appears Adequate; RBC Distribution Width 15.1 % (11.5-14.5); Reactive Lymphocytes 1 % (0-10); Red Blood Cell (RBC) Count 3.08 mill/uL (4.20-5.40); White Blood Cell (WBC) Count 4.6 thou/uL (4.8-10.8)
[2020-09-10 07:04] LABS: Anion Gap 12 mmol/L (10-20); BUN (Urea Nitrogen) 9 mg/dL (7.0-18.7); Calc. Creatinine Clearance 86 mL/min (70-130); Calcium 7.7 mg/dL (7.8-10.44); Carbon Dioxide 25 mmol/L (22-29); Chloride 105 mmol/L (98-107); Glucose 213 mg/dL (70-105); Magnesium 1.8 mg/dL (1.6-2.6); Potassium 3.7 mmol/L (3.5-5.1); Sodium 138 mmol/L (136-145)
[2020-09-10] MEDS ORDERED: Magnesium 2 GM/50 ML 2 GM in Premix Bag 1 BAG IVPB SCH (08:00)
[2020-09-10] MEDS: DULoxetine 60 MG CAP PO SCH (08:42)
[2020-09-10] MEDS: Sucralfate 1 GM TAB PO SCH ×2 (08:42→21:38)
[2020-09-10] MEDS: Famotidine 20 MG TAB PO SCH ×2 (08:43→21:38)
[2020-09-10] MEDS: Gabapentin 300 MG CAP PO SCH ×3 (08:43→21:38)
[2020-09-10] MEDS: Lantus 1000 UNITS/10 ML VIAL SC SCH ×2 (08:48→21:39)
[2020-09-10] MEDS: Promethazine HCl 25 MG in Sodium Chloride 0.9% 50 ML IVPB PRN (09:38)
[2020-09-10] MEDS: cefTRIAXone\\ROCEPHIN 1 GM in Sodium Chloride 0.9% 100 ML IVPB SCH (15:52)
[2020-09-10] MEDS: Sulfameth/Trimethoprim DS 800-160mg TAB PO SCH (21:39)
[2020-09-10] MEDS: Enoxaparin Sodium 30 MG/0.3 ML SYRINGE SC SCH (21:39)
[2020-09-11] MEDS: Morphine 4 MG/ML VIAL SLOW IVP PRN ×2 (02:48→08:20)
[2020-09-11] MEDS: HumaLOG 300 UNITS/3 ML VIAL SC PRN (05:44)
[2020-09-11 08:12] LABS: Anion Gap 10 mmol/L (10-20); BUN (Urea Nitrogen) 8 mg/dL (7.0-18.7); Calc. Creatinine Clearance 90 mL/min (70-130); Calcium 7.9 mg/dL (7.8-10.44); Carbon Dioxide 26 mmol/L (22-29); Chloride 105 mmol/L (98-107); Glucose 104 mg/dL (70-105); Magnesium 1.9 mg/dL (1.6-2.6); Potassium 3.7 mmol/L (3.5-5.1); Sodium 137 mmol/L (136-145)
[2020-09-11] MEDS: Famotidine 20 MG TAB PO SCH (08:18)
[2020-09-11] MEDS: Gabapentin 300 MG CAP PO SCH (08:19)
[2020-09-11] MEDS: Sucralfate 1 GM TAB PO SCH (08:19)
[2020-09-11] MEDS: Sulfameth/Trimethoprim DS 800-160mg TAB PO SCH (08:19)
[2020-09-11] MEDS: DULoxetine 60 MG CAP PO SCH (08:19)
[2020-09-11] MEDS: Lantus 1000 UNITS/10 ML VIAL SC SCH (08:28)
[2020-09-11] MEDS ORDERED: Magnesium 2 GM/50 ML 2 GM in Premix Bag 1 BAG IVPB SCH (09:15)
[2020-09-11 11:59] VITALS: BP 124/86; TEMP 98.4
== END 2020-09-11 13:50 | disposition home or self-care (01) | DRG 199 ==
LOC: ERS 15:46 → IMCU/EMU 20:45 → T4-A 09-08 12:05
PROVIDERS: ADMIT Internal Medicine; ATTEND Internal Medicine
PROC: 0W9930Z Drainage of Right Pleural Cavity with Drainage Device, Percutaneous Approach (ICD-10-PCS; principal; 2020-09-07)
PROC: 02H633Z Insertion of Infusion Device into Right Atrium, Percutaneous Approach (ICD-10-PCS; 2020-09-07)
PROC: 0T9B70Z Drainage of Bladder with Drainage Device, Via Natural or Artificial Opening (ICD-10-PCS; 2020-09-07)
DX: J95.811 Postprocedural pneumothorax (principal); E10.10 Type 1 diabetes mellitus with ketoacidosis without coma; G93.41 Metabolic encephalopathy; N17.9 Acute kidney failure, unspecified; N13.6 Pyonephrosis; E87.1 Hypo-osmolality and hyponatremia; E44.0 Moderate protein-calorie malnutrition; Z68.1 Body mass index [BMI] 19.9 or less, adult; Z16.19 Resistance to other specified beta lactam antibiotics; Z20.822 Contact with and (suspected) exposure to COVID-19; F31.9 Bipolar disorder, unspecified; R33.9 Retention of urine, unspecified; Y84.8 Other medical procedures as the cause of abnormal reaction of the patient, or of later complication, without mention of misadventure at the time of the procedure; F43.10 Post-traumatic stress disorder, unspecified; E10.42 Type 1 diabetes mellitus with diabetic polyneuropathy; E10.43 Type 1 diabetes mellitus with diabetic autonomic (poly)neuropathy; B96.1 Klebsiella pneumoniae [K. pneumoniae] as the cause of diseases classified elsewhere; K31.84 Gastroparesis; Z79.4 Long term (current) use of insulin; Z79.899 Other long term (current) drug therapy
CPT/HCPCS: 32551; 36416; 36556; 51702; 70450; 71045; 74177; 76770; 80048; 80053; 80306; 80307; 81001; 81025; 82010; 82550; 82805; 83036; 83735; 84439; 84443; 84481; 84484; 85007; 85025; 85027; 85379; 87077; 87086; 87186; 87635; 93005; 93306; 96365; 96366; 96375; 96376; J0696; J1200; J1650; J1815; J2001; J2270; J2405; J2550; J2765; J3475; J3480; J3490; U0003; U0005

== ENCOUNTER 2020-09-15 15:12 | Inpatient (IN) | payer OTHER ==
[2020-09-15 15:56] LABS: #Basophils 0.1 thou/uL (0.0-0.2); #Eosinphils 0.2 thou/uL (0.0-0.7); #Lymphocytes 2.1 thou/uL (1.20-3.40); #Monocytes 0.4 thou/uL (0.11-0.59); #Neutrophils 3.7 thou/uL (1.40-6.50); %Basophils 1.1 % (0.0-1.0); %Lymphocytes 31.9 % (21.0-51.0); %Monocytes 6.5 % (0.0-10.0); %Neutrophils 57.6 % (42.0-75.0); Hemoglobin 10.6 g/dL (12.0-16.0); Mean Corpuscular HGB CONC 32.6 g/dL (32.0-36.0); Mean Corpuscular Hemoglobin 28.7 pg (27.0-31.0); Mean Corpuscular Volume 88.2 fL (78.0-98.0); Mean Platelet Volume 7.1 fL (7.4-10.4); Platelet Count 379 thou/uL (130-400); RBC Distribution Width 15.3 % (11.5-14.5); White Blood Cell (WBC) Count 6.4 thou/uL (4.8-10.8)
[2020-09-15] MEDS ORDERED: Metoclopramide HCl 10 MG/2 ML VIAL ONE (16:03)
[2020-09-15] MEDS ORDERED: diphenhydrAMINE 50 MG/ML VIAL ONE (16:15)
[2020-09-15 16:16] LABS: Anion Gap 22 mmol/L (10-20); BUN (Urea Nitrogen) 11 mg/dL (7.0-18.7); Calc. Creatinine Clearance 0 mL/min (70-130); Calcium 9.3 mg/dL (7.8-10.44); Carbon Dioxide 20 mmol/L (22-29); Chloride 93 mmol/L (98-107); Lipase 38 U/L (8-78); Magnesium 1.5 mg/dL (1.6-2.6); Potassium 3.6 mmol/L (3.5-5.1); Sodium 131 mmol/L (136-145)
[2020-09-15 16:21] LABS: Glucose 598 mg/dL (70-105)
[2020-09-15 16:24] LABS: Actual Bicarbonate (HCO3v) 23 mEq/L (22-28); Analyzer IN Cardio ER; Base Excess 0.6 mEq/L (-2.0 to +3.0); Calcium, Ionized (venous) 1.05 mmol/L (1.16-1.32); Chloride (VBG) 95 mmol/L (98-106); Hemoglobin (Hb) 11.8 g/dL (11.7-15.5); Potassium (VBG) 3.68 mmol/L (3.70-5.30)
[2020-09-15] MEDS ORDERED: Ondansetron PF 4 MG/2 ML Vial IVP PRN (17:34)
[2020-09-15] MEDS ORDERED: Sodium Chloride 0.9% 1,000 ML IV PRN ×4 (17:34)
[2020-09-15] MEDS ORDERED: NS 0.9% w/ 20 MEQ KCL 1,000 ML IV PRN ×2 (17:34)
[2020-09-15] MEDS ORDERED: Dextrose 5 %-0.45 % NaCl 1,000 ML IV PRN (17:34)
[2020-09-15] MEDS ORDERED: Electrolyte Replacement Protocol 1 EACH IVPB SCH (17:34)
[2020-09-15] MEDS ORDERED: Morphine 2 MG/ML VIAL SLOW IVP PRN (17:40)
[2020-09-15] MEDS ORDERED: hydrALAZINE 20 MG/ML VIAL SLOW IVP PRN (17:44)
[2020-09-15] MEDS ORDERED: HUMULIN R 100 UNITS in Sodium Chloride 0.9% 100 ML IVPB SCH (17:45)
[2020-09-15] MEDS ORDERED: Magnesium 2 GM/50 ML 2 GM in Premix Bag 1 BAG IVPB SCH (18:00)
[2020-09-15] MEDS ORDERED: Lorazepam 2 MG/ML VIAL ONE (18:00)
[2020-09-15 18:21] LABS: Bilirubin Negative (Negative); Blood, Urine Negative (Negative); Clarity Clear (Clear); Glucose, Urine (Dipstick) Greater than 1000 mg/dL (Negative); Ketone, Urine 40 mg/dL (Negative); Leukocyte Negative Leu/uL (Negative); Nitrite Negative (Negative); Protein, Urine (Dipstick) Negative (Neg-Trace); Specific Gravity, Urine 1.036 (1.002-1.036); Urobilinogen Normal mg/dL (Less than 2); pH, Urine 7.5 (5.0-9.0)
[2020-09-15 18:23] LABS: Pregnancy Test - Urine (BHCG) Negative (Negative); Pregu Control Background? CLEAR/WHITE (CLR/WHITE); Pregu Control Bar Appear? YES (CONTROL BAR); Specific Gravity 1.036 (1.002-1.036)
[2020-09-15] MEDS ORDERED: INSULIN REGULAR IN 0.9 % NACL 100 UNIT/100 ML BAG ONE (19:21)
[2020-09-15 19:26] LABS: BHCG - Serum Negative (NEGATIVE); Pregs Control Background? CLEAR/WHITE (CLR/WHITE); Pregs Control Bar Appear? YES (CONTROL BAR)
[2020-09-15 20:04] VITALS: BMI 19.6
[2020-09-15 20:06] LABS: SARS-CoV-2 NAA Rapid Test Not Detected (NotDetected)
[2020-09-15] MEDS: Metoclopramide HCl 10 MG/2 ML VIAL IVP PRN (20:36)
[2020-09-15] MEDS: Pantoprazole 40 MG VIAL IVP SCH (20:36)
[2020-09-15] MEDS: Morphine 4 MG/ML VIAL SLOW IVP PRN (20:36)
[2020-09-16] MEDS: D5 1/2 NS w/20 mEq KCL 1,000 ML IV PRN ×2 (00:10→04:31)
[2020-09-16] MEDS: Morphine 4 MG/ML VIAL SLOW IVP PRN (00:29)
[2020-09-16 04:44] LABS: #Eosinphils 0.1 thou/uL (0.0-0.7); #Lymphocytes 2.7 thou/uL (1.20-3.40); #Monocytes 0.6 thou/uL (0.11-0.59); #Neutrophils 5.1 thou/uL (1.40-6.50); %Basophils 0.2 % (0.0-1.0); %Eosinophils 0.7 % (0.0-10.0); %Lymphocytes 31.8 % (21.0-51.0); %Monocytes 6.5 % (0.0-10.0); %Neutrophils 60.8 % (42.0-75.0); Hemoglobin 7.9 g/dL (12.0-16.0); Mean Corpuscular HGB CONC 31.7 g/dL (32.0-36.0); Mean Corpuscular Hemoglobin 28.2 pg (27.0-31.0); Mean Corpuscular Volume 88.9 fL (78.0-98.0); Mean Platelet Volume 6.7 fL (7.4-10.4); Platelet Count 291 thou/uL (130-400); RBC Distribution Width 15.2 % (11.5-14.5); Red Blood Cell (RBC) Count 2.81 mill/uL (4.20-5.40); White Blood Cell (WBC) Count 8.4 thou/uL (4.8-10.8)
[2020-09-16 05:35] LABS: Anion Gap 5 mmol/L (10-20); BUN (Urea Nitrogen) 10 mg/dL (7.0-18.7); Calc. Creatinine Clearance 97 mL/min (70-130); Calcium 7.3 mg/dL (7.8-10.44); Carbon Dioxide 27 mmol/L (22-29); Chloride 106 mmol/L (98-107); Glucose 183 mg/dL (70-105); Potassium 4.2 mmol/L (3.5-5.1); Sodium 134 mmol/L (136-145)
[2020-09-16] MEDS ORDERED: Magnesium 2 GM/50 ML 2 GM in Premix Bag 1 BAG IVPB SCH (06:30)
[2020-09-16 08:53] LABS: Anion Gap 13 mmol/L (10-20); BUN (Urea Nitrogen) 10 mg/dL (7.0-18.7); Calc. Creatinine Clearance 95 mL/min (70-130); Calcium 7.9 mg/dL (7.8-10.44); Carbon Dioxide 22 mmol/L (22-29); Chloride 106 mmol/L (98-107); Glucose 83 mg/dL (70-105); Potassium 3.9 mmol/L (3.5-5.1); Sodium 137 mmol/L (136-145)
[2020-09-16] MEDS ORDERED: DULoxetine 60 MG CAP PO SCH (09:00)
[2020-09-16 09:10] LABS: Cocaine Metabolite Screen Not Detected (NotDetected); Medtox Reader # READER 1; Methamphetamine Not Detected (NotDetected); Phencyclidine (PCP) Not Detected (NotDetected); THC/Cannabinoid Screen Not Detected (NotDetected)
[2020-09-16 09:11] LABS: Amphetamine Not Detected (NotDetected); Barbiturates Screen Not Detected (NotDetected); Benzodiazepine Screen Detected (NotDetected); Medtox Control Line Valid? VALID (VALID); Methadone Not Detected (NotDetected); Opiate Screen Detected (NotDetected); Oxycodone Screen Not Detected (NotDetected); Tricyclic Screen Not Detected (NotDetected)
[2020-09-16] MEDS: Enoxaparin Sodium 40 MG/0.4 ML SYRINGE SC SCH (09:20)
[2020-09-16] MEDS ORDERED: Non-Formulary Item 1 EACH (Metoclopramide Hcl [Metoclopramide Hcl] 5 MG Tablet) PO PRN (12:59)
[2020-09-16] MEDS ORDERED: Dextrose 50% Abboject 50 ML SYRINGE SLOW IVP PRN (13:01)
[2020-09-16] MEDS ORDERED: Dextrose 5% in Water 1,000 ML IV PRN (13:01)
[2020-09-16] MEDS ORDERED: Metoclopramide HCl 10 MG TAB PO PRN (13:12)
[2020-09-16] MEDS: Acetaminophen 325 MG TAB PO PRN ×2 (15:40→20:39)
[2020-09-16] MEDS: Gabapentin 300 MG CAP PO SCH ×2 (15:41→20:37)
[2020-09-16] MEDS: Sucralfate 1 GM TAB PO SCH (20:36)
[2020-09-16] MEDS: HumaLOG 300 UNITS/3 ML VIAL SC PRN (20:38)
[2020-09-16] MEDS: Lantus 1000 UNITS/10 ML VIAL SC SCH (20:38)
[2020-09-16] MEDS: Pantoprazole 40 MG VIAL IVP SCH (20:42)
[2020-09-17] MEDS: HumaLOG 300 UNITS/3 ML VIAL SC PRN (05:38)
[2020-09-17] MEDS: Acetaminophen 325 MG TAB PO PRN ×2 (05:38→12:54)
[2020-09-17] MEDS: Metoclopramide HCl 10 MG/2 ML VIAL IVP PRN ×2 (05:38→12:53)
[2020-09-17 06:45] LABS: Anion Gap 12 mmol/L (10-20); BUN (Urea Nitrogen) 8 mg/dL (7.0-18.7); Calc. Creatinine Clearance 94 mL/min (70-130); Calcium 7.8 mg/dL (7.8-10.44); Carbon Dioxide 20 mmol/L (22-29); Chloride 107 mmol/L (98-107); Glucose 215 mg/dL (70-105); Sodium 135 mmol/L (136-145)
[2020-09-17] MEDS ORDERED: DULoxetine 60 MG CAP PO SCH (09:00)
[2020-09-17] MEDS ORDERED: Lisinopril 10 MG TAB PO SCH (09:00)
[2020-09-17] MEDS: Sucralfate 1 GM TAB PO SCH (09:31)
[2020-09-17] MEDS: Enoxaparin Sodium 40 MG/0.4 ML SYRINGE SC SCH (09:32)
[2020-09-17] MEDS: Gabapentin 300 MG CAP PO SCH ×2 (09:32→15:22)
[2020-09-17] MEDS: Lantus 1000 UNITS/10 ML VIAL SC SCH (09:34)
[2020-09-17 13:30] VITALS: BP 111/73; TEMP 98.2
== END 2020-09-17 16:37 | disposition home or self-care (01) | DRG 638 ==
LOC: ERS 15:12 → IMCU/EMU 17:17 → T4-B 09-16 15:14
PROVIDERS: ADMIT Family Medicine; ATTEND Internal Medicine
DX: E10.10 Type 1 diabetes mellitus with ketoacidosis without coma (principal); Z68.1 Body mass index [BMI] 19.9 or less, adult; F31.9 Bipolar disorder, unspecified; F43.10 Post-traumatic stress disorder, unspecified; I10 Essential (primary) hypertension; E10.40 Type 1 diabetes mellitus with diabetic neuropathy, unspecified; Z79.4 Long term (current) use of insulin; E86.0 Dehydration; E83.42 Hypomagnesemia; E10.43 Type 1 diabetes mellitus with diabetic autonomic (poly)neuropathy; K31.84 Gastroparesis; Z87.440 Personal history of urinary (tract) infections; D64.9 Anemia, unspecified; Z91.14 Patient's other noncompliance with medication regimen; F41.9 Anxiety disorder, unspecified; R63.6 Underweight
CPT/HCPCS: 36415; 36416; 36556; 71045; 74019; 80048; 80306; 81003; 81025; 82010; 82805; 83690; 83735; 84703; 85025; 93005; 96365; 96374; 96375; C9113; J1200; J1650; J1815; J2060; J2270; J2405; J2765; J3475; J3480; U0002

== ENCOUNTER 2020-12-10 12:50 | Inpatient (IN) | payer OTHER ==
[2020-12-10] MEDS ORDERED: Dextrose 5% in Water 1,000 ML IV PRN (14:23)
[2020-12-10] MEDS ORDERED: Dextrose 50% Abboject 50 ML SYRINGE SLOW IVP PRN (14:23)
[2020-12-10] MEDS ORDERED: Sodium Chloride 0.9% 1,000 ML IV SCH ×3 (14:30→15:33)
[2020-12-10] MEDS ORDERED: Ondansetron ODT 4 MG TAB PO PRN (14:39)
[2020-12-10] MEDS ORDERED: Acetaminophen 500 MG TAB PO SCH (14:45)
[2020-12-10 15:06] LABS: Lactic Acid 4.2 mmol/L (0.5-2.2)
[2020-12-10] MEDS ORDERED: Promethazine HCl 25 MG in Sodium Chloride 0.9% 50 ML IVPB SCH (16:45)
[2020-12-10 17:28] LABS: Lactic Acid 2.7 mmol/L (0.5-2.2)
[2020-12-10] MEDS ORDERED: Lantus 1000 UNITS/10 ML VIAL SC SCH (17:30)
[2020-12-10 17:31] LABS: Anion Gap 19 mmol/L (10-20); BUN (Urea Nitrogen) 17 mg/dL (7.0-18.7); Calc. Creatinine Clearance 61 mL/min (70-130); Calcium 8.7 mg/dL (7.8-10.44); Carbon Dioxide 17 mmol/L (22-29); Chloride 100 mmol/L (98-107); Glucose 424 mg/dL (70-105); Sodium 132 mmol/L (136-145)
[2020-12-10] MEDS: NS 0.9% w/ 20 MEQ KCL 1,000 ML/1,000 ML BAG IV SCH ×2 (17:46→22:18)
[2020-12-10] MEDS: HumaLOG 300 UNITS/3 ML VIAL SC PRN ×2 (17:48→20:12)
[2020-12-10] MEDS ORDERED: Metoclopramide HCl 10 MG/2 ML VIAL IVP SCH (18:30)
[2020-12-10] MEDS: Ondansetron PF 4 MG/2 ML Vial IVP PRN (20:12)
[2020-12-10] MEDS: Acetaminophen 325 MG TAB PO PRN (22:17)
[2020-12-10 22:54] LABS: Creatinine, Urine 90.64 mg/dL (47-110)
[2020-12-10] MEDS: Promethazine HCl 25 MG in Sodium Chloride 0.9% 50 ML IVPB PRN (23:01)
[2020-12-10 23:41] LABS: Bilirubin Negative (Negative); Blood, Urine 2+ (Negative); Clarity Clear (Clear); Glucose, Urine (Dipstick) Greater than 1000 mg/dL (Negative); Ketone, Urine Negative (Negative); Leukocyte Negative Leu/uL (Negative); Nitrite 2+ (Negative); Protein, Urine (Dipstick) 20 mg/dL (Neg-Trace); Specific Gravity, Urine 1.029 (1.002-1.036); Squamous Epithelial 0-3 HPF (0-3); Urobilinogen Normal mg/dL (Less than 2)
[2020-12-10 23:42] LABS: Bacteria/HPF Rare-Few HPF (None Seen)
[2020-12-11] MEDS: Ketorolac Tromethamine 30 MG/ML VIAL IVP PRN ×3 (00:09→12:15)
[2020-12-11] MEDS: Ondansetron PF 4 MG/2 ML Vial IVP PRN ×2 (02:01→09:02)
[2020-12-11 05:05] LABS: #Lymphocytes 1.1 thou/uL (1.20-3.40); #Monocytes 0.3 thou/uL (0.11-0.59); #Neutrophils 5.8 thou/uL (1.40-6.50); %Basophils 0.1 % (0.0-1.0); %Eosinophils 0.1 % (0.0-10.0); %Lymphocytes 15.3 % (21.0-51.0); %Monocytes 3.8 % (0.0-10.0); %Neutrophils 80.7 % (42.0-75.0); Hemoglobin 9.9 g/dL (12.0-16.0); Mean Corpuscular HGB CONC 32.7 g/dL (32.0-36.0); Mean Corpuscular Hemoglobin 28.2 pg (27.0-31.0); Mean Corpuscular Volume 86.4 fL (78.0-98.0); Mean Platelet Volume 7.2 fL (7.4-10.4); Platelet Count 319 thou/uL (130-400); RBC Distribution Width 12.7 % (11.5-14.5); Red Blood Cell (RBC) Count 3.52 mill/uL (4.20-5.40); White Blood Cell (WBC) Count 7.2 thou/uL (4.8-10.8)
[2020-12-11 05:29] LABS: Anion Gap 17 mmol/L (10-20); BUN (Urea Nitrogen) 17 mg/dL (7.0-18.7); Calc. Creatinine Clearance 78 mL/min (70-130); Calcium 8.4 mg/dL (7.8-10.44); Carbon Dioxide 20 mmol/L (22-29); Chloride 105 mmol/L (98-107); Glucose 267 mg/dL (70-105); Potassium 3.8 mmol/L (3.5-5.1); Sodium 138 mmol/L (136-145)
[2020-12-11] MEDS: HumaLOG 300 UNITS/3 ML VIAL SC PRN ×2 (06:03→21:06)
[2020-12-11] MEDS: NS 0.9% w/ 20 MEQ KCL 1,000 ML/1,000 ML BAG IV SCH (06:11)
[2020-12-11] MEDS: Acetaminophen 325 MG TAB PO PRN (09:02)
[2020-12-11] MEDS ORDERED: Pantoprazole 40 MG VIAL IVP SCH (10:00)
[2020-12-11] MEDS ORDERED: 1/2 NS w/KCL 20 mEq 1,000 ML IV SCH ×2 (10:00→12:46)
[2020-12-11] MEDS ORDERED: Lantus 1000 UNITS/10 ML VIAL SC SCH ×3 (10:00→21:00)
[2020-12-11] MEDS: Promethazine HCl 25 MG in Sodium Chloride 0.9% 50 ML IVPB PRN ×2 (11:32→21:10)
[2020-12-11] MEDS: cefTRIAXone\\ROCEPHIN 1 GM in Sodium Chloride 0.9% 100 ML IVPB SCH (11:33)
[2020-12-11] MEDS: Dicyclomine 10 MG CAP PO SCH ×4 (11:33→19:47)
[2020-12-11] MEDS ORDERED: cloNIDine 0.1 MG TAB PO PRN (12:47)
[2020-12-11] MEDS ORDERED: NIFEdipine XL 30 MG TAB PO PRN (12:48)
[2020-12-11] MEDS: Gabapentin 300 MG CAP PO SCH ×2 (14:06→21:08)
[2020-12-11] MEDS ORDERED: Morphine 2 MG/ML VIAL SLOW IVP SCH (14:15)
[2020-12-11] MEDS ORDERED: Labetalol HCl 100 MG/20 ML VIAL SLOW IVP PRN (15:56)
[2020-12-11] MEDS ORDERED: cloNIDine 0.1mg/24 Hour PATCH TD SCH (16:00)
[2020-12-11 16:56] LABS: Lactic Acid 3.1 mmol/L (0.5-2.2)
[2020-12-11 17:00] LABS: Anion Gap 17 mmol/L (10-20); BUN (Urea Nitrogen) 18 mg/dL (7.0-18.7); Calc. Creatinine Clearance 68 mL/min (70-130); Carbon Dioxide 18 mmol/L (22-29); Chloride 107 mmol/L (98-107); Potassium 3.7 mmol/L (3.5-5.1); Sodium 138 mmol/L (136-145)
[2020-12-11 17:01] LABS: Calcium 8.2 mg/dL (7.8-10.44); Glucose 228 mg/dL (70-105)
[2020-12-11] MEDS: Metoclopramide HCl 10 MG/2 ML VIAL IVP SCH ×2 (19:47→21:10)
[2020-12-11] MEDS: 1/2 NS w/KCL 20 mEq 1,000 ML IV SCH ×2 (20:59→23:04)
[2020-12-11] MEDS: Pantoprazole 40 MG VIAL IVP SCH (21:07)
[2020-12-11] MEDS: Carvedilol 3.125 MG TAB PO SCH (21:08)
[2020-12-11] MEDS: Lisinopril 10 MG TAB PO SCH (21:08)
[2020-12-11] MEDS: Morphine 2 MG/ML VIAL SLOW IVP PRN (21:11)
[2020-12-12] MEDS: Metoclopramide HCl 10 MG/2 ML VIAL IVP SCH ×4 (02:19→22:06)
[2020-12-12] MEDS: HumaLOG 300 UNITS/3 ML VIAL SC PRN ×4 (03:47→22:06)
[2020-12-12 05:39] LABS: #Lymphocytes 2.4 thou/uL (1.20-3.40); #Monocytes 0.8 thou/uL (0.11-0.59); %Basophils 0.4 % (0.0-1.0); %Eosinophils 0.4 % (0.0-10.0); %Lymphocytes 23.8 % (21.0-51.0); %Monocytes 7.6 % (0.0-10.0); %Neutrophils 67.9 % (42.0-75.0); Mean Corpuscular Hemoglobin 29.2 pg (27.0-31.0); Mean Corpuscular Volume 88.6 fL (78.0-98.0); Mean Platelet Volume 7.2 fL (7.4-10.4); Platelet Count 257 thou/uL (130-400); Red Blood Cell (RBC) Count 3.09 mill/uL (4.20-5.40); White Blood Cell (WBC) Count 10.2 thou/uL (4.8-10.8)
[2020-12-12 05:51] LABS: Anion Gap 14 mmol/L (10-20); BUN (Urea Nitrogen) 16 mg/dL (7.0-18.7); Calc. Creatinine Clearance 72 mL/min (70-130); Calcium 7.8 mg/dL (7.8-10.44); Carbon Dioxide 18 mmol/L (22-29); Chloride 111 mmol/L (98-107); Glucose 188 mg/dL (70-105); Magnesium 1.8 mg/dL (1.6-2.6); Phosphorus 2.8 mg/dL (2.3-4.7); Potassium 3.8 mmol/L (3.5-5.1); Sodium 139 mmol/L (136-145)
[2020-12-12] MEDS: 1/2 NS w/KCL 20 mEq 1,000 ML IV SCH ×3 (07:38→22:08)
[2020-12-12] MEDS ORDERED: Magnesium 2 GM/50 ML 2 GM in Premix Bag 1 BAG IVPB SCH (08:15)
[2020-12-12] MEDS: Morphine 2 MG/ML VIAL SLOW IVP PRN (10:29)
[2020-12-12] MEDS: cefTRIAXone\\ROCEPHIN 1 GM in Sodium Chloride 0.9% 100 ML IVPB SCH (10:29)
[2020-12-12] MEDS: Gabapentin 300 MG CAP PO SCH ×3 (10:30→22:07)
[2020-12-12] MEDS: Pantoprazole 40 MG VIAL IVP SCH ×2 (10:30→22:05)
[2020-12-12] MEDS: Lisinopril 10 MG TAB PO SCH ×2 (10:31→22:07)
[2020-12-12] MEDS: Carvedilol 3.125 MG TAB PO SCH ×2 (10:31→22:07)
[2020-12-12] MEDS ORDERED: Morphine 2 MG/ML VIAL SLOW IVP PRN (14:55)
[2020-12-12] MEDS: Lantus 1000 UNITS/10 ML VIAL SC SCH (22:06)
[2020-12-13] MEDS: Metoclopramide HCl 10 MG/2 ML VIAL IVP SCH ×2 (04:58→08:50)
[2020-12-13 05:34] LABS: Anion Gap 7 mmol/L (10-20); BUN (Urea Nitrogen) 7 mg/dL (7.0-18.7); Calc. Creatinine Clearance 93 mL/min (70-130); Calcium 7.5 mg/dL (7.8-10.44); Carbon Dioxide 22 mmol/L (22-29); Chloride 110 mmol/L (98-107); Glucose 205 mg/dL (70-105); Potassium 4.4 mmol/L (3.5-5.1); Sodium 135 mmol/L (136-145)
[2020-12-13] MEDS: Carvedilol 3.125 MG TAB PO SCH (08:45)
[2020-12-13] MEDS: Lisinopril 10 MG TAB PO SCH (08:45)
[2020-12-13] MEDS: Pantoprazole 40 MG VIAL IVP SCH (08:52)
[2020-12-13] MEDS: Lantus 1000 UNITS/10 ML VIAL SC SCH (08:56)
[2020-12-13] MEDS: Gabapentin 300 MG CAP PO SCH (08:57)
[2020-12-13] MEDS: 1/2 NS w/KCL 20 mEq 1,000 ML IV SCH (11:02)
[2020-12-13 11:35] VITALS: BP 100/62; TEMP 97.9
[2020-12-13] MEDS: HumaLOG 300 UNITS/3 ML VIAL SC PRN (12:10)
== END 2020-12-13 14:25 | disposition home or self-care (01) | DRG 683 ==
LOC: ERS 12:50 → INTOOBSV 13:29 → 2SE 13:29 → OBSVTOIN 12-11 09:51
PROVIDERS: ADMIT Internal Medicine; ATTEND Internal Medicine
DX: N17.9 Acute kidney failure, unspecified (principal); E87.2 Acidosis; N39.0 Urinary tract infection, site not specified; E86.0 Dehydration; Z20.822 Contact with and (suspected) exposure to COVID-19; E10.43 Type 1 diabetes mellitus with diabetic autonomic (poly)neuropathy; K31.84 Gastroparesis; E10.42 Type 1 diabetes mellitus with diabetic polyneuropathy; F43.10 Post-traumatic stress disorder, unspecified; F41.9 Anxiety disorder, unspecified; N18.2 Chronic kidney disease, stage 2 (mild); E10.65 Type 1 diabetes mellitus with hyperglycemia; I16.0 Hypertensive urgency; D53.9 Nutritional anemia, unspecified; E10.22 Type 1 diabetes mellitus with diabetic chronic kidney disease; Z95.9 Presence of cardiac and vascular implant and graft, unspecified; Z79.899 Other long term (current) drug therapy; Z79.4 Long term (current) use of insulin
CPT/HCPCS: 36415; 36416; 74019; 76770; 80048; 82570; 83605; 83735; 84100; 84300; 85025; C9113; J0696; J1815; J1885; J1956; J2270; J2405; J2550; J2765; J3475; J3480; J3490

== ENCOUNTER 2021-01-29 14:53 | Inpatient (IN) | payer OTHER ==
[2021-01-29 15:48] LABS: Hemoglobin 11.7 g/dL (12.0-16.0); Mean Corpuscular HGB CONC 31.7 g/dL (32.0-36.0); Mean Corpuscular Hemoglobin 28.2 pg (27.0-31.0); Mean Corpuscular Volume 88.9 fL (78.0-98.0); Mean Platelet Volume 6.7 fL (7.4-10.4); Platelet Count 384 thou/uL (130-400); RBC Distribution Width 12.9 % (11.5-14.5); Red Blood Cell (RBC) Count 4.15 mill/uL (4.20-5.40); White Blood Cell (WBC) Count 20.7 thou/uL (4.8-10.8)
[2021-01-29 15:53] LABS: BHCG - Serum Negative (NEGATIVE); Pregs Control Background? CLEAR/WHITE (CLR/WHITE); Pregs Control Bar Appear? YES (CONTROL BAR)
[2021-01-29 16:03] LABS: Band 7 % (5-11); Lymphocytes 6 % (21-51); MDiff Complete? YES; Monocytes 6 % (0-10); Neutrophil 81 % (42-75); Platelet Morphology Comment Appears Adequate; Polychromasia SLIGHT = 2-3 cells (100X) (0-2/hpf)
[2021-01-29 16:11] LABS: Acetaminophen Less than 6.0 mcg/mL (10.0-30.0); Alcohol Less than 10 mg/dL (Less than 10); Digoxin Less than 0.15 ng/mL (0.8-2.0); Salicylate Less than 8.0 mg/dL (15.0-30.0)
[2021-01-29 16:12] LABS: ALT (SGPT) 7 U/L (8-55); AST (SGOT) 12 U/L (5-34); Albumin 4.5 g/dL (3.5-5.0); Alkaline Phosphatase 110 U/L (40-110); BUN (Urea Nitrogen) 14 mg/dL (7.0-18.7); Bilirubin, Total 0.2 mg/dL (0.2-1.2); Calc. Creatinine Clearance 0 mL/min (70-130); Chloride 99 mmol/L (98-107); Globulin 4.3 g/dL (2.4-3.5); Lipase 14 U/L (8-78); Phosphorus 5.5 mg/dL (2.3-4.7); Potassium 5.5 mmol/L (3.5-5.1); Protein, Total 8.8 g/dL (6.0-8.3); Sodium 131 mmol/L (136-145)
[2021-01-29 16:20] LABS: Carbon Dioxide Less than 8 mmol/L (22-29); Glucose 730 mg/dL (70-105)
[2021-01-29 16:34] LABS: Analyzer IN Cardio ER; Calcium, Ionized (venous) 1.19 mmol/L (1.16-1.32); Chloride (VBG) 105 mmol/L (98-106); Hemoglobin (Hb) 10.8 g/dL (11.7-15.5); Potassium (VBG) 5.37 mmol/L (3.70-5.30); Sodium 132.9 mmol/L (133-146)
[2021-01-29 16:37] LABS: Actual Bicarbonate (HCO3v) 3 mEq/L (22-28); pH (venous) 6.95 (7.32-7.43)
[2021-01-29] MEDS ORDERED: HUMULIN R 100 UNITS in Sodium Chloride 0.9% 100 ML IVPB SCH ×3 (16:45→18:40)
[2021-01-29] MEDS ORDERED: INSULIN REGULAR IN 0.9 % NACL 100 UNIT/100 ML BAG ONE (16:59)
[2021-01-29 17:45] LABS: Amphetamine Not Detected (NotDetected); Barbiturates Screen Not Detected (NotDetected); Benzodiazepine Screen Not Detected (NotDetected); Cocaine Metabolite Screen Not Detected (NotDetected); Methadone Not Detected (NotDetected); Methamphetamine Not Detected (NotDetected); Opiate Screen Not Detected (NotDetected); Oxycodone Screen Not Detected (NotDetected); Phencyclidine (PCP) Not Detected (NotDetected); THC/Cannabinoid Screen Not Detected (NotDetected); Tricyclic Screen Not Detected (NotDetected)
[2021-01-29 17:50] LABS: Bilirubin Negative (Negative); Blood, Urine Trace (Negative); Clarity Turbid (Clear); Glucose, Urine (Dipstick) Greater than 1000 mg/dL (Negative); Ketone, Urine Greater than 150 mg/dL (Negative); Leukocyte 25 Leu/uL (Negative); Nitrite Negative (Negative); Protein, Urine (Dipstick) 30 mg/dL (Neg-Trace); Specific Gravity, Urine 1.017 (1.002-1.036); Urobilinogen Normal mg/dL (Less than 2)
[2021-01-29 17:56] LABS: Bacteria/HPF 1+ HPF (None Seen); RBC/HPF 0-3 HPF (0-3); WBC/HPF 0-3 HPF (0-3)
[2021-01-29 17:57] LABS: Yeast-Budding 3+ HPF (None Seen)
[2021-01-29] MEDS ORDERED: Sodium Chloride 0.9% 1,000 ML IV PRN ×8 (17:58→18:40)
[2021-01-29] MEDS ORDERED: Acetaminophen 325 MG TAB PO PRN ×2 (17:58→18:40)
[2021-01-29] MEDS ORDERED: Ondansetron PF 4 MG/2 ML Vial IVP PRN ×2 (17:58→18:40)
[2021-01-29] MEDS ORDERED: NS 0.9% w/ 20 MEQ KCL 1,000 ML IV PRN ×4 (17:58→18:40)
[2021-01-29] MEDS ORDERED: D5 1/2 NS w/20 mEq KCL 1,000 ML IV PRN (17:58)
[2021-01-29] MEDS ORDERED: Electrolyte Replacement Protocol 1 EACH IVPB ONE (17:58)
[2021-01-29] MEDS ORDERED: Dextrose 5 %-0.45 % NaCl 1,000 ML IV PRN ×2 (17:58→18:40)
[2021-01-29] MEDS ORDERED: Electrolyte Replacement Protocol 1 EACH IVPB PRN (18:40)
[2021-01-29] MEDS ORDERED: Bisacodyl 5 MG TAB PO PRN (18:40)
[2021-01-29 19:38] LABS: SARS-CoV-2 NAA Rapid Test Not Detected (NotDetected)
[2021-01-29 19:50] LABS: BUN (Urea Nitrogen) 15 mg/dL (7.0-18.7); Calc. Creatinine Clearance 0 mL/min (70-130); Calcium 7.8 mg/dL (7.8-10.44); Chloride 107 mmol/L (98-107); Potassium 4.6 mmol/L (3.5-5.1); Sodium 130 mmol/L (136-145)
[2021-01-29 19:55] LABS: Carbon Dioxide Less than 8 mmol/L (22-29); Glucose 657 mg/dL (70-105)
[2021-01-29] MEDS ORDERED: Heparin 5,000 UNITS/ML VIAL SC SCH (21:00)
[2021-01-29] MEDS ORDERED: cefTRIAXone\\ROCEPHIN 1 GM VIAL ONE (22:26)
[2021-01-29] MEDS: cefTRIAXone\\ROCEPHIN 1 GM in Sodium Chloride 0.9% 100 ML IVPB SCH (22:39)
[2021-01-29] MEDS: Heparin 5,000 UNITS/ML VIAL SC SCH (22:39)
[2021-01-29 23:17] LABS: BUN (Urea Nitrogen) 13 mg/dL (7.0-18.7); Calc. Creatinine Clearance 0 mL/min (70-130); Calcium 7.6 mg/dL (7.8-10.44); Chloride 115 mmol/L (98-107); Glucose 298 mg/dL (70-105); Potassium 4.1 mmol/L (3.5-5.1); Sodium 134 mmol/L (136-145)
[2021-01-29 23:22] LABS: Carbon Dioxide Less than 8 mmol/L (22-29)
[2021-01-30] MEDS: D5 1/2 NS w/20 mEq KCL 1,000 ML IV PRN ×4 (00:28→23:57)
[2021-01-30 02:42] VITALS: BMI 19.3
[2021-01-30 04:13] LABS: #Eosinphils 0.1 thou/uL (0.0-0.7); #Lymphocytes 1.6 thou/uL (1.20-3.40); #Monocytes 1.2 thou/uL (0.11-0.59); #Neutrophils 13.6 thou/uL (1.40-6.50); %Basophils 0.3 % (0.0-1.0); %Eosinophils 0.7 % (0.0-10.0); %Lymphocytes 9.5 % (21.0-51.0); %Monocytes 7.1 % (0.0-10.0); %Neutrophils 82.4 % (42.0-75.0); Hemoglobin 9.1 g/dL (12.0-16.0); Mean Corpuscular HGB CONC 32.5 g/dL (32.0-36.0); Mean Platelet Volume 6.2 fL (7.4-10.4); Platelet Count 389 thou/uL (130-400); RBC Distribution Width 12.9 % (11.5-14.5); Red Blood Cell (RBC) Count 3.26 mill/uL (4.20-5.40); White Blood Cell (WBC) Count 16.5 thou/uL (4.8-10.8)
[2021-01-30 04:27] LABS: Anion Gap 10 mmol/L (10-20); BUN (Urea Nitrogen) 11 mg/dL (7.0-18.7); Calc. Creatinine Clearance 43 mL/min (70-130); Calcium 7.6 mg/dL (7.8-10.44); Carbon Dioxide 11 mmol/L (22-29); Chloride 116 mmol/L (98-107); Glucose 172 mg/dL (70-105); Potassium 3.8 mmol/L (3.5-5.1); Sodium 133 mmol/L (136-145)
[2021-01-30] MEDS ORDERED: Calcium Carbonate 500 MG ChewTAB PO PRN (08:07)
[2021-01-30] MEDS ORDERED: Benzonatate 100 MG CAP PO PRN (08:07)
[2021-01-30] MEDS ORDERED: Loperamide HCl 2 MG CAP PO PRN (08:07)
[2021-01-30] MEDS ORDERED: GUAIFENESIN SF SOLN 200 MG/10 ML UDCUP PO PRN (08:07)
[2021-01-30] MEDS ORDERED: Sodium Chloride 0.65% Nasal 44 ML BOT EA NARE PRN (08:07)
[2021-01-30] MEDS ORDERED: Ondansetron ODT 4 MG TAB PO PRN (08:07)
[2021-01-30] MEDS ORDERED: Cepastat Lozenges 1 LOZ PO PRN (08:07)
[2021-01-30] MEDS ORDERED: Senokot S 8.6-50 MG TAB PO PRN (08:07)
[2021-01-30] MEDS ORDERED: Loratadine 10 MG TAB PO PRN (08:07)
[2021-01-30] MEDS ORDERED: Zolpidem Tartrate 5 MG TAB PO PRN (08:07)
[2021-01-30] MEDS ORDERED: Hydrocerin (Eucerin) Cream 120 gm Jar TOP PRN (08:07)
[2021-01-30] MEDS ORDERED: Artificial Tear Sol 15 ML BOT EA EYE PRN (08:07)
[2021-01-30] MEDS: Heparin 5,000 UNITS/ML VIAL SC SCH ×3 (09:31→20:16)
[2021-01-30] MEDS: HYDROcodone/Acetaminophen 5/325 mg Tablet PO PRN ×2 (09:32→20:15)
[2021-01-30 13:31] LABS: Anion Gap 8 mmol/L (10-20); BUN (Urea Nitrogen) 8 mg/dL (7.0-18.7); Calc. Creatinine Clearance 49 mL/min (70-130); Calcium 7.5 mg/dL (7.8-10.44); Carbon Dioxide 13 mmol/L (22-29); Chloride 115 mmol/L (98-107); Glucose 205 mg/dL (70-105); Potassium 3.9 mmol/L (3.5-5.1); Sodium 132 mmol/L (136-145)
[2021-01-30] MEDS: cefTRIAXone\\ROCEPHIN 1 GM in Sodium Chloride 0.9% 100 ML IVPB SCH (20:18)
[2021-01-31 04:00] LABS: #Eosinphils 0.2 thou/uL (0.0-0.7); #Lymphocytes 1.6 thou/uL (1.20-3.40); #Monocytes 0.6 thou/uL (0.11-0.59); #Neutrophils 6.4 thou/uL (1.40-6.50); %Basophils 0.1 % (0.0-1.0); %Eosinophils 1.8 % (0.0-10.0); %Lymphocytes 18.4 % (21.0-51.0); %Monocytes 6.6 % (0.0-10.0); %Neutrophils 73.1 % (42.0-75.0); Hemoglobin 9.1 g/dL (12.0-16.0); Mean Corpuscular HGB CONC 31.9 g/dL (32.0-36.0); Mean Corpuscular Hemoglobin 27.4 pg (27.0-31.0); Mean Corpuscular Volume 85.9 fL (78.0-98.0); Mean Platelet Volume 6.3 fL (7.4-10.4); Platelet Count 331 thou/uL (130-400); RBC Distribution Width 13.2 % (11.5-14.5); Red Blood Cell (RBC) Count 3.32 mill/uL (4.20-5.40); White Blood Cell (WBC) Count 8.8 thou/uL (4.8-10.8)
[2021-01-31] MEDS: D5 1/2 NS w/20 mEq KCL 1,000 ML IV PRN (04:13)
[2021-01-31 04:23] LABS: Phosphorus Less than 1.0 mg/dL (2.3-4.7)
[2021-01-31 04:27] LABS: ALT (SGPT) Less than 7 U/L (8-55); AST (SGOT) 11 U/L (5-34); Albumin 2.8 g/dL (3.5-5.0); Alkaline Phosphatase 63 U/L (40-110); Anion Gap 7 mmol/L (10-20); BUN (Urea Nitrogen) 4 mg/dL (7.0-18.7); Bilirubin, Total Less than 0.2 mg/dL (0.2-1.2); Calc. Creatinine Clearance 61 mL/min (70-130); Calcium 7.6 mg/dL (7.8-10.44); Carbon Dioxide 13 mmol/L (22-29); Chloride 115 mmol/L (98-107); Globulin 3.1 g/dL (2.4-3.5); Glucose 178 mg/dL (70-105); Magnesium 1.4 mg/dL (1.6-2.6); Potassium 4.1 mmol/L (3.5-5.1); Protein, Total 5.9 g/dL (6.0-8.3); Sodium 131 mmol/L (136-145)
[2021-01-31] MEDS ORDERED: Magnesium 2 GM/50 ML 2 GM in Premix Bag 1 BAG IVPB SCH (05:00)
[2021-01-31] MEDS ORDERED: Dextrose 50% Abboject 50 ML SYRINGE SLOW IVP PRN (07:45)
[2021-01-31] MEDS ORDERED: HumaLOG 300 UNITS/3 ML VIAL SC PRN (07:45)
[2021-01-31] MEDS ORDERED: Dextrose 5% in Water 1,000 ML IV PRN (07:45)
[2021-01-31] MEDS ORDERED: Sodium Phosphate 30 MMOL in Sodium Chloride 0.9% 250 ML 250 ML IVPB SCH (07:45)
[2021-01-31] MEDS ORDERED: HumaLOG 300 UNITS/3 ML VIAL SC SCH (09:00)
[2021-01-31] MEDS ORDERED: Pantoprazole 40 MG VIAL IVP SCH (09:00)
[2021-01-31] MEDS: Gabapentin 300 MG CAP PO SCH ×3 (09:49→20:17)
[2021-01-31] MEDS: Heparin 5,000 UNITS/ML VIAL SC SCH ×3 (09:49→20:16)
[2021-01-31] MEDS: Lantus 1000 UNITS/10 ML VIAL SC SCH ×2 (09:53→20:58)
[2021-01-31] MEDS ORDERED: Lidocaine 2% Viscous Solution 20 ML, Aluminum & Magnesium Hydroxide 30 ML, Donnatal Eli... SSW SCH (11:15)
[2021-01-31 13:57] LABS: Anion Gap 12 mmol/L (10-20); BUN (Urea Nitrogen) 4 mg/dL (7.0-18.7); Calc. Creatinine Clearance 57 mL/min (70-130); Calcium 7.4 mg/dL (7.8-10.44); Carbon Dioxide 11 mmol/L (22-29); Chloride 113 mmol/L (98-107); Glucose 285 mg/dL (70-105); Phosphorus 2.2 mg/dL (2.3-4.7); Potassium 4.1 mmol/L (3.5-5.1); Sodium 132 mmol/L (136-145)
[2021-01-31] MEDS: Sodium Bicarbonate Tab 325 MG TAB PO SCH ×2 (15:49→20:16)
[2021-01-31] MEDS: Morphine 2 MG/ML VIAL SLOW IVP PRN (17:39)
[2021-01-31] MEDS ORDERED: cloNIDine 0.1 MG TAB PO SCH (18:15)
[2021-01-31] MEDS: cefTRIAXone\\ROCEPHIN 1 GM in Sodium Chloride 0.9% 100 ML IVPB SCH (19:55)
[2021-01-31] MEDS: HYDROcodone/Acetaminophen 5/325 mg Tablet PO PRN (20:16)
[2021-01-31] MEDS: HumaLOG 300 UNITS/3 ML VIAL SC PRN (20:57)
[2021-02-01 01:26] LABS: #Eosinphils 0.1 thou/uL (0.0-0.7); #Monocytes 0.5 thou/uL (0.11-0.59); #Neutrophils 3.8 thou/uL (1.40-6.50); %Basophils 0.4 % (0.0-1.0); %Eosinophils 1.5 % (0.0-10.0); %Lymphocytes 31.7 % (21.0-51.0); %Monocytes 8.1 % (0.0-10.0); %Neutrophils 58.4 % (42.0-75.0); Hemoglobin 10.3 g/dL (12.0-16.0); Mean Corpuscular Hemoglobin 28.9 pg (27.0-31.0); Mean Platelet Volume 6.7 fL (7.4-10.4); Platelet Count 344 thou/uL (130-400); RBC Distribution Width 13.4 % (11.5-14.5); Red Blood Cell (RBC) Count 3.58 mill/uL (4.20-5.40); White Blood Cell (WBC) Count 6.4 thou/uL (4.8-10.8)
[2021-02-01 02:36] LABS: Anion Gap 14 mmol/L (10-20); BUN (Urea Nitrogen) Less than 4 mg/dL (7.0-18.7); Calc. Creatinine Clearance 56 mL/min (70-130); Calcium 8.2 mg/dL (7.8-10.44); Carbon Dioxide 11 mmol/L (22-29); Chloride 114 mmol/L (98-107); Glucose 139 mg/dL (70-105); Magnesium 1.9 mg/dL (1.6-2.6); Potassium 3.9 mmol/L (3.5-5.1); Sodium 135 mmol/L (136-145)
[2021-02-01 02:42] LABS: Phosphorus 1.8 mg/dL (2.3-4.7)
[2021-02-01] MEDS ORDERED: Sodium Phosphate 15 MMOL in Sodium Chloride 0.9% 250 ML 250 ML IVPB SCH (03:00)
[2021-02-01] MEDS ORDERED: Magnesium 2 GM/50 ML 2 GM in Premix Bag 1 BAG IVPB SCH (05:00)
[2021-02-01] MEDS: Morphine 2 MG/ML VIAL SLOW IVP PRN ×5 (06:01→23:40)
[2021-02-01] MEDS ORDERED: hydrALAZINE 20 MG/ML VIAL SLOW IVP PRN (07:03)
[2021-02-01] MEDS ORDERED: cloNIDine 0.1 MG TAB PO PRN (07:03)
[2021-02-01] MEDS ORDERED: Simethicone Chewable 80 MG TAB PO PRN (07:07)
[2021-02-01] MEDS ORDERED: Potassium Phosphate 30 MMOL in Sodium Chloride 0.9% 500 ML IVPB SCH (07:15)
[2021-02-01] MEDS: Lantus 1000 UNITS/10 ML VIAL SC SCH ×2 (08:30→21:32)
[2021-02-01 09:14] LABS: BHCG - Serum Negative (NEGATIVE); Pregs Control Background? CLEAR/WHITE (CLR/WHITE); Pregs Control Bar Appear? YES (CONTROL BAR)
[2021-02-01] MEDS ORDERED: PHENYLEPHRINE-NS 100 MCG/ML 10 ML SYRINGE ONE (09:38)
[2021-02-01] MEDS ORDERED: PROPOFOL 200 MG/20 ML VIAL ONE (09:38)
[2021-02-01] MEDS ORDERED: Succinylcholine 200 MG/10 ml SYRINGE FS ONE (09:38)
[2021-02-01] MEDS ORDERED: Ondansetron PF 4 MG/2 ML Vial ONE (09:38)
[2021-02-01] MEDS ORDERED: Ondansetron HCl/PF 4 MG/2 ML Vial IVP PRN (10:09)
[2021-02-01] MEDS ORDERED: Promethazine HCl 25 MG/ML VIAL IVPB PRN (10:09)
[2021-02-01] MEDS ORDERED: Promethazine HCl 25 MG/ML VIAL IM PRN (10:09)
[2021-02-01] MEDS: Pantoprazole 40 MG VIAL IVP SCH ×2 (11:04→21:33)
[2021-02-01] MEDS: Gabapentin 300 MG CAP PO SCH ×3 (11:05→21:38)
[2021-02-01] MEDS: Sodium Bicarbonate Tab 325 MG TAB PO SCH ×3 (11:07→21:39)
[2021-02-01] MEDS: Heparin 5,000 UNITS/ML VIAL SC SCH ×2 (11:22→21:31)
[2021-02-01] MEDS: Sucralfate 1 GM/10 ML UDCUP PO SCH ×2 (15:41→21:33)
[2021-02-01] MEDS: cefTRIAXone\\ROCEPHIN 1 GM in Sodium Chloride 0.9% 100 ML IVPB SCH (19:57)
[2021-02-01] MEDS: HumaLOG 300 UNITS/3 ML VIAL SC PRN (21:32)
[2021-02-02] MEDS: Morphine 2 MG/ML VIAL SLOW IVP PRN ×4 (03:47→21:42)
[2021-02-02 04:16] LABS: #Eosinphils 0.1 thou/uL (0.0-0.7); #Lymphocytes 1.3 thou/uL (1.20-3.40); #Monocytes 0.5 thou/uL (0.11-0.59); %Basophils 0.8 % (0.0-1.0); %Eosinophils 2.6 % (0.0-10.0); %Lymphocytes 26.6 % (21.0-51.0); %Monocytes 9.3 % (0.0-10.0); %Neutrophils 60.7 % (42.0-75.0); Hemoglobin 8.7 g/dL (12.0-16.0); Mean Corpuscular HGB CONC 33.3 g/dL (32.0-36.0); Mean Corpuscular Hemoglobin 28.3 pg (27.0-31.0); Mean Platelet Volume 6.4 fL (7.4-10.4); Platelet Count 363 thou/uL (130-400); RBC Distribution Width 13.4 % (11.5-14.5); Red Blood Cell (RBC) Count 3.07 mill/uL (4.20-5.40)
[2021-02-02 04:55] LABS: Anion Gap 10 mmol/L (10-20); BUN (Urea Nitrogen) Less than 4 mg/dL (7.0-18.7); Calc. Creatinine Clearance 64 mL/min (70-130); Carbon Dioxide 21 mmol/L (22-29); Chloride 109 mmol/L (98-107); Glucose 143 mg/dL (70-105); Phosphorus 2.8 mg/dL (2.3-4.7); Potassium 3.4 mmol/L (3.5-5.1); Sodium 137 mmol/L (136-145)
[2021-02-02] MEDS ORDERED: Potassium Chloride 20 MEQ TAB PO SCH (07:00)
[2021-02-02] MEDS: HYDROcodone/Acetaminophen 5/325 mg Tablet PO PRN ×2 (08:05→14:34)
[2021-02-02] MEDS: Gabapentin 300 MG CAP PO SCH ×3 (08:07→21:32)
[2021-02-02] MEDS: Sucralfate 1 GM/10 ML UDCUP PO SCH ×3 (08:07→21:33)
[2021-02-02] MEDS: Sodium Bicarbonate Tab 325 MG TAB PO SCH ×2 (08:07→21:33)
[2021-02-02] MEDS: Pantoprazole 40 MG VIAL IVP SCH ×2 (08:07→21:32)
[2021-02-02] MEDS: Ferrous Sulfate 325 MG TAB PO SCH (08:08)
[2021-02-02] MEDS: Lantus 1000 UNITS/10 ML VIAL SC SCH ×2 (08:09→21:46)
[2021-02-02] MEDS: Heparin 5,000 UNITS/ML VIAL SC SCH ×2 (08:09→21:32)
[2021-02-02] MEDS: Potassium Citrate 10 MEQ TAB PO SCH ×3 (08:19→17:28)
[2021-02-02] MEDS: ALPRAZolam 0.25 MG TAB PO PRN (10:10)
[2021-02-02] MEDS: Potassium Chloride 10 MEQ/100 ML PREMIX BAG IVPB SCH ×4 (10:10→21:48)
[2021-02-02] MEDS: cefTRIAXone\\ROCEPHIN 1 GM in Sodium Chloride 0.9% 100 ML IVPB SCH (21:32)
[2021-02-03] MEDS: HYDROcodone/Acetaminophen 5/325 mg Tablet PO PRN (00:05)
[2021-02-03] MEDS: ALPRAZolam 0.25 MG TAB PO PRN (00:08)
[2021-02-03] MEDS: Morphine 2 MG/ML VIAL SLOW IVP PRN ×2 (04:14→08:33)
[2021-02-03 04:29] LABS: #Eosinphils 0.1 thou/uL (0.0-0.7); #Lymphocytes 1.8 thou/uL (1.20-3.40); #Monocytes 0.4 thou/uL (0.11-0.59); #Neutrophils 2.3 thou/uL (1.40-6.50); %Basophils 0.5 % (0.0-1.0); %Eosinophils 2.9 % (0.0-10.0); %Lymphocytes 37.6 % (21.0-51.0); %Monocytes 8.7 % (0.0-10.0); %Neutrophils 50.3 % (42.0-75.0); Hemoglobin 8.1 g/dL (12.0-16.0); Mean Corpuscular HGB CONC 33.1 g/dL (32.0-36.0); Mean Corpuscular Hemoglobin 28.4 pg (27.0-31.0); Mean Corpuscular Volume 85.8 fL (78.0-98.0); Mean Platelet Volume 6.8 fL (7.4-10.4); Platelet Count 302 thou/uL (130-400); RBC Distribution Width 13.4 % (11.5-14.5); Red Blood Cell (RBC) Count 2.86 mill/uL (4.20-5.40); White Blood Cell (WBC) Count 4.7 thou/uL (4.8-10.8)
[2021-02-03 04:40] LABS: Anion Gap 9 mmol/L (10-20); BUN (Urea Nitrogen) Less than 4 mg/dL (7.0-18.7); Calc. Creatinine Clearance 65 mL/min (70-130); Calcium 7.8 mg/dL (7.8-10.44); Carbon Dioxide 24 mmol/L (22-29); Chloride 107 mmol/L (98-107); Glucose 186 mg/dL (70-105); Potassium 3.6 mmol/L (3.5-5.1); Sodium 136 mmol/L (136-145)
[2021-02-03 07:04] VITALS: BP 124/79; TEMP 97.9
[2021-02-03] MEDS: Sucralfate 1 GM/10 ML UDCUP PO SCH (08:29)
[2021-02-03] MEDS: Pantoprazole 40 MG VIAL IVP SCH (08:29)
[2021-02-03] MEDS: Potassium Citrate 10 MEQ TAB PO SCH (08:29)
[2021-02-03] MEDS: Heparin 5,000 UNITS/ML VIAL SC SCH (08:29)
[2021-02-03] MEDS: Gabapentin 300 MG CAP PO SCH (08:30)
[2021-02-03] MEDS: Ferrous Sulfate 325 MG TAB PO SCH (08:31)
[2021-02-03] MEDS: Lantus 1000 UNITS/10 ML VIAL SC SCH (08:31)
[2021-02-03] MEDS: Sodium Bicarbonate Tab 325 MG TAB PO SCH (08:34)
== END 2021-02-03 16:36 | disposition home or self-care (01) | DRG 638 ==
LOC: ERS 14:53 → ERHOLD 17:47 → IMCU/EMU 01-30 00:20 → ONC 01-31 17:07
PROVIDERS: ADMIT Internal Medicine; ATTEND Internal Medicine
PROC: 0DJ08ZZ Inspection of Upper Intestinal Tract, Via Natural or Artificial Opening Endoscopic (ICD-10-PCS; principal; 2021-02-01)
DX: E10.10 Type 1 diabetes mellitus with ketoacidosis without coma (principal); N17.9 Acute kidney failure, unspecified; E44.0 Moderate protein-calorie malnutrition; N30.00 Acute cystitis without hematuria; Z68.1 Body mass index [BMI] 19.9 or less, adult; Z20.822 Contact with and (suspected) exposure to COVID-19; E10.43 Type 1 diabetes mellitus with diabetic autonomic (poly)neuropathy; K31.84 Gastroparesis; F31.9 Bipolar disorder, unspecified; F43.10 Post-traumatic stress disorder, unspecified; F12.10 Cannabis abuse, uncomplicated; D72.829 Elevated white blood cell count, unspecified; E87.5 Hyperkalemia; I10 Essential (primary) hypertension; E86.0 Dehydration; E78.5 Hyperlipidemia, unspecified; E83.39 Other disorders of phosphorus metabolism; E83.42 Hypomagnesemia; R13.10 Dysphagia, unspecified; R12 Heartburn; K21.00 Gastro-esophageal reflux disease with esophagitis, without bleeding; Z79.899 Other long term (current) drug therapy; Z79.4 Long term (current) use of insulin
CPT/HCPCS: 0240U; 36415; 36416; 71045; 80048; 80053; 80162; 80178; 80306; 80307; 81003; 81015; 82010; 82805; 83605; 83690; 83735; 84100; 84484; 84703; 85025; 87040; 93005; 93010; 96365; 96366; C9113; J0360; J0696; J1644; J1815; J2270; J2405; J2704; J3475; J3480; J3490; J7030; J7050

== ENCOUNTER 2021-03-11 22:56 | Inpatient (IN) | payer OTHER ==
[2021-03-11 23:31] LABS: #Lymphocytes 2.4 thou/uL (1.20-3.40); #Monocytes 0.6 thou/uL (0.11-0.59); #Neutrophils 4.8 thou/uL (1.40-6.50); %Basophils 0.3 % (0.0-1.0); %Eosinophils 0.4 % (0.0-10.0); %Lymphocytes 30.8 % (21.0-51.0); %Monocytes 7.6 % (0.0-10.0); %Neutrophils 60.9 % (42.0-75.0); Hemoglobin 10.4 g/dL (12.0-16.0); Mean Corpuscular HGB CONC 33.2 g/dL (32.0-36.0); Mean Corpuscular Hemoglobin 27.6 pg (27.0-31.0); Mean Corpuscular Volume 83.1 fL (78.0-98.0); Mean Platelet Volume 6.6 fL (7.4-10.4); Platelet Count 296 thou/uL (130-400); RBC Distribution Width 11.8 % (11.5-14.5); Red Blood Cell (RBC) Count 3.76 mill/uL (4.20-5.40); White Blood Cell (WBC) Count 7.8 thou/uL (4.8-10.8)
[2021-03-11] MEDS ORDERED: HUMULIN R 100 UNITS in Sodium Chloride 0.9% 100 ML IVPB SCH (23:45)
[2021-03-11] MEDS ORDERED: Electrolyte Replacement Protocol FS PRN (23:45)
[2021-03-11] MEDS ORDERED: Sodium Chloride 0.9% 1,000 ML IV PRN ×4 (23:48)
[2021-03-11] MEDS ORDERED: NS 0.9% w/ 20 MEQ KCL 1,000 ML IV PRN ×2 (23:48)
[2021-03-11] MEDS ORDERED: Electrolyte Replacement Protocol 1 EACH IVPB ONE (23:48)
[2021-03-11] MEDS ORDERED: Dextrose 5 %-0.45 % NaCl 1,000 ML IV PRN (23:48)
[2021-03-11] MEDS ORDERED: Ondansetron PF 4 MG/2 ML Vial IVP PRN (23:48)
[2021-03-11] MEDS ORDERED: D5 1/2 NS w/20 mEq KCL 1,000 ML IV PRN (23:48)
[2021-03-11] MEDS ORDERED: Acetaminophen 325 MG TAB PO PRN (23:48)
[2021-03-11 23:49] LABS: ALT (SGPT) 7 U/L (8-55); AST (SGOT) 9 U/L (5-34); Albumin 3.8 g/dL (3.5-5.0); Alkaline Phosphatase 68 U/L (40-110); Anion Gap 13 mmol/L (10-20); BUN (Urea Nitrogen) 13 mg/dL (7.0-18.7); Bilirubin, Total 0.3 mg/dL (0.2-1.2); Calc. Creatinine Clearance 0 mL/min (70-130); Calcium 8.4 mg/dL (7.8-10.44); Carbon Dioxide 17 mmol/L (22-29); Chloride 109 mmol/L (98-107); Globulin 3.1 g/dL (2.4-3.5); Glucose 213 mg/dL (70-105); Potassium 3.6 mmol/L (3.5-5.1); Protein, Total 6.9 g/dL (6.0-8.3); Sodium 135 mmol/L (136-145)
[2021-03-11] MEDS ORDERED: D5 1/2 NS w/20 mEq KCL 1,000 ML ONE (23:53)
[2021-03-12] MEDS ORDERED: INSULIN REGULAR IN 0.9 % NACL 100 UNIT/100 ML BAG ONE
[2021-03-12] MEDS ORDERED: hydrALAZINE 20 MG/ML VIAL SLOW IVP PRN (00:05)
[2021-03-12] MEDS ORDERED: Pantoprazole 40 MG VIAL IVP SCH (00:15)
[2021-03-12 00:31] LABS: Anion Gap 10 mmol/L (10-20); BUN (Urea Nitrogen) 14 mg/dL (7.0-18.7); Calc. Creatinine Clearance 0 mL/min (70-130); Calcium 8.2 mg/dL (7.8-10.44); Carbon Dioxide 17 mmol/L (22-29); Chloride 110 mmol/L (98-107); Glucose 208 mg/dL (70-105); Potassium 3.5 mmol/L (3.5-5.1); Sodium 133 mmol/L (136-145)
[2021-03-12 00:36] LABS: Troponin I 0.011 ng/mL (< 0.028)
[2021-03-12] MEDS ORDERED: Pantoprazole 40 MG VIAL ONE ×2 (01:20→10:19)
[2021-03-12] MEDS: D5 1/2 NS w/20 mEq KCL 1,000 ML IV SCH ×4 (01:26→18:38)
[2021-03-12] MEDS ORDERED: Morphine 4 MG/ML VIAL SLOW IVP SCH (02:45)
[2021-03-12] MEDS ORDERED: Morphine 4 MG/ML VIAL ONE (03:00)
[2021-03-12] MEDS ORDERED: Magnesium 2 GM/50 ML 2 GM in Premix Bag 1 BAG IVPB SCH (03:00)
[2021-03-12 03:11] LABS: #Eosinphils 0.1 thou/uL (0.0-0.7); #Lymphocytes 2.1 thou/uL (1.20-3.40); #Monocytes 0.6 thou/uL (0.11-0.59); #Neutrophils 5.2 thou/uL (1.40-6.50); %Basophils 0.5 % (0.0-1.0); %Eosinophils 1.3 % (0.0-10.0); %Lymphocytes 26.2 % (21.0-51.0); %Neutrophils 64.9 % (42.0-75.0); Hemoglobin 9.5 g/dL (12.0-16.0); Mean Corpuscular HGB CONC 33.7 g/dL (32.0-36.0); Mean Corpuscular Hemoglobin 28.2 pg (27.0-31.0); Mean Corpuscular Volume 83.8 fL (78.0-98.0); Mean Platelet Volume 6.8 fL (7.4-10.4); Platelet Count 292 thou/uL (130-400); RBC Distribution Width 11.8 % (11.5-14.5); Red Blood Cell (RBC) Count 3.35 mill/uL (4.20-5.40)
[2021-03-12 03:35] LABS: Anion Gap 10 mmol/L (10-20); BUN (Urea Nitrogen) 12 mg/dL (7.0-18.7); Calc. Creatinine Clearance 0 mL/min (70-130); Calcium 8.1 mg/dL (7.8-10.44); Carbon Dioxide 15 mmol/L (22-29); Chloride 112 mmol/L (98-107); Glucose 243 mg/dL (70-105); Phosphorus 2.3 mg/dL (2.3-4.7); Potassium 3.9 mmol/L (3.5-5.1); Sodium 133 mmol/L (136-145); Troponin I 0.027 ng/mL (< 0.028)
[2021-03-12 03:36] LABS: Anion Gap 10 mmol/L (10-20); BUN (Urea Nitrogen) 12 mg/dL (7.0-18.7); Calc. Creatinine Clearance 0 mL/min (70-130); Calcium 8.1 mg/dL (7.8-10.44); Carbon Dioxide 15 mmol/L (22-29); Chloride 111 mmol/L (98-107); Glucose 240 mg/dL (70-105); Magnesium 1.4 mg/dL (1.6-2.6); Potassium 3.9 mmol/L (3.5-5.1); Sodium 132 mmol/L (136-145)
[2021-03-12] MEDS ORDERED: Potassium Chloride 40 MEQ in Sodium Chloride 0.9% 250 ML 250 ML IVPB SCH (04:00)
[2021-03-12] MEDS ORDERED: D5 1/2 NS w/20 mEq KCL 1,000 ML ONE (04:33)
[2021-03-12] MEDS ORDERED: Magnesium 2 GM/50 ML BAG (IN WATER) ONE ×2 (06:01)
[2021-03-12 08:15] LABS: Anion Gap 7 mmol/L (10-20); BUN (Urea Nitrogen) 9 mg/dL (7.0-18.7); Calc. Creatinine Clearance 0 mL/min (70-130); Calcium 8.4 mg/dL (7.8-10.44); Carbon Dioxide 19 mmol/L (22-29); Chloride 114 mmol/L (98-107); Glucose 114 mg/dL (70-105); Potassium 3.6 mmol/L (3.5-5.1); Sodium 136 mmol/L (136-145)
[2021-03-12] MEDS ORDERED: Potassium Chloride 20 MEQ/100 ML PREMIX BAG ONE ×2 (08:55→10:17)
[2021-03-12] MEDS ORDERED: NS 0.9% w/ 20 MEQ KCL 1,000 ML ONE (08:56)
[2021-03-12] MEDS ORDERED: Enoxaparin Sodium 40 MG/0.4 ML SYRINGE ONE (10:19)
[2021-03-12] MEDS: Pantoprazole 40 MG VIAL IVP SCH ×2 (10:33→20:26)
[2021-03-12] MEDS: Enoxaparin Sodium 40 MG/0.4 ML SYRINGE SC SCH (10:33)
[2021-03-12] MEDS ORDERED: Potassium Chloride 20 MEQ TAB ONE (13:25)
[2021-03-12] MEDS ORDERED: Dextrose 50% Abboject 50 ML SYRINGE IVP PRN (17:00)
[2021-03-12] MEDS ORDERED: Dextrose 5% in Water 1,000 ML IV PRN (17:00)
[2021-03-12 17:42] VITALS: BMI 17.8
[2021-03-12] MEDS ORDERED: Morphine 2 MG/ML VIAL SLOW IVP PRN (18:59)
[2021-03-12] MEDS: Promethazine HCl 25 MG in Sodium Chloride 0.9% 50 ML IVPB PRN (20:25)
[2021-03-12] MEDS: Gabapentin 300 MG CAP PO SCH (20:26)
[2021-03-12] MEDS: Lantus 1000 UNITS/10 ML VIAL SC SCH (20:27)
[2021-03-12] MEDS: Morphine 4 MG/ML VIAL SLOW IVP PRN (20:27)
[2021-03-13] MEDS: Morphine 4 MG/ML VIAL SLOW IVP PRN ×4 (00:30→20:48)
[2021-03-13 07:12] LABS: #Eosinphils 0.2 thou/uL (0.0-0.7); #Lymphocytes 2.6 thou/uL (1.20-3.40); #Monocytes 0.3 thou/uL (0.11-0.59); #Neutrophils 2.2 thou/uL (1.40-6.50); %Basophils 0.8 % (0.0-1.0); %Eosinophils 4.2 % (0.0-10.0); %Lymphocytes 48.1 % (21.0-51.0); %Monocytes 6.3 % (0.0-10.0); %Neutrophils 40.6 % (42.0-75.0); Hemoglobin 9.7 g/dL (12.0-16.0); Mean Corpuscular HGB CONC 32.8 g/dL (32.0-36.0); Mean Corpuscular Hemoglobin 27.5 pg (27.0-31.0); Mean Platelet Volume 7.1 fL (7.4-10.4); Platelet Count 272 thou/uL (130-400); RBC Distribution Width 12.1 % (11.5-14.5); Red Blood Cell (RBC) Count 3.52 mill/uL (4.20-5.40); White Blood Cell (WBC) Count 5.4 thou/uL (4.8-10.8)
[2021-03-13 07:22] LABS: Anion Gap 11 mmol/L (10-20); BUN (Urea Nitrogen) 7 mg/dL (7.0-18.7); Calc. Creatinine Clearance 59 mL/min (70-130); Calcium 8.8 mg/dL (7.8-10.44); Carbon Dioxide 17 mmol/L (22-29); Chloride 110 mmol/L (98-107); Glucose 203 mg/dL (70-105); Magnesium 1.7 mg/dL (1.6-2.6); Sodium 134 mmol/L (136-145)
[2021-03-13] MEDS: Pantoprazole 40 MG VIAL IVP SCH ×2 (08:46→20:47)
[2021-03-13] MEDS: Enoxaparin Sodium 40 MG/0.4 ML SYRINGE SC SCH (08:46)
[2021-03-13] MEDS: Gabapentin 300 MG CAP PO SCH ×3 (08:46→20:44)
[2021-03-13] MEDS: Lantus 1000 UNITS/10 ML VIAL SC SCH ×2 (08:47→20:48)
[2021-03-13] MEDS ORDERED: FLU VACC QS2021-22(6MOS UP)/PF 60 MCG/0.5 ML SYRINGE IM ONE (09:00)
[2021-03-13] MEDS ORDERED: Magnesium 2 GM/50 ML 2 GM in Premix Bag 1 BAG IVPB SCH (09:15)
[2021-03-13] MEDS: D5 1/2 NS w/20 mEq KCL 1,000 ML IV SCH ×2 (09:40→18:09)
[2021-03-13] MEDS: Promethazine HCl 25 MG in Sodium Chloride 0.9% 50 ML IVPB PRN (11:14)
[2021-03-13] MEDS: HumaLOG 300 UNITS/3 ML VIAL SC PRN ×2 (12:39→20:55)
[2021-03-13] MEDS ORDERED: Lidocaine 2% Viscous Solution 20 ML, Aluminum & Magnesium Hydroxide 30 ML, Donnatal Eli... SSW SCH (20:00)
[2021-03-13 21:14] LABS: Troponin I Less than 0.010 ng/mL (< 0.028)
[2021-03-14] MEDS: D5 1/2 NS w/20 mEq KCL 1,000 ML IV SCH (03:42)
[2021-03-14] MEDS: Gabapentin 300 MG CAP PO SCH ×3 (08:30→20:12)
[2021-03-14] MEDS: Morphine 4 MG/ML VIAL SLOW IVP PRN ×3 (08:30→23:55)
[2021-03-14] MEDS: Enoxaparin Sodium 40 MG/0.4 ML SYRINGE SC SCH (08:31)
[2021-03-14] MEDS: Lantus 1000 UNITS/10 ML VIAL SC SCH ×2 (08:31→20:57)
[2021-03-14] MEDS: Promethazine HCl 25 MG in Sodium Chloride 0.9% 50 ML IVPB PRN ×2 (08:31→19:13)
[2021-03-14] MEDS: Pantoprazole 40 MG VIAL IVP SCH ×2 (08:31→20:13)
[2021-03-14 09:50] LABS: #Eosinphils 0.1 thou/uL (0.0-0.7); #Lymphocytes 1.7 thou/uL (1.20-3.40); #Monocytes 0.3 thou/uL (0.11-0.59); %Basophils 0.5 % (0.0-1.0); %Lymphocytes 40.8 % (21.0-51.0); %Monocytes 7.1 % (0.0-10.0); %Neutrophils 48.6 % (42.0-75.0); Hemoglobin 9.4 g/dL (12.0-16.0); Mean Corpuscular HGB CONC 32.5 g/dL (32.0-36.0); Mean Corpuscular Hemoglobin 27.4 pg (27.0-31.0); Mean Corpuscular Volume 84.3 fL (78.0-98.0); Mean Platelet Volume 7.1 fL (7.4-10.4); Platelet Count 266 thou/uL (130-400); RBC Distribution Width 12.5 % (11.5-14.5); Red Blood Cell (RBC) Count 3.44 mill/uL (4.20-5.40); White Blood Cell (WBC) Count 4.2 thou/uL (4.8-10.8)
[2021-03-14 10:11] LABS: Anion Gap 10 mmol/L (10-20); BUN (Urea Nitrogen) 5 mg/dL (7.0-18.7); Calc. Creatinine Clearance 64 mL/min (70-130); Calcium 8.6 mg/dL (7.8-10.44); Carbon Dioxide 21 mmol/L (22-29); Chloride 110 mmol/L (98-107); Glucose 180 mg/dL (70-105); Magnesium 1.9 mg/dL (1.6-2.6); Potassium 3.9 mmol/L (3.5-5.1); Sodium 137 mmol/L (136-145)
[2021-03-14] MEDS: HumaLOG 300 UNITS/3 ML VIAL SC PRN (11:29)
[2021-03-14] MEDS ORDERED: Magnesium 2 GM/50 ML 2 GM in Premix Bag 1 BAG IVPB SCH (12:00)
[2021-03-14] MEDS: Sucralfate 1 GM TAB PO SCH ×2 (17:20→20:12)
[2021-03-14] MEDS ORDERED: Lidocaine 2% Viscous Solution 20 ML, Aluminum & Magnesium Hydroxide 30 ML, Donnatal Eli... SSW SCH (20:00)
[2021-03-15] MEDS: traMADol HCl 50 MG TAB PO PRN (00:58)
[2021-03-15 05:44] LABS: Anion Gap 9 mmol/L (10-20); BUN (Urea Nitrogen) 4 mg/dL (7.0-18.7); Calc. Creatinine Clearance 67 mL/min (70-130); Calcium 8.7 mg/dL (7.8-10.44); Carbon Dioxide 23 mmol/L (22-29); Chloride 108 mmol/L (98-107); Glucose 137 mg/dL (70-105); Potassium 3.9 mmol/L (3.5-5.1); Sodium 136 mmol/L (136-145)
[2021-03-15] MEDS: HumaLOG 300 UNITS/3 ML VIAL SC PRN (06:00)
[2021-03-15] MEDS: Enoxaparin Sodium 40 MG/0.4 ML SYRINGE SC SCH (07:49)
[2021-03-15] MEDS: Pantoprazole 40 MG VIAL IVP SCH (07:50)
[2021-03-15] MEDS: Gabapentin 300 MG CAP PO SCH ×3 (07:50→22:11)
[2021-03-15] MEDS: Sucralfate 1 GM TAB PO SCH ×4 (07:50→22:11)
[2021-03-15] MEDS: Lantus 1000 UNITS/10 ML VIAL SC SCH ×3 (07:51→22:15)
[2021-03-15] MEDS ORDERED: GUAIFENESIN SF SOLN 200 MG/10 ML UDCUP PO PRN (08:50)
[2021-03-15] MEDS ORDERED: Cepastat Lozenges 1 LOZ PO PRN (08:50)
[2021-03-15] MEDS ORDERED: Bisacodyl 5 MG TAB PO PRN (08:50)
[2021-03-15] MEDS ORDERED: Zolpidem Tartrate 5 MG TAB PO PRN (08:50)
[2021-03-15] MEDS ORDERED: Loperamide HCl 2 MG CAP PO PRN (08:50)
[2021-03-15] MEDS ORDERED: Benzonatate 100 MG CAP PO PRN (08:50)
[2021-03-15] MEDS ORDERED: Hydrocerin (Eucerin) Cream 120 gm Jar TOP PRN (08:50)
[2021-03-15] MEDS ORDERED: Sodium Chloride 0.65% Nasal 44 ML BOT EA NARE PRN (08:50)
[2021-03-15] MEDS ORDERED: Ondansetron ODT 4 MG TAB PO PRN (08:50)
[2021-03-15] MEDS ORDERED: Artificial Tear Sol 15 ML BOT EA EYE PRN (08:50)
[2021-03-15] MEDS ORDERED: Senokot S 8.6-50 MG TAB PO PRN (08:50)
[2021-03-15] MEDS ORDERED: Loratadine 10 MG TAB PO PRN (08:50)
[2021-03-15] MEDS: Morphine 4 MG/ML VIAL SLOW IVP PRN ×2 (08:51→20:26)
[2021-03-15] MEDS: HYDROcodone/Acetaminophen 5/325 mg Tablet PO PRN (10:20)
[2021-03-15] MEDS: Promethazine HCl 25 MG in Sodium Chloride 0.9% 50 ML IVPB PRN ×3 (11:15→23:54)
[2021-03-16 01:19] LABS: Troponin I 0.015 ng/mL (< 0.028)
[2021-03-16] MEDS: Morphine 4 MG/ML VIAL SLOW IVP PRN ×3 (02:20→19:44)
[2021-03-16] MEDS: Sucralfate 1 GM TAB PO SCH ×4 (07:38→21:45)
[2021-03-16] MEDS: traMADol HCl 50 MG TAB PO PRN (07:38)
[2021-03-16] MEDS: Gabapentin 300 MG CAP PO SCH ×3 (07:38→21:45)
[2021-03-16] MEDS: Enoxaparin Sodium 40 MG/0.4 ML SYRINGE SC SCH (07:39)
[2021-03-16] MEDS: Lantus 1000 UNITS/10 ML VIAL SC SCH ×2 (07:39→21:46)
[2021-03-16 07:41] LABS: #Eosinphils 0.1 thou/uL (0.0-0.7); #Lymphocytes 2.3 thou/uL (1.20-3.40); #Monocytes 0.4 thou/uL (0.11-0.59); %Basophils 0.3 % (0.0-1.0); %Eosinophils 2.8 % (0.0-10.0); %Lymphocytes 47.8 % (21.0-51.0); %Monocytes 8.1 % (0.0-10.0); Hemoglobin 8.7 g/dL (12.0-16.0); Mean Corpuscular HGB CONC 33.3 g/dL (32.0-36.0); Mean Corpuscular Hemoglobin 28.5 pg (27.0-31.0); Mean Corpuscular Volume 85.5 fL (78.0-98.0); Mean Platelet Volume 7.8 fL (7.4-10.4); Platelet Count 243 thou/uL (130-400); RBC Distribution Width 12.5 % (11.5-14.5); Red Blood Cell (RBC) Count 3.04 mill/uL (4.20-5.40); White Blood Cell (WBC) Count 4.8 thou/uL (4.8-10.8)
[2021-03-16 08:07] LABS: ALT (SGPT) 10 U/L (8-55); AST (SGOT) 21 U/L (5-34); Albumin 3.3 g/dL (3.5-5.0); Alkaline Phosphatase 60 U/L (40-110); Anion Gap 11 mmol/L (10-20); BUN (Urea Nitrogen) 13 mg/dL (7.0-18.7); Bilirubin, Total Less than 0.2 mg/dL (0.2-1.2); Calc. Creatinine Clearance 64 mL/min (70-130); Calcium 8.4 mg/dL (7.8-10.44); Carbon Dioxide 28 mmol/L (22-29); Chloride 103 mmol/L (98-107); Globulin 2.6 g/dL (2.4-3.5); Glucose 124 mg/dL (70-105); Magnesium 1.9 mg/dL (1.6-2.6); Phosphorus 3.7 mg/dL (2.3-4.7); Potassium 3.8 mmol/L (3.5-5.1); Protein, Total 5.9 g/dL (6.0-8.3); Sodium 138 mmol/L (136-145)
[2021-03-16] MEDS: HYDROcodone/Acetaminophen 5/325 mg Tablet PO PRN (10:58)
[2021-03-16] MEDS: Promethazine HCl 25 MG in Sodium Chloride 0.9% 50 ML IVPB PRN (21:14)
[2021-03-17] MEDS: HYDROcodone/Acetaminophen 5/325 mg Tablet PO PRN (00:48)
[2021-03-17] MEDS: traMADol HCl 50 MG TAB PO PRN (01:53)
[2021-03-17] MEDS: Morphine 4 MG/ML VIAL SLOW IVP PRN (03:30)
[2021-03-17] MEDS: HumaLOG 300 UNITS/3 ML VIAL SC PRN (06:21)
[2021-03-17 07:10] VITALS: BP 118/82; TEMP 97.5
[2021-03-17] MEDS: Sucralfate 1 GM TAB PO SCH ×2 (07:51→11:20)
[2021-03-17] MEDS: Gabapentin 300 MG CAP PO SCH (07:51)
[2021-03-17] MEDS: Lantus 1000 UNITS/10 ML VIAL SC SCH (07:51)
[2021-03-17] MEDS: Enoxaparin Sodium 40 MG/0.4 ML SYRINGE SC SCH (07:54)
== END 2021-03-17 14:26 | disposition home or self-care (01) | DRG 638 ==
LOC: ERS 22:56 → ERHOLD 03-12 00:18 → T4-B 03-12 14:44
PROVIDERS: ADMIT Internal Medicine; ATTEND Internal Medicine
DX: E10.10 Type 1 diabetes mellitus with ketoacidosis without coma (principal); N17.9 Acute kidney failure, unspecified; E44.0 Moderate protein-calorie malnutrition; Z68.1 Body mass index [BMI] 19.9 or less, adult; I10 Essential (primary) hypertension; K21.9 Gastro-esophageal reflux disease without esophagitis; F17.200 Nicotine dependence, unspecified, uncomplicated; E86.0 Dehydration; K20.90 Esophagitis, unspecified without bleeding; E83.42 Hypomagnesemia; E10.42 Type 1 diabetes mellitus with diabetic polyneuropathy; E10.43 Type 1 diabetes mellitus with diabetic autonomic (poly)neuropathy; F41.9 Anxiety disorder, unspecified; K31.84 Gastroparesis; Z79.4 Long term (current) use of insulin; Z79.899 Other long term (current) drug therapy
CPT/HCPCS: 36415; 36416; 80048; 80053; 83735; 84100; 84484; 85025; 90471; 90686; 90732; 93005; 93010; C9113; G0008; G0009; J0360; J1650; J1815; J2270; J2405; J2550; J3475; J3480